=== PATIENT | female | born 1945 | race Caucasian/White ===

== ENCOUNTER → 2017-02-22 | Outpatient (CLI) | payer OTHER ==
[~2017-02-22] MED LIST: ATV5 PO; DULO60CA44 PO; LISI-725 PO; SYN50 PO; TRAM-10 PO; WARF5TAB90 PO
[2017-02-22 12:18] LABS: BASO % 0.4 %; BASO ABS # 0.03 K/uL (0-0.2); COMPLETE YES; EOS % 2.6 %; HEMATOCRIT 40.2 % (37-47); IG% 0.3 %; LYMPH % 33.4 %; LYMPH ABS # 2.33 K/uL (1.2-3.4); MEAN CELL VOLUME 92.2 fL (80-100); MEAN CORPUSCULAR HGB CONC 32.6 g/dl (32-36); MEAN PLATELET VOLUME 10.9 fL (7.4-10.4); MONO % 7.9 %; NEUT % 55.4 %; PLATELET COUNT 259 K/uL (130-400); RED BLOOD COUNT 4.36 M/uL (4.2-5.4); WHITE BLOOD COUNT 6.97 K/uL (4.8-10.8)
[2017-02-22 12:30] LABS: BLOOD UREA NITROGEN 22 mg/dl (7-18); BUN/CREATININE RATIO 18.4 (10-20); CARBON DIOXIDE 27 mmol/L (21-32); CHLORIDE 107 mmol/L (98-107); CHOLESTEROL 184 mg/dl (0-200); GLUCOSE 90 mg/dl (70-99); POTASSIUM 4.3 mmol/L (3.5-5.1); SODIUM 141 mmol/L (136-145); TRIGLYCERIDES 103 mg/dl (0-150); VERY LOW DENSITY LIPOPROT CALC 21 mg/dl
[2017-02-22 12:39] LABS: CALCIUM 9.3 mg/dl (8.5-10.1)
[2017-02-22 12:40] LABS: CHOLESTEROL/HDL RATIO 3.2; HDL CHOLESTEROL 58 mg/dl; LDL CHOLESTEROL CALCULATED 105 mg/dl
== END | disposition home or self-care (01) ==
LOC: C.LAB 10:24
PROVIDERS: ATTEND Internal Medicine Geriatric Medicine
DX: E78.5 Hyperlipidemia, unspecified (principal); I10 Essential (primary) hypertension; E03.9 Hypothyroidism, unspecified; M48.06 Spinal stenosis, lumbar region; Z51.81 Encounter for therapeutic drug level monitoring; Z79.01 Long term (current) use of anticoagulants; Z86.711 Personal history of pulmonary embolism

== ENCOUNTER → 2017-08-01 | Outpatient (CLI) | payer OTHER ==
[~2017-08-01] MED LIST changes: -ATV5 PO
[2017-08-01 14:44] LABS: BASO % 0.2 %; BASO ABS # 0.02 K/uL (0-0.2); COMPLETE YES; EOS % 0.8 %; HEMATOCRIT 39.9 % (37-47); IG% 0.2 %; LYMPH % 40.7 %; LYMPH ABS # 3.39 K/uL (1.2-3.4); MEAN CELL VOLUME 94.3 fL (80-100); MEAN CORPUSCULAR HEMOGLOBIN 29.6 pg (25-34); MEAN CORPUSCULAR HGB CONC 31.3 g/dl (32-36); MEAN PLATELET VOLUME 10.9 fL (7.4-10.4); MONO % 6.3 %; NEUT % 51.8 %; PLATELET COUNT 276 K/uL (130-400); RED BLOOD COUNT 4.23 M/uL (4.2-5.4); WHITE BLOOD COUNT 8.32 K/uL (4.8-10.8)
[2017-08-01 15:23] LABS: ALT/SGPT 17 U/L (12-78); AST/SGOT 14 U/L (15-37); BLOOD UREA NITROGEN 27 mg/dl (7-18); BUN/CREATININE RATIO 24.3 (10-20); CALCIUM 9.6 mg/dl (8.5-10.1); CARBON DIOXIDE 27 mmol/L (21-32); CHLORIDE 109 mmol/L (98-107); CREATININE 1.11 mg/dl (0.60-1.20); GLUCOSE 88 mg/dl (70-99); POTASSIUM 4.2 mmol/L (3.5-5.1); SODIUM 141 mmol/L (136-145)
[2017-08-01 15:26] LABS: ALB/GLOB RATIO 0.7 (0.9-2); ALKALINE PHOSPHATASE 102 U/L (45-117)
== END | disposition home or self-care (01) ==
LOC: C.LAB 13:17
PROVIDERS: ATTEND Internal Medicine Hematology & Oncology
DX: C50.912 Malignant neoplasm of unspecified site of left female breast (principal)

== ENCOUNTER → 2017-08-14 | Outpatient (CLI) | payer OTHER ==
--- NOTE | 2017-08-16 08:14 | MAMMOGRAPHY REPORT ---
BILATERAL DIGITAL DIAGNOSTIC MAMMOGRAM TOMOSYNTHESIS WITH CAD: 08/14/2017 CLINICAL HISTORY: 71-year-old woman presents to reassess microcalcifications near the lumpectomy bed in the left upper outer quadrant, and also due for annual bilateral mammography. TECHNIQUE: Bilateral breast tomosynthesis in addition to standard 2D mammography was performed. 2-D right XCCL, spot magnification left CC and ML views were also obtained. Current study was also evalu ated with a Computer Aided Detection (CAD) system. COMPARISON: Comparison is made to exams dated: 08/13/2016 mammogram, 02/08/2016 mammogram, 08/10/2015 mammogram, 07/27/2015 mammogram, 07/26/2014 mammogram, and 07/24/2013 mammogram - [facility]. BREAST COMPOSITION: The tissue of both breasts is almost entirely fatty. FINDINGS: There is persistent 2 x 3 cm focal asymmetry with adjacent surgical clips and associated re ticular calcification in the upper outer middle to posterior left breast at the site of prior lumpect josephine. Based on the spot magnification views, the calcifications at the surgical site appear reticular and dystrophic, therefore considered benign as they have demonstrated no significant interval change dating back to 2014. There are mild vascular calcifications in both breasts. No new suspicious mas s, architectural distortion or cluster of microcalcifications is seen bilaterally. IMPRESSION: ACR BI-RADS CATEGORY 2: BENIGN Stable mammographic appearance of the left breast, including benign-appearing dystrophic calcificatio ns near the lumpectomy bed. Also stable mammographic appearance of the right breast. Overall, no ma mmographic evidence of malignancy bilaterally. Recommend routine screening tomosynthesis mammography in one year. These results and recommendations were discussed with the patient at the time of the exam. Approximately 10% of breast cancers are not detected with mammography. A negative mammographic report should not delay biopsy if a clinically suggestive mass is present. Zo Barbosa M.D. ay/:08/14/2017 12:03:44 Trimming Assembler: Andrea MEAD(Kayode)(M), [facility] letter sent: Normal 1/2 BI-RADS Code: ACR BI-RADS Category 2: Benign
== END | disposition home or self-care (01) ==
LOC: C.MAMM 11:18
PROVIDERS: ATTEND Internal Medicine Hematology & Oncology
DX: Z51.81 Encounter for therapeutic drug level monitoring (principal); I26.99 Other pulmonary embolism without acute cor pulmonale; Z79.01 Long term (current) use of anticoagulants; R92.1 Mammographic calcification found on diagnostic imaging of breast; Z98.890 Other specified postprocedural states

== ENCOUNTER → 2017-10-17 | Outpatient (CLI) | payer OTHER ==
[2017-10-17 14:51] LABS: MEAN CORPUSCULAR HGB CONC 31.9 g/dl (32-36); MEAN PLATELET VOLUME 11.6 fL (7.4-10.4); PLATELET COUNT 268 K/uL (130-400)
[2017-10-17 14:58] LABS: ALBUMIN 3.3 gm/dl (3.4-5.0); ALT/SGPT 17 U/L (12-78); AST/SGOT 18 U/L (15-37); BLOOD UREA NITROGEN 20 mg/dl (7-18); CALCIUM 8.9 mg/dl (8.5-10.1); CARBON DIOXIDE 26 mmol/L (21-32); CREATININE 0.98 mg/dl (0.60-1.20); GLUCOSE 86 mg/dl (70-99); POTASSIUM 3.9 mmol/L (3.5-5.1); SODIUM 139 mmol/L (136-145)
[2017-10-17 15:09] LABS: ALKALINE PHOSPHATASE 92 U/L (45-117)
[2017-10-17 15:37] LABS: HEMATOCRIT 38.2 % (37-47); HEMOGLOBIN 12.2 g/dL (12.0-16.0); MEAN CELL VOLUME 92.7 fL (80-100); MEAN CORPUSCULAR HEMOGLOBIN 29.6 pg (25-34); RED CELL DISTRIBUTION WIDTH CV 14.5 % (11.5-14.5); RED CELL DISTRIBUTION WIDTH SD 48.8 fL (36.4-46.3); WHITE BLOOD COUNT 7.16 K/uL (4.8-10.8)
== END | disposition home or self-care (01) ==
LOC: C.LAB 12:53
PROVIDERS: ATTEND Internal Medicine Geriatric Medicine
DX: I10 Essential (primary) hypertension (principal); M19.90 Unspecified osteoarthritis, unspecified site; E03.9 Hypothyroidism, unspecified; E04.1 Nontoxic single thyroid nodule; E78.5 Hyperlipidemia, unspecified; Z79.01 Long term (current) use of anticoagulants; M85.80 Other specified disorders of bone density and structure, unspecified site

== ENCOUNTER → 2017-10-24 | Outpatient (CLI) | payer OTHER ==
--- NOTE | 2017-10-24 14:43 | DIAGNOSTIC IMAGING REPORT ---
L HIP UNILATERAL 2 VIEWS CLINICAL HISTORY: Left leg pain. COMPARISON STUDY: None. FINDINGS: No fracture or dislocation within the left hip. Moderate cartilage space narrowing with subchondral sclerosis consistent with degenerative change within the left hip. The visualized pelvic bones are intact. Soft tissues are unremarkable. IMPRESSION: Moderate osteoarthritis within the left hip. No fractures. Electronically signed by: Ronald Baker M.D. 10/24/2017 2:41 PM Dictated Date/Time: 10/24/2017 2:39 PM
== END | disposition home or self-care (01) ==
LOC: C.RADBC 14:23
PROVIDERS: ATTEND Internal Medicine Geriatric Medicine
DX: M79.605 Pain in left leg (principal); M16.12 Unilateral primary osteoarthritis, left hip

== ENCOUNTER → 2017-12-24 | Day surgery (SDC) | payer OTHER ==
[2017-12-12 10:25] VITALS: Ht 154.9 cm; Wt 133.2 kg
[~2017-12-24] VITALS: Ht 154.9 cm; Wt 133.2 kg
[~2017-12-24] MED LIST changes: +ACETAMINOPHEN 325 MG TAB PO PRN; +AMVISC PLAIN 0.8ML SYRINGE INT OCU ONE; +AMVISC PLUS 0.8ML SYRINGE INT OCU ONE; +ATROPINE SULFATE 0.1 MG/ML 5ML SYR IV PRN; +BSS FLUSH ONE; +CHOL2000 PO; +CIPR0.3S4 OPL; +DICL1GEL12 TOP; +EpHEDrine SULFATE INJ 50 MG/ML AMP IV PRN; +EpINEphrine INJ 1MG/ML AMP 1 MG/ML AMP ONE; +FENTANYL CITRATE INJ 50 MCG/1 ML 2 ML VIAL IV PRN; +FLUMAZENIL 0.1 MG/1 ML 10 ML VIAL IV PRN; +HYDROmorphone INJ 2 MG/ML SYR/VIAL IV PRN; +KETOROLAC; +LABETALOL HCL IV 5 MG/ML 20ML IV PRN; +LACTATED RINGER'S 1000ML 500 ML IV SCH; +LEVO50TA6 PO; +LIDOCAINE 3.5% OPH GEL PER APPLICATION CHARGE ONE; +LIDOCAINE HCL 1% MPF 2 ML VIAL ONE; +MEPERIDINE HCL 25 MG/ML CARP IV PRN; +MIDAZOLAM HCL 1 MG/ML 2ML VIAL ONE; +NALOXONE HCL 0.4 MG/1 ML VIAL/CARP IV PRN; +OCUCOAT 1 ML SOLN IO ONE; +ONDANSETRON INJ 2 MG/ML 2 ML VIAL IV PRN; +PHENYLEPHRINE 100MCG/ML 5ML SYR IV PRN; +POVIDONE-IODINE OP SOLN 30 ML BTL ONE; +PRED1SUS3 OPL; +PROPARACAINE 0.5% OP SOLN PER DROP CHARGE OPL SCH; -SYN50 PO; +TOBRAMYCIN/DEXAMETHASONE OPH OINT PER APPLN CHARGE ONE; +[UNRECOGNIZED DRUG - OTHER]
--- NOTE | 2017-12-24 10:19 | History & Physical Bridge - SC ---
H&P Re-Evaluation Bridge Note: I have examined the patient, reviewed the History & Physical and in the interval since the performance of the History & Physical I have noted the following changes of clinical significance: Diagnosis: Left Cataract Procedure: Left Cataract Removal with Lens Implant No changes noted
[2017-12-24] MEDS: PHENYLEPHRINE HCL 2.5% OP SOLN PER DROP CHARGE OPL SCH ×2 (10:31→10:36)
[2017-12-24] MEDS: TROPICAMIDE 1% OP SOLN PER DROP CHARGE OPL SCH ×2 (10:32→10:37)
[2017-12-24] MEDS: CYCLOPENTOLATE HCL 1% OP SOLN PER DROP CHARGE OPL SCH ×2 (10:33→10:38)
[2017-12-24] MEDS: KETOROLAC 0.5% OP SOLN PER DROP CHARGE OPL SCH ×2 (10:34→10:39)
[2017-12-24] MEDS: GATIFLOXACIN OP SOLN PER DROP CHARGE OPL SCH ×2 (10:35→10:51)
--- NOTE | 2017-12-24 11:37 | [facility] Operative Report ---
Operative Report Date of Service Dec 24, 2017. Operative Report 1. PREOPERATIVE DIAGNOSIS: Cataract of the left eye. 2. POSTOPERATIVE DIAGNOSIS: Same. 3. PROCEDURE: Phacoemulsification with intraocular lens implantation of the left eye. SURGEON: Dr. Tom Escalante. ANESTHESIA: Topical Lidocaine gel, 1% Non- Preserved intracameral Lidocaine, and monitored intravenous sedation. INDICATIONS FOR THE PROCEDURE: The patient is a 72 - year-old female with a history of cataract of the left eye causing significant visual impairment. The details of the proposed procedure were explained to the patient who asked appropriate questions and following discussion of all risks, benefits and alternatives agreed to have the procedure done. Patient had corneal astigmatism and therefore elected to have a toric lens placed. 4. OPERATION AND FINDINGS: DESCRIPTION OF PROCEDURE: After informed consent was obtained, the patient was placed in an upright position and the cornea was marked at 165 degrees using the Treatsie corneal marking tool. The patient was brought to the Operating Room at the [facility]. The patient was placed in a supine position and then the left eye was prepped and draped in the usual sterile fashion for intraocular surgery. A drop of topical Lidocaine gel was placed in the operative eye. A wire lid speculum was then placed in the fornices. A corneal paracentesis was then created temporally. The Non-Preserved Lidocaine was then instilled into the anterior chamber. The anterior chamber was then pressurized with viscoelastic. A 2.0 mm clear corneal incision was then created temporally. A cystotome was inserted into the anterior chamber and used to create a tear in the anterior lens capsule. This capsular tear was then used to create a small flap and the flap was dragged in a counterclockwise direction in order to create a continuous curvilinear capsulorrhexis. Hydrodissection was accomplished with balanced salt solution. Phacoemulsification of the lens nucleus was then performed in a standard divide- and-conquer technique. The phaco time was 14 seconds with an average power of 10 %. The remaining cortical material was removed using irrigation aspiration. The capsular bag was then filled with viscoelastic. A Hugo [id number] +22.5 diopters lens was then loaded into the injector and injected into the capsular bag. The remaining viscoelastic was removed with the irrigation aspiration handpiece. The lens was aligned with the previously made corneal reyna. The wound was hydrated and then checked and found to be watertight. The intraocular pressure was checked and found to be adequate. The wire lid speculum was removed and the patient's face was cleaned and dried. TobraDex ointment was placed in the inferior fornix. The patient was discharged to the Recovery Room having tolerated the procedure well. There were no complications. The patient will be seen tomorrow in the office for follow-up. I attest to the content of the Intraoperative Record and any orders documented therein. Any exceptions are noted below.
--- NOTE | 2017-12-24 11:37 | Discharge Instructions-SurgCtr ---
Discharge Instructions Date of Service Dec 24, 2017. Visit Reason for Visit: Cataract Left Eye Discharge Discharge Diagnosis / Problem: cataract Discharge Goals Goal(s): Improve function Activity Recommendations Activity Limitations: per Instructions/Follow-up section Anesthesia . Post Anesthesia Instructions: If you have had General Anesthesia or IV Sedation: * Do not drive today. * Resume driving when surgeon permits. * Do not make important decisions or sign legal documents today. * Call surgeon for: 1. Temperature elevations greater than 101 degrees F. 2. Uncontrollable pain. 3. Excessive bleeding. 4. Persistent nausea and vomiting. 5. Medication intolerance (nausea, vomiting or rash). * For nausea and vomiting use only clear liquids such as: tea, soda, bouillon until nausea subsides, then gradually increase diet as tolerated. * If you have any concerns or questions, call your surgeon's office. If physician is unavailable and it is an emergency, call 911 or go to the nearest emergency room. . Diet Recommendations Home Diet: resume previous diet Procedures Procedures Performed: Left Cataract Phacoemulsification With Intraocular Lens Implant Pending Studies Studies pending at discharge: no Medical Emergencies . Who to Call and When: Medical Emergencies: If at any time you feel your situation is an emergency, please call 911 immediately. . Non-Emergent Contact Non-Emergency issues call your: Commodity Buyer . . "Provider Documentation" section prepared by Tom Escalante. .
[2017-12-24 11:40] VITALS: TEMP 36.8
--- NOTE | 2017-12-24 12:03 | Anesthesia Progress Nt - [facility] ---
Anesthesia Post Op Note Date & Time Dec 24, 2017 at 12:03 Vital Signs Pain Intensity: 0 Vital Signs Past 12 Hours Date Time Temp Pulse Resp B/P (MAP) Pulse Ox O2 Delivery O2 Flow Rate FiO2 12/24/17 11:40 36.8 84 16 146/78 (100) 96 Room Air 12/24/17 10:14 36.8 91 20 125/79 (94) 96 Room Air Notes Mental Status: alert / awake / arousable, participated in evaluation Pt Amnestic to Procedure: Yes Nausea / Vomiting: adequately controlled Pain: adequately controlled Airway Patency, RR, SpO2: stable & adequate BP & HR: stable & adequate Hydration State: stable & adequate Anesthetic Complications: no major complications apparent
[2017-12-24 12:09] VITALS: BP 131/76; PULSE 84; O2SAT 95
== END | disposition home or self-care (01) ==
LOC: X.SURG 09:55
PROVIDERS: ATTEND Ophthalmology
DX: H26.9 Unspecified cataract (principal); E66.9 Obesity, unspecified; I10 Essential (primary) hypertension; E03.9 Hypothyroidism, unspecified; E78.5 Hyperlipidemia, unspecified; Z85.3 Personal history of malignant neoplasm of breast; Z68.43 Body mass index [BMI] 50.0-59.9, adult; F41.8 Other specified anxiety disorders; Z98.890 Other specified postprocedural states; Z79.899 Other long term (current) drug therapy; Z79.01 Long term (current) use of anticoagulants

== ENCOUNTER → 2018-01-07 | Day surgery (SDC) | payer OTHER ==
[2018-01-02 14:30] VITALS: Ht 154.9 cm; Wt 133.2 kg
[~2018-01-07] VITALS: Ht 154.9 cm; Wt 133.2 kg
[~2018-01-07] MED LIST changes: +500ML BSS 0.3ML EPI 1:1000PF IRRIG ONE; -AMVISC PLAIN 0.8ML SYRINGE INT OCU ONE; -CIPR0.3S4 OPL; -FENTANYL CITRATE INJ 50 MCG/1 ML 2 ML VIAL IV PRN; -FLUMAZENIL 0.1 MG/1 ML 10 ML VIAL IV PRN; -HYDROmorphone INJ 2 MG/ML SYR/VIAL IV PRN; -KETOROLAC; -LABETALOL HCL IV 5 MG/ML 20ML IV PRN; -MEPERIDINE HCL 25 MG/ML CARP IV PRN; -NALOXONE HCL 0.4 MG/1 ML VIAL/CARP IV PRN; -PHENYLEPHRINE 100MCG/ML 5ML SYR IV PRN; -PRED1SUS3 OPL; -PROPARACAINE 0.5% OP SOLN PER DROP CHARGE OPL SCH; +PROPARACAINE 0.5% OP SOLN PER DROP CHARGE OPR SCH; -[UNRECOGNIZED DRUG - OTHER]
[2018-01-07] MEDS: PHENYLEPHRINE HCL 2.5% OP SOLN PER DROP CHARGE OPR SCH ×2 (08:54→08:59)
[2018-01-07] MEDS: TROPICAMIDE 1% OP SOLN PER DROP CHARGE OPR SCH ×2 (08:55→09:00)
[2018-01-07] MEDS: CYCLOPENTOLATE HCL 1% OP SOLN PER DROP CHARGE OPR SCH ×2 (08:56→09:01)
[2018-01-07] MEDS: KETOROLAC 0.5% OP SOLN PER DROP CHARGE OPR SCH ×2 (08:57→09:02)
[2018-01-07] MEDS: GATIFLOXACIN OP SOLN PER DROP CHARGE OPR SCH ×2 (08:58→09:10)
--- NOTE | 2018-01-07 09:25 | History & Physical Bridge - SC ---
H&P Re-Evaluation Bridge Note: I have examined the patient, reviewed the History & Physical and in the interval since the performance of the History & Physical I have noted the following changes of clinical significance: Diagnosis: Right Cataract Procedure: Right Cataract Removal with Lens Implant No changes noted
--- NOTE | 2018-01-07 10:01 | [facility] Operative Report ---
Operative Report Date of Service Jan 07, 2018. Operative Report 1. PREOPERATIVE DIAGNOSIS: Cataract of the right eye. 2. POSTOPERATIVE DIAGNOSIS: Same. 3. PROCEDURE: Phacoemulsification with intraocular lens implantation of the right eye. SURGEON: Dr. Tom Escalante. ANESTHESIA: Topical Lidocaine gel, 1% Non- Preserved intracameral Lidocaine, and monitored intravenous sedation. INDICATIONS FOR THE PROCEDURE: The patient is a 72 - year-old female with a history of cataract of the right eye causing significant visual impairment. The details of the proposed procedure were explained to the patient who asked appropriate questions and following discussion of all risks, benefits and alternatives agreed to have the procedure done. 4. OPERATION AND FINDINGS: DESCRIPTION OF PROCEDURE: After informed consent was obtained, the patient was brought to the Operating Room at the [facility]. The patient was placed in a supine position and then the right eye was prepped and draped in the usual sterile fashion for intraocular surgery. A drop of topical Lidocaine gel was placed in the operative eye. A wire lid speculum was then placed in the fornices. A corneal paracentesis was then created temporally. The Non-Preserved Lidocaine was then instilled into the anterior chamber. The anterior chamber was then pressurized with viscoelastic. A 2.0 mm clear corneal incision was then created temporally. A cystotome was inserted into the anterior chamber and used to create a tear in the anterior lens capsule. This capsular tear was then used to create a small flap and the flap was dragged in a counterclockwise direction in order to create a continuous curvilinear capsulorrhexis. Hydrodissection was accomplished with balanced salt solution. Phacoemulsification of the lens nucleus was then performed in a standard [id number] technique. The phaco time was 18 seconds with an average power of 11 %. The remaining cortical material was removed using irrigation aspiration. The capsular bag was then filled with viscoelastic. A Hugo [id number] +22.0 diopters lens was then loaded into the injector and injected into the capsular bag. The remaining viscoelastic was removed with the irrigation aspiration handpiece. The wound was hydrated and then checked and found to be watertight. The intraocular pressure was checked and found to be adequate. The wire lid speculum was removed and the patient's face was cleaned and dried. TobraDex ointment was placed in the inferior fornix. The patient was discharged to the Recovery Room having tolerated the procedure well. There were no complications. The patient will be seen tomorrow in the office for follow-up. I attest to the content of the Intraoperative Record and any orders documented therein. Any exceptions are noted below.
--- NOTE | 2018-01-07 10:02 | Discharge Instructions-SurgCtr ---
Discharge Instructions Date of Service Jan 07, 2018. Visit Reason for Visit: Cataract Right Eye Discharge Discharge Diagnosis / Problem: cataract Discharge Goals Goal(s): Improve function Activity Recommendations Activity Limitations: per Instructions/Follow-up section Anesthesia . Post Anesthesia Instructions: If you have had General Anesthesia or IV Sedation: * Do not drive today. * Resume driving when surgeon permits. * Do not make important decisions or sign legal documents today. * Call surgeon for: 1. Temperature elevations greater than 101 degrees F. 2. Uncontrollable pain. 3. Excessive bleeding. 4. Persistent nausea and vomiting. 5. Medication intolerance (nausea, vomiting or rash). * For nausea and vomiting use only clear liquids such as: tea, soda, bouillon until nausea subsides, then gradually increase diet as tolerated. * If you have any concerns or questions, call your surgeon's office. If physician is unavailable and it is an emergency, call 911 or go to the nearest emergency room. . Diet Recommendations Home Diet: resume previous diet Procedures Procedures Performed: Right Cataract Phacoemulsification With Intraocular Lens Implant Pending Studies Studies pending at discharge: no Medical Emergencies . Who to Call and When: Medical Emergencies: If at any time you feel your situation is an emergency, please call 911 immediately. . Non-Emergent Contact Non-Emergency issues call your: Vehicle Safety Inspector . . "Provider Documentation" section prepared by Tom Escalante. .
[2018-01-07 10:28] VITALS: BP 151/77; PULSE 77; O2SAT 96
--- NOTE | 2018-01-07 10:39 | Anesthesia Progress Nt - [facility] ---
Anesthesia Post Op Note Date & Time Jan 07, 2018 at 10:39 Vital Signs Pain Intensity: 0 Vital Signs Past 12 Hours Date Time Temp Pulse Resp B/P (MAP) Pulse Ox O2 Delivery O2 Flow Rate FiO2 01/07/18 10:28 77 16 151/77 (101) 96 Room Air 01/07/18 10:01 36.8 80 16 150/71 (97) 95 Room Air 01/07/18 08:44 37.2 82 20 147/74 (98) 96 Room Air Notes Mental Status: alert / awake / arousable, participated in evaluation Pt Amnestic to Procedure: Yes Nausea / Vomiting: adequately controlled Pain: adequately controlled Airway Patency, RR, SpO2: stable & adequate BP & HR: stable & adequate Hydration State: stable & adequate Anesthetic Complications: no major complications apparent
== END | disposition home or self-care (01) ==
LOC: X.SURG 08:18
PROVIDERS: ATTEND Ophthalmology
DX: H26.9 Unspecified cataract (principal); I10 Essential (primary) hypertension; M19.90 Unspecified osteoarthritis, unspecified site; F41.8 Other specified anxiety disorders; E03.9 Hypothyroidism, unspecified; M85.80 Other specified disorders of bone density and structure, unspecified site; E78.5 Hyperlipidemia, unspecified; Z86.711 Personal history of pulmonary embolism; Z79.01 Long term (current) use of anticoagulants; Z68.43 Body mass index [BMI] 50.0-59.9, adult; Z85.3 Personal history of malignant neoplasm of breast

== ENCOUNTER 2019-05-10 19:35 | Inpatient (IN) ==
[2019-05-10] MEDS ORDERED: ONDANSETRON INJ 2 MG/ML 2 ML VIAL IV STA (19:41)
[2019-05-10] MEDS: MoRPHine SULFATE 4 MG/ML 1 ML CARP\\VIAL IV PRN ×3 (19:55→23:21)
[2019-05-10 20:11] LABS: Basophils # (auto) 0.01 K/uL (0-0.2); Basophils % (auto) 0.1 %; Eosinophils # (auto) 0.03 K/uL (0-0.5); Eosinophils % (auto) 0.3 %; Hematocrit (blood only) 38.3 % (37-47); Hemoglobin 12.4 g/dL (12.0-16.0); Immature Granulocytes # (auto) 0.03 K/uL (0.00-0.02); Immature Granulocytes % (auto) 0.3 %; Lymphocytes # (auto) 1.55 K/uL (1.2-3.4); Lymphocytes % (auto) 13.5 %; Mean Corpuscular Hgb Conc 32.4 g/dL (32-36); Mean Corpuscular Volume 92.7 fL (80-100); Mean Platelet Volume 11.3 fL (7.4-10.4); Monocytes # (auto) 0.57 K/uL (0.11-0.59); Monocytes % (auto) 4.9 %; Neutrophils # (auto) 9.33 K/uL (1.4-6.5); Neutrophils % (auto) 80.9 %; Platelet Count 254 K/uL (130-400); RDW Coefficient of Variation 13.7 % (11.5-14.5); Red Blood Count 4.13 M/uL (4.2-5.4); White Blood Count 11.52 K/uL (4.8-10.8)
[2019-05-10 20:22] LABS: Partial Thromboplastin Ratio 1.1; Partial Thromboplastin Time 29.8 Seconds (21.0-31.0); Prothrombin Time 19.8 Seconds (9.0-12.0)
[2019-05-10 20:28] LABS: Blood Urea Nitrogen 38 mg/dl (7-18); Calcium 9.6 mg/dl (8.5-10.1); Carbon Dioxide 27 mmol/L (21-32); Chloride 108 mmol/L (98-107); Creatinine Clr Calc Pharmacy 42.6 ml/min; Est GFR (African American) 43.4; Est GFR (Non-African American) 37.4; Glucose 121 mg/dl (70-99); Potassium 4.4 mmol/L (3.5-5.1); Sodium 142 mmol/L (136-145)
[2019-05-10 20:32] LABS: Troponin I < 0.015 ng/ml (0-0.045)
--- NOTE | 2019-05-10 20:42 | XRay Report ---
XR knee LT 2V routine CLINICAL HISTORY: fall trauma. Pain. COMPARISON: 07/04/2018 DISCUSSION: Total left knee arthroplasty. Could contact between prosthetic and underlying bone. No evidence for fracture. No significant joint effusion. There is no evidence for soft tissue swellin g. IMPRESSION: Negative study post total left knee arthroplasty. The above report was generated using voice recognition software. It may contain grammatical, syntax or spelling errors. Electronically signed by: Augusto Camarillo M.D. 05/10/2019 8:40 PM
--- NOTE | 2019-05-10 20:42 | XRay Report ---
XR chest 1V portable CLINICAL HISTORY: fall trauma COMPARISON STUDY: 04/29/2006 FINDINGS: The bones soft tissues and hemidiaphragms are normal. The cardiomediastinal silhouette is n ormal. The lungs are clear. The pulmonary vasculature is normal. IMPRESSION: Negative chest. The above report was generated using voice recognition software. It may contain grammatical, syntax or spelling errors. Electronically signed by: Augusto Camarillo M.D. 05/10/2019 8:39 PM
--- NOTE | 2019-05-10 21:05 | XRay Report ---
XR femur LT 2V routine CLINICAL HISTORY: fall COMPARISON: None. DISCUSSION: Severe degenerative change left hip. Substance loss of the femoral head on a degenerative basis. No acute bony normality of the femur. Total left knee arthroplasty is present. There is no evidence f or soft tissue swelling. IMPRESSION: 1. No acute bony abnormality. 2. Severe degenerative change left hip. The above report was generated using voice recognition software. It may contain grammatical, syntax or spelling errors. Electronically signed by: Augusto Camarillo M.D. 05/10/2019 9:03 PM
[2019-05-10] MEDS ORDERED: OPTIRAY 320 125ml IV PRN (21:38)
--- NOTE | 2019-05-10 22:11 | CT Scan Report ---
Study: CT angiogram of the femur HISTORY:: Trauma. The. FINDINGS: Severe degenerative changes left hip. This has been described previously. Extensive atherosclerotic plaque formation throughout all major arterial structures of the left thigh . No evidence for high-grade stenotic process. IMPRESSION: 1. Extensive atherosclerotic plaque formation. 2. No evidence for significant stenosis. 3. Severe degenerative change left hip. Electronically signed by: Augusto Camarillo M.D. 05/10/2019 10:10 PM
[2019-05-10 22:17] LABS: Appearance Urine Clear (Clear); Bacteria Urine Automated Negative (Negative); Bilirubin Urine Negative (Negative); Blood Urine 1+ (Negative); Color Urine Yellow; Epithelial Cell Urine Auto 20-30 /lpf (0-5); Glucose Urine UA Negative (Negative); Ketones Urine Negative (Negative); Leukocyte Esterase Urine Negative (Negative); Nitrite Urine Negative (Negative); Protein Urine Negative (Negative); RBC Urine Automated 0-4 /hpf (0-4); Specific Gravity Urine 1.019 (1.000-1.030); Urobilinogen Urine Negative (Negative); WBC Urine Automated 0 /hpf (0-5)
--- NOTE | 2019-05-10 22:22 | CT Scan Report ---
Study: CT angiography of the lower leg HISTORY: Trauma. Claudication. Pain. FINDINGS: Extensive atherosclerotic plaque from aeration is noted throughout the left lower leg. Thre e-vessel runoff is present. Flow characteristics appear somewhat dampened. There is no evidence for c omplete vascular occlusion. IMPRESSION:. 1. Extensive plaque formation throughout all major vascular structures of the lower leg. 2. Dampened flow characteristics are present, presumably on an atherosclerotic basis. 3. There is no evidence for complete vascular occlusion of any primary vessel of the lower leg, altho ugh moderate to rather significant multilevel atherosclerotic narrowing is present. Electronically signed by: Augusto Camarillo M.D. 05/10/2019 10:20 PM
--- NOTE | 2019-05-10 22:46 | Emergency Department Note ---
Entered by Cammy Mcghee acting as a scribe for Santiago Maher DO History of Present Illness General Chief complaint: Knee Injury/Pain Time Seen by Provider: 05/10/19 19:37 Source: patient Mode of arrival: ambulatory Limitations: no limitations History of Present Illness Provider complaint: left knee pain Onset (ago): hour(s) 3 Location: knee and left Pain Consistency: + other (episode ) Relieved By: + movement Associated symptoms: + other (numbness in left leg and foot) Treatments prior to arrival: none The patient is a 73 year old female who presents to the ED with complaints of an episode of left knee pain that began 3 hours ago. The patient states that she feels pain in in the inside of her left knee. The patient states that her left leg and foot are starting to feel numb. The patient states that she was walking from the kitchen to her dining room when she fell on her knee around 1630 this evening. The patient states that the pain is exacerbated by movement. She states that she had a left total knee replacement [address] Osorio. The patient states that she had ice cream 2 hours ago. The patient states that she had nothing prior to arrival. Home Medications Home Medications Medication Instructions Recorded Confirmed Type diclofenac 1 % topical gel 2 gm TOP QID 06/12/18 05/10/19 History lisinopril 20 mg tablet 20 mg PO QAM tab 06/12/18 05/10/19 History fesoterodine ER 4 mg 4 mg PO DAILY #30 tab 02/24/19 05/10/19 Rx tablet,extended release 24 hr levothyroxine 50 mcg capsule 50 mcg PO DAILY #90 cap 03/04/19 05/10/19 Rx baclofen 10 mg tablet 10 mg PO BID #60 tab 03/18/19 05/10/19 History warfarin 5 mg tablet See Rx Instructions PO UD tab 03/18/19 05/10/19 History pravastatin 10 mg tablet 10 mg PO DAILY #90 tab 04/16/19 05/10/19 Rx gabapentin 300 mg capsule 300 mg PO TID #90 cap 04/22/19 05/10/19 Rx cholecalciferol (vitamin D3) 1,000 1,000 units PO DAILY cap 05/08/19 05/10/19 History unit capsule duloxetine 60 mg capsule,delayed 60 mg PO HS cap 05/08/19 05/10/19 History release solifenacin 5 mg tablet 5 mg PO DAILY 05/08/19 05/10/19 History tramadol 50 mg tablet 100 mg PO Q6H PRN tab 05/08/19 05/10/19 History Allergies Allergy/AdvReac Type Severity Reaction Status Date / Time atorvastatin Allergy Unknown Verified 05/10/19 20:15 calcium Allergy CAUSES Verified 05/10/19 20:15 KIDNEY STONES docosahexanoic acid Allergy Unknown Verified 05/10/19 20:15 [From [facility]] eicosapentaenoic acid Allergy Unknown Verified 05/10/19 20:15 [From [facility]] fish oil Allergy Unknown Verified 05/10/19 20:15 [From [facility]] lutein Allergy Unknown Verified 05/10/19 20:15 [From [facility]] omega-3 fatty acids Allergy Unknown Verified 05/10/19 20:15 [From [facility]] pravastatin Allergy Unknown Verified 05/10/19 20:15 vitamin C, E, zinc, copper Allergy Unknown Verified 05/10/19 20:15 combination no.11 [From [facility]] zeaxanthin Allergy Unknown Verified 05/10/19 20:15 [From [facility]] Past Med/Surg History Medical History BMI 50.0-59.9, adult (Acute) Cataract (Acute) Chronic anticoagulation (Acute) Depression with anxiety (Acute) Dyslipidemia (Acute) Goiter diffuse, nontoxic (Acute) History of pulmonary embolism (Resolved) History of breast cancer (Resolved) Insomnia (Acute) Joint pain, hip (Acute) Lumbar radiculopathy (Acute) Osteoarthritis (Acute) Osteopenia (Acute) Thyroid nodule (Acute) Urinary incontinence (Acute) Vitamin D deficiency (Acute) Left lumbar radiculitis (Chronic) Myofascial pain (Chronic) Lumbar spinal stenosis (Chronic) Severe multifactorial multilevel most prominent at L2-3 and L3-4 on MRI dated 03/05/2016 Left hip pain (Chronic) Arthritis (Chronic) Depression (Chronic) Hypertension (Chronic) Hypothyroidism (Chronic) Obesity (Chronic) Pulmonary embolism (Chronic) Chronic Coumadin treatment History of breast cancer (Resolved) Surgical History H/O lumbosacral spine surgery (Resolved) History of lumpectomy (Resolved) Hx of cholecystectomy (Resolved) Hx of total knee arthroplasty (Resolved) Family History Other No significant family history Social History Preferred Language: Turkish Feels Safe at Home: Yes Smoking Status: Never smoker Review of Systems See HPI for pertinent positives & negatives. and A total of 10 systems reviewed and were otherwise negative Physical Exam Vital Signs Vital Signs - 24 hr 05/10/19 19:23 05/10/19 19:37 05/10/19 20:08 Temperature 36.9 C Temperature Source Oral Sepsis Recent Fever Within 48 Hours No Sepsis Action Taken by Nursing No Action Required Pulse Rate 108 H 105 H 102 H Pulse Rate from SpO2 Sensor 104 H 102 H Respiratory Rate 22 26 H 26 H Respiratory Effort / Characteristics Normal for Patient Blood Pressure 171/66 H 171/66 H Blood Pressure Mean 101 101 Blood Pressure Position Lying Pulse Oximetry 95 97 98 Oxygen Delivery Method Room Air 05/10/19 20:30 05/10/19 20:37 05/10/19 20:38 Temperature Temperature Source Sepsis Recent Fever Within 48 Hours Sepsis Action Taken by Nursing Pulse Rate 105 H 99 H Pulse Rate from SpO2 Sensor 104 H 97 H 98 H Respiratory Rate 27 H 24 15 Respiratory Effort / Characteristics Blood Pressure 133/93 Blood Pressure Mean 106 Blood Pressure Position Pulse Oximetry 90 94 89 L Oxygen Delivery Method 05/10/19 21:00 05/10/19 21:52 05/10/19 22:00 Temperature Temperature Source Sepsis Recent Fever Within 48 Hours Sepsis Action Taken by Nursing Pulse Rate 100 H 99 H 99 H Pulse Rate from SpO2 Sensor 100 H 100 H 99 H Respiratory Rate 23 18 20 Respiratory Effort / Characteristics Blood Pressure 163/68 H Blood Pressure Mean 99 Blood Pressure Position Pulse Oximetry 93 93 92 Oxygen Delivery Method 05/10/19 22:03 Temperature Temperature Source Sepsis Recent Fever Within 48 Hours Sepsis Action Taken by Nursing Pulse Rate 99 H Pulse Rate from SpO2 Sensor 99 H Respiratory Rate 29 H Respiratory Effort / Characteristics Blood Pressure 152/75 H Blood Pressure Mean 100 Blood Pressure Position Pulse Oximetry 93 Oxygen Delivery Method GENERAL: Patient is awake, alert, and in no acute distress.Patient is anxious appearing and uncomfortable. EYES: The conjunctivae are clear. The pupils are round and reactive. EARS, NOSE, MOUTH AND THROAT: The nose is without any evidence of any deformity. Mucous membranes are moist.Tongue is midline NECK: The neck is nontender and supple. RESPIRATORY: Normal respiratory effort is noted. There is no evidence of wheezing rhonchi or rales to auscultation. CARDIOVASCULAR: Regular rate and rhythm noted. There no murmurs rubs or gallops normal S1 normal S2 GASTROINTESTINAL: The abdomen is soft. Bowel sounds are present in all quadrants. Abdomen is nontender. MUSCULOSKELETAL/EXTREMITIES: There is no evidence of gross deformity. Full range of motion is noted in the hips and shoulders. Significant deformity and shortening of the left lower extremity, significant knee swelling appreciated with ecchymosis, ROM of testing of the left knee was deferred at this time. SKIN: There is no obvious evidence of any rash. There are no petechiae, pallor or cyanosis noted. No pedal edema, pulses were palpable in the left foot, skin color was cold and capillary refill was delayed. NEUROLOGIC: Patient is awake alert and oriented x3. Course 1938: Past medical records reviewed. The patient was evaluated in room C6. A complete history and physical exam was performed. 1033: I reevaluated the patient at this time and she is unable to move her left hip. The hospice case manager are going to look into making a referral to rehab for the patient. 2317: The leather case finisher informed me that the patient asked to be admitted for pain management. 2328: I [facility] the [facility] agreed to evaluate the patient for further management. Administered Medications Ioversol (Optiray 320 125ml) 120 ml IV ONCE PRN PRN Reason: Interaction Checking Stop: 05/14/19 21:37 Last Admin: 05/10/19 21:38 Dose: 120 ml Documented by: [id number] Morphine Sulfate (Morphine Sulfate) 4 mg IV Q15M PRN PRN Reason: Pain Stop: 05/24/19 19:40 Last Admin: 05/10/19 23:21 Dose: 4 mg Documented by: [id number] Admin: 05/10/19 20:38 Dose: 4 mg Documented by: [id number] Admin: 05/10/19 19:55 Dose: 4 mg Documented by: [id number] Discontinued Medications Ondansetron HCl (Zofran) 4 mg IV NOW STA Stop: 05/10/19 19:42 Last Admin: 05/10/19 19:55 Dose: 4 mg Documented by: [id number] Medical Decision Making Differential Diagnosis Differential diagnosis: Etiologies such as fracture, cervical/vertebral injury, dislocation, intra-abdominal process, pneumothorax, intrathoracic trauma, intracranial injury, soft tissue injury, neurologic process, as well as other traumatic pathologies were entertained. Medical Records Attestation: I reviewed the patient's medical records. Home Medications Current Medication List: was personally reviewed by fl Laboratory Data Attestation: I reviewed the patient's lab results. Result diagrams: 05/10/19 19:47 05/10/19 19:47 Lab Results 05/10/19 05/10/19 05/10/19 Range/Units 19:47 19:47 19:47 WBC 11.52 H (4.8-10.8) K/uL RBC 4.13 L (4.2-5.4) M/uL Hgb 12.4 (12.0-16.0) g/dL Hct 38.3 (37-47) % MCV 92.7 (80-100) fL MCH 30.0 (25-34) pg MCHC 32.4 (32-36) g/dL RDW Std Deviation 46.0 (36.4-46.3) fL RDW Coeff of Marii 13.7 (11.5-14.5) % Plt Count 254 (130-400) K/uL MPV 11.3 H (7.4-10.4) fL Immature Gran % (Auto) 0.3 % Neut % (Auto) 80.9 % Lymph % (Auto) 13.5 % Isabella % (Auto) 4.9 % Eos % (Auto) 0.3 % Baso % (Auto) 0.1 % Immature Gran # (Auto) 0.03 H (0.00-0.02) K/uL Neut # (Auto) 9.33 H (1.4-6.5) K/uL Lymph # (Auto) 1.55 (1.2-3.4) K/uL Isabella # (Auto) 0.57 (0.11-0.59) K/uL Eos # (Auto) 0.03 (0-0.5) K/uL Baso # (Auto) 0.01 (0-0.2) K/uL PT 19.8 H (9.0-12.0) Seconds INR 2.0 H (0.9-1.1) APTT 29.8 (21.0-31.0) Seconds PTT Ratio 1.1 Sodium 142 (136-145) mmol/L Potassium 4.4 (3.5-5.1) mmol/L Chloride 108 H (98-107) mmol/L Carbon Dioxide 27 (21-32) mmol/L Anion Gap 7.0 (3-11) BUN 38 H (7-18) mg/dl Creatinine 1.40 H (0.6-1.2) mg/dl Est Cr Clr Drug Dosing 42.6 ml/min Est GFR ( Amer) 43.4 Est GFR (Non-Af Amer) 37.4 BUN/Creatinine Ratio 27.0 H (10-20) Glucose 121 H (70-99) mg/dl Calcium 9.6 (8.5-10.1) mg/dl Troponin I < 0.015 (0-0.045) ng/ml Urine Color Urine Appearance (Clear) Urine pH (4.5-7.5) Ur Specific Horseheads (1.000-1.030) Urine Protein (Negative) Urine Glucose (UA) (Negative) Urine Ketones (Negative) Urine Blood (Negative) Urine Nitrite (Negative) Urine Bilirubin (Negative) Urine Urobilinogen (Negative) Ur Leukocyte Esterase (Negative) Urine WBC (Auto) (0-5) /hpf Urine RBC (Auto) (0-4) /hpf U Hyaline Cast (Auto) (0-5) /lpf U Epithel Cells (Auto) (0-5) /lpf Urine Bacteria (Auto) (Negative) Blood Type Antibody Screen 05/10/19 05/10/19 Range/Units 19:47 22:00 WBC (4.8-10.8) K/uL RBC (4.2-5.4) M/uL Hgb (12.0-16.0) g/dL Hct (37-47) % MCV (80-100) fL MCH (25-34) pg MCHC (32-36) g/dL RDW Std Deviation (36.4-46.3) fL RDW Coeff of Marii (11.5-14.5) % Plt Count (130-400) K/uL MPV (7.4-10.4) fL Immature Gran % (Auto) % Neut % (Auto) % Lymph % (Auto) % Isabella % (Auto) % Eos % (Auto) % Baso % (Auto) % Immature Gran # (Auto) (0.00-0.02) K/uL Neut # (Auto) (1.4-6.5) K/uL Lymph # (Auto) (1.2-3.4) K/uL Isabella # (Auto) (0.11-0.59) K/uL Eos # (Auto) (0-0.5) K/uL Baso # (Auto) (0-0.2) K/uL PT (9.0-12.0) Seconds INR (0.9-1.1) APTT (21.0-31.0) Seconds PTT Ratio Sodium (136-145) mmol/L Potassium (3.5-5.1) mmol/L Chloride (98-107) mmol/L Carbon Dioxide (21-32) mmol/L Anion Gap (3-11) BUN (7-18) mg/dl Creatinine (0.6-1.2) mg/dl Est Cr Clr Drug Dosing ml/min Est GFR ( Amer) Est GFR (Non-Af Amer) BUN/Creatinine Ratio (10-20) Glucose (70-99) mg/dl Calcium (8.5-10.1) mg/dl Troponin I (0-0.045) ng/ml Urine Color Yellow Urine Appearance Clear (Clear) Urine pH 5.0 (4.5-7.5) Ur Specific [place] 1.019 (1.000-1.030) Urine Protein Negative (Negative) Urine Glucose (UA) Negative (Negative) Urine Ketones Negative (Negative) Urine Blood 1+ H (Negative) Urine Nitrite Negative (Negative) Urine Bilirubin Negative (Negative) Urine Urobilinogen Negative (Negative) Ur Leukocyte Esterase Negative (Negative) Urine WBC (Auto) 0 (0-5) /hpf Urine RBC (Auto) 0-4 (0-4) /hpf U Hyaline Cast (Auto) 1-5 (0-5) /lpf U Epithel Cells (Auto) 20-30 H (0-5) /lpf Urine Bacteria (Auto) Negative (Negative) Blood Type A Positive Antibody Screen NEGATIVE Imaging Data Radiologist's Impression: Radiology results as stated below per my review and t he radiologist's interpretation: XR chest 1V portable CLINICAL HISTORY: fall trauma COMPARISON STUDY: 04/29/2006 FINDINGS: The bones soft tissues and hemidiaphragms are normal. The cardiomediastinal silhouette is normal. The lungs are clear. The pulmonary vasculature is normal. IMPRESSION: Negative chest. The above report was generated using voice recognition software. It may contain grammatical, syntax or spelling errors. Electronically signed by: Augusto Camarillo M.D. 05/10/2019 8:39 PM XR knee LT 2V routine CLINICAL HISTORY: fall trauma. Pain. COMPARISON: 07/04/2018 DISCUSSION: Total left knee arthroplasty. Could contact between prosthetic and underlying bone. No evidence for fracture. No significant joint effusion. There is no evidence for soft tissue swelling. IMPRESSION: Negative study post total left knee arthroplasty. The above report was generated using voice recognition software. It may contain grammatical, syntax or spelling errors. Electronically signed by: Augusto Camarillo M.D. 05/10/2019 8:40 PM XR femur LT 2V routine CLINICAL HISTORY: fall COMPARISON: None. DISCUSSION: Severe degenerative change left hip. Substance loss of the femoral head on a degenerative basis. No acute bony normality of the femur. Total left knee arthroplasty is present. There is no evidence for soft tissue swelling. IMPRESSION: 1. No acute bony abnormality. 2. Severe degenerative change left hip. The above report was generated using voice recognition software. It may contain grammatical, syntax or spelling errors. Electronically signed by: Augusto Camarillo M.D. 05/10/2019 9:03 PM Study: CT angiography of the lower leg HISTORY: Trauma. Claudication. Pain. FINDINGS: Extensive atherosclerotic plaque from aeration is noted throughout the left lower leg. Three-vessel runoff is present. Flow characteristics appear somewhat dampened. There is no evidence for complete vascular occlusion. IMPRESSION:. 1. Extensive plaque formation throughout all major vascular structures of the lower leg. 2. Dampened flow characteristics are present, presumably on an atherosclerotic basis. 3. There is no evidence for complete vascular occlusion of any primary vessel of the lower leg, although moderate to rather significant multilevel atherosclerotic narrowing is present. Electronically signed by: Augusto Camarillo M.D. 05/10/2019 10:20 PM Study: CT angiogram of the femur HISTORY:: Trauma. The. FINDINGS: Severe degenerative changes left hip. This has been described previously. Extensive atherosclerotic plaque formation throughout all major arterial structures of the left thigh. No evidence for high-grade stenotic process. IMPRESSION: 1. Extensive atherosclerotic plaque formation. 2. No evidence for significant stenosis. 3. Severe degenerative change left hip. Electronically signed by: Augusto Camarillo M.D. 05/10/2019 10:10 PM ECG Data Attestation: I personally reviewed and interpreted this ECG as follows: Indication: other (left knee pain ) Rate (beats per minute): 101 Rhythm: sinus tachycardia Findings: no PAC, no PVC, no ST depression, no ST elevation, no acute ischemic change and no ectopy Comparison ECG Date: from (08/23/2009) Change: no significant change Blood Pressure Blood Pressure Findings: Elevated blood pressure Blood Pressure Disposition: Referred to patients primary care provider [facility] Narrative The patient is a 73-year-old female who presented to the emergency department after a fall. The patient fell injuring her left leg. She has significant swelling and pain as well as ecchymosis over her left knee. Range of motion testing was very limited secondary to pain and swelling. The patient has a history of knee replacement in the past. I was concerned the patient may have suffered a fracture but plain x-rays did not reveal any definite fracture. For this reason CT angiography of the lower extremity was obtained. No fracture or dislocation was noted. There also appeared to be no acute arterial occlusion. There was significant atherosclerotic changes to the lower extremity arterial vessels. The patient was treated with pain medication in the emergency department. She was also placed in a splint. She still had significant pain and difficulty ambulating. For this reason I discussed her case with the emergency department leather case finisher. Consideration was made for referral for inpatient rehab but I do feel this would be an excellent plan at this time. After the patient was evaluated by the leather case finisher she was still having very significant pain requiring more parenteral pain management. For this reason the patient was felt to be a better candidate for observation for pain management. I discussed this case with the on-call [facility] hospitalist group. Impression & Plan Fall, Contusion of knee, left, Traumatic hematoma of left knee, Peripheral arterial disease Discharge Plan Visit Data Chief Complaint: Knee Injury/Pain ED Provider: Santiago Maher Discharge Problem: Fall, Contusion of knee, left, Traumatic hematoma of left knee, Peripheral arterial disease Forms Stand Alone Forms: My [facility] Prescriptions Prescriptions: No Action diclofenac sodium [Voltaren] 1 % gel 2 gm TOP QID RF: 0 lisinopril 20 mg tablet 20 mg PO QAM RF: 0 duloxetine 60 mg capsule,delayed release(DR/EC) 60 mg PO HS RF: 0 warfarin 5 mg tablet See Patient Comments PO UD RF: 0 Toviaz 4 mg tablet extended release 24 hr 4 mg PO DAILY Qty: 30 RF: 2 levothyroxine 50 mcg capsule 50 mcg PO DAILY Qty: 90 RF: 1 pravastatin 10 mg tablet 10 mg PO DAILY Qty: 90 RF: 3 gabapentin 300 mg capsule 300 mg PO TID Qty: 90 RF: 2 baclofen 10 mg tablet 10 mg PO BID Qty: 60 RF: 0 tramadol 50 mg tablet 100 mg PO Q6H PRN (Reason: pain) RF: 0 solifenacin [Vesicare] 5 mg tablet 5 mg PO DAILY RF: 0 cholecalciferol (vitamin D3) 1,000 unit capsule 1,000 units PO DAILY RF: 0 Discharge Problem: Fall Qualifiers: Encounter type: initial encounter Qualified Code(s): W19.XXXA - Unspecified fall, initial encounter Contusion of knee, left Qualifiers: Encounter type: initial encounter Qualified Code(s): S80.02XA - Contusion of left knee, initial encounter Traumatic hematoma of left knee Qualifiers: Encounter type: initial encounter Qualified Code(s): S80.02XA - Contusion of left knee, initial encounter The scribe's documentation has been prepared under my direction and personally reviewed by me in its entirety. I confirm that the note above accurately reflects all work, treatment, procedures, and medical decision making performed by me.
--- NOTE | 2019-05-11 01:15 | History & Physical Report ---
Date of Service May 11, 2019 Assessment & Plan (1) Fall: 73-year-old female was admitted on 11 May 2019 for left knee and hip pain following a fall. Left knee pain and contusion, left hip pain: Status post mechanical fall earlier in evening. Has some developing swelling and bruising. Is on Coumadin for PEs. Followed in pain management clinic for multiple back issues. Last L3-L4 epidural steroid injection was in January 2019. - In ED, afebrile, mildly tachycardic, at times mildly tachypneic, and hypertensive. Borderline low room SpO2. WBC 11. Troponin negative. EKG is sinus tachycardia 101. Single view portable chest x-ray is clear. - CT angiogram of the left femur noted extensive atherosclerotic plaque formation, no evidence of significant stenosis, and positive severe degeneration changes of left hip. Left femur x-ray showed degenerative changes of the hip without acute bony abnormality. X-rays of the left knee note evidence of total knee arthroplasty but otherwise no acute findings. - In ED, treated with a splint. Given morphine and Zofran. - Will hold her Coumadin due to concern for developing hemarthrosis. Consult orthopedics. Ordered PT and OT evaluation. Acute on chronic kidney injury: Admit creatinine 1.4. Recent comparisons around 1.11.2. Patient says that she has only one kidney that works but details are unclear. - Provide some IVF. Monitor for now. Ongoing medical history: - Hypertension, hyperlipidemia: Continue home pravastatin. --- Hold home lisinopril for now due to mildly elevated Cr. - Hypothyroidism: Continue home levothyroxine. - Obesity: BMI 47. - Depression with anxiety: Continue home duloxetine. - History of pulmonary embolism: At home is on warfarin. Admit INR 2.0. - Osteoarthritis, osteopenia, lumbar radiculopathy, lumbar spinal stenosis, arthritis, myofascial pain: Continue home baclofen, Voltaren, gabapentin, tramadol. --- Temporarily renally adjusted her gabapentin to 200 mg TID. - Urinary incontinence: Continue home fesoterodine ER and Vesicare. --- Hogan catheter placed in ED. Code status: Full code. Diet: Heart healthy. DVT prophy: Held Coumadin due to concerns for hemarthrosis. SCDs for now. PT/OT: Ordered. Disbo: Admit to MedSurg. (2) Traumatic hematoma of left knee: (3) Joint pain, hip: (4) Peripheral arterial disease: (5) Dxtbf-qk-ldcyxbw kidney injury: (6) Hypertension: (7) Hyperlipidemia: (8) Hypothyroidism: (9) Obesity: (10) Depression with anxiety: (11) History of pulmonary embolism: (12) Osteoarthritis: (13) Osteopenia: (14) Lumbar radiculopathy: (15) Lumbar spinal stenosis: (16) Arthritis: (17) Myofascial pain: (18) Urinary incontinence: History of Present Illness Primary Care Provider: Kathi Lau PA-C 73-year-old female says that around 4:30 PM evening prior to admission she had a slip and fall that resulted in her striking her left knee. She has a history of a left total knee arthroplasty around [address] Osorio. She says since her acute fall yesterday she has had pain with range of motion of her knee. She also notes some buttock pain which she says is more chronic but otherwise denies any other concern for injury regarding her fall. Denies hitting her head or loss of consciousness as well. She notes she has a history of significant low back and hip pain for which she is treated in the pain management clinic. She also notes history of multiple pulmonary emboli for which she is on Coumadin and is managed in the Coumadin clinic. No other acute patient concerns. - Past medical history includes depression, anxiety, hyperlipidemia, hypertension, goiter, insomnia, lumbar radiculopathy, osteoarthritis, osteopenia, urinary incontinence, thyroid nodule, vitamin D deficiency, myofascial pain, lumbar spinal stenosis, hypothyroidism, breast cancer. - Past surgical history includes lumbosacral spine surgery, breast lumpectomy, cholecystectomy, left total knee arthroplasty. - Social history includes denying ever using tobacco. Rare alcohol use. Lives at home with family nearby. Allergies Allergy/AdvReac Type Severity Reaction Status Date / Time atorvastatin Allergy Unknown Verified 05/10/19 20:15 calcium Allergy CAUSES Verified 05/10/19 20:15 KIDNEY STONES docosahexanoic acid Allergy Unknown Verified 05/10/19 20:15 [From [facility]] eicosapentaenoic acid Allergy Unknown Verified 05/10/19 20:15 [From [facility]] fish oil Allergy Unknown Verified 05/10/19 20:15 [From [facility]] lutein Allergy Unknown Verified 05/10/19 20:15 [From [facility]] omega-3 fatty acids Allergy Unknown Verified 05/10/19 20:15 [From [facility]] pravastatin Allergy Unknown Verified 05/10/19 20:15 vitamin C, E, zinc, copper Allergy Unknown Verified 05/10/19 20:15 combination no.11 [From [facility]] zeaxanthin Allergy Unknown Verified 05/10/19 20:15 [From [facility]] Home Medications Home Medications Medication Instructions Recorded Confirmed Type diclofenac 1 % topical gel 2 gm TOP QID 06/12/18 05/10/19 History lisinopril 20 mg tablet 20 mg PO QAM tab 06/12/18 05/10/19 History fesoterodine ER 4 mg 4 mg PO DAILY #30 tab 02/24/19 05/10/19 Rx tablet,extended release 24 hr levothyroxine 50 mcg capsule 50 mcg PO DAILY #90 cap 03/04/19 05/10/19 Rx baclofen 10 mg tablet 10 mg PO BID #60 tab 03/18/19 05/10/19 History warfarin 5 mg tablet See Rx Instructions PO UD tab 03/18/19 05/10/19 History pravastatin 10 mg tablet 10 mg PO DAILY #90 tab 04/16/19 05/10/19 Rx gabapentin 300 mg capsule 300 mg PO TID #90 cap 04/22/19 05/10/19 Rx cholecalciferol (vitamin D3) 1,000 1,000 units PO DAILY cap 05/08/19 05/10/19 History unit capsule duloxetine 60 mg capsule,delayed 60 mg PO HS cap 05/08/19 05/10/19 History release solifenacin 5 mg tablet 5 mg PO DAILY 05/08/19 05/10/19 History tramadol 50 mg tablet 100 mg PO Q6H PRN tab 05/08/19 05/10/19 History Past Med/Surg History Medical History BMI 50.0-59.9, adult (Acute) Cataract (Acute) Chronic anticoagulation (Acute) Depression with anxiety (Acute) Dyslipidemia (Acute) Goiter diffuse, nontoxic (Acute) History of pulmonary embolism (Resolved) History of breast cancer (Resolved) Insomnia (Acute) Joint pain, hip (Acute) Lumbar radiculopathy (Acute) Osteoarthritis (Acute) Osteopenia (Acute) Thyroid nodule (Acute) Urinary incontinence (Acute) Vitamin D deficiency (Acute) Left lumbar radiculitis (Chronic) Myofascial pain (Chronic) Lumbar spinal stenosis (Chronic) Severe multifactorial multilevel most prominent at L2-3 and L3-4 on MRI dated 03/05/2016 Left hip pain (Chronic) Arthritis (Chronic) Depression (Chronic) Hypertension (Chronic) Hypothyroidism (Chronic) Obesity (Chronic) Pulmonary embolism (Chronic) Chronic Coumadin treatment History of breast cancer (Resolved) Surgical History H/O lumbosacral spine surgery (Resolved) History of lumpectomy (Resolved) Hx of cholecystectomy (Resolved) Hx of total knee arthroplasty (Resolved) Family History Other No significant family history Social History Preferred Language: Belarusian Feels Safe at Home: Yes Smoking Status: Never smoker Review of Systems Review of Systems: Constitutional: Denies fevers, chills, focal weakness Eyes: Denies any visual loss or diplopia ENT: Denies any ear/nose/throat pain or difficulty speaking or swallowing Respiratory: Denies any dyspnea, cough, hemoptysis Cardiovascular: Denies any chest pain or feeling of edema Gastrointestinal: Denies any abdominal pain, nausea/vomiting/diarrhea Musculoskeletal: Positive left hip and knee pain. Skin: Denies any known acute rashes or lesions Neuro: Denies any headache, acute focal weakness or numbness, or difficulties with speech or swallow. Hematologic: History of easy bleeding on Coumadin. Physical Exam Physical Exam: GENERAL: Awake, alert, well-appearing and rest, in no acute distress HENT: Normocephalic, atraumatic. Oropharynx unremarkable. EYES: Normal conjunctiva. Sclera non-icteric. NECK: Inspection normal. Supple and full ROM. No nuchal rigidity. CARDIAC: +S1S2 regular tachycardia, no murmurs. RESPIRATORY: Clear to auscultation. No wheezes or rales. Normal respiratory effort. Nasal cannula oxygen in place. GI: +BS, soft, non-distended. No tenderness to palpation. No rebound or guarding. BMI 47. EXTREMITIES: No pedal edema or calf tenderness. Left knee is in an immobilization splint. On removal the splint, there is some developing contusion over the superior-medial aspect as well as the lateral aspects of the knee. Tenderness on palpation of the patella. Well-healed left knee surgical scars. No difficulty with movement of the left ankle. Distal sensation and cap refill normal and intact. NEURO: No gross neuro deficits. Results & Data Vital Signs (Past 12 Hours) Vital Signs Temp Pulse Resp BP Pulse Ox 05/11/19 01:00 115 H 14 116/63 94 05/11/19 00:30 116 H 19 121/53 L 93 05/11/19 00:00 111 H 26 H 134/58 L 91 05/10/19 23:49 95 05/10/19 23:32 106 H 22 93 05/10/19 23:31 108 H 23 153/63 H 92 05/10/19 23:30 107 H 36 H 95 05/10/19 23:00 106 H 16 116/79 88 L 05/10/19 22:31 101 H 24 171/95 H 05/10/19 22:30 101 H 23 05/10/19 22:04 100 H 21 93 05/10/19 22:03 99 H 29 H 152/75 H 93 05/10/19 22:00 99 H 20 92 05/10/19 21:52 99 H 18 93 05/10/19 21:00 100 H 23 163/68 H 93 05/10/19 20:38 99 H 15 89 L 05/10/19 20:37 24 133/93 94 05/10/19 20:30 105 H 27 H 90 05/10/19 20:08 102 H 26 H 98 05/10/19 19:37 105 H 26 H 171/66 H 97 05/10/19 19:23 36.9 C 108 H 22 171/66 H 95 Laboratory Results 05/10/19 05/10/19 05/10/19 Range/Units 22:00 19:47 19:47 WBC (4.8-10.8) K/uL RBC (4.2-5.4) M/uL Hgb (12.0-16.0) g/dL Hct (37-47) % MCV (80-100) fL MCH (25-34) pg MCHC (32-36) g/dL RDW Std Deviation (36.4-46.3) fL RDW Coeff of Marii (11.5-14.5) % Plt Count (130-400) K/uL MPV (7.4-10.4) fL Immature Gran % (Auto) % Neut % (Auto) % Lymph % (Auto) % [place] % (Auto) % Eos % (Auto) % Baso % (Auto) % Immature Gran # (Auto) (0.00-0.02) K/uL Neut # (Auto) (1.4-6.5) K/uL Lymph # (Auto) (1.2-3.4) K/uL [place] # (Auto) (0.11-0.59) K/uL Eos # (Auto) (0-0.5) K/uL Baso # (Auto) (0-0.2) K/uL PT (9.0-12.0) Seconds INR (0.9-1.1) APTT (21.0-31.0) Seconds PTT Ratio Sodium 142 (136-145) mmol/L Potassium 4.4 (3.5-5.1) mmol/L Chloride 108 H (98-107) mmol/L Carbon Dioxide 27 (21-32) mmol/L Anion Gap 7.0 (3-11) BUN 38 H (7-18) mg/dl Creatinine 1.40 H (0.6-1.2) mg/dl Est Cr Clr Drug Dosing 42.6 ml/min Est GFR ( Amer) 43.4 Est GFR (Non-Af Amer) 37.4 BUN/Creatinine Ratio 27.0 H (10-20) Glucose 121 H (70-99) mg/dl Calcium 9.6 (8.5-10.1) mg/dl Troponin I < 0.015 (0-0.045) ng/ml Urine Color Yellow Urine Appearance Clear (Clear) Urine pH 5.0 (4.5-7.5) Ur Specific [place] 1.019 (1.000-1.030) Urine Protein Negative (Negative) Urine Glucose (UA) Negative (Negative) Urine Ketones Negative (Negative) Urine Blood 1+ H (Negative) Urine Nitrite Negative (Negative) Urine Bilirubin Negative (Negative) Urine Urobilinogen Negative (Negative) Ur Leukocyte Esterase Negative (Negative) Urine WBC (Auto) 0 (0-5) /hpf Urine RBC (Auto) 0-4 (0-4) /hpf U Hyaline Cast (Auto) 1-5 (0-5) /lpf U Epithel Cells (Auto) 20-30 H (0-5) /lpf Urine Bacteria (Auto) Negative (Negative) Blood Type A Positive Antibody Screen NEGATIVE 05/10/19 05/10/19 Range/Units 19:47 19:47 WBC 11.52 H (4.8-10.8) K/uL RBC 4.13 L (4.2-5.4) M/uL Hgb 12.4 (12.0-16.0) g/dL Hct 38.3 (37-47) % MCV 92.7 (80-100) fL MCH 30.0 (25-34) pg MCHC 32.4 (32-36) g/dL RDW Std Deviation 46.0 (36.4-46.3) fL RDW Coeff of Marii 13.7 (11.5-14.5) % Plt Count 254 (130-400) K/uL MPV 11.3 H (7.4-10.4) fL Immature Gran % (Auto) 0.3 % Neut % (Auto) 80.9 % Lymph % (Auto) 13.5 % [place] % (Auto) 4.9 % Eos % (Auto) 0.3 % Baso % (Auto) 0.1 % Immature Gran # (Auto) 0.03 H (0.00-0.02) K/uL Neut # (Auto) 9.33 H (1.4-6.5) K/uL Lymph # (Auto) 1.55 (1.2-3.4) K/uL [place] # (Auto) 0.57 (0.11-0.59) K/uL Eos # (Auto) 0.03 (0-0.5) K/uL Baso # (Auto) 0.01 (0-0.2) K/uL PT 19.8 H (9.0-12.0) Seconds INR 2.0 H (0.9-1.1) APTT 29.8 (21.0-31.0) Seconds PTT Ratio 1.1 Sodium (136-145) mmol/L Potassium (3.5-5.1) mmol/L Chloride (98-107) mmol/L Carbon Dioxide (21-32) mmol/L Anion Gap (3-11) BUN (7-18) mg/dl Creatinine (0.6-1.2) mg/dl Est Cr Clr Drug Dosing ml/min Est GFR ( Amer) Est GFR (Non-Af Amer) BUN/Creatinine Ratio (10-20) Glucose (70-99) mg/dl Calcium (8.5-10.1) mg/dl Troponin I (0-0.045) ng/ml Urine Color Urine Appearance (Clear) Urine pH (4.5-7.5) Ur Specific [place] (1.000-1.030) Urine Protein (Negative) Urine Glucose (UA) (Negative) Urine Ketones (Negative) Urine Blood (Negative) Urine Nitrite (Negative) Urine Bilirubin (Negative) Urine Urobilinogen (Negative) Ur Leukocyte Esterase (Negative) Urine WBC (Auto) (0-5) /hpf Urine RBC (Auto) (0-4) /hpf U Hyaline Cast (Auto) (0-5) /lpf U Epithel Cells (Auto) (0-5) /lpf Urine Bacteria (Auto) (Negative) Blood Type Antibody Screen Medications Administered Ioversol (Optiray 320 125ml) 120 ml IV ONCE PRN PRN Reason: Interaction Checking Stop: 05/14/19 21:37 Last Admin: 05/10/19 21:38 Dose: 120 ml Documented by: [id number] Morphine Sulfate (Morphine Sulfate) 4 mg IV Q15M PRN PRN Reason: Pain Stop: 05/24/19 19:40 Last Admin: 05/10/19 23:21 Dose: 4 mg Documented by: [id number] Admin: 05/10/19 20:38 Dose: 4 mg Documented by: [id number] Admin: 05/10/19 19:55 Dose: 4 mg Documented by: [id number] Discontinued Medications Ondansetron HCl (Zofran) 4 mg IV NOW STA Stop: 05/10/19 19:42 Last Admin: 05/10/19 19:55 Dose: 4 mg Documented by: [id number] Code Status & VTE Plan Code Status Full code VTE Prophylaxis Plan VTE Prophylaxis will be ordered: Yes Supervising Physician Co-Signing Physician Notes Pt seen/examined in conjunction with resident MD J Hanbury. Orders and plan of admission formulated with resident. 73 y/o F Hx HTN, HLD, depression, hypothyroid, morbidly obese, osteoarthritis - L TKR, PE - on Coumadin. Suffered a mechanical fall and landed on her L knoee, developing a large hematoma. She is unable to ambulate as a result. She otherwise c/o back pain only. OE: AAO x 3 S1,2 R CTAB NT, ND + edema There is a hematoma forming around the L knee. P: Admit to med/surg. She will need an ortho consult and placement in rehab. her Coumadin is held pending eval and reassessment of the hematoma. We have not effected additional changes to her med regimen. PG Care Time/CCT Total # of Minutes Spent Total Time Spent with Patient: Total time spent is greater than 50% in coordination of care (as documented) at patient's floor/unit and/or counseling patient: Resident Activity Tracking Resident Involvement: Resident Care Provided Care Provided: Adult Hospital Medicine (1) Traumatic hematoma of left knee Encounter type: initial encounter Qualified Code(s): S80.02XA - Contusion of left knee, initial encounter (2) Fall Encounter type: initial encounter Qualified Code(s): W19.XXXA - Unspecified fall, initial encounter
[2019-05-11] MEDS ORDERED: ONDANSETRON INJ 2 MG/ML 2 ML VIAL IV PRN (02:26)
[2019-05-11] MEDS ORDERED: ACETAMINOPHEN 325 MG TAB PO PRN (02:26)
[2019-05-11] MEDS: LACTATED RINGER'S 1,000 ML IV SCH ×2 (03:35→15:39)
[2019-05-11] MEDS: MoRPHine SULFATE 4 MG/ML 1 ML CARP\\VIAL IV PRN ×3 (03:38→15:07)
[2019-05-11] MEDS: LEVOTHYROXINE SODIUM 50 MCG TABLET PO SCH (06:32)
[2019-05-11] MEDS: BACLOFEN 10 MG TAB PO SCH ×2 (07:42→21:35)
[2019-05-11] MEDS: TRAMADOL HCL 50 MG TABLET PO PRN ×2 (07:42→12:52)
[2019-05-11] MEDS: DICLOFENAC SOD 1% GEL 100 GM TUBE EXT SCH ×4 (07:43→21:35)
[2019-05-11] MEDS: GABAPENTIN 100 MG CAP PO SCH ×4 (07:44→21:35)
[2019-05-11] MEDS ORDERED: CHOLECALCIFEROL 1,000 UNITS TAB PO SCH (09:00)
[2019-05-11] MEDS ORDERED: PRAVASTATIN SOD 10 MG TAB PO SCH (09:00)
--- NOTE | 2019-05-11 12:44 | History & Physical Bridge Note ---
Date of Service May 11, 2019 History & Physical Bridge Note I have examined the patient, reviewed the History & Physical and in the interval since the performance of the History & Physical I have noted the following changes of clinical significance: no changes noted GENERAL: Awake, alert, well-appearing and rest, in no acute distress HENT: Normocephalic, atraumatic. Oropharynx unremarkable. EYES: Normal conjunctiva. Sclera non-icteric. CARDIAC: +S1S2 regular tachycardia, no murmurs. RESPIRATORY: Clear to auscultation. No wheezes or rales. Normal respiratory effort. Nasal cannula oxygen in place. GI: +BS, soft, non-distended. No tenderness to palpation. No rebound or guarding. EXTREMITIES: No pedal edema or calf tenderness. Left knee is in an immobilization splint. On removal the splint, there is some developing contusion over the superior-medial aspect as well as the lateral aspects of the knee. Tenderness on palpation of the patella. Distal sensation and cap refill normal and intact. Pulses not palpable, feet cool to touch. NEURO: awake, moves all extremities Plan Fall: - Discussed with vascular surgery finding on CT angiogram noted extensive atherosclerotic plaque formation. Dr. Underwood recommends arterial studies, if result is >0.6 he would want to see her in close outpatient follow up. - Doppler pulses qs - Will hold her Coumadin due to concern for developing hemarthrosis. Consulted orthopedics. PT and OT evaluation. Acute on chronic kidney injury: Admit creatinine 1.4. Recent comparisons around 1.11.2. Continue IVF. PRP am Continue home meds for chronic issues as noted in H&P Supervising Physician Co-Signing Physician Notes I have seen and examined pt with ALBERTO Laird and agree with her exam, assessment and plan.
--- NOTE | 2019-05-11 15:26 | Consultation Report ---
DATE OF CONSULTATION: 05/11/2019 CHIEF COMPLAINT: Left knee pain post-fall. HISTORY OF PRESENT ILLNESS: Cristina is delightful. She is 73. We are seeing her on rounds for bed rest here today. She has left knee pain. I think it is all contusion. She had a mechanical fall about 12 hours ago, brought to the Emergency Room for evaluation and treatment. Again, we are seeing her for evaluation and treatment and recommendations in regard to her left knee pain. PAST MEDICAL HISTORY: Significant for peripheral artery disease, acute kidney disease, hypertension, obesity, depression, pulmonary emboli, osteopenia. MEDICATIONS: Listed, there are greater than 15. ALLERGIES: Also. MEDICAL HISTORY: Again is positive for obesity with a BMI over 50. OBJECTIVE: She is alert, oriented, pleasant lady. She has pain referable to the left knee. I think it is in and around more the joint surface. I palpated the quadriceps tendon and the patellar tendon. I saw and felt no discontinuity. Because of her pain, range of motion was significantly decreased and she was quite apprehension, but she had no gross instability and only a mild knee effusion. IMAGES: Reviewed in detail, plain x-rays, CT scans, the reports as well as the images. IMPRESSION AND PLAN: I think she has a contusion, strain/sprain of the left knee. I do not feel there is any loosening of implants or tendon injury and in need of any type of surgical intervention. We will ice down her knee. We will keep her in a brace. We will get her up with PT. We will resume her Coumadin, check on her again tomorrow. Surgery is not indicated at this point in time.
[2019-05-11] MEDS ORDERED: WARFARIN SOD 2.5 MG TAB PO SCH (16:00)
--- NOTE | 2019-05-11 18:53 | Ultrasound Report ---
ULTRASOUND ANKLE-BRACHIAL INDICES CLINICAL HISTORY: Atherosclerosis. Left leg pain. COMPARISON STUDY: CT angiogram of the left lower extremity dated 05/10/2019. FINDINGS: Ankle-brachial indices were assessed in ultrasound. Right brachial pressure measured 125. P ressures in the right posterior tibial artery measure 130 for an ANTONIO of 1.04, and pressures in the ri ght dorsalis pedis artery measure 110 for an ANTONIO of 0.88. The left posterior tibial artery and dorsal is pedis artery were noncompressible. Left digital pressure measured 40 for an ANTONIO of 0.32. IMPRESSION: 1. Right ankle brachial and left digital brachial pressures as above. 2. The left posterior tibial and dorsalis pedis arteries were noncompressible. Dictated: 05/11/2019 5:46 PM Transcribed: 05/11/2019 6:34 PM Kaylie [id number] [email or web address] Electronically signed by: Ken Grant M.D. 05/11/2019 6:52 PM
[2019-05-11] MEDS: CHOLECALCIFEROL 1,000 UNITS TAB PO SCH (21:35)
[2019-05-11] MEDS: DULOXETINE HCL 60 MG CAP PO SCH (21:35)
[2019-05-11] MEDS: PRAVASTATIN SOD 10 MG TAB PO SCH (21:35)
[2019-05-12] MEDS: LACTATED RINGER'S 1,000 ML IV SCH ×2 (04:06→14:15)
[2019-05-12] MEDS: LEVOTHYROXINE SODIUM 50 MCG TABLET PO SCH (06:30)
[2019-05-12 06:38] LABS: Basophils # (auto) 0.02 K/uL (0-0.2); Basophils % (auto) 0.2 %; Hematocrit (blood only) 33.8 % (37-47); Immature Granulocytes # (auto) 0.01 K/uL (0.00-0.02); Immature Granulocytes % (auto) 0.1 %; Lymphocytes # (auto) 1.94 K/uL (1.2-3.4); Lymphocytes % (auto) 23.2 %; Mean Corpuscular Hgb Conc 32.5 g/dL (32-36); Mean Corpuscular Volume 94.2 fL (80-100); Mean Platelet Volume 10.9 fL (7.4-10.4); Monocytes # (auto) 1.05 K/uL (0.11-0.59); Monocytes % (auto) 12.6 %; Neutrophils # (auto) 4.84 K/uL (1.4-6.5); Neutrophils % (auto) 57.9 %; Platelet Count 145 K/uL (130-400); RDW Standard Deviation 48.4 fL (36.4-46.3); Red Blood Count 3.59 M/uL (4.2-5.4); White Blood Count 8.36 K/uL (4.8-10.8)
[2019-05-12 07:18] LABS: BUN Creatinine Ratio 24.8 (10-20); Calcium 8.9 mg/dl (8.5-10.1); Creatinine Clr Calc Pharmacy 32.6 ml/min; Est GFR (African American) 30.6; Est GFR (Non-African American) 26.4
[2019-05-12 08:52] LABS: INR 1.9 (0.9-1.1)
[2019-05-12] MEDS: GABAPENTIN 100 MG CAP PO SCH ×3 (09:05→20:15)
[2019-05-12] MEDS: PRAVASTATIN SOD 10 MG TAB PO SCH (09:05)
[2019-05-12] MEDS: BACLOFEN 10 MG TAB PO SCH ×2 (09:05→20:15)
[2019-05-12] MEDS: DICLOFENAC SOD 1% GEL 100 GM TUBE EXT SCH ×4 (09:07→20:16)
[2019-05-12] MEDS: TRAMADOL HCL 50 MG TABLET PO PRN (09:13)
--- NOTE | 2019-05-12 11:09 | Progress Note ---
DATE: 05/12/2019 SUBJECTIVE: A 73-year-old white female with multiple comorbidities admitted status post a fall with left knee and hip pain. Dr. Solis evaluated her yesterday. She is well known to me from previous left knee replacement done about 11-12 years ago. Left knee has been doing okay. She has essentially been a walker ambulator due to her multiple medical comorbidities as well as some left leg pain. She has had increasing pain since the fall. Complains of hip, thigh, and knee pain. No other real complaints. OBJECTIVE: VITAL SIGNS: Temperature is 36.7. Vital signs stable. GENERAL: Physical examination shows a pleasant elderly female. She is lying in bed. EXTREMITIES: Examination of the left leg reveals her knee incisions healed nicely. There is a little bruising over quad area, but really no significant knee effusion and a fairly minimal swelling in this area. She is diffusely tender around her thigh to palpate. Her left leg is about a centimeter shorter than the right at least. She holds her leg and externally rotated, has marked pain with any type of attempted internal rotation of her hip. It is very stiff. She is neurologically intact. X-RAYS: I did review x-rays of her femur. X-rays revealed a total knee replacement. There are no obvious signs of problems. Implants looked well fixed. It is a fairly poor quality rotated film, but no signs of fracture. She does have a very advanced left hip arthritis. ASSESSMENT: A 73-year-old female with a history of left knee replacement in the past with multiple medical comorbidities, status post a fall with increasing left leg pain. I think most all of her pain is coming from her hip. She has a very severely arthritic hip and as well this leg is short and externally rotated, can internally rotate. She has got a little contusion to her quad, but no signs of significant bony injury or pathology around her knee. PLAN: At this point, we are going to mobilize her and let her weightbear as tolerated and see how she does. She has got multiple medical comorbidities. At some point, she might want to entertain the idea of a hip replacement surgery, but that is really up to her. She can weightbear as tolerated. Any orthopedic questions can be directed to me at [phone]. From the orthopedic standpoint, there is no need to keep her in the hospital. She may need to go for rehab stay based on her limited mobility.
--- NOTE | 2019-05-12 11:14 | Communication Note ---
Date of Service: May 12, 2019 ANTONIO's do not show the physiologic flow to the lower extremities. Will need a lower extremity arterial study which include waveforms of the flow to the lower extremity to determine if the narrowings on CTA are significant or not. Apparently this study was ordered yesterday then cancelled and ANTONIO's performed. Can you please reorder this study. Will see patient after this study is completed.
--- NOTE | 2019-05-12 13:31 | Hospitalist Progress Note ---
Date of Service May 12, 2019 Assessment & Plan (1) Fall: Left knee pain and contusion, left hip pain: Status post mechanical fall -Initially with mild tachycardia, leukocytosis now resolved - CT angiogram of the left femur noted extensive atherosclerotic plaque formation, no evidence of significant stenosis, and positive severe degeneration changes of left hip. Left femur x-ray showed degenerative changes of the hip without acute bony abnormality. X-rays of the left knee note evidence of total knee arthroplasty but otherwise no acute findings. - Ortho consulted - no indication for surgery at this time - pain not well controlled with morphine and tramadol - will dc these and start oxycodone prn and scheduled tylenol - PT/OT (2) Traumatic hematoma of left knee: (3) Joint pain, hip: (4) Peripheral arterial disease: Severe atherosclerosis in left leg - ANTONIO 0.32 Arterial doppler studies pending Consulted vascular surgery (5) [id number]-[id number] kidney injury: Creat max to 1.87 today - increased fluid to 125 ml/hr from 80 - BNP pending - Recent comparisons around 1.11.2. Patient says that she has only one kidney that works but details are unclear. (6) Hypertension: --- Hold home lisinopril for now due elevated Cr. (7) Hyperlipidemia: Continue home pravastatin. (8) Hypothyroidism: Continue home levothyroxine. (9) Obesity: (10) Depression with anxiety: continue duloxetine (11) History of pulmonary embolism: - History of unprovoked pulmonary embolism: continue warfarin - INR 1.9 today, recheck am (12) Osteoarthritis: - Continue home baclofen, Voltaren, gabapentin, changed tramadol as above . - Temporarily renally adjusted her gabapentin to 200 mg TID. (13) Osteopenia: (14) Lumbar radiculopathy: (15) Lumbar spinal stenosis: (16) Arthritis: (17) Myofascial pain: (18) Urinary incontinence: Continue home fesoterodine ER and Vesicare. (19) Nocturnal hypoxia: Overnight pulse ox Will need sleep study outpatient Patient reports this is an issue that came up the last time she was admitted as well. She also has daytime sleepiness and falls asleep during conversations with people sometimes. I did spend time discussing ramifications of untreated sleep apnea with the patient as she is hesitant about treatment due to logistics of using a CPAP should she need one. Supervising Physician Co-Signing Physician Notes I have seen and examined pt with ALBERTO Laird and agree with her exam, assessment and plan. Subjective Ms. Delaney was able to participate in therapy today. She is still having quite a bit of pain. She is also having intermittent dizziness which does not seem to be associated with any particular movement or position change and a bit of nausea. Review of Systems Review of Systems: All systems reviewed & are unremarkable except as noted in HPI & below Physical Exam Physical Exam: General: no distress Eyes: normal inspection, PERLL Respiratory: chest non tender, clear to auscultation, normal breath sounds, no respiratory distress, no accessory muscle use Cardiac: regular rate and rhythm, no rub or gallop, no murmur, no edema, no jvd GI/: active bowel sounds, no abd pain or tenderness, soft, non distended Extremities: normal range of motion, normal strength, non tender Neuro/Psych: alert and oriented x 3, normal mood and affect, CN II - XII intact Skin: normal color, dry Results & Data Vital Signs (Past 12 Hours) Vital Signs Temp Pulse Resp BP Pulse Ox 05/12/19 07:16 36.7 C 79 18 132/60 97 PG Care Time/CCT Total # of Minutes Spent Total Time Spent with Patient: Total time spent is greater than 50% in coordination of care (as documented) at patient's floor/unit and/or counseling patient: (1) Traumatic hematoma of left knee Encounter type: initial encounter Qualified Code(s): S80.02XA - Contusion of left knee, initial encounter (2) Fall Encounter type: initial encounter Qualified Code(s): W19.XXXA - Unspecified fall, initial encounter
[2019-05-12] MEDS ORDERED: ACETAMINOPHEN SOLN 500 MG/15.62 ML UDP PO SCH (14:00)
[2019-05-12] MEDS ORDERED: OXYCODONE HCL IR 5 MG TAB (IMMEDIATE RELEASE) ONE (14:13)
[2019-05-12] MEDS: OXYCODONE HCL IR 5 MG TAB (IMMEDIATE RELEASE) PO PRN ×2 (14:15→20:14)
[2019-05-12] MEDS: ACETAMINOPHEN 500 MG TAB PO SCH ×2 (14:46→21:14)
[2019-05-12] MEDS ORDERED: WARFARIN SOD 5 MG TAB PO SCH (16:00)
--- NOTE | 2019-05-12 17:35 | Ultrasound Report ---
US arterial duplex LE BI CLINICAL HISTORY: atherosclerosis lower extremities COMPARISON STUDY: No previous studies for comparison. FINDINGS: On the right, there was biphasic flow within the right common femoral, superficial femoral, popliteal , posterior tibial, anterior tibial, and peroneal arteries. No high velocity jet are visualized. On the left, there was triphasic flow within the left common femoral, superficial femoral, and poplit eal, arteries. There is biphasic flow within the posterior tibial and anterior tibial and peroneal ar teries. No high velocity jet is are visualized. IMPRESSION: 1. No evidence of lower extremity arterial stenosis. Electronically signed by: Zhang Duron M.D. 05/12/2019 5:33 PM
[2019-05-12] MEDS: CHOLECALCIFEROL 1,000 UNITS TAB PO SCH (20:15)
[2019-05-12] MEDS: DULOXETINE HCL 60 MG CAP PO SCH (20:15)
[2019-05-12] MEDS ORDERED: Nursing to Pharmacy Communication ONE (21:00)
[2019-05-13] MEDS: LEVOTHYROXINE SODIUM 50 MCG TABLET PO SCH (05:54)
[2019-05-13] MEDS: ACETAMINOPHEN 500 MG TAB PO SCH ×2 (05:54→13:57)
[2019-05-13] MEDS: GABAPENTIN 100 MG CAP PO SCH ×2 (08:43→13:57)
[2019-05-13] MEDS: BACLOFEN 10 MG TAB PO SCH (08:43)
[2019-05-13] MEDS: DICLOFENAC SOD 1% GEL 100 GM TUBE EXT SCH ×2 (08:44→13:57)
[2019-05-13] MEDS: OXYCODONE HCL IR 5 MG TAB (IMMEDIATE RELEASE) PO PRN (08:47)
[2019-05-13] MEDS ORDERED: TOVIAZ PO SCH ×2 (09:00→21:00)
--- NOTE | 2019-05-13 09:03 | Progress Note ---
DATE: 05/13/2019 SUBJECTIVE: A 73-year-old white female with a history of left knee replaced in the past, status post a fall with some left lower extremity pain. Seems to be a little bit better today. She says she does better when she uses a knee immobilizer with walking. Still having pain with weightbearing. Denies any new complaints. OBJECTIVE: VITAL SIGNS: Temperature 36.6. Vital signs stable. GENERAL: Physical examination shows an obese, middle-aged female. She is sitting in bed, eating breakfast. EXTREMITIES: Examination of the left leg reveals it to be well aligned. Her foot is externally rotated due to her chronic hip arthritis. Her knee incision is benign. She does have a little bruising on the upper area of her quad. Her quad tendon palpably is intact. There is not much swelling in her leg. She is diffusely tender, particularly in the medial side of her knee. She still cannot quite do a straight leg raise due to pain. She is neurologically intact otherwise. ASSESSMENT: A 73-year-old white female with a history of left knee replacement 11 years ago with left leg pain status post a fall. She has got severe hip arthritis. Her knee exam is pretty benign other than a little bit of bruising. There are no signs of fracture or extensor mechanism disruption. I think probably a lot of this pain is actually coming from her hip. PLAN: At this point, we will just continue therapy and mobilization. She can weightbear as tolerated. She does have a terrible hip, but she is really pretty poor and high risk surgical candidate. We will see how therapy goes. Any orthopedic questions can be directed to me at [phone]. We are going to sign off for now. If you need us to reevaluate her, please let me know.
[2019-05-13 09:12] LABS: Basophils # (auto) 0.01 K/uL (0-0.2); Basophils % (auto) 0.2 %; Eosinophils # (auto) 0.39 K/uL (0-0.5); Eosinophils % (auto) 6.6 %; Hematocrit (blood only) 34.3 % (37-47); Hemoglobin 11.2 g/dL (12.0-16.0); Immature Granulocytes # (auto) 0.01 K/uL (0.00-0.02); Immature Granulocytes % (auto) 0.2 %; Lymphocytes # (auto) 1.35 K/uL (1.2-3.4); Lymphocytes % (auto) 22.9 %; Mean Corpuscular Hgb Conc 32.7 g/dL (32-36); Mean Corpuscular Volume 93.2 fL (80-100); Mean Platelet Volume 10.8 fL (7.4-10.4); Monocytes # (auto) 0.38 K/uL (0.11-0.59); Monocytes % (auto) 6.5 %; Neutrophils # (auto) 3.75 K/uL (1.4-6.5); Neutrophils % (auto) 63.6 %; Platelet Count 157 K/uL (130-400); RDW Coefficient of Variation 13.7 % (11.5-14.5); RDW Standard Deviation 47.2 fL (36.4-46.3); Red Blood Count 3.68 M/uL (4.2-5.4); White Blood Count 5.89 K/uL (4.8-10.8)
[2019-05-13 09:51] LABS: BUN Creatinine Ratio 24.1 (10-20); Calcium 9.2 mg/dl (8.5-10.1); Creatinine Clr Calc Pharmacy 44.8 ml/min; Est GFR (African American) 44.9; Est GFR (Non-African American) 38.8; Potassium 5.2 mmol/L (3.5-5.1)
--- NOTE | 2019-05-13 13:23 | Discharge Summary ---
Date of Service May 13, 2019 Admission HPI Per Admitting Provider 73-year-old female says that around 4:30 PM evening prior to admission she had a slip and fall that resulted in her striking her left knee. She has a history of a left total knee arthroplasty around [address] Osorio. She says since her acute fall yesterday she has had pain with range of motion of her knee. She also notes some buttock pain which she says is more chronic but otherwise denies any other concern for injury regarding her fall. Denies hitting her head or loss of consciousness as well. She notes she has a history of significant low back and hip pain for which she is treated in the pain management clinic. She also notes history of multiple pulmonary emboli for which she is on Coumadin and is managed in the Coumadin clinic. No other acute patient concerns. - Past medical history includes depression, anxiety, hyperlipidemia, hypertension, goiter, insomnia, lumbar radiculopathy, osteoarthritis, osteopenia, urinary incontinence, thyroid nodule, vitamin D deficiency, myofascial pain, lumbar spinal stenosis, hypothyroidism, breast cancer. - Past surgical history includes lumbosacral spine surgery, breast lumpectomy, cholecystectomy, left total knee arthroplasty. - Social history includes denying ever using tobacco. Rare alcohol use. Lives at home with family nearby. Principal Diagnosis Knee contusion, hip pain Discharge Exam Constitutional WD/WN, vitals as above Respiratory normal respiratory effort, lungs clear to auscultation Cardiovascular RRR, no murmur, no edema Gastrointestinal (Abdomen) Inspection/Auscultation: abdomen normal to inspection and normal bowel sounds; abdomen not distended Percussion/Palpation: abdomen soft; abdomen nontender Musculoskeletal no cyanosis or clubbing, extremities motor strength 5/5 Skin no rashes, warm and dry Neurologic moves all extremities and awake Psychiatric A+Ox3, euthymic affect Discharge Data Allergies Allergy/AdvReac Type Severity Reaction Status Date / Time atorvastatin Allergy Unknown Verified 05/10/19 20:15 calcium Allergy CAUSES Verified 05/10/19 20:15 KIDNEY STONES docosahexanoic acid Allergy Unknown Verified 05/10/19 20:15 [From [facility]] eicosapentaenoic acid Allergy Unknown Verified 05/10/19 20:15 [From [facility]] fish oil Allergy Unknown Verified 05/10/19 20:15 [From [facility]] lutein Allergy Unknown Verified 05/10/19 20:15 [From [facility]] omega-3 fatty acids Allergy Unknown Verified 05/10/19 20:15 [From [facility]] pravastatin Allergy Unknown Verified 05/10/19 20:15 vitamin C, E, zinc, copper Allergy Unknown Verified 05/10/19 20:15 combination no.11 [From [facility]] zeaxanthin Allergy Unknown Verified 05/10/19 20:15 [From [facility]] Consultations 05/10/19 23:17 ED Decision to Admit Stat 05/11/19 02:26 Consult Case Management - Discharge Planning Routine 05/11/19 09:24 Consult Orthopedic Surgery Routine 05/12/19 13:27 Consult Vascular Surgery Routine Ordered Studies 05/10/19 21:00 CT angio LE LT wo/w or w/only Stat 05/10/19 21:34 CT angio femur LT wo/w con Stat 05/11/19 12:49 US ankle/brachial index comp Routine 05/12/19 13:21 US arterial duplex LE Routine Hospital Course (1) Fall: Left knee pain and contusion, left hip pain: Status post mechanical fall -Initially with mild tachycardia, leukocytosis now resolved - CT angiogram of the left femur noted extensive atherosclerotic plaque formation, no evidence of significant stenosis, and positive severe degeneration changes of left hip. Left femur x-ray showed degenerative changes of the hip without acute bony abnormality. X-rays of the left knee note evidence of total knee arthroplasty but otherwise no acute findings. - Ortho consulted - no indication for surgery at this time - pain well controlled with scheduled tylenol and prn oxycodone - PT/OT (2) Traumatic hematoma of left knee: (3) Joint pain, hip: (4) Peripheral arterial disease: Severe atherosclerosis in left leg on CT - ANTONIO 0.32 Arterial doppler studies without significant stenosis Discussed with Dr. Underwood - he will see her outpatient (5) Mwwqj-la-kkocuhb kidney injury: Creat max to 1.87 05/12 - increased fluid to 125 ml/hr x2L and kidney function now resolving at 1.3 - K is borderline at 5.2 - will have it rechecked at [facility] on Saturday - Recent comparisons around 1.11.2. Patient says that she has only one kidney that works but details are unclear. (6) Hypertension: --- Hold home lisinopril for now due potassium of 5.2 (7) Hyperlipidemia: Continue home pravastatin. (8) Hypothyroidism: Continue home levothyroxine. (9) Obesity: (10) Depression with anxiety: continue duloxetine (11) History of pulmonary embolism: - History of unprovoked pulmonary embolism: continue warfarin - INR 1.9 recheck in tomorrow or Saturday (12) Osteoarthritis: - Continue home baclofen, Voltaren, gabapentin, changed tramadol as above . - Temporarily renally adjusted her gabapentin to 200 mg TID. (13) Osteopenia: (14) Lumbar radiculopathy: (15) Lumbar spinal stenosis: (16) Arthritis: (17) Myofascial pain: (18) Urinary incontinence: Continue home fesoterodine ER and Vesicare. (19) Nocturnal hypoxia: Overnight pulse ox - performed with 2L so not accurate depiction of her normal night time saturations. She stated today that she does not want home O2 and would not be interested in further testing for oxygen. I did urge her to have a sleep study outpatient Total Time Total Time Spent Total Time Spent (In Minutes): greater than 30 minutes Discharge Plan Discharge Items Patient Disposition: Transfer Inpatient Rehab Fac Reason For Visit: LEFT KNEE PAIN AND CONTUSION, LEFT HIP PAIN Discharge Diagnosis: Left knee contusion, left hip pain Discharge Goals: Improve function Activity: Resume your previous activity Lifting: Gradually increase as tolerated Non-emergency contact: Primary Care Provider Call non-emergency contact if: you have any medication questions Follow-up/Referrals: Kathi Lau PA-C [Primary Care Provider] - Addtl Provider Instructions: You will need to have a prp drawn on Saturday to monitor your electrolytes. Please hold your lisinopril until your provider tells you its ok to restart after your blood work. Please see orthopedics in the next 1 -2 weeks Please follow up with vascular surgery outpatient Last INR check was 05/12 which was 1.9 after having Coumadin held 1 day following the fall. You will need to have your INR rechecked on Saturday Prescriptions: New oxycodone 5 mg Tablet 5 - 10 mg PO Q6H PRN (Reason: pain) Qty: 20 RF: 0 acetaminophen [Tylenol Extra Strength] 500 mg Tablet 1,000 mg PO Q8 Qty: 60 RF: 0 Continued diclofenac sodium [Voltaren] 1 % gel 2 gm TOP QID RF: 0 warfarin 5 mg tablet See Patient Comments PO UD RF: 0 Toviaz 4 mg tablet extended release 24 hr 4 mg PO DAILY Qty: 30 RF: 2 levothyroxine 50 mcg capsule 50 mcg PO DAILY Qty: 90 RF: 1 pravastatin 10 mg tablet 10 mg PO DAILY Qty: 90 RF: 3 gabapentin 300 mg capsule 300 mg PO TID Qty: 90 RF: 2 duloxetine 60 mg capsule,delayed release(DR/EC) 60 mg PO DAILY Qty: 90 RF: 0 baclofen 10 mg tablet 10 mg PO BID Qty: 60 RF: 0 solifenacin [Vesicare] 5 mg tablet 5 mg PO DAILY RF: 0 cholecalciferol (vitamin D3) 1,000 unit capsule 1,000 units PO DAILY RF: 0 Discontinued lisinopril 20 mg tablet 20 mg PO QAM RF: 0 tramadol 50 mg tablet 100 mg PO Q6H PRN (Reason: pain) RF: 0 Stand-Alone Forms: [facility] Skilled Items Patient informed of condition?: Yes DNR: No Discharge Level of Care: Acute rehab Communicable Disease: No Discharge Prognosis: Stable Admission Data Admit Date/Time: 05/12/19 10:53 Attending Provider: Kushal Vasquez Admit Provider: Robert Torres Primary Care Provider: Kathi Lau Other Providers: Kushal Vasquez Service: Surgical Services Other Interventions: Discharge Summary Assessment (RN) Last Done: 05/13/19 12:14
== END 2019-05-13 15:13 | DRG 605 ==
LOC: ED 19:35 → 3N 19:35 → SUATTDRO 05-11 01:10 → 3N 05-11 01:51 → SUATTDRO 05-12 10:53

== ENCOUNTER 2019-07-30 13:48 | Inpatient (IN) ==
--- NOTE | 2019-07-30 14:47 | XRay Report ---
XR wrist LT 2V HISTORY: 73 years-old Female L wrist pain s/p fall acute left-sided wrist pain status post fall COMPARISON: 2 views of the left wrist TECHNIQUE: None available FINDINGS: There is an acute comminuted intra-articular and displaced fracture of the distal radius demonstratin g 1.4 cm lateral and 2.0 cm volar displacement with several millimeters of impaction. Mildly deminera lized appearance of the bones. There is a least mild radiocarpal osteoarthritis with chondrocalcinosi s of the wrist. Large amount of soft tissue swelling circumferentially about the wrist. Distal ulna a ppears intact. Arterial calcifications are noted. IMPRESSION: Acute comminuted and displaced intra-articular fracture of the distal radius with mild im paction. The above report was generated using voice recognition software. It may contain grammatical, syntax o r spelling errors. Electronically signed by: Robert Montaño M.D. 07/30/2019 2:46 PM
--- NOTE | 2019-07-30 15:08 | Emergency Department Note ---
History of Present Illness General Chief complaint: Wrist Pain Stated complaint: WRIST LT PAIN S/P FALL Time Seen by Provider: 07/30/19 13:54 History of Present Illness Maximum Pain Intensity: 8 73-year-old female who presents to the emergency department for evaluation of left wrist and mild left hip pain. The patient reports that she ate lunch and was walking to her car, putting her walker into the trunk, and turning to get her cane when she lost her balance and fell backward. She attempted to catch herself with her left hand, and felt a snap in her wrist. She does report mild left lateral hip pain, but denies any significant discomfort with ambulation. The patient denies head injury, neck pain, back pain or other injuries from her fall, and rates her discomfort a 7 out of 10. Patient reports that she did take Ultram 100 mg this morning for history of left hip arthritis. She has a history of left knee replacement approximately [address] Osorio, and is currently following with Dr. Ribeiro for her left hip. Home Medications Home Medications Medication Instructions Recorded Confirmed Type baclofen 10 mg tablet 10 mg PO BID #60 tab 03/18/19 07/28/19 History warfarin 5 mg tablet See Rx Instructions PO UD tab 03/18/19 07/28/19 History pravastatin 10 mg tablet 10 mg PO DAILY #90 tab 04/16/19 07/28/19 Rx gabapentin 300 mg capsule 300 mg PO TID #90 cap 04/22/19 07/28/19 Rx cholecalciferol (vitamin D3) 1,000 1,000 units PO DAILY cap 05/08/19 07/28/19 History unit capsule acetaminophen [Tylenol Extra 1,000 mg PO Q8 #60 tab 05/13/19 07/28/19 Rx Strength] tramadol 50 mg tablet 50 - 100 mg PO Q6H PRN #240 tab 06/22/19 07/28/19 Rx duloxetine 60 mg capsule,delayed 60 mg PO DAILY #90 cap 06/23/19 07/28/19 Rx release fesoterodine ER 4 mg 4 mg PO DAILY #30 tab 06/23/19 07/28/19 Rx tablet,extended release 24 hr diclofenac 1 % topical gel 2 gm TOP QID #300 gm 07/08/19 07/28/19 Rx levothyroxine 50 mcg tablet 50 mcg PO DAILY 07/26/19 07/28/19 History Allergies Allergy/AdvReac Type Severity Reaction Status Date / Time atorvastatin Allergy Unknown Verified 05/10/19 20:15 calcium Allergy CAUSES Verified 05/10/19 20:15 KIDNEY STONES docosahexanoic acid Allergy Unknown Verified 05/10/19 20:15 [From [facility]] eicosapentaenoic acid Allergy Unknown Verified 05/10/19 20:15 [From [facility]] fish oil Allergy Unknown Verified 05/10/19 20:15 [From [facility]] lutein Allergy Unknown Verified 05/10/19 20:15 [From [facility]] omega-3 fatty acids Allergy Unknown Verified 05/10/19 20:15 [From [facility]] pravastatin Allergy Unknown Verified 05/10/19 20:15 vitamin C, E, zinc, copper Allergy Unknown Verified 05/10/19 20:15 combination no.11 [From [facility]] zeaxanthin Allergy Unknown Verified 05/10/19 20:15 [From [facility]] oxycodone AdvReac Mild "Made me Verified 07/28/19 09:50 higher than a kite" Past Med/Surg History Medical History BMI 50.0-59.9, adult (Acute) Cataract (Acute) Chronic anticoagulation (Acute) Depression with anxiety (Acute) Dyslipidemia (Acute) Goiter diffuse, nontoxic (Acute) History of pulmonary embolism (Resolved) History of breast cancer (Resolved) Insomnia (Acute) Joint pain, hip (Acute) Lumbar radiculopathy (Acute) Osteoarthritis (Acute) Osteopenia (Acute) Thyroid nodule (Acute) Urinary incontinence (Acute) Vitamin D deficiency (Acute) Left lumbar radiculitis (Chronic) Myofascial pain (Chronic) Lumbar spinal stenosis (Chronic) Severe multifactorial multilevel most prominent at L2-3 and L3-4 on MRI dated 03/05/2016 Left hip pain (Chronic) Arthritis (Chronic) Depression (Chronic) Hypertension (Chronic) Hypothyroidism (Chronic) Obesity (Chronic) Pulmonary embolism (Chronic) Chronic Coumadin treatment History of breast cancer (Resolved) Surgical History H/O lumbosacral spine surgery (Resolved) History of lumpectomy (Resolved) Hx of cholecystectomy (Resolved) Hx of total knee arthroplasty (Resolved) Family History Other No significant family history Social History Preferred Language: Kuwaiti Communication Ability: Effective 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 Beliefs That Will Affect Care: None Current Living Situation: Alone 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 status: retired Feels Safe at Home: Yes Smoking Status: Never smoker Second Hand Exposure: Yes ( smoked for 35 plus years) ; Hx Alcohol Use: Yes Hx Substance Use: No Review of Systems 10 system review was performed and was negative except for pertinent positives and negatives as indicated in history of present illness Physical Exam Vital Signs Vital Signs - 24 hr 07/30/19 13:52 07/30/19 16:59 Temperature 36.7 C Temperature Source Oral Sepsis Recent Fever Within 48 Hours No Sepsis Action Taken by Nursing No Action Required Pulse Rate 103 H Pulse Rate [Finger] 94 H Respiratory Rate 16 20 Respiratory Effort / Characteristics Non-Labored Respiratory Depth Normal Blood Pressure 153/71 H Blood Pressure [Right Arm] 131/71 Blood Pressure Mean 98 Blood Pressure Mean [Right Arm] 91 Pulse Oximetry 98 99 Oxygen Delivery Method Room Air Room Air CONSTITUTIONAL: Morbidly obese female, alert and oriented X 3. Patient appears in only mild discomfort. HEENT: Normocephalic, atraumatic. Pupils equal, round and reactive. NECK: Full active range of motion without discomfort. MUSCULOSKELETAL: Examination of the left wrist shows an obvious deformity with mild superficial abrasions to the ulnar aspect of the wrist. No other open wounds appreciated. Capillary refill of the fingers is less than 2 seconds. Patient has no other tenderness to palpation through the proximal forearm, elbow or shoulder region. No other tenderness to palpation through the back. She has minimal tenderness to palpation over the left lateral hip with no significant discomfort with logroll. INTEGUMENTARY: No rash or other significant dermatologic conditions noted. HEMATOLOGIC: No ecchymosis or petechiae. PSYCHIATRIC: Positive affect. NEUROLOGIC: Left hand and fingers are sensory intact. Course Patient history and physical exam were performed. Nurse's notes were reviewed. Vital signs were reviewed and were normal. The patient refused any analgesics on initial exam. X-rays of the left wrist confirms an intra-articular comminuted and impacted displaced fracture of the distal radius. X-ray findings were reviewed with the patient. The patient reports that this injury happened right after she ate lunch around noontime. The patient continued to refuse any analgesics. The patient was seen and examined by Dr. Alan, ED attending physician, who recommended orthopedic consultation. I then discussed the case further with [facility] (formerly [facility]). Dr. Ribeiro came to the emergency department and performed a hematoma block to further reduce the fracture. He will be taking the patient to surgery tomorrow. The patient will be admitted overnight. Please see his dictation for further treatment and final disposition. Administered Medications Discontinued Medications Bupivacaine HCl (Marcaine 0.5% Mpf) 30 ml INFIL NOW ONE Stop: 07/30/19 15:55 Last Admin: 07/30/19 16:02 Dose: 30 ml Documented by: [id number] Lidocaine HCl (Xylocaine 1% (Local)) 20 ml INFIL NOW ONE Stop: 07/30/19 15:55 Last Admin: 07/30/19 16:02 Dose: 20 ml Documented by: [id number] Medical Decision Making Medical Records Attestation: I reviewed the patient's medical records. Home Medications Current Medication List: was personally reviewed by me Imaging Data Attestation: I personally reviewed and interpreted this imaging study as follows: My Impression: My interpretation of left wrist x-rays confirms a comminuted intra-articular and displaced fracture of the distal radius with impaction. Distal ulna and navicular appear normal. Radiologist report was reviewed. Radiologist's Impression: XR wrist LT 2V HISTORY: 73 years-old Female L wrist pain s/p fall acute left-sided wrist pain status post fall COMPARISON: 2 views of the left wrist TECHNIQUE: None available FINDINGS: There is an acute comminuted intra-articular and displaced fracture of the distal radius demonstrating 1.4 cm lateral and 2.0 cm volar displacement with several millimeters of impaction. Mildly demineralized appearance of the bones. There is a least mild radiocarpal osteoarthritis with chondrocalcinosis of the wrist. Large amount of soft tissue swelling circumferentially about the wrist. Distal ulna appears intact. Arterial calcifications are noted. IMPRESSION: Acute comminuted and displaced intra-articular fracture of the distal radius with mild impaction. Blood Pressure Blood Pressure Findings: Normal blood pressure MDM Narrative The patient will be admitted for planned operative management tomorrow. Patient denies any other injuries from her fall, therefore I do not feel that further imaging is needed. Impression & Plan Closed fracture of left distal radius Discharge Plan Visit Data Chief Complaint: Wrist Pain Stated Complaint: WRIST LT PAIN S/P FALL ED Provider: Thuan Alan ED Midlevel Provider: Jared Peterson Discharge Problem: Closed fracture of left distal radius Forms Stand Alone Forms: [facility] Prescriptions Prescriptions: No Action warfarin 5 mg tablet See Patient Comments PO UD RF: 0 pravastatin 10 mg tablet 10 mg PO DAILY Qty: 90 RF: 3 gabapentin 300 mg capsule 300 mg PO TID Qty: 90 RF: 2 tramadol 50 mg tablet 50 - 100 mg PO Q6H PRN (Reason: pain) Qty: 240 RF: 1 duloxetine 60 mg capsule,delayed release(DR/EC) 60 mg PO DAILY Qty: 90 RF: 2 Toviaz 4 mg tablet extended release 24 hr 4 mg PO DAILY Qty: 30 RF: 5 diclofenac sodium [Voltaren] 1 % gel 2 gm TOP QID Qty: 300 RF: 3 baclofen 10 mg tablet 10 mg PO BID Qty: 60 RF: 0 cholecalciferol (vitamin D3) 1,000 unit capsule 1,000 units PO DAILY RF: 0 levothyroxine [Synthroid] 50 mcg tablet 50 mcg PO DAILY RF: 0 acetaminophen [Tylenol Extra Strength] 500 mg Tablet 1,000 mg PO Q8 Qty: 60 RF: 0 Discharge Problem: Closed fracture of left distal radius Qualifiers: Encounter type: initial encounter Fracture morphology: other intra-articular Qualified Code(s): S52.572A - Other intraarticular fracture of lower end of left radius, initial encounter for closed fracture
[2019-07-30] MEDS ORDERED: LIDOCAINE HCL 1% 20 ML VIAL INFIL ONE (15:54)
[2019-07-30] MEDS ORDERED: BUPIVACAINE 0.5 % 5 MG/1 ML MPF 30ML VIAL INFIL ONE (15:54)
[2019-07-30] MEDS ORDERED: TRAMADOL HCL 50 MG TABLET PO PRN (16:22)
[2019-07-30] MEDS ORDERED: ONDANSETRON INJ 2 MG/ML 2 ML VIAL IV PRN (16:22)
[2019-07-30] MEDS ORDERED: METOCLOPRAMIDE HCL INJ 5 MG/ML 2 ML VIAL IV PRN (16:22)
--- NOTE | 2019-07-30 16:37 | History & Physical Report ---
Date of Service July 30, 2019 Assessment & Plan (1) Fracture of left distal radius: We will admit her to the orthopedic service. She is on the operative schedule for tomorrow. We will plan to do an open reduction internal fixation of her left wrist. After that time she will only need to be in a short splint and we can be more aggressive with her weightbearing with a walker. I will give her some vitamin K to help reverse her INR. We will get a chest x-ray, EKG and blood work as well. Present on Admission?: Yes History of Present Illness Chief Complaint: Left distal radius fracture Primary Care Provider: Mojgan Stanford PA-C Cristina is a pleasant 73-year-old female who tripped and fell backwards onto her left outstretched hand earlier today. She had significant deformity of her left wrist. She came to the emergency room and radiographs demonstrated a displaced left distal radius fracture. She is dependent on a walker for ambulation. She has a large soft tissue envelope around her arm. She does not feel safe going home. The fracture was reduced in the emergency room and she was admitted to the hospital for operative fixation tomorrow. Allergies Allergy/AdvReac Type Severity Reaction Status Date / Time atorvastatin Allergy Unknown Verified 05/10/19 20:15 calcium Allergy CAUSES Verified 05/10/19 20:15 KIDNEY STONES docosahexanoic acid Allergy Unknown Verified 05/10/19 20:15 [From [facility]] eicosapentaenoic acid Allergy Unknown Verified 05/10/19 20:15 [From [facility]] fish oil Allergy Unknown Verified 05/10/19 20:15 [From [facility]] lutein Allergy Unknown Verified 05/10/19 20:15 [From [facility]] omega-3 fatty acids Allergy Unknown Verified 05/10/19 20:15 [From [facility]] pravastatin Allergy Unknown Verified 05/10/19 20:15 vitamin C, E, zinc, copper Allergy Unknown Verified 05/10/19 20:15 combination no.11 [From [facility]] zeaxanthin Allergy Unknown Verified 05/10/19 20:15 [From [facility]] oxycodone AdvReac Mild "Made me Verified 07/28/19 09:50 higher than a kite" Home Medications Home Medications Medication Instructions Recorded Confirmed Type baclofen 10 mg tablet 10 mg PO BID #60 tab 03/18/19 07/28/19 History warfarin 5 mg tablet See Rx Instructions PO UD tab 03/18/19 07/28/19 History pravastatin 10 mg tablet 10 mg PO DAILY #90 tab 04/16/19 07/28/19 Rx gabapentin 300 mg capsule 300 mg PO TID #90 cap 04/22/19 07/28/19 Rx cholecalciferol (vitamin D3) 1,000 1,000 units PO DAILY cap 05/08/19 07/28/19 History unit capsule acetaminophen [Tylenol Extra 1,000 mg PO Q8 #60 tab 05/13/19 07/28/19 Rx Strength] tramadol 50 mg tablet 50 - 100 mg PO Q6H PRN #240 tab 06/22/19 07/28/19 Rx duloxetine 60 mg capsule,delayed 60 mg PO DAILY #90 cap 06/23/19 07/28/19 Rx release fesoterodine ER 4 mg 4 mg PO DAILY #30 tab 06/23/19 07/28/19 Rx tablet,extended release 24 hr diclofenac 1 % topical gel 2 gm TOP QID #300 gm 07/08/19 07/28/19 Rx levothyroxine 50 mcg tablet 50 mcg PO DAILY 07/26/19 07/28/19 History Past Med/Surg History Medical History BMI 50.0-59.9, adult (Acute) Cataract (Acute) Chronic anticoagulation (Acute) Depression with anxiety (Acute) Dyslipidemia (Acute) Goiter diffuse, nontoxic (Acute) History of pulmonary embolism (Resolved) History of breast cancer (Resolved) Insomnia (Acute) Joint pain, hip (Acute) Lumbar radiculopathy (Acute) Osteoarthritis (Acute) Osteopenia (Acute) Thyroid nodule (Acute) Urinary incontinence (Acute) Vitamin D deficiency (Acute) Left lumbar radiculitis (Chronic) Myofascial pain (Chronic) Lumbar spinal stenosis (Chronic) Severe multifactorial multilevel most prominent at L2-3 and L3-4 on MRI dated 03/05/2016 Left hip pain (Chronic) Arthritis (Chronic) Depression (Chronic) Hypertension (Chronic) Hypothyroidism (Chronic) Obesity (Chronic) Pulmonary embolism (Chronic) Chronic Coumadin treatment History of breast cancer (Resolved) Surgical History H/O lumbosacral spine surgery (Resolved) History of lumpectomy (Resolved) Hx of cholecystectomy (Resolved) Hx of total knee arthroplasty (Resolved) Family History Other No significant family history Social History Preferred Language: Azerbaijani Communication Ability: Effective Corrections Nurse Required: No Beliefs That Will Affect Care: None Current Living Situation: Alone 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 status: retired Feels Safe at Home: Yes Smoking Status: Never smoker Second Hand Exposure: Yes ( smoked for 35 plus years) ; Hx Alcohol Use: Yes Hx Substance Use: No Review of Systems All systems reviewed & are unremarkable except as noted in HPI & below Physical Exam Musculoskeletal: On physical examination of the left wrist, there is a deformity. Her median nerve is intact and she has full sensation of her hand. She has good capillary refill. She is able to move all her fingers without much difficulty. She has a large soft tissue envelope. There are no open wounds. Results & Data Vital Signs (Past 12 Hours) Vital Signs Temp Pulse Resp BP Pulse Ox 07/30/19 13:52 36.7 C 103 H 16 153/71 H 98 Diagnostic Findings X-rays of the left wrist show a displaced volar fracture of the left distal radius.
[2019-07-30] MEDS ORDERED: PHYTONADIONE 10 MG in SODIUM CHLORIDE 0.9% 50 ML IV SCH (17:00)
--- NOTE | 2019-07-30 17:51 | XRay Report ---
XR chest 2V PA/lateral CLINICAL HISTORY: Preoperative chest COMPARISON STUDY: 05/10/2019 FINDINGS: The cardiac and mediastinal contours are normal. There is no evidence of focal pulmonary co nsolidation. There is no evidence of failure. No pleural effusions are visualized.[There is stable lo wer cervical tracheal deviation to the left. This could indicate a thoracic inlet mass such as a thyr oid goiter. There are postsurgical changes present within the cervical spine. The examination is some what limited due to the patient's large body habitus. IMPRESSION: No active disease in the chest. Electronically signed by: Zhang Duron M.D. 07/30/2019 5:50 PM
--- NOTE | 2019-07-30 18:00 | Emergency Department Note ---
ED Visit Note I have seen and examined this patient with Jared Peterson and generally agree with the treatment plan as discussed. . : Closed fracture of left distal radius Qualifiers: Encounter type: initial encounter Fracture morphology: other intra-articular Qualified Code(s): S52.572A - Other intraarticular fracture of lower end of left radius, initial encounter for closed fracture
[2019-07-30] MEDS: SODIUM CHLORIDE 0.9% 1000ML 1,000 ML IV SCH (18:46)
[2019-07-30] MEDS: HYDROmorphone INJ 0.5 MG/0.5 ML SYR IV PRN ×2 (18:56→21:03)
[2019-07-30 19:11] LABS: Basophils # (auto) 0.01 K/uL (0-0.2); Basophils % (auto) 0.1 %; Eosinophils # (auto) 0.04 K/uL (0-0.5); Eosinophils % (auto) 0.5 %; Hematocrit (blood only) 35.4 % (37-47); Hemoglobin 11.2 g/dL (12.0-16.0); Immature Granulocytes # (auto) 0.02 K/uL (0.00-0.02); Immature Granulocytes % (auto) 0.2 %; Lymphocytes # (auto) 1.58 K/uL (1.2-3.4); Lymphocytes % (auto) 19.2 %; Mean Corpuscular Hemoglobin 29.9 pg (25-34); Mean Corpuscular Hgb Conc 31.6 g/dL (32-36); Mean Corpuscular Volume 94.7 fL (80-100); Mean Platelet Volume 10.9 fL (7.4-10.4); Monocytes # (auto) 0.61 K/uL (0.11-0.59); Monocytes % (auto) 7.4 %; Neutrophils # (auto) 5.98 K/uL (1.4-6.5); Neutrophils % (auto) 72.6 %; Platelet Count 229 K/uL (130-400); RDW Coefficient of Variation 13.7 % (11.5-14.5); RDW Standard Deviation 47.2 fL (36.4-46.3); Red Blood Count 3.74 M/uL (4.2-5.4); White Blood Count 8.24 K/uL (4.8-10.8)
[2019-07-30 19:23] LABS: INR 2.5 (0.9-1.1); Prothrombin Time 23.6 Seconds (9.0-12.0)
[2019-07-30 19:31] LABS: Calcium 9.4 mg/dl (8.5-10.1); Creatinine Clr Calc Pharmacy 53.5 ml/min; Est GFR (African American) 58.1; Est GFR (Non-African American) 50.1; Potassium 4.2 mmol/L (3.5-5.1)
[2019-07-30] MEDS ORDERED: PHYTONADIONE 10 MG in SODIUM CHLORIDE 0.9% 50 ML IV ONE (20:00)
[2019-07-30] MEDS ORDERED: KETOROLAC TROMETHAMINE 15 MG/ML VIAL IV ONE (22:44)
[2019-07-30] MEDS ORDERED: HYDROmorphone INJ 2 MG/ML SYR/VIAL IV PRN (22:45)
[2019-07-30] MEDS ORDERED: KETOROLAC TROMETHAMINE 15 MG/ML VIAL IV PRN (22:49)
[2019-07-31] MEDS ORDERED: CEFAZOLIN 2000MG 2,000 MG/15 ML SYR IV SCH (06:00)
[2019-07-31 06:40] LABS: INR 1.5 (0.9-1.1); Prothrombin Time 15.1 Seconds (9.0-12.0)
[2019-07-31] MEDS: SODIUM CHLORIDE 0.9% 1000ML 1,000 ML IV SCH ×2 (07:28→16:11)
[2019-07-31] MEDS ORDERED: PROPOFOL IV EMULSION 10 MG/ML 20 ML VIAL IV ONE (09:13)
[2019-07-31] MEDS ORDERED: LIDOCAINE HCL 2% 2 ML VIAL/AMP(20MG/ML) INFIL ONE (09:13)
[2019-07-31] MEDS ORDERED: fentaNYL citrate 100 MCG/2 ML VIAL ONE ×2 (09:13→11:47)
[2019-07-31] MEDS ORDERED: MIDAZOLAM HCL 1 MG/ML 2ML VIAL ONE (09:13)
--- NOTE | 2019-07-31 10:11 | History & Physical Bridge Note ---
Date of Service July 31, 2019 History & Physical Bridge Note I have examined the patient, reviewed the History & Physical and in the interval since the performance of the History & Physical I have noted the following changes of clinical significance: no changes noted
[2019-07-31] MEDS ORDERED: ROPIVACAINE 0.5% 5 MG/ML 30 ML VIAL ONE (10:18)
--- NOTE | 2019-07-31 10:36 | Anesthesiology Consultation ---
Date of Service July 31, 2019 Assessment & Plan (1) Encounter for pre-operative examination: Chart Review Chart Review: Acceptable Risk for Surgery and Patient NOT seen in Pre Admission Testing Consults Requested none ASA ASA3 Proposed Anesthesia Anesthesia Type: General Risk / Benefits Reviewed With: PT / POA / Parent / Guardian, Accepts Plan and Informed Consent Obtained History Surgery Operation Date: 07/31/19 11:30 Proposed Procedures p Left Distal Radius Fracture Open Reduction Internal Fixation - Tyler Ribeiro, Height/Weight Height: 5 ft Weight: 115 kg Allergies Allergy/AdvReac Type Severity Reaction Status Date / Time docosahexanoic acid Allergy Unknown Unknown Verified 07/31/19 11:08 [From [facility]] eicosapentaenoic acid Allergy Unknown Unknown Verified 07/31/19 11:08 [From [facility]] fish oil Allergy Unknown Unknown Verified 07/31/19 11:08 [From [facility]] lutein Allergy Unknown Unknown Verified 07/31/19 11:08 [From [facility]] omega-3 fatty acids Allergy Unknown Unknown Verified 07/31/19 11:08 [From [facility]] vitamin C, E, zinc, copper Allergy Unknown Unknown Verified 07/31/19 11:08 combination no.11 [From [facility]] zeaxanthin Allergy Unknown Unknown Verified 07/31/19 11:08 [From [facility]] oxycodone AdvReac Mild "Made me Verified 07/31/19 11:08 higher than a kite" atorvastatin AdvReac Unknown Unknown Verified 07/31/19 11:08 calcium AdvReac Unknown CAUSES Verified 07/31/19 11:08 KIDNEY STONES Medications Home Medications Medication Instructions Recorded Confirmed Last Taken baclofen 10 mg tablet 10 mg PO BID #60 tab 03/18/19 07/30/19 07/30/19 AM DOSE warfarin 5 mg tablet 5 mg PO [id number] tab 03/18/19 07/30/19 07/29/19 5 MG HS gabapentin 300 mg capsule 300 mg PO TID #90 cap 04/22/19 07/30/19 07/30/19 AM DOSE cholecalciferol (vitamin D3) 1,000 1,000 units PO HS cap 05/08/19 07/30/19 07/29/19 unit capsule diclofenac sodium 2 g TOPICAL QID PRN 07/30/19 07/30/19 Unknown duloxetine 60 mg PO HS 07/30/19 07/30/19 07/29/19 fesoterodine [Toviaz] 4 mg PO HS 07/30/19 07/30/19 07/29/19 levothyroxine 25 mcg PO QAM 07/30/19 07/30/19 07/30/19 lisinopril 20 mg PO QAM 07/30/19 07/30/19 07/30/19 pravastatin 10 mg PO HS 07/30/19 07/30/19 07/29/19 tramadol 100 mg PO Q6H PRN 07/30/19 07/30/19 07/30/19 12:00 warfarin 2.5 mg PO 3XWK 07/30/19 07/30/19 07/28/19 2.5 MG HS Active Medications Generic Name Dose Route Start Last Admin Trade Name Freq PRN Reason Stop Dose Admin Sodium Chloride 1,000 mls @ 80 mls/hr 07/30/19 19:00 07/31/19 07:28 Nss 1000ml IV 08/29/19 18:59 80 mls/hr .[id number] LUIS Administration NPO Date Last Intake of Fluids: 07/30/19 Time Last Intake of Fluids: 23:50 Date Last Intake of Solids: 07/30/19 Time Last Intake of Solids: 23:50 Past Medical History Medical History Urinary incontinence Hyperlipidemia Peripheral arterial disease (Acute) BMI 50.0-59.9, adult (Acute) Cataract (Acute) Chronic anticoagulation (Acute) Depression with anxiety (Acute) Dyslipidemia (Acute) Goiter diffuse, nontoxic (Acute) History of pulmonary embolism (Resolved) History of breast cancer (Resolved) Insomnia (Acute) Joint pain, hip (Acute) Lumbar radiculopathy (Acute) Osteoarthritis (Acute) Osteopenia (Acute) Thyroid nodule (Acute) Urinary incontinence (Acute) Vitamin D deficiency (Acute) Left lumbar radiculitis (Chronic) Myofascial pain (Chronic) Lumbar spinal stenosis (Chronic) Severe multifactorial multilevel most prominent at L2-3 and L3-4 on MRI dated 03/05/2016 Left hip pain (Chronic) Arthritis (Chronic) Depression (Chronic) Hypertension (Chronic) Hypothyroidism (Chronic) Obesity (Chronic) Pulmonary embolism (Chronic) Chronic Coumadin treatment History of breast cancer (Resolved) Exercise / Class Metabolic Activity III < 4 Walking/Shop/Light housework (ambulates with walker) Negative for chest pain or shortness of breath. Past Family History Family History Other No significant family history Past Surgical History Surgical History H/O lumbosacral spine surgery (Resolved) History of lumpectomy (Resolved) Hx of cholecystectomy (Resolved) Hx of total knee arthroplasty (Resolved) Past Anesthesia History No Hx of Anesthesia Complications History of PONV No Hx of PONV Social History Smoking Status: Never smoker Hx Alcohol Use: Yes alcohol intake frequency: holidays/special occasions only Hx Substance Use: No Review of Systems Positive for nausea - denies vomiting Positive for headache Physical Exam Vital Signs Last Vital Signs Temp 37.1 C 07/31/19 11:10 Pulse 88 07/31/19 11:10 Resp 20 07/31/19 11:10 BP 148/60 H 07/31/19 11:10 Pulse Ox 98 07/31/19 11:10 Constitutional + morbidly obese ENMT Mouth: no TMJ abnormality and oral opening not small Thyromental Distance: > or= 3.5 Finger Breadths Mallampati Class: II Mouth / Teeth: 1. Loose 2. Chipped and broken Neck normal visual inspection; neck extension not limited Respiratory normal respiratory effort Auscultation: lungs clear to auscultation bilaterally Cardiovascular Rate/Rhythm: regular rate and regular rhythm Heart Sounds: no murmur Neurologic moves all extremities Psychiatric Orientation: alert and oriented x 3 Testing Laboratory Results 07/30/19 18:56 07/30/19 18:56 PT 15.1 Seconds (9.0-12.0) H 07/31/19 06:11 INR 1.5 (0.9-1.1) H 07/31/19 06:11 Electrocardiogram Date: 07/31/19 Findings: + NSR @ (87) Chest X-Ray Date: 07/30/19 Findings: + NAD
[2019-07-31] MEDS ORDERED: BUPIVACAINE 0.25% 30 ML VIAL ONE (11:13)
[2019-07-31] MEDS ORDERED: EPINEPHrine INJ 1 MG/ML AMP ONE (11:13)
[2019-07-31] MEDS ORDERED: ePHEDrine sulfate 50 MG/ML AMP IV PRN (11:31)
[2019-07-31] MEDS ORDERED: ONDANSETRON INJ 2 MG/ML 2 ML VIAL IV PRN ×2 (11:31→15:04)
[2019-07-31] MEDS ORDERED: fentaNYL citrate 100 MCG/2 ML VIAL IV PRN (11:31)
[2019-07-31] MEDS ORDERED: ATROPINE SULFATE 0.1 MG/ML 10ML SYR IV PRN (11:31)
[2019-07-31] MEDS ORDERED: ONDANSETRON INJ 2 MG/ML 2 ML VIAL ONE (11:50)
[2019-07-31] MEDS ORDERED: DEXAMETHASONE SOD INJ 4 MG/ML VIAL ONE (11:50)
--- NOTE | 2019-07-31 13:15 | Procedure Note ---
Procedure Note Date of Service July 31, 2019 Note Cristina's left wrist was reduced in the emergency room. She received a hematoma block of 20 cc of 1% lidocaine. Once proper analgesia was obtained traction was pulled on her left wrist. A closed reduction was performed. The fracture was very unstable. Once the wrist was in better alignment a coaptation splint was applied. Decision was made to take her to surgery the following day. Postreduction radiographs were not obtained. Coding
--- NOTE | 2019-07-31 13:19 | Operative Report ---
Post Operative Report Pre & Post Diagnosis Operation Date: 07/31/19 11:30 Pre-Op Diagnosis: Three-part intra-articular Left distal radius fracture Post-Op Diagnosis: Three-part intra-articular Left distal radius fracture I identified the patient and participated in the time-out.: Yes Procedure Operation Date: 07/31/19 11:30 Actual Procedures Open Reduction Internal Fixation Of a 3 part intra-articular distal radius fracture(Left) - Tyler Ribeiro DO Surgeon Tyler Ribeiro DO Agency Manager Tyler Rios PAC Estimated Blood Loss 20 Findings Consistent with Post-Op Diagnosis Specimens None Complications none Disposition Disposition: Recovery Room Indications Cristina is a pleasant 73-year-old female who fell backwards yesterday sustaining a volar displaced left distal radius fracture. An attempt was made a closed reduction in the emergency room however the fracture was very unstable. She is walker dependent. Decision was made to admit her to the hospital and to proceed with an open reduction internal fixation the following day. Description of Procedure On July 31, 2019 she was brought from the hospital room to the preoperative holding area. The operative extremity identified and signed. She was given a preoperative antibiotic. She is taken back to the operating room laid on table supine position. She was put under general anesthesia. The left wrist was prepped and draped in sterile fashion. A timeout was done The patient and the operative extremity was properly identified. A volar approach was used. Dissection was taken down over the flexor carpi radialis and the radialis was retracted radially. The median nerve was identified and retracted. The supinator was elevated off the distal radius. The fracture was exposed.There was a complex 3 part intra-articular distal radius fracture. Time was spent with a dental pick realigning all the pieces of the fracture. A Synthes variable angle stainless steel locking plate was then placed. A single compression screw was placed in the combination hole. Fluoroscopic images showed near anatomic reduction of the fracture. Locking screws were placed distally and 2 locking screws were placed proximally. The length of the screws and the overall fracture alignment was checked on orthogonal fluoroscopic images. I was happy with the overall alignment. The wound was then irrigated. Surrounding soft tissues were injected with 30 cc of Marcaine with epinephrine. The tourniquet was released and hemostasis was obtained. Skin was closed with 3-0 Vicryl and 3-0 nylon suture. She was then placed in a volar splint. She was then extubated and transferred to a [facility]. She was taken to the postanesthesia care unit in stable condition. She tolerated the procedure well. I attest to the content of the Intraoperative Record and any orders documented therein. Any exceptions are noted below.
--- NOTE | 2019-07-31 13:40 | Fluoroscopy Report ---
INTRAOPERATIVE RADIOGRAPHS CLINICAL HISTORY: Open reduction and internal fixation of the left wrist. Fluoroscopy time: 70 seconds. FINDINGS: 2 spot fluoroscopic views of the left wrist are correlated with radiographs dated 07/30/2019 . There has been buttress plate fixation of an impacted and comminuted fracture of the distal radial metaphysis with rastafari of near-anatomic alignment. Overlying soft tissue edema is noted. The ort hopedic hardware appears intact. IMPRESSION: Intraoperative images from open reduction and internal fixation of a distal radial fractu re as above. Electronically signed by: Ken Grant M.D. 07/31/2019 1:38 PM
--- NOTE | 2019-07-31 13:40 | Fluoroscopy Report ---
INTRAOPERATIVE RADIOGRAPHS CLINICAL HISTORY: Open reduction and internal fixation of the left wrist. Fluoroscopy time: 70 seconds. FINDINGS: 2 spot fluoroscopic views of the left wrist are correlated with radiographs dated 07/30/2019 . There has been buttress plate fixation of an impacted and comminuted fracture of the distal radial metaphysis with congregational of near-anatomic alignment. Overlying soft tissue edema is noted. The ort hopedic hardware appears intact. IMPRESSION: Intraoperative images from open reduction and internal fixation of a distal radial fractu re as above. Electronically signed by: Ken Grant M.D. 07/31/2019 1:38 PM
[2019-07-31] MEDS ORDERED: HYDROmorphone INJ 1 MG/ML SYRINGE ONE ×2 (13:48→13:56)
[2019-07-31] MEDS: HYDROmorphone INJ 2 MG/ML SYR/VIAL IV PRN ×4 (13:48→14:03)
[2019-07-31] MEDS ORDERED: KETOROLAC TROMETHAMINE 15 MG/ML VIAL IV ONE (14:27)
[2019-07-31] MEDS ORDERED: KETOROLAC 30 MG/ML VIAL ONE (14:31)
--- NOTE | 2019-07-31 14:31 | Anesthesiology Progress Note ---
Date of Service July 31, 2019 Anesthesia Post Procedure Vital Signs Vital Signs: Temp Pulse Pulse Resp BP BP Pulse Ox 07/31/19 14:20 99 H 20 110/69 94 07/31/19 14:10 100 H 20 120/52 L 94 07/31/19 14:00 101 H 20 102/57 L 94 07/31/19 13:50 104 H 20 90/69 L 92 07/31/19 13:40 103 H 20 92/64 L 92 07/31/19 13:30 36.2 C L 108 H 20 143/59 H 92 07/31/19 11:10 37.1 C 88 20 148/60 H 98 07/31/19 07:48 37.1 C 81 18 137/80 95 07/30/19 23:35 36.7 C 83 20 145/68 H 94 07/30/19 21:55 36.8 C 84 16 144/66 H 94 07/30/19 21:15 37.0 C 83 18 172/70 H 96 07/30/19 21:00 36.9 C 72 18 147/62 H 94 07/30/19 20:37 36.7 C 86 16 144/74 H 93 07/30/19 18:20 37.2 C 93 H 16 112/57 L 95 07/30/19 18:16 94 H 20 163/78 H 94 07/30/19 16:59 94 H 20 131/71 99 Pain Intensity Left Arm: Pain Intensity: 7 Transfer of Care Handoff Completed per policy Notes Mental Status: alert / awake / arousable and participated in evaluation Patient Amnestic to Procedure: Yes Nausea / Vomiting: adequately controlled Pain: improving with treatment Airway Patency, RR, SpO2: stable & adequate BP & HR: stable & adequate Hydration State: stable & adequate Anesthetic Complications: no major complications apparent and Pt Satisfied with anesthetic care
[2019-07-31] MEDS ORDERED: ACETAMINOPHEN 500 MG TAB PO PRN (15:04)
[2019-07-31] MEDS ORDERED: DICLOFENAC SOD 1% GEL 100 GM TUBE EXT PRN (15:04)
[2019-07-31] MEDS ORDERED: ALUMINUM/MAGNESIUM SUSP 30 ML UDC PO PRN (15:04)
[2019-07-31] MEDS ORDERED: WARFARIN SOD 5 MG TAB PO SCH (16:00)
[2019-07-31] MEDS: OXYCODONE/ACETAMINOPHEN 5mg/325mg TAB PO PRN (18:14)
[2019-07-31] MEDS: CEFAZOLIN 2000MG 2,000 MG/15 ML SYR IV SCH (18:15)
[2019-07-31] MEDS: BACLOFEN 10 MG TAB PO SCH (20:56)
[2019-07-31] MEDS: DOCUSATE SODIUM 100 MG CAP PO SCH (20:56)
[2019-07-31] MEDS: GABAPENTIN 300 MG CAP PO SCH (20:57)
[2019-07-31] MEDS ORDERED: PRAVASTATIN SOD 10 MG TAB PO SCH (21:00)
[2019-07-31] MEDS ORDERED: DULOXETINE HCL 60 MG CAP PO SCH (21:00)
[2019-08-01] MEDS: CEFAZOLIN 2000MG 2,000 MG/15 ML SYR IV SCH ×2 (02:22→10:50)
[2019-08-01] MEDS: SODIUM CHLORIDE 0.9% 1000ML 1,000 ML IV SCH (04:55)
[2019-08-01] MEDS ORDERED: LEVOTHYROXINE SODIUM 25 MCG TABLET PO SCH (06:30)
[2019-08-01] MEDS: OXYCODONE/ACETAMINOPHEN 5mg/325mg TAB PO PRN ×3 (08:15→16:14)
[2019-08-01] MEDS: BACLOFEN 10 MG TAB PO SCH (08:19)
[2019-08-01] MEDS: GABAPENTIN 300 MG CAP PO SCH ×2 (08:19→13:00)
[2019-08-01] MEDS: DOCUSATE SODIUM 100 MG CAP PO SCH (08:19)
--- NOTE | 2019-08-01 08:52 | Orthopedic Progress Note ---
Date of Service August 01, 2019 Assessment & Plan (1) Closed fracture of left distal radius: Overall she is doing much better. She denies any too much pain in the left wrist. She can be seen by physical therapy today. She may use her left fingers but I do not want any weightbearing on the left wrist. She will use a platform walker. She can be discharged to home later today with her sister if it is okay with physical therapy. I do want her seen by case management first. She is currently getting physical therapy and Occupational Therapy in her house due to her leg length discrepancy on the left. Present on Admission?: Yes Subjective Cristina was seen and examined at bedside this morning. Overall she is doing very well. She is having too much pain in the left wrist. She was able to get some sleep last night. She has no complaints. Physical Exam Musculoskeletal: On physical examination of the left wrist, she has motion of all of her fingers. Sensations intact. She has no numbness in the median nerve distribution. She is good capillary refill. Her splint is well fitting. Results & Data Vital Signs (Past 12 Hours) Vital Signs Temp Pulse Resp BP Pulse Ox 08/01/19 03:51 36.7 C 78 19 155/76 H 96 07/31/19 23:10 36.9 C 91 H 19 138/68 93 PG Care Time/CCT Total # of Minutes Spent Total Time Spent with Patient: Total time spent is greater than 50% in coordination of care (as documented) at patient's floor/unit and/or counseling patient: (1) Closed fracture of left distal radius Encounter type: initial encounter Fracture morphology: other intra-articular Qualified Code(s): S52.572A - Other intraarticular fracture of lower end of left radius, initial encounter for closed fracture
[2019-08-01] MEDS ORDERED: LISINOPRIL 20 MG TAB PO SCH (09:00)
[2019-08-01 09:20] VITALS: BP 133/61; PULSE 92; TEMP 98.4; O2SAT 97
--- NOTE | 2019-08-01 13:06 | Anesthesiology Progress Note ---
Date of Service August 01, 2019 Anesthesia Post Procedure Vital Signs Vital Signs: Temp Pulse Resp BP Pulse Ox 08/01/19 09:19 36.9 C 92 H 18 133/61 97 08/01/19 03:51 36.7 C 78 19 155/76 H 96 07/31/19 23:10 36.9 C 91 H 19 138/68 93 07/31/19 20:24 37.0 C 88 20 135/73 93 07/31/19 17:54 36.9 C 102 H 20 149/72 H 92 07/31/19 16:44 37.1 C 104 H 20 169/73 H 95 07/31/19 15:53 36.8 C 103 H 18 168/82 H 96 07/31/19 15:20 36.8 C 99 H 18 156/70 H 98 07/31/19 14:45 36.9 C 104 H 16 167/76 H 94 07/31/19 14:20 99 H 20 110/69 94 07/31/19 14:10 100 H 20 120/52 L 94 07/31/19 14:00 101 H 20 102/57 L 94 07/31/19 13:50 104 H 20 90/69 L 92 07/31/19 13:40 103 H 20 92/64 L 92 07/31/19 13:30 36.2 C L 108 H 20 143/59 H 92 Pain Intensity Left Arm: Pain Intensity: 8 Notes Mental Status: alert / awake / arousable and participated in evaluation Patient Amnestic to Procedure: Yes Nausea / Vomiting: adequately controlled Pain: adequately controlled Airway Patency, RR, SpO2: stable & adequate BP & HR: stable & adequate Hydration State: stable & adequate Anesthetic Complications: no major complications apparent and Pt Satisfied with anesthetic care
[2019-08-01] MEDS ORDERED: WARFARIN SOD 2.5 MG TAB PO SCH (16:00)
--- NOTE | 2019-08-04 16:23 | Discharge Summary ---
Date of Service August 04, 2019 Admission HPI Per Admitting Provider Cristina is a pleasant 73-year-old female who tripped and fell backwards onto her left outstretched hand earlier today. She had significant deformity of her left wrist. She came to the emergency room and radiographs demonstrated a displaced left distal radius fracture. She is dependent on a walker for ambulation. She has a large soft tissue envelope around her arm. She does not feel safe going home. The fracture was reduced in the emergency room and she was admitted to the hospital for operative fixation tomorrow. Principal Diagnosis Operative fixation of the left wrist Discharge Data Allergies Allergy/AdvReac Type Severity Reaction Status Date / Time docosahexanoic acid Allergy Unknown Unknown Verified 07/31/19 11:08 [From [facility]] eicosapentaenoic acid Allergy Unknown Unknown Verified 07/31/19 11:08 [From [facility]] fish oil Allergy Unknown Unknown Verified 07/31/19 11:08 [[facility]] lutein Allergy Unknown Unknown Verified 07/31/19 11:08 [From [facility]] omega-3 fatty acids Allergy Unknown Unknown Verified 07/31/19 11:08 [From [facility]] vitamin C, E, zinc, copper Allergy Unknown Unknown Verified 07/31/19 11:08 combination no.11 [From [facility]] zeaxanthin Allergy Unknown Unknown Verified 07/31/19 11:08 [From [facility]] oxycodone AdvReac Mild "Made me Verified 07/31/19 11:08 higher than a kite" atorvastatin AdvReac Unknown Unknown Verified 07/31/19 11:08 calcium AdvReac Unknown CAUSES Verified 07/31/19 11:08 KIDNEY STONES Consultations 07/30/19 16:22 Consult Case Management - Discharge Planning Routine 07/31/19 15:04 Consult Case Management - Discharge Planning Routine Procedures Performed Operation Date: 07/31/19 11:30 Actual Procedures p Left Distal Radius Fracture Open Reduction Internal Fixation(Left) - Tyler Ribeiro DO Ordered Studies 07/31/19 11:30 FL fluoroscopy <1hr Routine FL wrist LT 2V Routine Hospital Course (1) Fracture of left distal radius: On August 01, 2019 Cristina was brought down from her hospital room and underwent a open reduction and internal fixation of her left wrist without complication. She was placed in a volar splint and a left arm sling. She was then discharged back to the general orthopedic floors. Her hospital course was uneventful. On postop day #1 she was not having much pain in the left hand. She can move all her fingers. She was then discharged to home with her family. She will follow-up with orthopedics in 2 weeks. Total Time Total Time Spent Total Time Spent (In Minutes): 20 Discharge Plan Discharge Items Patient Disposition: Transfer Inpatient Rehab Fac Reason For Visit: DISTAL RADIUS FRACTURE Discharge Diagnosis: Fixation of left distal radius fracture Activity: As commented below Non-emergency contact: Surgeon Call non-emergency contact if: your wound has increased redness and your wound has increased drainage Follow-up/Referrals: Mojgan Stanford PA-C [Primary Care Provider] - Diet: Heart Healthy Addtl Attending Provider Instructions: Leave the left wrist splint intact until follow-up in the office. May use left fingers. No gripping or lifting with the left hand. May use a platform walker. Pending Studies at Discharge: No Stand-Alone Forms: [facility] Skilled Items Lines: None Urinary Catheter: No Medications and DC Order Prescriptions: Continued warfarin 5 mg tablet 5 mg PO [id number] RF: 0 gabapentin 300 mg capsule 300 mg PO TID Qty: 90 RF: 2 baclofen 10 mg tablet 10 mg PO BID Qty: 60 RF: 0 cholecalciferol (vitamin D3) 1,000 unit capsule 1,000 units PO HS RF: 0 tramadol 50 mg tablet 100 mg PO Q6H PRN (Reason: Pain) RF: 0 diclofenac sodium 1 % gel 2 g topical QID PRN (Reason: Leg/Hip Pain) RF: 0 lisinopril 20 mg tablet 20 mg PO QAM RF: 0 levothyroxine 25 mcg tablet 25 mcg PO QAM RF: 0 pravastatin 10 mg tablet 10 mg PO HS RF: 0 duloxetine 60 mg capsule,delayed release(DR/EC) 60 mg PO HS RF: 0 Toviaz 4 mg tablet extended release 24 hr 4 mg PO HS RF: 0 warfarin 5 mg tablet 2.5 mg PO 3XWK RF: 0 Discharge Orders: Discharge Order (Routine); Ordered 08/01/19 Ordered By: Tyler Velez/Other Patient Handouts: Coumadin Admission Data Admit Date/Time: 07/30/19 16:23 Attending Provider: Tyler Ribeiro Admit Provider: Tyler Ribeiro Primary Care Provider: Mojgan Stanford Other Providers: [facility] Other Interventions: Discharge Summary Assessment (RN) Last Done: 08/01/19 14:27 DC Date/Time DO NOT enter until pt leaves facility: 08/01/19 16:45
== END 2019-08-01 16:45 | DRG 511 ==
LOC: ED 13:48 → 3W 16:23

== ENCOUNTER 2019-10-16 08:32 | Inpatient (IN) ==
--- NOTE | 2019-09-08 16:08 | PAT Medication Instructions ---
Medication Instructions Date of Service September 08, 2019 Home Medications Medication Instructions Recorded gabapentin 300 mg capsule 300 mg PO TID #90 cap 04/22/19 warfarin 5 mg tablet See Rx Instructions PO UD 90 Days 09/03/19 #90 tab levothyroxine 25 mcg tablet 25 mcg PO QAM #90 tab 09/08/19 baclofen 10 mg tablet 10 mg PO BID gabapentin 300 mg capsule 300 mg PO TID cholecalciferol (vitamin D3) 25 mcg (1,000 unit) capsule 1,000 units PO HS Toviaz 4 mg PO HS diclofenac sodium 2 g TOPICAL QID PRN duloxetine 60 mg PO HS lisinopril 20 mg PO QAM pravastatin 10 mg PO HS tramadol 100 mg PO Q6H PRN warfarin 5 mg tablet See Rx Instructions PO UD levothyroxine 25 mcg tablet 25 mcg PO QAM ASK your surgeon for instructions diclofenac sodium 2 g TOPICAL QID PRN ASK your prescriber and surgeon warfarin 5 mg tablet See Rx Instructions PO UD DO NOT take the morning of surgery baclofen 10 mg tablet 10 mg PO BID lisinopril 20 mg PO QAM Take morning of surgery With a small sip of water, OTHERWISE NOTHING TO EAT OR DRINK AFTER MIDNIGHT: gabapentin 300 mg capsule 300 mg PO TID tramadol 100 mg PO Q6H PRN levothyroxine 25 mcg tablet 25 mcg PO QAM Take evening before surgery baclofen 10 mg tablet 10 mg PO BID gabapentin 300 mg capsule 300 mg PO TID cholecalciferol (vitamin D3) 25 mcg (1,000 unit) capsule 1,000 units PO HS Toviaz 4 mg PO HS duloxetine 60 mg PO HS pravastatin 10 mg PO HS tramadol 100 mg PO Q6H PRN Other Notes If you have any questions please call us at [phone] or [phone] or [phone] or [phone]
--- NOTE | 2019-09-09 12:46 | Anesthesiology Consultation ---
Date of Service September 09, 2019 Assessment & Plan (1) Encounter for pre-operative examination: CHECK PT/INR/PTT Note sent to PCP re: hyperkalemia, KAREN and anemia. Repeat labs show normalized K+ and normalized BUN/Cr. Hgb improved to 11.6. Chart Review Chart Review: Acceptable Risk for Surgery and Patient seen in Pre Admission Testing Teaching & Discussion Instructed NPO after midnight before surgery, except medications with 15 cc of water. Medication instructions provided according to the PAT guidelines. History Surgery Operation Date: 10/16/19 13:25 Proposed Procedures p Left Anterior Total Hip Arthroplasty - Tyler Ribeiro, Height/Weight Height: 5 ft 1 in Weight: 118.8 kg Allergies Allergy/AdvReac Type Severity Reaction Status Date / Time docosahexanoic acid Allergy Unknown Unknown Verified 09/24/19 10:43 [From [address] [place] [address] [facility]] eicosapentaenoic acid Allergy Unknown Unknown Verified 09/24/19 10:43 [From [address] [place] [address] [facility]] fish oil Allergy Unknown Unknown Verified 09/24/19 10:43 [From [address] [place] [address] [facility]] lutein Allergy Unknown Unknown Verified 09/24/19 10:43 [From [address] [place] [address] [facility]] omega-3 fatty acids Allergy Unknown Unknown Verified 09/24/19 10:43 [From [address] [place] [address] [facility]] vitamin C, E, zinc, copper Allergy Unknown Unknown Verified 09/24/19 10:43 combination no.11 [From [address] [place] [address] [facility]] zeaxanthin Allergy Unknown Unknown Verified 09/24/19 10:43 [From [address] [place] [address] [facility]] oxycodone AdvReac Mild "Made me Verified 09/24/19 10:43 higher than a kite" atorvastatin AdvReac Unknown Unknown Verified 09/24/19 10:43 calcium AdvReac Unknown CAUSES Verified 09/24/19 10:43 KIDNEY STONES Medications Home Medications Medication Instructions Recorded Confirmed Last Taken cholecalciferol (vitamin D3) 25 1,000 units PO HS cap 05/08/19 09/24/19 07/29/19 mcg (1,000 unit) capsule Toviaz 4 mg PO HS 07/30/19 09/24/19 07/29/19 duloxetine 60 mg PO HS 07/30/19 09/24/19 07/29/19 pravastatin 10 mg PO HS 07/30/19 09/24/19 07/29/19 warfarin 5 mg tablet See Rx Instructions PO UD 90 Days 09/03/19 09/24/19 Unknown #90 tab levothyroxine 25 mcg tablet 25 mcg PO QAM #90 tab 09/08/19 09/24/19 Unknown baclofen 10 mg tablet 10 mg PO BID PRN #60 tab 09/09/19 09/24/19 Unknown gabapentin 300 mg capsule 300 mg PO TID #90 cap 09/21/19 09/24/19 Unknown tramadol 50 mg tablet 100 mg PO Q6H PRN 30 Days #240 tab 09/21/19 09/24/19 Unknown Past Medical History Medical History Cataract (Acute) Chronic anticoagulation (Acute) Depression with anxiety (Acute) Goiter diffuse, nontoxic (Acute) History of breast cancer (Resolved) S/P LUMPECTOMY, CHEMO AND XRT History of pulmonary embolism (Resolved) 2008. 2/2 HORMONE THERAPY Hyperlipidemia Hypertension (Chronic) Hypothyroidism (Chronic) Insomnia (Acute) Left hip pain (Chronic) Lumbar radiculopathy (Acute) Lumbar spinal stenosis (Chronic) Severe multifactorial multilevel most prominent at L2-3 and L3-4 on MRI dated 03/05/2016 Myofascial pain (Chronic) Osteoarthritis (Acute) Osteopenia (Acute) Peripheral arterial disease Pulmonary embolism (Chronic) DX'D 2008-Chronic Coumadin treatment SOB (shortness of breath) on exertion Solitary kidney, acquired 2/2 ATROPHY OF ONE KIDNEY POSSIBLY 2/2 STONES PER PT Thyroid nodule (Acute) Urinary incontinence Vitamin D deficiency (Acute) Exercise / Class Metabolic Activity III < 4 Walking/Shop/Light housework (DENIES CP OR SOB WITH AMBULATION, USING WALKER 2/2 HIP/LEG/BACK PAIN) Past Surgical History Surgical History H/O cervical spine surgery H/O lumbosacral spine surgery (Resolved) H/O reduction of closed fracture LEFT WRIST WITH PINNING History of lumpectomy (Resolved) LEFT Hx of cholecystectomy (Resolved) Hx of total knee arthroplasty (Resolved) LEFT Past Anesthesia History No Hx of Anesthesia Complications and No Family Hx of Anesthesia Complications History of PONV No Hx of PONV and Hx of Motion Sickness Social History Smoking Status: Never smoker Do You Dip or Chew Tobacco: No Hx Alcohol Use: Yes Alcohol type: beer alcohol intake frequency: holidays/special occasions only Hx Substance Use: No Review of Systems Pt denies any recent chest pain, shortness of breath, palpitations, cough, fever or URI. Physical Exam Vital Signs BP: 99/59 (pt denies hypotensive symptoms, states BP has been running around 100/60 lately) P: 98 bpm SPO2: 97% RA T: 98.8 R: Constitutional + morbidly obese ENMT Mouth: + chipped teeth (upper incisors) and + loose teeth (slightly loose bottom L canine); no dental restorations and oral opening not small Thyromental Distance: > or= 3.5 Finger Breadths (.5) Mallampati Class: IV Neck + short neck and + thick neck; neck extension not limited Respiratory normal respiratory effort Auscultation: lungs clear to auscultation bilaterally Cardiovascular Rate/Rhythm: regular rhythm and + tachycardic Heart Sounds: no murmur Vessels: no carotid bruit Extremities: no edema Testing Laboratory Results 09/09/19 13:04 09/09/19 13:04 PT 26.7 Seconds (9.0-12.0) H 09/09/19 13:04 INR 2.8 (0.9-1.1) H 09/09/19 13:04 APTT 38.2 Seconds (21.0-31.0) H 09/09/19 13:04 Blood Type A Positive 09/09/19 13:04 Antibody Screen NEGATIVE 09/09/19 13:04 UPDATED LABS 09/24/19 WBC: 5.82 H/H: 11.6/36.4 PLATELETS: 268 SODIUM: 139 POTASSIUM: 4.0 CHLORIDE: 106 CO2: 29 BUN: 25 CREATININE: 1.17 GLUCOSE: 97 Electrocardiogram Date: 07/30/19 Findings: + NSR @ (87bpm) Chest X-Ray Date: 07/30/19 Findings: + NAD
[2019-09-09 14:29] LABS: Basophils # (auto) 0.02 K/uL (0-0.2); Basophils % (auto) 0.3 %; Eosinophils # (auto) 0.08 K/uL (0-0.5); Hematocrit (blood only) 34.1 % (37-47); Hemoglobin 10.6 g/dL (12.0-16.0); Immature Granulocytes # (auto) 0.02 K/uL (0.00-0.02); Immature Granulocytes % (auto) 0.3 %; Lymphocytes # (auto) 2.02 K/uL (1.2-3.4); Lymphocytes % (auto) 25.4 %; Mean Corpuscular Hemoglobin 30.2 pg (25-34); Mean Corpuscular Hgb Conc 31.1 g/dL (32-36); Mean Corpuscular Volume 97.2 fL (80-100); Mean Platelet Volume 11.1 fL (7.4-10.4); Monocytes # (auto) 0.49 K/uL (0.11-0.59); Monocytes % (auto) 6.2 %; Neutrophils # (auto) 5.32 K/uL (1.4-6.5); Neutrophils % (auto) 66.8 %; Platelet Count 248 K/uL (130-400); RDW Coefficient of Variation 13.6 % (11.5-14.5); RDW Standard Deviation 48.2 fL (36.4-46.3); Red Blood Count 3.51 M/uL (4.2-5.4); White Blood Count 7.95 K/uL (4.8-10.8)
[2019-09-09 14:38] LABS: BUN Creatinine Ratio 31.3 (10-20); Calcium 9.2 mg/dl (8.5-10.1); Creatinine Clr Calc Pharmacy 37.1 ml/min; Est GFR (African American) 35.6; Est GFR (Non-African American) 30.7; Potassium 5.4 mmol/L (3.5-5.1)
[2019-09-09 14:41] LABS: INR 2.8 (0.9-1.1); Partial Thromboplastin Ratio 1.4; Partial Thromboplastin Time 38.2 Seconds (21.0-31.0); Prothrombin Time 26.7 Seconds (9.0-12.0)
--- NOTE | 2019-10-15 06:58 | History & Physical Report ---
Date of Service October 15, 2019 Assessment & Plan (1) Osteoarthritis of left hip: We will proceed with a left total hip arthroplasty. Postoperatively she will be started back on her Lovenox and Coumadin for DVT prophylaxis. She will be kept overnight in the hospital for postoperative medical management. She plans to go to [facility] rehab upon discharge. Present on Admission?: Yes History of Present Illness Chief Complaint: Primary osteoarthritis of the left hip Primary Care Provider: Tyler Ramirez DO Cristina is a pleasant 73-year-old female who is been dealing with chronic increasing left hip and groin pain. Unfortunately she fell and fractured her wrist about 3 months ago. I did an ORIF in the hospital. Her wrist is better. X-rays and clinical examination of her left hip do show advanced osteoarthritis with collapse of the femoral head. It is unclear if there is an avascular necrosis component. She can only ambulate with a wheelchair and a walker because of the left hip pain. After failing conservative treatment, she has elected proceed with a left total hip arthroplasty. Allergies Allergy/AdvReac Type Severity Reaction Status Date / Time docosahexanoic acid Allergy Unknown Unknown Verified 09/24/19 10:43 [From [facility]] eicosapentaenoic acid Allergy Unknown Unknown Verified 09/24/19 10:43 [From [facility]] fish oil Allergy Unknown Unknown Verified 09/24/19 10:43 [From [address] [place] [address] [facility]] lutein Allergy Unknown Unknown Verified 09/24/19 10:43 [From [facility]] omega-3 fatty acids Allergy Unknown Unknown Verified 09/24/19 10:43 [From [facility]] vitamin C, E, zinc, copper Allergy Unknown Unknown Verified 09/24/19 10:43 combination no.11 [From [facility]] zeaxanthin Allergy Unknown Unknown Verified 09/24/19 10:43 [From [facility]] oxycodone AdvReac Mild "Made me Verified 09/24/19 10:43 higher than a kite" atorvastatin AdvReac Unknown Unknown Verified 09/24/19 10:43 calcium AdvReac Unknown CAUSES Verified 09/24/19 10:43 KIDNEY STONES Home Medications Home Medications Medication Instructions Recorded Confirmed Type cholecalciferol (vitamin D3) 25 1,000 units PO HS cap 05/08/19 10/08/19 History mcg (1,000 unit) capsule Toviaz 4 mg PO HS 07/30/19 10/08/19 History duloxetine 60 mg PO HS 07/30/19 10/08/19 History pravastatin 10 mg PO HS 07/30/19 10/08/19 History warfarin 5 mg tablet See Rx Instructions PO UD 90 Days 09/03/19 10/08/19 Rx #90 tab levothyroxine 25 mcg tablet 25 mcg PO QAM #90 tab 09/08/19 10/08/19 Rx baclofen 10 mg tablet 10 mg PO BID PRN #60 tab 09/09/19 10/08/19 Rx gabapentin 300 mg capsule 300 mg PO TID #90 cap 09/21/19 10/08/19 Rx tramadol 50 mg tablet 100 mg PO Q6H PRN 30 Days #240 tab 09/21/19 10/08/19 Rx enoxaparin 40 mg/0.4 mL See Rx Instructions SQ DAILY #5 syr 10/08/19 10/08/19 Rx subcutaneous syringe Past Med/Surg History Medical History Cataract (Acute) Chronic anticoagulation (Acute) Depression with anxiety (Acute) Goiter diffuse, nontoxic (Acute) History of breast cancer (Resolved) S/P LUMPECTOMY, CHEMO AND XRT History of pulmonary embolism (Resolved) 2008. 2/2 HORMONE THERAPY Hyperlipidemia Hypertension (Chronic) Hypothyroidism (Chronic) Insomnia (Acute) Left hip pain (Chronic) Lumbar radiculopathy (Acute) Lumbar spinal stenosis (Chronic) Severe multifactorial multilevel most prominent at L2-3 and L3-4 on MRI dated 03/05/2016 Myofascial pain (Chronic) Osteoarthritis (Acute) Osteopenia (Acute) Peripheral arterial disease Pulmonary embolism (Chronic) DX'D 2008-Chronic Coumadin treatment SOB (shortness of breath) on exertion Solitary kidney, acquired 2/2 ATROPHY OF ONE KIDNEY POSSIBLY 2/2 STONES PER PT Thyroid nodule (Acute) Urinary incontinence Vitamin D deficiency (Acute) Surgical History H/O cervical spine surgery H/O lumbosacral spine surgery (Resolved) H/O reduction of closed fracture LEFT WRIST WITH PINNING History of lumpectomy (Resolved) LEFT Hx of cholecystectomy (Resolved) Hx of total knee arthroplasty (Resolved) LEFT Family History Sister Family history of diabetes mellitus Other No significant family history Social History Preferred Language: Iraqi Communication Ability: Effective Director Of Training Required: No Beliefs That Will Affect Care: None marital status: / Current Living Situation: Family Current Living Situation Comment: Lives with sister 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 status: retired Other Information That Helps Us Care for You: No Feels Safe at Home: Yes Safety Concerns: Feels Safe At This Time Smoking Status: Never smoker Do You Dip or Chew Tobacco: No ; Second Hand Exposure: Yes ( smoked for 35 plus years) ; Hx Alcohol Use: Yes Alcohol type: beer Hx Substance Use: No Review of Systems All systems reviewed & are unremarkable except as noted in HPI & below Physical Exam Constitutional: WD/WN, vitals as above Eyes: PERRL, conjunctivae normal, anicteric sclerae ENMT: external ear and nose normal, oropharynx normal Neck: trachea midline, no thyromegaly Respiratory: normal respiratory effort Cardiovascular: RRR, no murmur, no edema Gastrointestinal (Abdomen): normal bowel sounds, soft, nontender, no hepatosplenomegaly Musculoskeletal: Physical examination of the left hip reveals decreased range of motion with flexion, internal and external rotation. There is significant groin pain with forced internal rotation of the hip his leg lengths are essentially equal. Psychiatric: A+Ox3, euthymic affect Results & Data Diagnostic Findings Radiographs of the left hip and pelvis demonstrate advanced osteoarthritis with joint space narrowing osteophyte formation and [id number] articulation.
--- NOTE | 2019-10-16 08:15 | History & Physical Bridge Note ---
Date of Service October 16, 2019 History & Physical Bridge Note I have examined the patient, reviewed the History & Physical and in the interval since the performance of the History & Physical I have noted the following changes of clinical significance: no changes noted
[~2019-10-16 08:32] MED LIST changes: -500ML BSS 0.3ML EPI 1:1000PF IRRIG ONE; -ACETAMINOPHEN 325 MG TAB PO PRN; +ACETAMINOPHEN 500 MG TAB PO SCH; -AMVISC PLUS 0.8ML SYRINGE INT OCU ONE; -ATROPINE SULFATE 0.1 MG/ML 5ML SYR IV PRN; -BSS FLUSH ONE; +BUPIVACAINE 0.5 % 5 MG/1 ML PF 10ML VIAL ONE; +CEFAZOLIN 2000MG 2,000 MG/15 ML SYR IV SCH; -CHOL2000 PO; +DEXAMETHASONE SOD INJ 4 MG/ML VIAL ONE; -DICL1GEL12 TOP; -DULO60CA44 PO; -EpHEDrine SULFATE INJ 50 MG/ML AMP IV PRN; -EpINEphrine INJ 1MG/ML AMP 1 MG/ML AMP ONE; +FAMOTIDINE 20 MG TAB PO SCH; +GABAPENTIN 300 MG CAP PO SCH; -LACTATED RINGER'S 1000ML 500 ML IV SCH; -LEVO50TA6 PO; -LIDOCAINE 3.5% OPH GEL PER APPLICATION CHARGE ONE; -LIDOCAINE HCL 1% MPF 2 ML VIAL ONE; +LIDOCAINE HCL 2% 2 ML VIAL/AMP(20MG/ML) INFIL ONE; -LISI-725 PO; +LR 500ML BOLUS, THEN 15ML/HR IV SCH; +LR 60ML/HR IV SCH; -OCUCOAT 1 ML SOLN IO ONE; -ONDANSETRON INJ 2 MG/ML 2 ML VIAL IV PRN; +ONDANSETRON INJ 2 MG/ML 2 ML VIAL ONE; -POVIDONE-IODINE OP SOLN 30 ML BTL ONE; -PROPARACAINE 0.5% OP SOLN PER DROP CHARGE OPR SCH; +PROPOFOL IV EMULSION 10 MG/ML 20 ML VIAL IV ONE; +ROPIVACAINE 0.5% HCL/PF 150 MG, BUPIVACAINE 0.5% MPF 30 ML, EPINEPHrine 30MG/30ML (OR U... INFIL SCH; -TOBRAMYCIN/DEXAMETHASONE OPH OINT PER APPLN CHARGE ONE; -TRAM-10 PO; +TRANEXAMIC ACID 1,000 MG **IV Intra-op IV SCH; +TRANEXAMIC ACID 1,000 MG **IV Pre-op IV SCH; -WARF5TAB90 PO; +dexAMETHasone 4 MG TAB PO SCH; +fentaNYL citrate 100 MCG/2 ML VIAL ONE
[2019-10-16] MEDS ORDERED: ORTHO JOINT ANESTHETIC ONE (09:07)
[2019-10-16] MEDS ORDERED: ATROPINE SULFATE 0.1 MG/ML 10ML SYR IV PRN (09:28)
[2019-10-16] MEDS ORDERED: fentaNYL citrate 100 MCG/2 ML VIAL IV PRN (09:28)
[2019-10-16] MEDS ORDERED: ePHEDrine sulfate 50 MG/ML AMP IV PRN (09:28)
[2019-10-16] MEDS ORDERED: ONDANSETRON INJ 2 MG/ML 2 ML VIAL IV PRN ×2 (09:28→14:07)
[2019-10-16 09:53] LABS: INR 1.1 (0.9-1.1); Partial Thromboplastin Time 26.9 Seconds (21.0-31.0); Prothrombin Time 11.5 Seconds (9.0-12.0)
[2019-10-16] MEDS ORDERED: MIDAZOLAM HCL 1 MG/ML 2ML VIAL ONE (10:22)
[2019-10-16] MEDS ORDERED: PROPOFOL IV EMULSION 10 MG/ML 20 ML VIAL IV ONE ×2 (11:20→11:33)
--- NOTE | 2019-10-16 11:55 | Operative Report ---
PG Post Operative Report Pre & Post Diagnosis Operation Date: 10/16/19 10:10 Pre-Op Diagnosis: LEFT HIP DEGENERATIVE JOINT DISEASE Post-Op Diagnosis: LEFT HIP DEGENERATIVE JOINT DISEASE I identified the patient and participated in the time-out.: Yes Procedure Operation Date: 10/16/19 10:10 Actual Procedures p Left Total Hip Arthroplasty, Uncemented(Left) - Tyler Ribeiro DO Surgeon Tyler Ribeiro, [employer] Account[employer] Supervisor Tyler Rios PAC Estimated Blood Loss 250 Findings Consistent with Post-Op Diagnosis Specimens Left femoral head Complications none Disposition Disposition: Recovery Room Indications Cristina is a pleasant 74-year-old female who presented my office with chronic increasing left hip and groin pain. X-rays and clinical examination were diagnostic for advanced osteoarthritis of her left hip with complete collapse of the femoral head. After failing conservative treatment, she elected proceed with a left total hip arthroplasty. Description of Procedure Implants used [employer] Taperloc total hip arthroplasty system with a size 9 high offset Taperloc stem, a 46 mm G7 cup with a 25mm screw, an E1 polyethylene liner, a 32 mm ceramic head with a -3 neck. Patient arrived at the hospital for the above procedure. They were seen in the preoperative holding area and the operative extremity was identified and signed. They were given a spinal anesthetic. They were given a preoperative antibiotic and TXA. They were taken back To the operating room and laid on the table in the supine position. She was then put in the lateral decubitus position. The hip was then prepped and draped in sterile fashion. A timeout was done and the patient and the operative extremity was properly identified. A lateral approach was used. Dissection was taken down through the fascia and the abductors were exposed. The anterior third of the abductors were then elevated off the greater trochanter. The capsule was then excised. The femoral head was then dislocated out of the joint. The femoral neck was then resected and the head was removed. The acetabulum was then exposed. Time was spent doing a complete circumferential labral release. Sequential reaming of the acetabulum up to a size 45 reamer was done. A 46 mm G7 acetabular cup was then impacted into place. A single screw was placed. A polyethylene liner was then snapped into place. The surrounding soft tissues were then injected with 100 cc of an orthopedic pain control cocktail. The proximal femur was then exposed. Sequential broaching up to a size 9 broach was done. Off that broach a high offset neck and a 32 mm -3 head was then trialed. The hip was then reduced. Hip was brought through a full range of motion and felt to be stable. The hip was then dislocated and the trials were removed. The final size 9 high offset stem was then impacted into place. A 32 mm ceramic head was then snapped on a - 3 neck. The head was then impacted onto the femoral stem. The hip was then reduced. The hip was brought through a full range of motion and felt to be stable. The wound was then irrigated. A 3-minute Betadine lavage was then used. The abductors were then tenodesed back to the greater trochanter with transosseous FiberWire sutures and side to side sutures. The fascia was then closed with #1 PDS. A deep layer was closed with #1 Vicryl. Skin was closed with 3-0 Vicryl and valentín. A Nika VAC dressing was placed. She was then transferred to a hospital bed and taken to the postanesthesia care unit in stable condition. She tolerated the procedure well. I attest to the content of the Intraoperative Record and any orders documented therein. Any exceptions are noted below.
--- NOTE | 2019-10-16 12:42 | XRay Report ---
XR hip 1V LT w pelvis CLINICAL HISTORY: 74 years-old Female presenting with IN PACU - A/P PELVIS and LATERAL HIP . TECHNIQUE: Single frontal view of the pelvis and crosstable lateral view of the left hip were obtaine d. COMPARISON: None. FINDINGS: Postsurgical changes of total left hip arthroplasty. Overlying skin valentín. No malalignment. No jean s evidence of a periprosthetic fracture. Significantly limited image quality due to body habitus. Franklyn ssly intact remainder of the pelvis. IMPRESSION: Allowing for significant limitations in image quality due to body habitus moderately degrading diagno stic sensitivity, expected postsurgical appearance status post total left hip arthroplasty. ACT 112: Negative or not required by law. Electronically signed by: Rickie Jorge M.D. 10/16/2019 12:41 PM
[2019-10-16] MEDS ORDERED: OXYCODONE HCL IR 5 MG TAB (IMMEDIATE RELEASE) PO PRN (14:07)
[2019-10-16] MEDS ORDERED: WARFARIN SOD 5 MG TAB PO SCH (14:07)
[2019-10-16] MEDS ORDERED: MAGNESIUM HYDROXIDE SUSP 30 ML UDC PO PRN (14:07)
[2019-10-16] MEDS ORDERED: HYDROmorphone INJ 0.5 MG/0.5 ML SYR IV PRN (14:07)
[2019-10-16] MEDS ORDERED: NALOXONE HCL 0.4 MG/1 ML VIAL/CARP IV PRN (14:07)
[2019-10-16] MEDS ORDERED: METOCLOPRAMIDE HCL INJ 5 MG/ML 2 ML VIAL IV PRN (14:07)
[2019-10-16] MEDS ORDERED: bisacodyL 10 MG SUPP PR PRN (14:07)
[2019-10-16] MEDS ORDERED: ORTHO WARFARIN NOMOGRAM SCH (14:07)
--- NOTE | 2019-10-16 14:53 | Anesthesiology Progress Note ---
Date of Service October 16, 2019 Anesthesia Post Procedure Vital Signs Vital Signs: Temp Pulse Pulse Resp BP Pulse Ox 10/16/19 14:47 97.5 F L 82 20 99/54 L 99 10/16/19 14:16 97.5 F L 81 16 98/58 L 100 10/16/19 13:45 97.9 F 83 18 113/63 99 10/16/19 13:40 80 13 97/53 L 96 10/16/19 13:25 97.9 F 82 17 107/49 L 95 10/16/19 13:10 80 15 109/74 96 10/16/19 13:00 82 16 101/58 L 98 10/16/19 12:50 98.2 F 84 16 118/59 L 98 10/16/19 12:40 85 16 112/54 L 96 10/16/19 12:30 84 16 116/59 L 96 10/16/19 12:20 83 16 120/68 96 10/16/19 12:10 98.6 F 85 16 119/59 L 96 10/16/19 09:05 97.9 F 102 H 18 145/77 H 95 Pain Intensity Left Hip: Pain Intensity: 0 Transfer of Care Handoff Completed per policy Notes Mental Status: alert / awake / arousable and participated in evaluation Patient Amnestic to Procedure: Yes Nausea / Vomiting: adequately controlled Pain: adequately controlled Airway Patency, RR, SpO2: stable & adequate BP & HR: stable & adequate Hydration State: stable & adequate Neuraxial Anesthesia: was administered and sensory block is resolving Anesthetic Complications: no major complications apparent and Pt Satisfied with anesthetic care
[2019-10-16] MEDS: SODIUM CHLORIDE 0.9% 1000ML 1,000 ML IV SCH (15:52)
[2019-10-16] MEDS: WARFARIN SOD 5 MG TAB PO SCH (15:55)
[2019-10-16] MEDS: ACETAMINOPHEN 500 MG TAB PO SCH ×2 (16:02→21:45)
[2019-10-16] MEDS: GABAPENTIN 300 MG CAP PO SCH ×2 (16:02→21:44)
[2019-10-16] MEDS: KETOROLAC TROMETHAMINE 15 MG/ML VIAL IV SCH (18:27)
[2019-10-16] MEDS: CEFAZOLIN 2000MG 2,000 MG/15 ML SYR IV SCH (18:27)
[2019-10-16] MEDS ORDERED: Nursing to Pharmacy Communication ONE (20:44)
[2019-10-16] MEDS: DOCUSATE SODIUM 100 MG CAP PO SCH (21:43)
[2019-10-16] MEDS: PRAVASTATIN SOD 10 MG TAB PO SCH (21:44)
[2019-10-16] MEDS: SENNA 8.6 MG TAB PO SCH (21:44)
[2019-10-16] MEDS: DULOXETINE HCL 60 MG CAP PO SCH (21:44)
[2019-10-17] MEDS: CEFAZOLIN 2000MG 2,000 MG/15 ML SYR IV SCH (00:12)
[2019-10-17] MEDS: KETOROLAC TROMETHAMINE 15 MG/ML VIAL IV SCH ×4 (00:13→18:24)
[2019-10-17] MEDS: TRAMADOL HCL 50 MG TABLET PO PRN ×2 (02:42→15:33)
[2019-10-17] MEDS: SODIUM CHLORIDE 0.9% 1000ML 1,000 ML IV SCH (02:47)
[2019-10-17] MEDS: ACETAMINOPHEN 500 MG TAB PO SCH ×3 (06:02→21:22)
[2019-10-17] MEDS: LEVOTHYROXINE SODIUM 25 MCG TABLET PO SCH (06:02)
[2019-10-17 06:26] LABS: Basophils # (auto) 0.01 K/uL (0-0.2); Basophils % (auto) 0.1 %; Hematocrit (blood only) 31.3 % (37-47); Hemoglobin 9.9 g/dL (12.0-16.0); Immature Granulocytes # (auto) 0.05 K/uL (0.00-0.02); Immature Granulocytes % (auto) 0.4 %; Lymphocytes # (auto) 1.45 K/uL (1.2-3.4); Lymphocytes % (auto) 10.7 %; Mean Corpuscular Hemoglobin 29.7 pg (25-34); Mean Corpuscular Hgb Conc 31.6 g/dL (32-36); Mean Platelet Volume 10.7 fL (7.4-10.4); Monocytes % (auto) 8.9 %; Neutrophils # (auto) 10.84 K/uL (1.4-6.5); Neutrophils % (auto) 79.9 %; Platelet Count 259 K/uL (130-400); RDW Coefficient of Variation 13.2 % (11.5-14.5); RDW Standard Deviation 45.4 fL (36.4-46.3); Red Blood Count 3.33 M/uL (4.2-5.4); White Blood Count 13.55 K/uL (4.8-10.8)
[2019-10-17 06:57] LABS: BUN Creatinine Ratio 23.1 (10-20); Calcium 9.6 mg/dl (8.5-10.1); Creatinine Clr Calc Pharmacy 44.2 ml/min; Est GFR (African American) 46.7; Est GFR (Non-African American) 40.3; Potassium 4.1 mmol/L (3.5-5.1)
[2019-10-17] MEDS ORDERED: dexAMETHasone 4 MG TAB PO SCH (08:00)
[2019-10-17] MEDS: GABAPENTIN 300 MG CAP PO SCH ×3 (08:52→21:22)
[2019-10-17] MEDS: ENOXAPARIN INJ 40 MG/0.4 ML SYR SQ SCH (08:53)
[2019-10-17] MEDS: MULTIVITAMIN TAB PO SCH (08:53)
[2019-10-17] MEDS: DOCUSATE SODIUM 100 MG CAP PO SCH ×2 (08:53→21:21)
--- NOTE | 2019-10-17 09:14 | Orthopedic Progress Note ---
Date of Service October 17, 2019 Assessment & Plan (1) History of total left hip arthroplasty: Overall she is doing very well. She is not having much pain in the left hip. She will be seen by physical therapy this morning for ambulation and range of motion exercises. She is on Lovenox and Coumadin for DVT prophylaxis. She plans to go to [facility] tomorrow if medically stable. I will see her tomorrow morning and likely discharge her then. Present on Admission?: Yes Subjective Cristina was seen and examined at bedside this morning. Overall she is doing very well. She is happy that she has no pain in her left hip. She sitting in a chair at bedside. She has no complaints. Physical Exam Musculoskeletal: On physical examination of the left hip, the Nika VAC dressing is to suction. Her left leg is a little shorter than the right but greatly improved from the surgery. She has active dorsiflexion and planta rflexion of her left ankle. Results & Data Vital Signs (Past 12 Hours) Vital Signs Temp Pulse Resp BP Pulse Ox 10/17/19 07:41 36.6 C 79 18 149/77 H 95 10/17/19 03:05 36.6 C 83 16 117/55 L 94 10/16/19 23:35 36.5 C 74 18 122/69 95 Laboratory Results H & H 09/09/19 10/17/19 Range/Units 13:04 06:07 Hgb 10.6 L 9.9 L (12.0-16.0) g/dL Hct 34.1 L 31.3 L (37-47) % Coagulation 09/09/19 10/16/19 Range/Units 13:04 09:19 INR 2.8 H 1.1 (0.9-1.1) Diagnostic Findings Postoperative x-rays of the left hip show the prosthesis to be in anatomic alignment without any evidence of fracture, dislocation, or loosening. PG Care Time/CCT Total # of Minutes Spent Total Time Spent with Patient: Total time spent is greater than 50% in coordination of care (as documented) at patient's floor/unit and/or counseling patient: Coding Level of Care Code None Diagnoses History of total left hip arthroplasty Z96.642
--- NOTE | 2019-10-17 14:28 | Anesthesiology Progress Note ---
Date of Service October 17, 2019 Anesthesia Post Procedure Vital Signs Vital Signs: Temp Pulse Resp BP Pulse Ox 10/17/19 07:41 36.6 C 79 18 149/77 H 95 10/17/19 03:05 36.6 C 83 16 117/55 L 94 10/16/19 23:35 36.5 C 74 18 122/69 95 10/16/19 19:23 36.6 C 73 17 123/70 99 10/16/19 16:51 36.6 C 73 18 105/63 97 10/16/19 15:45 36.6 C 85 14 124/68 99 10/16/19 14:47 36.4 C L 82 20 99/54 L 99 Pain Intensity Left Hip: Pain Intensity: 0 Notes Mental Status: alert / awake / arousable and participated in evaluation Patient Amnestic to Procedure: Yes Nausea / Vomiting: adequately controlled Pain: adequately controlled Airway Patency, RR, SpO2: stable & adequate BP & HR: stable & adequate Hydration State: stable & adequate Neuraxial Anesthesia: was administered and sensory block resolved Anesthetic Complications: no major complications apparent
[2019-10-17] MEDS: WARFARIN SOD 5 MG TAB PO SCH (15:29)
[2019-10-17] MEDS ORDERED: FESOTERODINE FUMARATE PO SCH (21:00)
[2019-10-17] MEDS: PRAVASTATIN SOD 10 MG TAB PO SCH (21:21)
[2019-10-17] MEDS: DULOXETINE HCL 60 MG CAP PO SCH (21:21)
[2019-10-17] MEDS: SENNA 8.6 MG TAB PO SCH (21:22)
[2019-10-18] MEDS: KETOROLAC TROMETHAMINE 15 MG/ML VIAL IV SCH ×2 (00:12→05:40)
[2019-10-18] MEDS: TRAMADOL HCL 50 MG TABLET PO PRN ×2 (04:15→10:31)
[2019-10-18] MEDS: ACETAMINOPHEN 500 MG TAB PO SCH (05:31)
[2019-10-18] MEDS: LEVOTHYROXINE SODIUM 25 MCG TABLET PO SCH (05:34)
[2019-10-18 05:35] LABS: INR 1.2 (0.9-1.1); Prothrombin Time 12.6 Seconds (9.0-12.0)
--- NOTE | 2019-10-18 07:44 | Orthopedic Progress Note ---
Date of Service October 18, 2019 Assessment & Plan (1) History of total left hip arthroplasty: Overall she is doing very well. She is on Lovenox and Coumadin for DVT prophylaxis. She will be seen by physical therapy again this morning for ambulation. She will be kept on tramadol for pain control. She is orthopedically stable for discharge. Were awaiting acceptance to [facility]. She is stable for discharge today. She can follow-up with orthopedics in 2 weeks. Present on Admission?: Yes Subjective Cristina was seen and examined at bedside this morning. Overall she is doing very well. She is having more soreness in her hip today. She was able to ambulate residential down the hallways yesterday with physical therapy. She is happy with her progress to this point. She has no complaints. Physical Exam Musculoskeletal: On physical examination of her left hip, the dressing is clean and dry. Her left leg still little bit shorter than her right. She is neurovascularly intact. Results & Data Vital Signs (Past 12 Hours) Vital Signs Temp Pulse Resp BP Pulse Ox 10/18/19 07:28 36.5 C 82 16 118/66 97 10/18/19 00:44 36.5 C 68 16 120/70 97 PG Care Time/CCT Total # of Minutes Spent Total Time Spent with Patient: Total time spent is greater than 50% in coordination of care (as documented) at patient's floor/unit and/or counseling patient: Coding Level of Care Code None Diagnoses History of total left hip arthroplasty Z96.642
--- NOTE | 2019-10-18 07:52 | Discharge Summary ---
Date of Service October 18, 2019 Admission HPI Per Admitting Provider Cristina is a pleasant 73-year-old female who is been dealing with chronic increasing left hip and groin pain. Unfortunately she fell and fractured her wrist about 3 months ago. I did an ORIF in the hospital. Her wrist is better. X-rays and clinical examination of her left hip do show advanced osteoarthritis with collapse of the femoral head. It is unclear if there is an avascular necrosis component. She can only ambulate with a wheelchair and a walker because of the left hip pain. After failing conservative treatment, she has elected proceed with a left total hip arthroplasty. Principal Diagnosis Left total hip arthroplasty Discharge Data Allergies Allergy/AdvReac Type Severity Reaction Status Date / Time docosahexanoic acid Allergy Unknown Unknown Verified 10/16/19 08:58 [From [facility]] eicosapentaenoic acid Allergy Unknown Unknown Verified 10/16/19 08:58 [From [facility]] fish oil Allergy Unknown Unknown Verified 10/16/19 08:58 [From [facility]] lutein Allergy Unknown Unknown Verified 10/16/19 08:58 [From [facility]] omega-3 fatty acids Allergy Unknown Unknown Verified 10/16/19 08:58 [From [facility]] vitamin C, E, zinc, copper Allergy Unknown Unknown Verified 10/16/19 08:58 combination no.[email or web address] [From [facility]] zeaxanthin Allergy Unknown Unknown Verified 10/16/19 08:58 [From [facility]] oxycodone AdvReac Mild "Made me Verified 10/16/19 08:58 higher than a kite" atorvastatin AdvReac Unknown Unknown Verified 10/16/19 08:58 calcium AdvReac Unknown CAUSES Verified 10/16/19 08:58 KIDNEY STONES Consultations 10/17/19 08:00 Consult Case Management - Discharge Planning Routine Procedures Performed Operation Date: 10/16/19 10:10 Actual Procedures p Left Total Hip Arthroplasty, Uncemented(Left) - Tyler Ribeiro DO Hospital Course (1) History of total left hip arthroplasty: On October 16, 2019 Dayna arrived in the hospital and underwent a left lateral total hip arthroplasty without complication. She had a spinal anesthetic. Postoperatively she was started on Coumadin and Lovenox for DVT prophylaxis and discharged to general orthopedic floors. Her hospital course was uneventful. On postop day #1 her H&H was stable and her pain was well controlled. She was able to ambulate well with physical therapy. On postop day #2 she continued to do well. She was having a little bit more pain but it was controlled with the tramadol. She was seen once again by physical therapy and then [facility]. She will follow-up with orthopedics in 2 weeks. Total Time Total Time Spent Total Time Spent (In Minutes): 20 Discharge Plan Discharge Items Patient Disposition: Transfer Inpatient Rehab Fac Reason For Visit: LEFT HIP DEGENERATIVE JOINT DISEASE Discharge Diagnosis: Left total hip arthroplasty Activity: As commented below Non-emergency contact: Surgeon Call non-emergency contact if: your wound has increased redness and your wound has increased drainage Follow-up/Referrals: Tyler Ramirez DO [Primary Care Provider] - Diet: Carb Consistent or DM2 Addtl Attending Provider Instructions: Activity and Therapy Recommendations: * If you are using [facility] then therapy will be provided at your home until they feel you have accomplished all of your goals. * If you are using [facility] then Physical Therapy will be provided until they feel you are ready to start Outpatient Physical Therapy. * If you are not using home therapy then Outpatient Physical Therapy should start about 3-5 days from your day of surgery. Therapy will last about 6-10 weeks * You were shown a series of exercises in the hospital. Do these exercises three times each day including the exercises you were shown in physical therapy. * Get up and walk several times each day.~ For the first four weeks, try not to stand or walk for more than one hour at a time. If you do stand or walk for more than one hour, you will not hurt anything, but your leg will likely swell.~~ * As you feel comfortable, you may change from the walker or crutches to a cane and~then to independent walking. Medications: * Narcotic You will likely be sent home from the hospital with a prescription for the narcotic pain medication that worked best throughout your stay. * Aspirin Most patients will be required to take Aspirin 81mg twice a day for 6 weeks after surgery. This is obtained [id number] and a prescription is not necessary. * Other medications may be prescribed for specific circumstances. If you have any questions, please call the office at . * Resume previous home medications unless otherwise instructed TEDs/Elastic Stockings: The white elastic stockings help limit swelling and prevent blood clots from forming in your legs. The more you wear them, the more they work. Wear them for six weeks. Dressing Care: You will likely have a purple VAC dressing after surgery. This dressing will keep the incision dry and promote early healing. After about 7 days the batteries will wear out and the VAC will lose suction. Simply remove the dressing at that time and throw everything away, including the small suction machine. Then, you may leave the valentín open to air or cover them with a dry dressing so they do not rub on your pants. The valentín will be removed at your 2 week follow-up appointment. Showering: You may shower immediately with the purple VAC dressing. Let the shower spray hit your opposite side and slowly pat the plastic dry. Do not soak the dressing. After the dressing is removed you may shower normally with the valentín exposed. Let soapy water run over the valentín and pat them dry. Things To Watch For: * Drainage from the incision site that occurs more than one week after your surgery. * Increased redness at the incision site. * Fever above 102 degrees Fahrenheit. * Unusual chest pain or shortness of breath. * Call [facility] at with any of the above problems Follow-Up Visit: Follow-up with Dr. Ribeiro 2-3 weeks after your day of surgery. An appointment was probably scheduled when you signed-up for surgery in the office. If you have any questions call Office Instructions: More detailed instructions as well as Frequently Asked Questions were provided in a folder by our office when you signed-up for surgery. Please review these instructions when you get home. If you have any further questions or concerns, please feel free to call the office at [phone] Pending Studies at Discharge: No Stand-Alone Forms: [facility], Smoking Cessation Skilled Items Patient informed of condition?: Yes DNR: No Discharge Level of Care: Acute rehab Communicable Disease: No Discharge Prognosis: Improving Lines: None Urinary Catheter: No Medications and DC Order Prescriptions: Continued warfarin 5 mg tablet See Rx Instructions PO UD 90 Days Qty: 90 RF: 0 levothyroxine 25 mcg tablet 25 mcg PO QAM Qty: 90 RF: 1 baclofen 10 mg tablet 10 mg PO BID PRN (Reason: muscle spasm) Qty: 60 RF: 1 tramadol 50 mg tablet 100 mg PO Q6H PRN (Reason: Pain) 30 Days Qty: 240 RF: 0 gabapentin 300 mg capsule 300 mg PO TID Qty: 90 RF: 2 enoxaparin [Lovenox] 40 mg/0.4 mL syringe See Rx Instructions SQ DAILY Qty: 5 RF: 0 cholecalciferol (vitamin D3) 1,000 unit capsule 1,000 units PO HS RF: 0 docusate sodium 100 mg Capsule 100 mg PO BID RF: 0 pravastatin 10 mg tablet 10 mg PO HS RF: 0 duloxetine 60 mg capsule,delayed release(DR/EC) 60 mg PO HS RF: 0 Toviaz 4 mg tablet extended release 24 hr 4 mg PO HS RF: 0 Discharge Orders: Discharge Order (Routine); Ordered 10/18/19 Ordered By: Tyler Ribeiro Admission Data Admit Date/Time: 10/16/19 12:14 Attending Provider: Tyler Ribeiro Admit Provider: Tyler Ribeiro Primary Care Provider: Tyler Ramirez Other Providers: [facility],Health Coding Level of Care Code D/C Day Management <30 mins Diagnoses History of total left hip arthroplasty Z96.642
[2019-10-18] MEDS: ENOXAPARIN INJ 40 MG/0.4 ML SYR SQ SCH (09:24)
[2019-10-18] MEDS: MULTIVITAMIN TAB PO SCH (09:24)
[2019-10-18] MEDS: DOCUSATE SODIUM 100 MG CAP PO SCH (09:24)
[2019-10-18] MEDS: GABAPENTIN 300 MG CAP PO SCH (09:24)
[2019-10-18] MEDS ORDERED: WARFARIN SOD 7.5 MG TAB PO SCH (16:00)
[2019-10-18] MEDS ORDERED: WARFARIN SOD 2.5 MG TAB PO SCH (16:00)
== END 2019-10-18 11:54 | DRG 470 ==
LOC: ASU 08:32 → 3E 12:14

== ENCOUNTER 2022-02-20 09:41 | Observation (INO) ==
[2022-02-20] MEDS ORDERED: MoRPHine SULFATE 4 MG/ML 1 ML CARP\\VIAL IV STA ×2 (10:54→13:11)
[2022-02-20] MEDS ORDERED: ONDANSETRON INJ 2 MG/ML 2 ML VIAL IV STA ×2 (10:54→13:11)
--- NOTE | 2022-02-20 10:55 | Emergency Department Note ---
Impression & Plan Acute pancreatitis ADMIT ED Provider Note HPI: The patient is a 76-year-old female who presents the emergency department chief complaint of right flank pain. Patient states that this pain has been ongoing since earlier this morning. Patient states she has had similar pain in the past associated with kidney stones. Patient does do nausea, states she has not had any vomiting, denies any diarrhea. Denies any chest pain or shortness of breath. On arrival here to the ED the patient is in no acute distress, she is hemodynamically stable on arrival. ROS: -: Right flank *10 point review systems was conducted and is otherwise negative unless stated above *Outpatient medications and allergy history reviewed PE: General: Alert, NAD HEENT: Normocephalic, atraumatic Eyes: Extraocular eye movement is intact, no scleral erythema Pulmonary: Clear to auscultation bilaterally, no wheezing Cardio: Regular rate and rhythm GI: Abdomen is soft, moderate tenderness over the mid abdomen to palpation without guarding or rigidity : No suprapubic tenderness, moderate tenderness to palpation in the right flank area MSK: No evidence of trauma or malformation of the extremities, no edema Skin: No evidence of rash Neuro: Alert, no focal deficits Psychiatric: Cooperative monitoring engineer: - An order was placed for continuous cardiac monitoring - Patient was noted to be in sinus rhythm with rate of 80 EKG: Rate: 83 Rhythm: Sinus rhythm with some baseline artifact Intervals: Within normal limits Time: 1254 ST changes: No ST elevation Medical Decision Making: Patient presented to the emergency department with right flank pain and back pain. She has had some nausea and vomiting today. Patient states her symptoms all began this morning. Shortly after arrival IV was established, lab work obtained, patient was given 2 L of IV fluid as well as morphine and Zofran for symptoms. Lab work shows a hypokalemia of 2.4, no evidence of arrhythmia on EKG or cardiac monitoring. Patient does have a history of atrial fibrillation and she is anticoagulated on Eliquis. EKG shows some baseline artifact but it appears regular, suspect she is in sinus rhythm although she is already anticoagulated if not. CT imaging of the abdomen pelvis shows evidence of acute pancreatitis, lipase is noted to be within normal limits, given the fact that the patient has continued nausea and vomiting with hypokalemia and a finding of possible acute pancreatitis on CT imaging I did discuss the case [facility] and the patient was admitted in stable condition for further care and electrolyte repletion. Patient is in agreement to the above plan and she was admitted in stable condition. Diagnosis: 1. Acute pancreatitis on CT imaging 2. Nausea and vomiting 3. 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, shoulder, right Depression with anxiety Goiter diffuse, nontoxic (~2009) History of breast cancer (~2008) History of pulmonary embolism Hypertension Hypothyroidism Insomnia Lumbar radiculopathy Lumbar spinal stenosis Nocturnal hypoxia Osteopenia Peripheral arterial disease Proximal humerus fracture Solitary kidney, acquired Thyroid nodule (~2009) 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 Type 2 diabetes mellitus Urinary incontinence Vitamin D deficiency Surgical History H/O breast surgery H/O cervical spine surgery H/O lumbosacral spine surgery H/O reduction of closed fracture History of lumpectomy History of total left hip arthroplasty (~09/2019) Hx of cholecystectomy Hx of total knee arthroplasty Family History Sister Diabetes Mother Cervical cancer Denies family history of Ovarian cancer Prostate cancer Breast cancer Lung cancer Colorectal cancer Social History Smoking Status: Never smoker Second Hand Exposure: No ( smoked for 35 plus years); Hx Alcohol Use: No Hx Substance Use: No Preferred Language: Micronesian Communication Ability: Effective Visual Impairment: Limited Hearing Ability: Use of Hearing Aid Custom Furrier Required: No Beliefs That Will Affect Care: None marital status: / Current Living Situation: Family Current Living Situation Comment: Lives with sister 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 Feels Safe at Home: Yes Childhood Exposure to Second-Hand Smoke: Yes Diet Comment: watching calories caffeine: Yes Dental Care, Regularly: No Physical Activity Frequency: Does not Exercise Seatbelt Use: always Sunscreen Use: Yes Do you think of yourself as: straight/heterosexual Assistive Devices: Glasses, Hearing Aid - Bilateral and Walker Allergies Allergies Allergy/AdvReac Type Severity Reaction Status Date / Time oxycodone AdvReac Mild "Made me Verified 02/20/22 11:53 higher than a kite" calcium AdvReac Unknown CAUSES Verified 02/20/22 11:53 KIDNEY STONES Home Meds Home Medications Medication Instructions Recorded Confirmed cholecalciferol (vitamin D3) 25 1,000 units PO HS cap 05/08/19 02/20/22 mcg (1,000 unit) capsule gabapentin 100 mg capsule 100 mg PO BID cap 08/16/21 02/20/22 Previous Rx's Medication Instructions Recorded baclofen 10 mg tablet 10 mg PO BID PRN #60 tab 07/15/20 duloxetine 60 mg capsule,delayed 60 mg PO HS #90 cap 05/04/21 release levothyroxine 25 mcg tablet 25 mcg PO QAM #90 tab 06/26/21 metoprolol tartrate 25 mg tablet 25 mg PO BID #180 tab 08/22/21 pravastatin 10 mg tablet 10 mg PO DAILY #90 tab 08/22/21 tramadol 50 mg tablet 50 mg PO Q8H PRN #60 tab 09/18/21 potassium chloride 20 mEq 20 meq PO DAILY #90 tab 12/08/21 tablet,extended release oxybutynin chloride 5 mg tablet 5 mg PO QPM #30 tab 01/08/22 metformin 500 mg 24 hr 500 mg PO QPM #90 tab 01/22/22 tablet,extended release apixaban 5 mg tablet (Eliquis) 5 mg PO BID #180 tab 02/08/22 Results & Data (ED) Vital Signs Vital Signs - 24 hr 02/20/22 09:52 02/20/22 12:46 Temperature 36.8 C Temperature Source Temporal Artery Scan Pulse Rate 86 83 Pulse Rate [Apical] 82 Pulse Rhythm Regular Regular Pulse Rhythm [Apical] Regular Pulse Strength Normal Pulse Strength [Apical] Normal Respiratory Rate 20 18 Respiratory Effort / Characteristics Non-Labored Spontaneous Non-Labored Spontaneous Respiratory Depth Normal Normal Respiratory Pattern Regular Regular Blood Pressure 125/76 Blood Pressure [Left Arm] 144/66 H Blood Pressure Mean 92 Blood Pressure Mean [Left Arm] 92 Blood Pressure Position Sitting Blood Pressure Position [Left Arm] Semi-fowlers Pulse Oximetry 97 95 Oxygen Delivery Method Room Air Room Air Sepsis Recent Fever Within 48 Hours No Sepsis New/Unexplained Change in Mental Status N/A Sepsis Action Taken by Nursing No Action Required Laboratory Data Result diagrams: 02/20/22 11:00 02/20/22 11:00 Lab Results 02/20/22 02/20/22 02/20/22 Range/Units 11:00 11:00 13:30 WBC 9.27 (4.8-10.8) K/uL RBC 4.20 (4.2-5.4) M/uL Hgb 12.8 (12.0-16.0) g/dL Hct 38.4 (37-47) % MCV 91.4 (80-100) fL MCH 30.5 (25-34) pg MCHC 33.3 (32-36) g/dL RDW Std Deviation 44.6 (36.4-46.3) fL RDW Coeff of Marii 13.4 (11.5-14.5) % Plt Count 296 (130-400) K/uL MPV 11.7 H (7.4-10.4) fL Immature Gran % (Auto) 0.2 % Neut % (Auto) 76.3 % Lymph % (Auto) 15.3 % [place] % (Auto) 7.7 % Eos % (Auto) 0.5 % Baso % (Auto) 0.0 % Neut # (Auto) 7.07 H (1.4-6.5) K/uL Lymph # (Auto) 1.42 (1.2-3.4) K/uL [place] # (Auto) 0.71 H (0.11-0.59) K/uL Eos # (Auto) 0.05 (0-0.5) K/uL Baso # (Auto) 0.00 (0-0.2) K/uL Immature Gran # (Auto) 0.02 (0.00-0.02) K/uL Sodium 138 (136-145) mmol/L Potassium 2.4 L* (3.5-5.1) mmol/L Chloride 95 L (98-107) mmol/L Carbon Dioxide 32 (21-32) mmol/L Anion Gap 11 (3-11) BUN 14 (6-23) mg/dl Creatinine 1.00 (0.6-1.2) mg/dl Est Cr Clr Drug Dosing Not Reportable Est GFR ( Amer) 63.8 ml/min Est GFR (Non-Af Amer) 55.1 ml/min BUN/Creatinine Ratio 14.0 (10-20) Glucose 154 H (70-99(Fasting)) mg/dl Calcium 9.8 (8.5-10.1) mg/dl Total Bilirubin 0.7 (0.2-1.0) mg/dl AST 11 L (13-39) U/L ALT 6 L (7-52) U/L Alkaline Phosphatase 76 (34-104) U/L Total Protein 7.4 (6.0-8.3) gm/dl Albumin 3.3 L (3.4-5.0) gm/dl Globulin 4.1 H (2.5-4.0) gm/dl Albumin/Globulin Ratio 0.8 L (0.9-2) Lipase 14 (11-82) U/L Urine Color Dark Yellow Urine Appearance Clear (Clear) Urine pH 5.5 (4.5-7.5) Ur Specific [place] 1.019 (1.000-1.030) Urine Protein 1+ H (Negative) Urine Glucose (UA) Negative (Negative) Urine Ketones 1+ H (Negative) Urine Blood Negative (Negative) Urine Nitrite Negative (Negative) Urine Bilirubin 2+ H (Negative) Urine Urobilinogen Positive H (Negative) Ur Leukocyte Esterase Negative (Negative) Urine WBC (Auto) 1-5 (0-5) /hpf Urine RBC (Auto) 5-10 H (0-4) /hpf U Hyaline Cast (Auto) 10-30 H (0-5) /lpf U Epithel Cells (Auto) >30 H (0-5) /lpf Urine Bacteria (Auto) Negative (Negative) SARS-CoV-2, RNA, NAAT (NEGATIVE) 02/20/22 Range/Units 13:39 WBC (4.8-10.8) K/uL RBC (4.2-5.4) M/uL Hgb (12.0-16.0) g/dL Hct (37-47) % MCV (80-100) fL MCH (25-34) pg MCHC (32-36) g/dL RDW Std Deviation (36.4-46.3) fL RDW Coeff of Marii (11.5-14.5) % Plt Count (130-400) K/uL MPV (7.4-10.4) fL Immature Gran % (Auto) % Neut % (Auto) % Lymph % (Auto) % [place] % (Auto) % Eos % (Auto) % Baso % (Auto) % Neut # (Auto) (1.4-6.5) K/uL Lymph # (Auto) (1.2-3.4) K/uL [place] # (Auto) (0.11-0.59) K/uL Eos # (Auto) (0-0.5) K/uL Baso # (Auto) (0-0.2) K/uL Immature Gran # (Auto) (0.00-0.02) K/uL Sodium (136-145) mmol/L Potassium (3.5-5.1) mmol/L Chloride (98-107) mmol/L Carbon Dioxide (21-32) mmol/L Anion Gap (3-11) BUN (6-23) mg/dl Creatinine (0.6-1.2) mg/dl Est Cr Clr Drug Dosing Est GFR ( Amer) ml/min Est GFR (Non-Af Amer) ml/min BUN/Creatinine Ratio (10-20) Glucose (70-99(Fasting)) mg/dl Calcium (8.5-10.1) mg/dl Total Bilirubin (0.2-1.0) mg/dl AST (13-39) U/L ALT (7-52) U/L Alkaline Phosphatase (34-104) U/L Total Protein (6.0-8.3) gm/dl Albumin (3.4-5.0) gm/dl Globulin (2.5-4.0) gm/dl Albumin/Globulin Ratio (0.9-2) Lipase (11-82) U/L Urine Color Urine Appearance (Clear) Urine pH (4.5-7.5) Ur Specific [place] (1.000-1.030) Urine Protein (Negative) Urine Glucose (UA) (Negative) Urine Ketones (Negative) Urine Blood (Negative) Urine Nitrite (Negative) Urine Bilirubin (Negative) Urine Urobilinogen (Negative) Ur Leukocyte Esterase (Negative) Urine WBC (Auto) (0-5) /hpf Urine RBC (Auto) (0-4) /hpf U Hyaline Cast (Auto) (0-5) /lpf U Epithel Cells (Auto) (0-5) /lpf Urine Bacteria (Auto) (Negative) SARS-CoV-2, RNA, NAAT NEGATIVE (NEGATIVE) Administered Medications Discontinued Medications Sodium Chloride (Nss 1000ml) 1,000 mls @ 999 mls/hr IV .Q1H1M ONE Stop: 02/20/22 14:11 Last Admin: 02/20/22 13:36 Dose: 999 mls/hr Documented by: [id number] Potassium Chloride (K Augie / Wtr) 10 meq in 100 mls @ 100 mls/hr IV Q1H LUIS; Protocol Stop: 02/20/22 15:14 Last Admin: 02/20/22 13:36 Dose: 100 mls/hr Documented by: [id number] Morphine Sulfate (Morphine Sulfate 4 Mg/Ml 1 Ml Carp\\Vial) 4 mg IV NOW STA Stop: 02/20/22 10:55 Last Admin: 02/20/22 12:12 Dose: 4 mg Documented by: [id number] Morphine Sulfate (Morphine Sulfate 4 Mg/Ml 1 Ml Carp\\Vial) 4 mg IV NOW STA Stop: 02/20/22 13:12 Last Admin: 02/20/22 13:36 Dose: Not Given Documented by: [id number] Ondansetron HCl (Ondansetron Inj 2 Mg/Ml 2 Ml Vial) 4 mg IV NOW STA Stop: 02/20/22 10:55 Last Admin: 02/20/22 12:10 Dose: 4 mg Documented by: [id number] Ondansetron HCl (Ondansetron Inj 2 Mg/Ml 2 Ml Vial) 4 mg IV NOW STA Stop: 02/20/22 13:12 Last Admin: 02/20/22 13:27 Dose: 4 mg Documented by: [id number] Potassium Chloride (Potassium Chloride Crtab 20 Meq Tabcr) 40 meq PO NOW STA Stop: 02/20/22 12:38 Last Admin: 02/20/22 13:26 Dose: Not Given Documented by: [id number] Imaging Data Radiologist's Impression: Abdomen/Pelvis CT 02/20/22 10:53 CT abd pelvis wo con CLINICAL HISTORY: R flank pain TECHNIQUE: Helical axial images of the abdomen and pelvis were obtained. A utomated dose lowering techniques and/or adjustment according to patient size were utilized for this exam. This exam was performed without intravenous contrast. CT DOSE: 1564.42 mGy.cm COMPARISON: Comparison is made to CT abdomen pelvis 05/01/2021 FINDINGS: Lower chest: Bibasilar atelectasis versus scarring is seen. Liver: Scarring is seen in the liver, new from prior exam. Gallbladder and biliary tree: Patient is status post cholecystectomy. No intra- or extrahepatic biliary ductal dilation. Pancreas: Peripancreatic stranding and edema is suggested. Spleen: Unremarkable. Adrenals: Unremarkable. Kidneys and ureters: Nonobstructive nephrolithiasis is seen in the right kidney. The left kidney is atrophic. Bladder: Unremarkable. Reproductive organs: Unremarkable. Bowel: Unremarkable appearance of the bowel. The appendix is normal. Lymph nodes Retroperitoneal: Unremarkable. Mesenteric: Unremarkable. Pelvic: Unremarkable. Peritoneum: Normal. Vessels: Unremarkable. Abdominal wall: Diastases of the upper midline abdominal musculature is seen. Bones: Degenerative changes in the visualized spine. IMPRESSION: Findings are compatible with acute pancreatitis. No peripancreatic fluid collection is seen. No evidence of obstructive nephrolithiasis is seen. ACT 112: Negative or not required by law. Electronically signed by: Ankit Angelo M.D. 02/20/2022 1:04 PM Discharge Plan Visit Data Chief Complaint: Back Injury/Pain Stated Complaint: LOWER BACK PAIN, POSSIBLE KIDNEY STONE ED Provider: Augusto El Discharge Problem: Acute pancreatitis Forms Stand Alone Forms: [facility] Prescriptions Prescriptions: No Action baclofen 10 mg tablet 10 mg PO BID PRN (Reason: muscle spasm) Qty: 60 RF: 2 duloxetine 60 mg capsule,delayed release(DR/EC) 60 mg PO HS Qty: 90 RF: 3 levothyroxine 25 mcg tablet 25 mcg PO QAM Qty: 90 RF: 1 potassium chloride 20 mEq tablet extended release 20 meq PO DAILY Qty: 90 RF: 0 oxybutynin chloride 5 mg tablet 5 mg PO QPM Qty: 30 RF: 1 metformin 500 mg tablet,ER chicho.retention 24 hr 500 mg PO QPM Qty: 90 RF: 1 Eliquis 5 mg tablet 5 mg PO BID Qty: 180 RF: 0 cholecalciferol (vitamin D3) 1,000 unit capsule 1,000 units PO HS RF: 0 gabapentin 100 mg capsule 100 mg PO BID RF: 0 pravastatin 10 mg tablet 10 mg PO DAILY Qty: 90 RF: 3 metoprolol tartrate 25 mg tablet 25 mg PO BID Qty: 180 RF: 3 tramadol 50 mg tablet 50 mg PO Q8H PRN (Reason: pain) Qty: 60 RF: 0 Referrals Referrals: Tyler Ramirez DO [Primary Care Provider] - Discharge Problem: Acute pancreatitis Qualifiers: Pancreatitis type: unspecified pancreatitis type Acute pancreatitis complication: unspecified Qualified Code(s): K85.90 - Acute pancreatitis without necrosis or infection, unspecified
[2022-02-20 11:15] LABS: Eosinophils # (auto) 0.05 K/uL (0-0.5); Eosinophils % (auto) 0.5 %; Hematocrit (blood only) 38.4 % (37-47); Hemoglobin 12.8 g/dL (12.0-16.0); Immature Granulocytes # (auto) 0.02 K/uL (0.00-0.02); Immature Granulocytes % (auto) 0.2 %; Lymphocytes # (auto) 1.42 K/uL (1.2-3.4); Lymphocytes % (auto) 15.3 %; Mean Corpuscular Hemoglobin 30.5 pg (25-34); Mean Corpuscular Hgb Conc 33.3 g/dL (32-36); Mean Corpuscular Volume 91.4 fL (80-100); Mean Platelet Volume 11.7 fL (7.4-10.4); Monocytes # (auto) 0.71 K/uL (0.11-0.59); Monocytes % (auto) 7.7 %; Neutrophils # (auto) 7.07 K/uL (1.4-6.5); Neutrophils % (auto) 76.3 %; Platelet Count 296 K/uL (130-400); RDW Coefficient of Variation 13.4 % (11.5-14.5); RDW Standard Deviation 44.6 fL (36.4-46.3); White Blood Count 9.27 K/uL (4.8-10.8)
[2022-02-20 12:37] LABS: Alanine Aminotransferase 6 U/L (7-52); Albumin Globulin Ratio 0.8 (0.9-2); Albumin Level 3.3 gm/dl (3.4-5.0); Alkaline Phosphatase 76 U/L (34-104); Anion Gap 11 (3-11); Aspartate Aminotransferase 11 U/L (13-39); Bilirubin,Total 0.7 mg/dl (0.2-1.0); Blood Urea Nitrogen 14 mg/dl (6-23); Calcium 9.8 mg/dl (8.5-10.1); Carbon Dioxide 32 mmol/L (21-32); Chloride 95 mmol/L (98-107); Est GFR (African American) 63.8 ml/min; Est GFR (Non-African American) 55.1 ml/min; Globulin 4.1 gm/dl (2.5-4.0); Glucose 154 mg/dl (70-99(Fasting)); Lipase 14 U/L (11-82); Potassium 2.4 mmol/L (3.5-5.1); Sodium 138 mmol/L (136-145); Total Protein 7.4 gm/dl (6.0-8.3)
[2022-02-20] MEDS ORDERED: POTASSIUM CHLORIDE CRTAB 20 MEQ TABCR PO STA (12:37)
--- NOTE | 2022-02-20 13:06 | CT Scan Report ---
CT abd pelvis wo con CLINICAL HISTORY: R flank pain TECHNIQUE: Helical axial images of the abdomen and pelvis were obtained. Automated dose lowering tech niques and/or adjustment according to patient size were utilized for this exam. This exam was perfor med without intravenous contrast. CT DOSE: 1564.42 mGy.cm COMPARISON: Comparison is made to CT abdomen pelvis 05/01/2021 FINDINGS: Lower chest: Bibasilar atelectasis versus scarring is seen. Liver: Scarring is seen in the liver, new from prior exam. Gallbladder and biliary tree: Patient is status post cholecystectomy. No intra- or extrahepatic bilia ry ductal dilation. Pancreas: Peripancreatic stranding and edema is suggested. Spleen: Unremarkable. Adrenals: Unremarkable. Kidneys and ureters: Nonobstructive nephrolithiasis is seen in the right kidney. The left kidney is a trophic. Bladder: Unremarkable. Reproductive organs: Unremarkable. Bowel: Unremarkable appearance of the bowel. The appendix is normal. Lymph nodes Retroperitoneal: Unremarkable. Mesenteric: Unremarkable. Pelvic: Unremarkable. Peritoneum: Normal. Vessels: Unremarkable. Abdominal wall: Diastases of the upper midline abdominal musculature is seen. Bones: Degenerative changes in the visualized spine. IMPRESSION: Findings are compatible with acute pancreatitis. No peripancreatic fluid collection is seen. No evide nce of obstructive nephrolithiasis is seen. ACT 112: Negative or not required by law. Electronically signed by: Ankit Angelo M.D. 02/20/2022 1:04 PM
[2022-02-20] MEDS ORDERED: SODIUM CHLORIDE 0.9% 1000ML 1,000 ML IV ONE (13:11)
[2022-02-20] MEDS: POTASSIUM CHLORIDE / WTR 10 MEQ/100 ML PLCT IV SCH ×2 (13:36→15:39)
[2022-02-20 13:48] LABS: Appearance Urine Clear (Clear); Bacteria Urine Automated Negative (Negative); Blood Urine Negative (Negative); Color Urine Dark Yellow; Epithelial Cell Urine Auto >30 /lpf (0-5); Glucose Urine UA Negative (Negative); Ketones Urine 1+ (Negative); Leukocyte Esterase Urine Negative (Negative); Nitrite Urine Negative (Negative); Protein Urine 1+ (Negative); Specific Gravity Urine 1.019 (1.000-1.030); Urobilinogen Urine Positive (Negative); pH Urine 5.5 (4.5-7.5)
[2022-02-20 13:49] LABS: Bilirubin Urine 2+ (Negative)
--- NOTE | 2022-02-20 14:47 | History & Physical Report ---
Date of Service February 20, 2022 History of Present Illness Primary Care Provider: Tyler Ramirez DO Allergies Allergy/AdvReac Type Severity Reaction Status Date / Time oxycodone AdvReac Mild "Made me Verified 02/20/22 11:53 higher than a kite" calcium AdvReac Unknown CAUSES Verified 02/20/22 11:53 KIDNEY STONES Home Medications Medication Instructions Recorded Confirmed Type cholecalciferol (vitamin D3) 25 1,000 units PO HS cap 05/08/19 02/20/22 History mcg (1,000 unit) capsule baclofen 10 mg tablet 10 mg PO BID PRN #60 tab 07/15/20 02/20/22 Rx duloxetine 60 mg capsule,delayed 60 mg PO HS #90 cap 05/04/21 02/20/22 Rx release levothyroxine 25 mcg tablet 25 mcg PO QAM #90 tab 06/26/21 02/20/22 Rx gabapentin 100 mg capsule 100 mg PO BID cap 08/16/21 02/20/22 History metoprolol tartrate 25 mg tablet 25 mg PO BID #180 tab 08/22/21 02/20/22 Rx pravastatin 10 mg tablet 10 mg PO DAILY #90 tab 08/22/21 02/20/22 Rx tramadol 50 mg tablet 50 mg PO Q8H PRN #60 tab 09/18/21 02/20/22 Rx potassium chloride 20 mEq 20 meq PO DAILY #90 tab 12/08/21 02/20/22 Rx tablet,extended release oxybutynin chloride 5 mg tablet 5 mg PO QPM #30 tab 01/08/22 02/20/22 Rx metformin 500 mg 24 hr 500 mg PO QPM #90 tab 01/22/22 02/20/22 Rx tablet,extended release apixaban 5 mg tablet (Eliquis) 5 mg PO BID #180 tab 02/08/22 02/20/22 Rx Past Med/Surg History Medical History Atrial fibrillation (~04/2021) Cataract Chronic anticoagulation Clavicle fracture 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, shoulder, right Depression with anxiety Goiter diffuse, nontoxic (~2009) History of breast cancer (~2008) History of pulmonary embolism Hypertension Hypothyroidism Insomnia Lumbar radiculopathy Lumbar spinal stenosis Nocturnal hypoxia Osteopenia Peripheral arterial disease Proximal humerus fracture Solitary kidney, acquired Thyroid nodule (~2009) 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 Type 2 diabetes mellitus Urinary incontinence Vitamin D deficiency Surgical History H/O breast surgery H/O cervical spine surgery H/O lumbosacral spine surgery H/O reduction of closed fracture History of lumpectomy History of total left hip arthroplasty (~09/2019) Hx of cholecystectomy Hx of total knee arthroplasty Family History Sister Diabetes Mother Cervical cancer Denies family history of Ovarian cancer Prostate cancer Breast cancer Lung cancer Colorectal cancer Social History Smoking Status: Never smoker Second Hand Exposure: No ( smoked for 35 plus years); Hx Alcohol Use: No Hx Substance Use: No Preferred Language: [place] Communication Ability: Effective Visual Impairment: Limited Hearing Ability: Use of Hearing Aid Asphalt Dauber Required: No Beliefs That Will Affect Care: None marital status: / Current Living Situation: Family Current Living Situation Comment: Lives with sister 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
--- NOTE | 2022-02-20 15:25 | Electrocardiogram Report ---
Test Reason : Blood Pressure : / mmHG Vent. Rate : 083 BPM Atrial Rate : 083 BPM P-R Int : 000 ms QRS Dur : 084 ms QT Int : 348 ms P-R-T Axes : 000 013 076 degrees QTc Int : 408 ms Poor data quality, interpretation may be adversely affected Probable Sinus rhythm Diffuse Minor Nonspecific T wave abnormality Abnormal ECG When compared with ECG of 01-MAY-2021 12:28, Nonspecific T wave abnormality now evident in Anterolateral leads Confirmed by Johnathan Ortiz ([id number]) on 02/20/2022 3:25:13 PM Referred By: Tyler Ramirez Confirmed By:Johnathan Ortiz
[2022-02-20] MEDS ORDERED: POLYETHYLENE (MIRALAX) 17 GM PACK PO PRN (17:08)
[2022-02-20] MEDS ORDERED: ONDANSETRON INJ 2 MG/ML 2 ML VIAL IV PRN (17:08)
[2022-02-20] MEDS ORDERED: ACETAMINOPHEN 325 MG TAB PO PRN (17:08)
[2022-02-20] MEDS ORDERED: BACLOFEN 10 MG TAB PO PRN (17:08)
[2022-02-20] MEDS ORDERED: GLUCOSE 40% GEL 15 GM TUBE PO PRN (17:58)
[2022-02-20] MEDS ORDERED: DEXTROSE 50% 50 ML SYRINGE IV PRN (17:58)
[2022-02-20] MEDS ORDERED: GLUCOSE 10 TABS/TUBE PO PRN (17:58)
[2022-02-20] MEDS ORDERED: GLUCAGON FOR INJ 1 MG VIAL SQ PRN (17:58)
[2022-02-20] MEDS ORDERED: CARBOHYDRATES FOR HYPOGLYCEMIA PO PRN (17:58)
--- NOTE | 2022-02-20 18:10 | History & Physical Report ---
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 Acute Pancreatitis -presented with nausea/vomiting and ? flank pain -CT A/P: Findings compatible w/ acute pancreatitis. No peripancreatic fluid seen. Non-obstructive nephrolithiasis in R kidney. -Lipase 14, WBC 9.27, Albumin 3.3, globulin 4.1, ALT, AST, T. Bili, Alk phos WNL -Triglycerides past 4 years WNL. -NPO, IV LR at 150ml/hr for pancreatitis -Zofran PRN for nausea. Flank pain - MSK -Past hx of severe multifactorial multilevel most prominent L2-L3, L3-L4 from 03/05/16 -Tylenol 650mg Q4h PRN, home gabapentin 100mg BID, Tramadol q8h PRN for pain -Continue home baclofen 10mg BID PRN for ?MSK contribution. Microscopic hematuria -U/A 1+ protein, 1+ Ketones, 2+ bilirubin, + urobilinogen, 5-10 RBCs, 10-30 h yaline casts. -Past history of kidney stones causing atrophic left kidney -IV hydration and pain control -consider renal ultrasound in am Hypokalemia -K+ on arrival 2.4 -Repleted 40meq oral potassium and 20 meq IV potassium in ED. -Patient w/ low potassium at baseline, home 20meq daily KCl -?etiology: GI loss vs hypomagnesemia vs malnutrition vs hypercortism -vomit x1, pt unsure about diet -Suspect malnutrition given low albumin. -Repeat BMP along with Mg at 18:00, repleat as needed. -AM BMP. T2DM -Hold metformin while in hospital. -SSI. HTN -Continue home metoprolol tartrate 25mg. Atrial fibrillation -Continue home metoprolol as above, home Eliquis 5mg PO BID. Depression/Anxiety -Continue home Duloxetine Hypothyroidism -Continue home levothyroxine. DVT Prophylaxis: Eliquis 5mg BID. F/E/N/GI: NPO for bowel rest. 1800 and AM BMP for K+ Code Status: DNR/DNI Dispo: Med/Surg Admission and Anticipated Discharge Date Admission Date: February 20, 2022 History of Present Illness Chief Complaint: Back pain. Primary Care Provider: Tylre Ramirez DO Cristina is a 76 year old female With a past medical history of with a past medical history of Type 2 diabetes, cognitive decline, hypertension, atrial fibrillation, depression and anxiety, hx breast cancer 2008, hx pulmonary embolism, hyperlipidemia who presented with a complaint of Right lower back pain. Patient states her right lower back pain started last night and is worse with movement, rated at 10 out of 10.Patient states the pain is not present when at rest and is not any better with leaning forward or laying backwards. Patient has had some nausea with the pain and vomited only once. Last bowel movement was yesterday morning without any melena. Patient is without any complaints of urinary frequency, dysuria, or hematuria. Patient states the pain is only when moving and is not colicky in nature. Patient states she had a cholecystectomy 1 or 2 years ago.Patient states the last thing she ate was yesterday morning from at breakfast. She states that she is trying to lose weight, with a diet of eating anything. Patient denies any alcohol use or smoking. Patient denies any knowledge of familial hyperlipidemias or a past history of significantly raised triglycerides. Patient denies any scorpions in the home. Denies any recent steroid use, loop or diuretic medication use, estrogen use. Denies fevers, chills, shortness of breath, chest pain, abdominal pain. Allergies Allergy/AdvReac Type Severity Reaction Status Date / Time oxycodone AdvReac Mild "Made me Verified 02/20/22 11:53 higher than a kite" calcium AdvReac Unknown CAUSES Verified 02/20/22 11:53 KIDNEY STONES Home Medications Medication Instructions Recorded Confirmed Type cholecalciferol (vitamin D3) 25 1,000 units PO HS cap 05/08/19 02/20/22 History mcg (1,000 unit) capsule baclofen 10 mg tablet 10 mg PO BID PRN #60 tab 07/15/20 02/20/22 Rx duloxetine 60 mg capsule,delayed 60 mg PO HS #90 cap 05/04/21 02/20/22 Rx release levothyroxine 25 mcg tablet 25 mcg PO QAM #90 tab 06/26/21 02/20/22 Rx gabapentin 100 mg capsule 100 mg PO BID cap 08/16/21 02/20/22 History metoprolol tartrate 25 mg tablet 25 mg PO BID #180 tab 08/22/21 02/20/22 Rx pravastatin 10 mg tablet 10 mg PO DAILY #90 tab 08/22/21 02/20/22 Rx tramadol 50 mg tablet 50 mg PO Q8H PRN #60 tab 09/18/21 02/20/22 Rx potassium chloride 20 mEq 20 meq PO DAILY #90 tab 12/08/21 02/20/22 Rx tablet,extended release oxybutynin chloride 5 mg tablet 5 mg PO QPM #30 tab 01/08/22 02/20/22 Rx metformin 500 mg 24 hr 500 mg PO QPM #90 tab 01/22/22 02/20/22 Rx tablet,extended release apixaban 5 mg tablet (Eliquis) 5 mg PO BID #180 tab 02/08/22 02/20/22 Rx Past Med/Surg History Medical History Atrial fibrillation (~04/2021) Cataract Chronic anticoagulation Clavicle fracture 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, shoulder, right Depression with anxiety Goiter diffuse, nontoxic (~2009) History of breast cancer (~2008) History of pulmonary embolism Hypertension Hypothyroidism Insomnia Lumbar radiculopathy Lumbar spinal stenosis Nocturnal hypoxia Osteopenia Peripheral arterial disease Proximal humerus fracture Solitary kidney, acquired Thyroid nodule (~2009) 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 Type 2 diabetes mellitus Urinary incontinence Vitamin D deficiency Surgical History H/O breast surgery H/O cervical spine surgery H/O lumbosacral spine surgery H/O reduction of closed fracture History of lumpectomy History of total left hip arthroplasty (~09/2019) Hx of cholecystectomy Hx of total knee arthroplasty Family History Sister Diabetes Mother Cervical cancer Denies family history of Ovarian cancer Prostate cancer Breast cancer Lung cancer Colorectal cancer Social History Smoking Status: Never smoker Second Hand Exposure: No ( smoked for 35 plus years); Hx Alcohol Use: Yes Alcohol type: beer Hx Substance Use: No Preferred Language: Maori Communication Ability: Effective Visual Impairment: Limited Hearing Ability: Use of Hearing Aid Joint Maker Machine Required: No Beliefs That Will Affect Care: None marital status: / Current Living Situation: Family Current Living Situation Comment: Lives with family 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 Feels Safe at Home: Yes Safety Concerns: Feels Safe At This Time Childhood Exposure to Second-Hand Smoke: Yes Diet Comment: watching calories caffeine: Yes Dental Care, Regularly: No Physical Activity Frequency: Does not Exercise Seatbelt Use: always Sunscreen Use: Yes Do you think of yourself as: straight/heterosexual Assistive Devices: Glasses, Hearing Aid - Bilateral and Walker Review of Systems Constitutional: as per Subjective / HPI Physical Exam Constitutional: WD/WN, vitals as above Eyes: PERRL, conjunctivae normal, anicteric sclerae Neck: trachea midline, no thyromegaly Respiratory: normal respiratory effort, lungs clear to auscultation Cardiovascular: RRR, no murmur, no edema Gastrointestinal (Abdomen): normal bowel sounds, soft, nontender, no hepatosplenomegaly Musculoskeletal: Pain with any movement. Psychiatric: A+Ox3, euthymic affect Genitourinary: No CVA tenderness. Results & Data Results & Data ([facility]) Vital Signs (Past 12 Hours) Vital Signs Temp Pulse Pulse Resp BP BP Pulse Ox 02/20/22 17:08 79 15 152/73 H 96 02/20/22 15:30 86 22 150/70 H 95 02/20/22 12:46 83 82 18 144/66 H 95 02/20/22 09:52 36.8 C 86 20 125/76 97 Code Status & VTE Plan VTE Prophylaxis Plan VTE Prophylaxis will be ordered: Yes Supervising Physician Co-Signing Physician Notes Resident Physician Supervision Note: I independently interviewed and examined the patient and verified the gonzales history and physical, reviewed labs and image studies and agree with resident Dr. Rodrigues findings and care plan. Resident Activity Tracking Resident Involvement: Resident Care Provided Care Provided: Adult Hospital Medicine (1) Atrial fibrillation Atrial fibrillation type: paroxysmal Qualified Code(s): I48.0 - Paroxysmal atrial fibrillation (2) Hypertension Hypertension type: primary hypertension Qualified Code(s): I10 - Essential (primary) hypertension (3) Acute pancreatitis Acute pancreatitis complication: unspecified Pancreatitis type: unspecified pancreatitis type Qualified Code(s): K85.90 - Acute pancreatitis without necrosis or infection, unspecified
[2022-02-20] MEDS: LACTATED RINGER'S 1,000 ML IV SCH (19:13)
[2022-02-20 20:21] LABS: BUN Creatinine Ratio 13.2 (10-20); Calcium 9.1 mg/dl (8.5-10.1); Creatinine Clr Calc Pharmacy 59.6 ml/min; Est GFR (African American) 71.5 ml/min; Est GFR (Non-African American) 61.7 ml/min; Magnesium 1.3 mg/dl (1.7-2.4); Potassium 2.6 mmol/L (3.5-5.1)
[2022-02-20] MEDS ORDERED: Nursing to Pharmacy Communication SCH (20:30)
[2022-02-20] MEDS: GABAPENTIN 100 MG CAP PO SCH (20:33)
[2022-02-20] MEDS: traMADol HCL 50 MG TABLET PO PRN (20:34)
[2022-02-20] MEDS: METOPROLOL TARTRATE 25 MG TAB PO SCH (20:35)
[2022-02-20] MEDS: APIXABAN 5 MG TABLET PO SCH (20:35)
[2022-02-20] MEDS: PRAVASTATIN SOD 10 MG TAB PO SCH (20:36)
[2022-02-20] MEDS ORDERED: INSULIN ASPART PER UNIT SC SCH (21:00)
[2022-02-20] MEDS ORDERED: CHOLECALCIFEROL 1,000 UNITS 25 MCG TAB PO SCH (21:00)
[2022-02-20] MEDS ORDERED: METFORMIN 500 MG PO SCH (21:00)
[2022-02-20] MEDS ORDERED: DULoxetine HCL 60 MG CAP PO SCH (21:00)
[2022-02-20] MEDS ORDERED: OXYBUTYNIN CHLORIDE 5 MG TAB PO SCH (21:00)
[2022-02-21] MEDS: LACTATED RINGER'S 1,000 ML IV SCH ×2 (01:55→08:38)
[2022-02-21] MEDS: traMADol HCL 50 MG TABLET PO PRN (03:04)
[2022-02-21] MEDS ORDERED: INSULIN ASPART PER UNIT SC SCH (06:00)
[2022-02-21] MEDS ORDERED: LEVOTHYROXINE SODIUM 25 MCG TABLET PO SCH (06:30)
[2022-02-21 08:51] LABS: Basophils # (auto) 0.01 K/uL (0-0.2); Basophils % (auto) 0.2 %; Eosinophils # (auto) 0.06 K/uL (0-0.5); Eosinophils % (auto) 1.1 %; Hematocrit (blood only) 33.1 % (37-47); Hemoglobin 10.8 g/dL (12.0-16.0); Immature Granulocytes # (auto) 0.01 K/uL (0.00-0.02); Immature Granulocytes % (auto) 0.2 %; Lymphocytes # (auto) 1.55 K/uL (1.2-3.4); Lymphocytes % (auto) 27.7 %; Mean Corpuscular Hemoglobin 29.8 pg (25-34); Mean Corpuscular Hgb Conc 32.6 g/dL (32-36); Mean Corpuscular Volume 91.4 fL (80-100); Mean Platelet Volume 11.7 fL (7.4-10.4); Monocytes # (auto) 0.39 K/uL (0.11-0.59); Neutrophils # (auto) 3.58 K/uL (1.4-6.5); Neutrophils % (auto) 63.8 %; Platelet Count 242 K/uL (130-400); RDW Coefficient of Variation 13.4 % (11.5-14.5); Red Blood Count 3.62 M/uL (4.2-5.4)
[2022-02-21] MEDS ORDERED: POTASSIUM CHLORIDE CRTAB 20 MEQ TABCR PO SCH (09:00)
[2022-02-21 09:11] LABS: BUN Creatinine Ratio 12.8 (10-20); Creatinine Clr Calc Pharmacy 69.5 ml/min; Est GFR (African American) 86.2 ml/min; Est GFR (Non-African American) 74.4 ml/min; Potassium 2.6 mmol/L (3.5-5.1)
[2022-02-21] MEDS: APIXABAN 5 MG TABLET PO SCH (09:11)
[2022-02-21] MEDS: GABAPENTIN 100 MG CAP PO SCH (09:11)
[2022-02-21] MEDS: METOPROLOL TARTRATE 25 MG TAB PO SCH (09:11)
[2022-02-21] MEDS ORDERED: Nursing to Pharmacy Communication SCH (09:30)
[2022-02-21] MEDS ORDERED: POTASSIUM CHLORIDE CRTAB 20 MEQ TABCR PO STA ×2 (09:47→10:56)
[2022-02-21] MEDS: INSULIN ASPART PER UNIT SC SCH ×2 (10:10→12:39)
[2022-02-21] MEDS: PRAVASTATIN SOD 10 MG TAB PO SCH (10:11)
[2022-02-21] MEDS: MAGNESIUM SULFATE / D5W 1 GM/100 ML BAG IV SCH ×2 (10:30→12:37)
[2022-02-21] MEDS: POTASSIUM CHLORIDE / WTR 10 MEQ/100 ML PLCT IV SCH ×2 (10:30→11:48)
[2022-02-21 17:03] LABS: Appearance Urine Clear (Clear); Bilirubin Urine Negative (Negative); Blood Urine Negative (Negative); Color Urine Dark Yellow; Glucose Urine UA Negative (Negative); Ketones Urine Trace (Negative); Leukocyte Esterase Urine Negative (Negative); Nitrite Urine Negative (Negative); Protein Urine Negative (Negative); Specific Gravity Urine 1.017 (1.000-1.030); Urobilinogen Urine Negative (Negative)
--- NOTE | 2022-02-21 19:39 | Discharge Summary ---
Date of Service February 21, 2022 Admission HPI Per Admitting Provider Cristina is a 76 year old female With a past medical history of with a past medical history of Type 2 diabetes, cognitive decline, hypertension, atrial fibrillation, depression and anxiety, hx breast cancer 2008, hx pulmonary embolism, hyperlipidemia who presented with a complaint of Right lower back pain. Patient states her right lower back pain started last night and is worse with movement, rated at 10 out of 10.Patient states the pain is not present when at rest and is not any better with leaning forward or laying backwards. Patient has had some nausea with the pain and vomited only once. Last bowel movement wa s yesterday morning without any melena. Patient is without any complaints of urinary frequency, dysuria, or hematuria. Patient states the pain is only when moving and is not colicky in nature. Patient states she had a cholecystectomy 1 or 2 years ago.Patient states the last thing she ate was yesterday morning from at breakfast. She states that she is trying to lose weight, with a diet of eating anything. Patient denies any alcohol use or smoking. Patient denies any knowledge of familial hyperlipidemias or a past history of significantly raised triglycerides. Patient denies any scorpions in the home. Denies any recent steroid use, loop or diuretic medication use, estrogen use. Denies fevers, chills, shortness of breath, chest pain, abdominal pain. Admission Exam Per Admitting Provider Constitutional: WD/WN, vitals as above Eyes: PERRL, conjunctivae normal, anicteric sclerae Neck: trachea midline, no thyromegaly Respiratory: normal respiratory effort, lungs clear to auscultation Cardiovascular: RRR, no murmur, no edema Gastrointestinal (Abdomen): normal bowel sounds, soft, nontender, no hepatosplenomegaly Musculoskeletal: Pain with any movement. Psychiatric: A+Ox3, euthymic affect Genitourinary: No CVA tenderness. Principal Diagnosis Pancreatitis, Nephrolithiasis Discharge Exam Constitutional WD/WN, vitals as above Eyes PERRL, conjunctivae normal, anicteric sclerae Neck trachea midline, no thyromegaly Respiratory normal respiratory effort, lungs clear to auscultation Cardiovascular RRR, no murmur, no edema Gastrointestinal (Abdomen) normal bowel sounds, soft, nontender, no hepatosplenomegaly Psychiatric A+Ox3, euthymic affect Discharge Data Allergies Allergy/AdvReac Type Severity Reaction Status Date / Time oxycodone AdvReac Mild "Made me Verified 02/20/22 11:53 higher than a kite" calcium AdvReac Unknown CAUSES Verified 02/20/22 11:53 KIDNEY STONES Consultations 02/20/22 14:07 ED Decision to Admit Stat Ordered Studies 02/20/22 10:53 CT abd pelvis wo con Stat IMPRESSION: Findings are compatible with acute pancreatitis. No peripancreatic fluid collection is seen. No evidence of obstructive nephrolithiasis is seen. 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 Acute Pancreatitis -presented with nausea/vomiting and ? flank pain -CT A/P: Findings compatible w/ acute pancreatitis. No peripancreatic fluid seen. Non-obstructive nephrolithiasis in R kidney. -Lipase 14, WBC 9.27, Albumin 3.3, globulin 4.1, ALT, AST, T. Bili, Alk phos WNL -Triglycerides past 4 years WNL. -Received IVF, tolerated diet progression well. -Possibly sec to ? viral illness. Flank pain - MSK -Past hx of severe multifactorial multilevel most prominent L2-L3, L3-L4 from 03/05/16 -?contribution to symptoms -pain resolved at the time of discharge. -further outpatient follow up. Microscopic hematuria -U/A 1+ protein, 1+ Ketones, 2+ bilirubin, + urobilinogen, 5-10 RBCs, 10-30 hyaline casts. -Past history of kidney stones causing atrophic left kidney -Received IV hydration and pain control -Patient with sudden relief of pain post void. Consider nephrolithiasis as potential cause. Hypokalemia -K+ on arrival 2.4 -Repleted 40meq oral potassium and 20 meq IV potassium in ED. -Patient w/ low potassium at baseline, home 20meq daily KCl -?etiology: GI loss vs hypomagnesemia vs malnutrition vs hypercortisolism -vomit x1, pt unsure about diet -Suspect malnutrition given low albumin. -K+ 2.6 AM of discharge, repleted 60meq KCl orally, 20meq KCl IV. -Continued home KCl 20meq daily. -outpatient recheck labs Clinically obese, BMI 40.9 kg/m*m - outpatient pcp follow up. lifestyle modifications. Total Time Total Time Spent Total Time Spent (In Minutes): Please see attending attestation. Discharge Plan Discharge Items Patient Disposition: Home - Self-Care Reason For Visit: LOWER BACK PAIN, POSSIBLE KIDNEY STONE Discharge Diagnosis: ?Pancreatitis, nephrolithiasis Activity: Per Instructions section Non-emergency contact: Primary Care Provider Call non-emergency contact if: your symptoms worsen, your pain is worsening and your temperature is above 101 Follow-up/Referrals: Tyler Ramirez DO [Primary Care Provider] - 02/26/22 10:00 am Diet: Regular Addtl Attending Provider Instructions: A discharge summary will be sent to your primary care physician to ensure continuity of care. You came in to the hospital for extreme lower back pain that was worse with any movement. On imaging you were found to have some inflammation at your pancreas as well as a kidney stone in your right kidney. You were also found to have a low potassium as low as 2.4. You were given 60meq of oral and IV potassium the day you came in and given 80meq oral and IV the next day. You were given bowel rest with nothing to eat and lots of fluids. After urinating you found good relief from your pain, pointing more towards possible kidney stone expulsion as opposed to pain from the pancreas. The acute pancreas inflammation may have been more of an incidental finding or compounding with the kidney stone. Please continue to take your potassium supplement at home to ensure you keep your potassium levels up. Follow-up: * You should be seen by your primary physician within the next week for a recheck of your potassium. Medications: Your medication list has been reviewed and reconciled upon discharge to ensure accuracy and continuity of care. An updated list of all your medications is included with your hospital discharge paperwork. Please review this list closely, and make note of any changes. * Please keep taking your 20meq Potassium Chloride medication daily to ensure you keep your potassium level up. Take your medications as instructed; do not skip a dose of your medicines. Make sure all of your doctors know every medicine you are taking (including [id number] medicines, vitamins, and supplements). let your primary care provider know before taking any new medicines because some of these may interact with your current medications, or may make your symptoms worse. CONTACT YOUR PRIMARY CARE PROVIDER if you experience any of the following: * Fevers or shaking chills * Shortness of breath not relieved by inhalers, fainting * Sudden abdominal distension not relieved by catheterization. * Difficulty following your treatment plan, or difficulty taking medications CALL 911 OR GO TO THE EMERGENCY DEPARTMENT if you experience any of the following: * Sudden, severe abdominal pain or nausea/vomiting * Severe chest pain, or chest pain that radiates (moves) to your jaw or arm * Sudden, severe shortness of breath or difficulty breathing It was was our pleasure taking care of you here at [facility] . Thank you for allowing us to participate in your care. Pending Studies at Discharge: No Stand-Alone Forms: My [facility], Smoking Cessation Medications and DC Order Prescriptions: Continued baclofen 10 mg tablet 10 mg PO BID PRN (Reason: muscle spasm) Qty: 60 RF: 2 duloxetine 60 mg capsule,delayed release(DR/EC) 60 mg PO HS Qty: 90 RF: 3 levothyroxine 25 mcg tablet 25 mcg PO QAM Qty: 90 RF: 1 potassium chloride 20 mEq tablet extended release 20 meq PO DAILY Qty: 90 RF: 0 oxybutynin chloride 5 mg tablet 5 mg PO QPM Qty: 30 RF: 1 metformin 500 mg tablet,ER chicho.retention 24 hr 500 mg PO QPM Qty: 90 RF: 1 Eliquis 5 mg tablet 5 mg PO BID Qty: 180 RF: 0 cholecalciferol (vitamin D3) 1,000 unit capsule 1,000 units PO HS RF: 0 gabapentin 100 mg capsule 100 mg PO BID RF: 0 pravastatin 10 mg tablet 10 mg PO DAILY Qty: 90 RF: 3 metoprolol tartrate 25 mg tablet 25 mg PO BID Qty: 180 RF: 3 tramadol 50 mg tablet 50 mg PO Q8H PRN (Reason: pain) Qty: 60 RF: 0 Discharge Orders: Discharge Order (Routine); Ordered 02/21/22 Ordered By: Daniel Velez/Other Patient Handouts: ED Pancreatitis Admission Data Admit Date/Time: 02/20/22 15:11 Attending Provider: Basilia Millard Admit Provider: Basilia Millard Primary Care Provider: Tyler Ramirez Other Providers: Basilia Millard Other Interventions: Discharge Summary Assessment (RN) Last Done: 02/21/22 15:28 Supervising Physician Co-Signing Physician Notes Resident Physician Supervision Note: I independently interviewed and examined the patient and verified the gonzales history and physical, reviewed labs and image studies and agree with resident Dr. Rodrigues findings and care plan. Resident Activity Tracking Resident Involvement: Resident Care Provided Care Provided: Adult Hospital Medicine
== END 2022-02-21 16:33 | disposition home or self-care (01) | DRG 439 ==
LOC: ED 09:41 → EDINP 15:11 → INTOOBSV 15:11 → 3W 16:21

== ENCOUNTER 2022-02-22 08:46 | Observation (INO) ==
--- NOTE | 2022-02-22 09:07 | Emergency Department Note ---
Impression & Plan Mass of pancreas ADMIT ED Provider Note HPI: The patient is a 76-year-old female with history of atrial fibrillation, on anticoagulation, history of type 2 diabetes, cognitive decline, who presents emergency department after being found down by a neighbor in her lawn. Patient states she does not remember what happened. Patient was reportedly found facedown outside of her house by a neighbor, EMS was contacted and the patient seemed to be minimally responsive at that time, she reportedly became more alert in route to the ED. On arrival here the patient is alert and oriented x3, she has some abrasions to the right side of her face but she tells me she does not remember what happened. Patient tells me she last remembers speaking to her neighbor and getting into the ambulance. On arrival to the ED the patient does not have any focal deficits, she is hemodynamically stable on arrival, she is saturating well on room air, she is otherwise in no apparent distress. ROS: -Neuro: Altered mental status, found down *10 point review systems was conducted and is otherwise negative unless stated above *Outpatient medications and allergy history reviewed PE: General: Alert, NAD HEENT: Normocephalic, atraumatic Eyes: Extraocular eye movement is intact, no scleral erythema Pulmonary: Clear to auscultation bilaterally, no wheezing Cardio: Regular rate and rhythm GI: Abdomen is soft, nontender : No suprapubic tenderness MSK: No evidence of trauma or malformation of the extremities, no edema Skin: No evidence of rash Neuro: Alert, no focal deficits, equal bilateral passenger solicitor strength is appreciated, symmetrical facial movements are appreciated, patient ambulates all extremities spontaneously Psychiatric: Cooperative front desk monitor: - An order was placed for continuous cardiac monitoring - Patient was noted to be in sinus rhythm with rate of 62 EKG: Rate: 67 Rhythm: Normal sinus rhythm Intervals: Within normal limits ST changes: No ST elevation Time: 0857 Medical Decision Making: Patient is a 76-year-old female who presents the emergency department after being found down in the lawn by her neighbor. On arrival here to the ED she is alert and oriented, she states she does not remember what happened, denies any history of seizures. Patient does not have any focal deficits on arrival. She is saturating well on room air and otherwise does not appear to be in any acute distress. Shortly after arrival IV was established, lab work obtained, patient was placed on nurse monitoring. Lab work does not show any evidence of critical electrolyte abnormalities, there is no leukocytosis, hemoglobin is stable. HS Troponin is 18, patient denies any chest pain or shortness of breath. CT imaging of the head does not show any evidence of any acute intracranial process. On my reassessment the patient was complaining of some nausea, had an episode of vomiting, she did have a recent admission for suspected pancreatitis. Given thi s and her history of PE, I did obtain CT angiography of the chest as well as CT abdomen and pelvis with IV contrast that does show evidence of unfortunately what appears to be a pancreatic mass. Patient was given IV fluids here in the ED, on my reassessment she was informed of the above findings, is unable to contact any family although I did attempt to contact her listed contact in the chart without any answer. Patient states she lives with her sister. She does have a history of some cognitive decline which may be contributing to the limited history. Unclear whether the patient may have had a syncopal event this morning, unclear whether she may have had a seizure although she has no seizure history documented. Given the unclear source of this event this morning in addition to the finding of pancreatic mass on CT imaging of the abdomen and pelvis, I do feel that the patient would be nefit from admission for further management and likely hematology/oncology consultation for new pancreatic mass. Case was discussed with the on-call hospitalist for [facility] [address], Dr. Millard, and the patient was admitted in stable condition for further care. Diagnosis: 1. Syncopal event 2. Transient episode of altered mentation/amnesia 3. 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, shoulder, right Depression with anxiety Goiter diffuse, nontoxic (~2009) History of breast cancer (~2008) History of pulmonary embolism Hypertension Hypothyroidism Insomnia Lumbar radiculopathy Lumbar spinal stenosis Nocturnal hypoxia Osteopenia Peripheral arterial disease Proximal humerus fracture Solitary kidney, acquired Thyroid nodule (~2009) 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 Type 2 diabetes mellitus Urinary incontinence Vitamin D deficiency Surgical History H/O breast surgery H/O cervical spine surgery H/O lumbosacral spine surgery H/O reduction of closed fracture History of lumpectomy History of total left hip arthroplasty (~09/2019) Hx of cholecystectomy Hx of total knee arthroplasty Family History Sister Diabetes Mother Cervical cancer Denies family history of Ovarian cancer Prostate cancer Breast cancer Lung cancer Colorectal cancer Social History Smoking Status: Unknown if ever smoked Second Hand Exposure: No ( smoked for 35 plus years); Hx Alcohol Use: Yes Alcohol type: beer Hx Substance Use: No Preferred Language: Mozambican Communication Ability: Effective Visual Impairment: Limited Hearing Ability: Use of Hearing Aid Solution Director Required: No Beliefs That Will Affect Care: None marital status: Single Current Living Situation: Family Current Living Situation Comment: Lives with family 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 How many Children do You have: 0 Feels Safe at Home: Yes Childhood Exposure to Second-Hand Smoke: Yes Diet Comment: watching calories caffeine: Yes Dental Care, Regularly: No Physical Activity Frequency: Does not Exercise Seatbelt Use: always Sunscreen Use: Yes Do you think of yourself as: straight/heterosexual Assistive Devices: Walker Allergies Allergies Allergy/AdvReac Type Severity Reaction Status Date / Time oxycodone AdvReac Mild "Made me Verified 02/22/22 09:58 higher than a kite" calcium AdvReac Unknown CAUSES Verified 02/22/22 09:58 KIDNEY STONES Home Meds Home Medications Medication Instructions Recorded Confirmed cholecalciferol (vitamin D3) 25 1,000 units PO HS cap 05/08/19 02/22/22 mcg (1,000 unit) capsule gabapentin 100 mg capsule 100 mg PO BID cap 08/16/21 02/22/22 Previous Rx's Medication Instructions Recorded baclofen 10 mg tablet 10 mg PO BID PRN #60 tab 07/15/20 duloxetine 60 mg capsule,delayed 60 mg PO HS #90 cap 05/04/21 release levothyroxine 25 mcg tablet 25 mcg PO QAM #90 tab 06/26/21 metoprolol tartrate 25 mg tablet 25 mg PO BID #180 tab 08/22/21 pravastatin 10 mg tablet 10 mg PO DAILY #90 tab 08/22/21 tramadol 50 mg tablet 50 mg PO Q8H PRN #60 tab 09/18/21 potassium chloride 20 mEq 20 meq PO DAILY #90 tab 12/08/21 tablet,extended release oxybutynin chloride 5 mg tablet 5 mg PO QPM #30 tab 01/08/22 metformin 500 mg 24 hr 500 mg PO QPM #90 tab 01/22/22 tablet,extended release apixaban 5 mg tablet (Eliquis) 5 mg PO BID #180 tab 02/08/22 Results & Data (ED) Vital Signs Vital Signs - 24 hr 02/22/22 08:33 02/22/22 09:02 02/22/22 09:10 Temperature 36.8 C Temperature Source Oral Pulse Rate 68 81 70 Pulse Rate from SpO2 Sensor 84 Respiratory Rate 18 14 12 Respiratory Depth Normal Blood Pressure 187/85 H Blood Pressure Mean 119 Pulse Oximetry 98 98 Oxygen Delivery Method Room Air Sepsis Recent Fever Within 48 Hours No Sepsis New/Unexplained Change in Mental Status Yes Sepsis Action Taken by Nursing No Action Required 02/22/22 09:20 02/22/22 09:43 02/22/22 09:50 Temperature Temperature Source Pulse Rate 82 74 68 Pulse Rate from SpO2 Sensor 80 73 Respiratory Rate 16 13 15 Respiratory Depth Blood Pressure Blood Pressure Mean Pulse Oximetry 98 98 Oxygen Delivery Method Sepsis Recent Fever Within 48 Hours Sepsis New/Unexplained Change in Mental Status Sepsis Action Taken by Nursing 02/22/22 10:00 02/22/22 10:10 02/22/22 10:20 Temperature Temperature Source Pulse Rate 79 64 80 Pulse Rate from SpO2 Sensor 77 65 78 Respiratory Rate 13 15 16 Respiratory Depth Blood Pressure 180/65 H Blood Pressure Mean 103 Pulse Oximetry 97 98 98 Oxygen Delivery Method Sepsis Recent Fever Within 48 Hours Sepsis New/Unexplained Change in Mental Status Sepsis Action Taken by Nursing 02/22/22 10:30 02/22/22 10:40 02/22/22 10:50 Temperature Temperature Source Pulse Rate 80 67 65 Pulse Rate from SpO2 Sensor 81 66 63 Respiratory Rate 17 18 18 Respiratory Depth Blood Pressure 185/90 H Blood Pressure Mean 121 Pulse Oximetry 96 97 96 Oxygen Delivery Method Sepsis Recent Fever Within 48 Hours Sepsis New/Unexplained Change in Mental Status Sepsis Action Taken by Nursing 02/22/22 11:00 02/22/22 11:10 02/22/22 11:20 Temperature Temperature Source Pulse Rate 75 62 68 Pulse Rate from SpO2 Sensor 75 63 68 Respiratory Rate 12 17 16 Respiratory Depth Blood Pressure 164/86 H Blood Pressure Mean 112 Pulse Oximetry 97 98 97 Oxygen Delivery Method Sepsis Recent Fever Within 48 Hours Sepsis New/Unexplained Change in Mental Status Sepsis Action Taken by Nursing 02/22/22 11:30 02/22/22 11:57 02/22/22 12:00 Temperature Temperature Source Pulse Rate 70 Pulse Rate from SpO2 Sensor 69 77 80 Respiratory Rate 16 Respiratory Depth Blood Pressure 168/92 H Blood Pressure Mean 117 Pulse Oximetry 96 97 97 Oxygen Delivery Method Sepsis Recent Fever Within 48 Hours Sepsis New/Unexplained Change in Mental Status Sepsis Action Taken by Nursing 02/22/22 12:10 02/22/22 12:20 02/22/22 12:30 Temperature Temperature Source Pulse Rate Pulse Rate from SpO2 Sensor 68 65 66 Respiratory Rate Respiratory Depth Blood Pressure Blood Pressure Mean Pulse Oximetry 98 88 L 97 Oxygen Delivery Method Sepsis Recent Fever Within 48 Hours Sepsis New/Unexplained Change in Mental Status Sepsis Action Taken by Nursing 02/22/22 12:40 02/22/22 12:50 02/22/22 12:54 Temperature Temperature Source Pulse Rate 73 70 Pulse Rate from SpO2 Sensor 65 74 69 Respiratory Rate 23 13 Respiratory Depth Blood Pressure 149/59 H Blood Pressure Mean 89 Pulse Oximetry 97 98 96 Oxygen Delivery Method Sepsis Recent Fever Within 48 Hours Sepsis New/Unexplained Change in Mental Status Sepsis Action Taken by Nursing 02/22/22 13:09 02/22/22 13:10 Temperature Temperature Source Pulse Rate 89 92 H Pulse Rate from SpO2 Sensor 87 91 H Respiratory Rate 18 Respiratory Depth Blood Pressure 157/73 H Blood Pressure Mean 101 Pulse Oximetry 97 97 Oxygen Delivery Method Sepsis Recent Fever Within 48 Hours Sepsis New/Unexplained Change in Mental Status Sepsis Action Taken by Nursing Laboratory Data Result diagrams: 02/22/22 09:04 02/22/22 09:15 Lab Results 02/22/22 02/22/22 02/22/22 Range/Units 09:04 09:15 09:15 WBC 10.43 (4.8-10.8) K/uL RBC 3.95 L (4.2-5.4) M/uL Hgb 12.2 (12.0-16.0) g/dL Hct 36.5 L (37-47) % MCV 92.4 (80-100) fL MCH 30.9 (25-34) pg MCHC 33.4 (32-36) g/dL RDW Std Deviation 44.3 (36.4-46.3) fL RDW Coeff of Marii 13.1 (11.5-14.5) % Plt Count 323 (130-400) K/uL MPV 11.9 H (7.4-10.4) fL Neut % (Auto) 83.7 % Lymph % (Auto) 11.0 % [place] % (Auto) 5.1 % Eos % (Auto) 0.0 % Baso % (Auto) 0.0 % Neut # (Auto) 8.73 H (1.4-6.5) K/uL Lymph # (Auto) 1.15 L (1.2-3.4) K/uL [place] # (Auto) 0.53 (0.11-0.59) K/uL Eos # (Auto) 0.00 (0-0.5) K/uL Baso # (Auto) 0.00 (0-0.2) K/uL Sodium (136-145) mmol/L Potassium (3.5-5.1) mmol/L Chloride (98-107) mmol/L Carbon Dioxide (21-32) mmol/L Anion Gap (3-11) BUN (6-23) mg/dl Creatinine (0.6-1.2) mg/dl Est Cr Clr Drug Dosing Est GFR ( Amer) ml/min Est GFR (Non-Af Amer) ml/min BUN/Creatinine Ratio (10-20) Glucose (70-99(Fasting)) mg/dl Lactate 1.3 (0.4-2.0) mmol/L Calcium (8.5-10.1) mg/dl Total Bilirubin (0.2-1.0) mg/dl AST (13-39) U/L ALT (7-52) U/L Alkaline Phosphatase (34-104) U/L Total Creatine Kinase (26-192) U/L Troponin I High Sens (0-14) pg/ml Total Protein (6.0-8.3) gm/dl Albumin (3.4-5.0) gm/dl Globulin (2.5-4.0) gm/dl Albumin/Globulin Ratio (0.9-2) Urine Opiates Screen (Neg) Ur Methadone, Qual (Neg) Urine Barbiturates (Neg) Ur Phencyclidine (PCP) (Neg) U Amphetamin/Meth Scrn (Neg) MDMA (Ecstasy) Screen (Neg) U Benzodiazepines Scrn (Neg) Ur Cocaine Metabolite (Neg) U Marijuana (THC) Screen (Neg) Ethyl Alcohol mg/dL < 10.0 (<10.0) mg/dl SARS-CoV-2, RNA, NAAT (NEGATIVE) 02/22/22 02/22/22 02/22/22 Range/Units 09:15 09:15 09:15 WBC (4.8-10.8) K/uL RBC (4.2-5.4) M/uL Hgb (12.0-16.0) g/dL Hct (37-47) % MCV (80-100) fL MCH (25-34) pg MCHC (32-36) g/dL RDW Std Deviation (36.4-46.3) fL RDW Coeff of Marii (11.5-14.5) % Plt Count (130-400) K/uL MPV (7.4-10.4) fL Neut % (Auto) % Lymph % (Auto) % [place] % (Auto) % Eos % (Auto) % Baso % (Auto) % Neut # (Auto) (1.4-6.5) K/uL Lymph # (Auto) (1.2-3.4) K/uL [place] # (Auto) (0.11-0.59) K/uL Eos # (Auto) (0-0.5) K/uL Baso # (Auto) (0-0.2) K/uL Sodium 136 (136-145) mmol/L Potassium 3.4 L D (3.5-5.1) mmol/L Chloride 98 (98-107) mmol/L Carbon Dioxide 29 (21-32) mmol/L Anion Gap 9 (3-11) BUN 11 (6-23) mg/dl Creatinine 0.81 (0.6-1.2) mg/dl Est Cr Clr Drug Dosing Not Reportable Est GFR ( Amer) 82.3 ml/min Est GFR (Non-Af Amer) 71.0 ml/min BUN/Creatinine Ratio 13.6 (10-20) Glucose 157 H (70-99(Fasting)) mg/dl Lactate (0.4-2.0) mmol/L Calcium 9.9 (8.5-10.1) mg/dl Total Bilirubin 0.6 (0.2-1.0) mg/dl AST 15 (13-39) U/L ALT 7 (7-52) U/L Alkaline Phosphatase 79 (34-104) U/L Total Creatine Kinase 102 (26-192) U/L Troponin I High Sens 18.2 H (0-14) pg/ml Total Protein 7.2 (6.0-8.3) gm/dl Albumin 3.2 L (3.4-5.0) gm/dl Globulin 4.0 (2.5-4.0) gm/dl Albumin/Globulin Ratio 0.8 L (0.9-2) Urine Opiates Screen (Neg) Ur Methadone, Qual (Neg) Urine Barbiturates (Neg) Ur Phencyclidine (PCP) (Neg) U Amphetamin/Meth Scrn (Neg) MDMA (Ecstasy) Screen (Neg) U Benzodiazepines Scrn (Neg) Ur Cocaine Metabolite (Neg) U Marijuana (THC) Screen (Neg) Ethyl Alcohol mg/dL (<10.0) mg/dl SARS-CoV-2, RNA, NAAT (NEGATIVE) 02/22/22 02/22/22 Range/Units 12:47 13:11 WBC (4.8-10.8) K/uL RBC (4.2-5.4) M/uL Hgb (12.0-16.0) g/dL Hct (37-47) % MCV (80-100) fL MCH (25-34) pg MCHC (32-36) g/dL RDW Std Deviation (36.4-46.3) fL RDW Coeff of Marii (11.5-14.5) % Plt Count (130-400) K/uL MPV (7.4-10.4) fL Neut % (Auto) % Lymph % (Auto) % [place] % (Auto) % Eos % (Auto) % Baso % (Auto) % Neut # (Auto) (1.4-6.5) K/uL Lymph # (Auto) (1.2-3.4) K/uL [place] # (Auto) (0.11-0.59) K/uL Eos # (Auto) (0-0.5) K/uL Baso # (Auto) (0-0.2) K/uL Sodium (136-145) mmol/L Potassium (3.5-5.1) mmol/L Chloride (98-107) mmol/L Carbon Dioxide (21-32) mmol/L Anion Gap (3-11) BUN (6-23) mg/dl Creatinine (0.6-1.2) mg/dl Est Cr Clr Drug Dosing Est GFR ( Amer) ml/min Est GFR (Non-Af Amer) ml/min BUN/Creatinine Ratio (10-20) Glucose (70-99(Fasting)) mg/dl Lactate (0.4-2.0) mmol/L Calcium (8.5-10.1) mg/dl Total Bilirubin (0.2-1.0) mg/dl AST (13-39) U/L ALT (7-52) U/L Alkaline Phosphatase (34-104) U/L Total Creatine Kinase (26-192) U/L Troponin I High Sens (0-14) pg/ml Total Protein (6.0-8.3) gm/dl Albumin (3.4-5.0) gm/dl Globulin (2.5-4.0) gm/dl Albumin/Globulin Ratio (0.9-2) Urine Opiates Screen Pos H (Neg) Ur Methadone, Qual Neg (Neg) Urine Barbiturates Neg (Neg) Ur Phencyclidine (PCP) Neg (Neg) U Amphetamin/Meth Scrn Neg (Neg) MDMA (Ecstasy) Screen Neg (Neg) U Benzodiazepines Scrn Neg (Neg) Ur Cocaine Metabolite Neg (Neg) U Marijuana (THC) Screen Neg (Neg) Ethyl Alcohol mg/dL (<10.0) mg/dl SARS-CoV-2, RNA, NAAT NEGATIVE (NEGATIVE) Administered Medications Discontinued Medications Sodium Chloride (Nss) 500 mls @ 999 mls/hr IV .Q31M LUIS Stop: 02/22/22 09:45 Last Infusion: 02/22/22 13:48 Dose: 0 mls/hr Documented by: [id number] Admin: 02/22/22 09:48 Dose: 999 mls/hr Documented by: [id number] Ioversol (Optiray 320 125ml) 69 ml IV ONCE ONE Stop: 02/22/22 11:54 Last Admin: 02/22/22 11:54 Dose: 69 ml Documented by: [id number] Imaging Data Radiologist's Impression: Head CT 02/22/22 09:03 CT OF THE HEAD WITHOUT CONTRAST CLINICAL HISTORY: AMS, syncope vs seizure. COMPARISON STUDY: MRI of the brain September 09, 2018. Head CT May 01, 2021. CT DOSE: 537.48 mGy.cm TECHNIQUE: Helical axial images of the head were obtained without IV contrast. Automated exposure control was utilized for the study. A dose lowering technique was utilized adhering to the principles of ALARA. FINDINGS: No acute intracranial hemorrhage, midline shift or mass effect is present. Ventricular system is stable. Basal cisterns are patent. There are no extra axial collections. White matter hypodensity suggests small vessel disease. 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 There are no findings to suggest acute dural sinus thrombosis or acute territorial infarct. The appearance of the brain is unchanged. Small right forehead contusion is present. There is no acute calvarial fracture. Right maxillary sinus is opacified. This is chronic. IMPRESSION: 1. No acute intracranial findings. No change in appearance of the brain. 2. Small right forehead contusion. No calvarial fracture. ACT 112: Negative or not required by law. Electronically signed by: Jeremi Delgado M.D. 02/22/2022 9:52 AM Chest X-Ray 02/22/22 09:05 XR chest 1V portable CLINICAL HISTORY: AMS. Evaluate cardiopulmonary status COMPARISON STUDY: 07/30/2019 TECHNIQUE: 1 view of the chest FINDINGS: Single frontal view of the chest demonstrates the cardiomediastinal silhouette to be within normal limits. A loop recorder is in place. The lungs are clear of alveolar opacities. There is no evidence for pleural effusion. There is no evidence for vascular congestion. There is no acute osseous pathology. IMPRESSION: 1. No acute cardiopulmonary disease. ACT 112: Negative or not required by law. Electronically signed by: Fco Blankenship M.D. 02/22/2022 9:38 AM Abdomen/Pelvis CT 02/22/22 10:22 CT ANGIOGRAM OF THE CHEST; CT SCAN OF THE ABDOMEN AND PELVIS WITH IV CONTRAST CLINICAL HISTORY: Atypical chest pain. Nausea and vomiting. Syncope. Generalized abdominal pain. COMPARISON STUDY: Chest CT dated 05/01/2021. Abdominal CT dated 02/20/2022 and 05/01/2021. TECHNIQUE: Following the IV administration of 69 of Optiray 320, CT angiogram of the chest is performed from the upper abdomen to the thoracic inlet utilizing e pulmonary embolus protocol. Images are reviewed in the axial, sagittal, coronal planes. 3-D MIPS images are created and assessed. Subsequently, CT scan of the abdomen and pelvis was performed from the lung bases to the proximal femora. Images are reviewed in the axial, sagittal, and coronal planes. IV contrast was administered without complication. A dose lowering technique was utilized adhering to the principles of ALARA. CT DOSE: 2570.20 mGy.cm FINDINGS: CHEST: Thyroid: A 5.3 cm mass lesion is again seen in the right lobe. The left lobe is heterogeneous. Thoracic aorta: The thoracic aorta is normal in caliber and demonstrates standard 3-vessel arch anatomy. No dissection is seen. Pulmonary vasculature: The pulmonary trunk is normal in caliber. There are no filling defects identified in the main, lobar, or segmental pulmonary arteries to indicate pulmonary embolus. Heart: The heart is normal in size and without pericardial effusion. The coronary arteries are densely calcified. Lungs and pleural spaces: Evaluation of the lung parenchyma is degraded by motion artifact. No airspace consolidation or pleural effusion is identified. The trachea and central airways are clear. Mediastinum: There is no mediastinal lymphadenopathy. Donna: Clear. Axillae: There is no axillary lymphadenopathy. Bony thorax: The skeletal structures are osteopenic. Degenerative change is noted in the shoulders and thoracic spine. No lytic or blastic lesions are identified. There is chronic posttraumatic deformity of the right clavicle. There are healed right-sided rib fractures. Soft tissues: Postoperative change is suggested involving both breasts. ABDOMEN AND PELVIS: Liver: The contrast-enhanced liver is normal in size, contour, and attenuation. There is no intrahepatic or ductal dilatation. The hepatic veins and portal veins are patent. There is geographic low-attenuation within the anterior right lobe of the liver, which could represent geographic steatosis versus a hepatic infarct. This is new from previous. Gallbladder: Surgically absent noting clips in the gallbladder fossa. Spleen: Normal in size and attenuation. Pancreas: There is an infiltrative mass lesion identified in the pancreatic head/neck. This is best seen on axial image #107 and measures approximately 5 x 4 cm. There are scattered parenchymal calcifications. There is upstream dilatation of the pancreatic duct which measures up to 8 mm. The pancreatic body and tail are atrophic. The mass lesion appears to invade the adjacent stomach on image #100. A developing fistula is suspected with surrounding infiltration. The splenic vein is patent. The mass lesion partially encases both the splenic and hepatic arteries at the celiac bifurcation. There is no encasement of the superior mesenteric artery or vein. Adrenal glands: Unremarkable. Kidneys: There is markedly asymmetric cortical atrophy of the left kidney as compared to the right. A 1.3 cm enhancing nodule is again suggested in the interpolar left kidney. No hydronephrosis is seen. There are at least 3 punctate nonobstructing right renal calculi. The right kidney enhances homogeneously. Abdominal vasculature: The abdominal aorta is normal in course and caliber noting mild atherosclerotic calcification. Bowel: There is no bowel obstruction. The appendix is grossly unremarkable Peritoneum: There is no intraperitoneal free air or abdominal ascites. Lymphadenopathy: None. Pelvic viscera: Evaluation of the pelvis is degraded by streak artifact from a left hip arthroplasty. The bladder, uterus, and adnexa are normal as visualized. Skeletal structures: The skeletal structures are osteopenic. There is a mild chronic superior endplate compression deformity of L2. Moderate lumbosacral spondylosis is observed. No lytic or blastic lesions are seen. A left hip arthro plasty is in place. IMPRESSION: 1. There is an infiltrative mass lesion in the pancreatic head/neck as detailed above. Adenocarcinoma is the diagnosis of exclusion, and endoscopic ultrasound is recommended for further evaluation/tissue diagnosis. 2. The mass lesion appears to invade the lesser curvature of the stomach. A developing fistula is suspected with surrounding infiltration. This can also be assessed at endoscopy. 3. There is no evidence of distant metastatic disease in the chest, abdomen, or pelvis. 4. There is no evidence of pulmonary embolus in the main, lobar, or segmental pulmonary arteries. 5. There is no airspace consolidation typical for pneumonia or pleural effusion. 6. The pancreatic mass lesion at least partially encases both the hepatic and splenic arteries at the celiac bifurcation. 7. Geographic low-attenuation within the anterior right lobe of the liver is new from prior examinations. This could represent geographic steatosis or possibly a hepatic infarct. 8. Right-sided nephrolithiasis. 9. A 13 mm enhancing nodule is again suggested arising from the interpolar left kidney. A small renal neoplasm is not excluded. 10. A right lobe thyroid mass is unchanged. 11. Additional findings as above. ACT 112: Negative or not required by law. Electronically signed by: Ken Grant M.D. 02/22/2022 12:30 PM Chest CTA 02/22/22 10:22 CT ANGIOGRAM OF THE CHEST; CT SCAN OF THE ABDOMEN AND PELVIS WITH IV CONTRAST CLINICAL HISTORY: Atypical chest pain. Nausea and vomiting. Syncope. Generalized abdominal pain. COMPARISON STUDY: Chest CT dated 05/01/2021. Abdominal CT dated 02/20/2022 and 05/01/2021. TECHNIQUE: Following the IV administration of 69 of Optiray 320, CT angiogram of the chest is performed from the upper abdomen to the thoracic inlet utilizing the pulmonary embolus protocol. Images are reviewed in the axial, sagittal, coronal planes. 3-D MIPS images are created and assessed. Subsequently, CT scan of the abdomen and pelvis was performed from the lung bases to the proximal femora. Images are reviewed in the axial, sagittal, and coronal planes. IV contrast was administered without complication. A dose lowering technique was utilized adhering to the principles of ALARA. CT DOSE: 2570.20 mGy.cm FINDINGS: CHEST: Thyroid: A 5.3 cm mass lesion is again seen in the right lobe. The left lobe is heterogeneous. Thoracic aorta: The thoracic aorta is normal in caliber and demonstrates standard 3-vessel arch anatomy. No dissection is seen. Pulmonary vasculature: The pulmonary trunk is normal in caliber. There are no filling defects identified in the main, lobar, or segmental pulmonary arteries to indicate pulmonary embolus. Heart: The heart is normal in size and without pericardial effusion. The c oronary arteries are densely calcified. Lungs and pleural spaces: Evaluation of the lung parenchyma is degraded by motion artifact. No airspace consolidation or pleural effusion is identified. The trachea and central airways are clear. Mediastinum: There is no mediastinal lymphadenopathy. Donna: Clear. Axillae: There is no axillary lymphadenopathy. Bony thorax: The skeletal structures are osteopenic. Degenerative change is noted in the shoulders and thoracic spine. No lytic or blastic lesions are identified. There is chronic posttraumatic deformity of the right clavicle. There are healed right-sided rib fractures. Soft tissues: Postoperative change is suggested involving both breasts. ABDOMEN AND PELVIS: Liver: The contrast-enhanced liver is normal in size, contour, and attenuation. There is no intrahepatic or ductal dilatation. The hepatic veins and portal veins are patent. There is geographic low-attenuation within the anterior right lobe of the liver, which could represent geographic steatosis versus a hepatic infarct. This is new from previous. Gallbladder: Surgically absent noting clips in the gallbladder fossa. Spleen: Normal in size and attenuation. Pancreas: There is an infiltrative mass lesion identified in the pancreatic head/neck. This is best seen on axial image #107 and measures approximately 5 x 4 cm. There are scattered parenchymal calcifications. There is upstream dilatation of the pancreatic duct which measures up to 8 mm. The pancreatic body and tail are atrophic. The mass lesion appears to invade the adjacent stomach on image #100. A developing fistula is suspected with surrounding infiltration. The splenic vein is patent. The mass lesion partially encases both the splenic and hepatic arteries at the celiac bifurcation. There is no encasement of the flores perior mesenteric artery or vein. Adrenal glands: Unremarkable. Kidneys: There is markedly asymmetric cortical atrophy of the left kidney as compared to the right. A 1.3 cm enhancing nodule is again suggested in the interpolar left kidney. No hydronephrosis is seen. There are at least 3 punctate nonobstructing right renal calculi. The right kidney enhances homogeneously. Abdominal vasculature: The abdominal aorta is normal in course and caliber noting mild atherosclerotic calcification. Bowel: There is no bowel obstruction. The appendix is grossly unremarkable Peritoneum: There is no intraperitoneal free air or abdominal ascites. Lymphadenopathy: None. Pelvic viscera: Evaluation of the pelvis is degraded by streak artifact from a left hip arthroplasty. The bladder, uterus, and adnexa are normal as visualized. Skeletal structures: The skeletal structures are osteopenic. There is a mild chronic superior endplate compression deformity of L2. Moderate lumbosacral spondylosis is observed. No lytic or blastic lesions are seen. A left hip arthroplasty is in place. IMPRESSION: 1. There is an infiltrative mass lesion in the pancreatic head/neck as detailed above. Adenocarcinoma is the diagnosis of exclusion, and endoscopic ultrasound is recommended for further evaluation/tissue diagnosis. 2. The mass lesion appears to invade the lesser curvature of the stomach. A developing fistula is suspected with surrounding infiltration. This can also be assessed at endoscopy. 3. There is no evidence of distant metastatic disease in the chest, abdomen, or pelvis. 4. There is no evidence of pulmonary embolus in the main, lobar, or segmental p ulmonary arteries. 5. There is no airspace consolidation typical for pneumonia or pleural effusion. 6. The pancreatic mass lesion at least partially encases both the hepatic and splenic arteries at the celiac bifurcation. 7. Geographic low-attenuation within the anterior right lobe of the liver is new from prior examinations. This could represent geographic steatosis or possibly a hepatic infarct. 8. Right-sided nephrolithiasis. 9. A 13 mm enhancing nodule is again suggested arising from the interpolar left kidney. A small renal neoplasm is not excluded. 10. A right lobe thyroid mass is unchanged. 11. Additional findings as above. ACT 112: Negative or not required by law. Electronically signed by: Ken Grant M.D. 02/22/2022 12:30 PM Discharge Plan Visit Data Chief Complaint: Altered Mental Status ED Provider: Augusto El Discharge Problem: Mass of pancreas Forms Stand Alone Forms: [facility] [employer] Prescriptions Prescriptions: No Action baclofen 10 mg tablet 10 mg PO BID PRN (Reason: muscle spasm) Qty: 60 RF: 2 duloxetine 60 mg capsule,delayed release(DR/EC) 60 mg PO HS Qty: 90 RF: 3 levothyroxine 25 mcg tablet 25 mcg PO QAM Qty: 90 RF: 1 potassium chloride 20 mEq tablet extended release 20 meq PO DAILY Qty: 90 RF: 0 oxybutynin chloride 5 mg tablet 5 mg PO QPM Qty: 30 RF: 1 metformin 500 mg tablet,ER chicho.retention 24 hr 500 mg PO QPM Qty: 90 RF: 1 Eliquis 5 mg tablet 5 mg PO BID Qty: 180 RF: 0 cholecalciferol (vitamin D3) 1,000 unit capsule 1,000 units PO HS RF: 0 gabapentin 100 mg capsule 100 mg PO BID RF: 0 pravastatin 10 mg tablet 10 mg PO DAILY Qty: 90 RF: 3 metoprolol tartrate 25 mg tablet 25 mg PO BID Qty: 180 RF: 3 tramadol 50 mg tablet 50 mg PO Q8H PRN (Reason: pain) Qty: 60 RF: 0 Referrals Referrals: Tyler Ramirez DO [Primary Care Provider] -
[2022-02-22] MEDS ORDERED: SODIUM CHLORIDE 0.9% 500 ML IV SCH (09:15)
--- NOTE | 2022-02-22 09:40 | XRay Report ---
XR chest 1V portable CLINICAL HISTORY: AMS. Evaluate cardiopulmonary status COMPARISON STUDY: 07/30/2019 TECHNIQUE: 1 view of the chest FINDINGS: Single frontal view of the chest demonstrates the cardiomediastinal silhouette to be within normal li mits. A loop recorder is in place. The lungs are clear of alveolar opacities. There is no evidence fo r pleural effusion. There is no evidence for vascular congestion. There is no acute osseous pathology . IMPRESSION: 1. No acute cardiopulmonary disease. ACT 112: Negative or not required by law. Electronically signed by: Fco Blankenship M.D. 02/22/2022 9:38 AM
--- NOTE | 2022-02-22 09:54 | CT Scan Report ---
CT OF THE HEAD WITHOUT CONTRAST CLINICAL HISTORY: AMS, syncope vs seizure. COMPARISON STUDY: MRI of the brain September 09, 2018. Head CT May 01, 2021. CT DOSE: 537.48 mGy.cm TECHNIQUE: Helical axial images of the head were obtained without IV contrast. Automated exposure con trol was utilized for the study. A dose lowering technique was utilized adhering to the principles o f ALARA. FINDINGS: No acute intracranial hemorrhage, midline shift or mass effect is present. Ventricular syst em is stable. Basal cisterns are patent. There are no extra axial collections. White matter hypodensi ty suggests small vessel disease. 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 There are no f indings to suggest acute dural sinus thrombosis or acute territorial infarct. The appearance of the b rain is unchanged. Small right forehead contusion is present. There is no acute calvarial fracture. R ight maxillary sinus is opacified. This is chronic. IMPRESSION: 1. No acute intracranial findings. No change in appearance of the brain. 2. Small right forehead contusion. No calvarial fracture. ACT 112: Negative or not required by law. Electronically signed by: Jeremi Delgado M.D. 02/22/2022 9:52 AM
[2022-02-22 10:11] LABS: Alanine Aminotransferase 7 U/L (7-52); Albumin Globulin Ratio 0.8 (0.9-2); Albumin Level 3.2 gm/dl (3.4-5.0); Alkaline Phosphatase 79 U/L (34-104); Anion Gap 9 (3-11); Aspartate Aminotransferase 15 U/L (13-39); BUN Creatinine Ratio 13.6 (10-20); Bilirubin,Total 0.6 mg/dl (0.2-1.0); Blood Urea Nitrogen 11 mg/dl (6-23); Calcium 9.9 mg/dl (8.5-10.1); Carbon Dioxide 29 mmol/L (21-32); Chloride 98 mmol/L (98-107); Est GFR (African American) 82.3 ml/min; Glucose 157 mg/dl (70-99(Fasting)); Potassium 3.4 mmol/L (3.5-5.1); Sodium 136 mmol/L (136-145); Total Protein 7.2 gm/dl (6.0-8.3)
[2022-02-22 10:33] LABS: Hematocrit (blood only) 36.5 % (37-47); Hemoglobin 12.2 g/dL (12.0-16.0); Mean Corpuscular Hemoglobin 30.9 pg (25-34); Mean Corpuscular Hgb Conc 33.4 g/dL (32-36); Mean Corpuscular Volume 92.4 fL (80-100); Red Blood Count 3.95 M/uL (4.2-5.4); White Blood Count 10.43 K/uL (4.8-10.8)
[2022-02-22 10:34] LABS: Mean Platelet Volume 11.9 fL (7.4-10.4); Platelet Count 323 K/uL (130-400); RDW Coefficient of Variation 13.1 % (11.5-14.5); RDW Standard Deviation 44.3 fL (36.4-46.3)
[2022-02-22 10:35] LABS: Monocytes % (auto) 5.1 %; Neutrophils % (auto) 83.7 %
[2022-02-22 10:36] LABS: Lymphocytes # (auto) 1.15 K/uL (1.2-3.4); Monocytes # (auto) 0.53 K/uL (0.11-0.59); Neutrophils # (auto) 8.73 K/uL (1.4-6.5)
[2022-02-22] MEDS ORDERED: OPTIRAY 320 125ml IV ONE (11:53)
--- NOTE | 2022-02-22 12:31 | CT Scan Report ---
CT ANGIOGRAM OF THE CHEST; CT SCAN OF THE ABDOMEN AND PELVIS WITH IV CONTRAST CLINICAL HISTORY: Atypical chest pain. Nausea and vomiting. Syncope. Generalized abdominal pain. COMPARISON STUDY: Chest CT dated 05/01/2021. Abdominal CT dated 02/20/2022 and 05/01/2021. TECHNIQUE: Following the IV administration of 69 of Optiray 320, CT angiogram of the chest is perform ed from the upper abdomen to the thoracic inlet utilizing the pulmonary embolus protocol. Images are reviewed in the axial, sagittal, coronal planes. 3-D MIPS images are created and assessed. Subsequent ly, CT scan of the abdomen and pelvis was performed from the lung bases to the proximal femora. Image s are reviewed in the axial, sagittal, and coronal planes. IV contrast was administered without compl ication. A dose lowering technique was utilized adhering to the principles of ALARA. CT DOSE: 2570.20 mGy.cm FINDINGS: CHEST: Thyroid: A 5.3 cm mass lesion is again seen in the right lobe. The left lobe is heterogeneous. Thoracic aorta: The thoracic aorta is normal in caliber and demonstrates standard 3-vessel arch anato my. No dissection is seen. Pulmonary vasculature: The pulmonary trunk is normal in caliber. There are no filling defects identif ied in the main, lobar, or segmental pulmonary arteries to indicate pulmonary embolus. Heart: The heart is normal in size and without pericardial effusion. The coronary arteries are densel y calcified. Lungs and pleural spaces: Evaluation of the lung parenchyma is degraded by motion artifact. No airspa ce consolidation or pleural effusion is identified. The trachea and central airways are clear. Mediastinum: There is no mediastinal lymphadenopathy. Donna: Clear. Axillae: There is no axillary lymphadenopathy. Bony thorax: The skeletal structures are osteopenic. Degenerative change is noted in the shoulders an d thoracic spine. No lytic or blastic lesions are identified. There is chronic posttraumatic deformit y of the right clavicle. There are healed right-sided rib fractures. Soft tissues: Postoperative change is suggested involving both breasts. ABDOMEN AND PELVIS: Liver: The contrast-enhanced liver is normal in size, contour, and attenuation. There is no intrahepa tic or ductal dilatation. The hepatic veins and portal veins are patent. There is geographic low-atte nuation within the anterior right lobe of the liver, which could represent geographic steatosis versu s a hepatic infarct. This is new from previous. Gallbladder: Surgically absent noting clips in the gallbladder fossa. Spleen: Normal in size and attenuation. Pancreas: There is an infiltrative mass lesion identified in the pancreatic head/neck. This is best s een on axial image #107 and measures approximately 5 x 4 cm. There are scattered parenchymal calcific ations. There is upstream dilatation of the pancreatic duct which measures up to 8 mm. The pancreatic body and tail are atrophic. The mass lesion appears to invade the adjacent stomach on image #100. A developing fistula is suspected with surrounding infiltration. The splenic vein is patent. The mass l esion partially encases both the splenic and hepatic arteries at the celiac bifurcation. There is no encasement of the superior mesenteric artery or vein. Adrenal glands: Unremarkable. Kidneys: There is markedly asymmetric cortical atrophy of the left kidney as compared to the right. A 1.3 cm enhancing nodule is again suggested in the interpolar left kidney. No hydronephrosis is seen. There are at least 3 punctate nonobstructing right renal calculi. The right kidney enhances homogene ously. Abdominal vasculature: The abdominal aorta is normal in course and caliber noting mild atheroscleroti c calcification. Bowel: There is no bowel obstruction. The appendix is grossly unremarkable Peritoneum: There is no intraperitoneal free air or abdominal ascites. Lymphadenopathy: None. Pelvic viscera: Evaluation of the pelvis is degraded by streak artifact from a left hip arthroplasty. The bladder, uterus, and adnexa are normal as visualized. Skeletal structures: The skeletal structures are osteopenic. There is a mild chronic superior endplat e compression deformity of L2. Moderate lumbosacral spondylosis is observed. No lytic or blastic lesi ons are seen. A left hip arthroplasty is in place. IMPRESSION: 1. There is an infiltrative mass lesion in the pancreatic head/neck as detailed above. Adenocarcinoma is the diagnosis of exclusion, and endoscopic ultrasound is recommended for further evaluation/tissu e diagnosis. 2. The mass lesion appears to invade the lesser curvature of the stomach. A developing fistula is marshall pected with surrounding infiltration. This can also be assessed at endoscopy. 3. There is no evidence of distant metastatic disease in the chest, abdomen, or pelvis. 4. There is no evidence of pulmonary embolus in the main, lobar, or segmental pulmonary arteries. 5. There is no airspace consolidation typical for pneumonia or pleural effusion. 6. The pancreatic mass lesion at least partially encases both the hepatic and splenic arteries at the celiac bifurcation. 7. Geographic low-attenuation within the anterior right lobe of the liver is new from prior examinati ons. This could represent geographic steatosis or possibly a hepatic infarct. 8. Right-sided nephrolithiasis. 9. A 13 mm enhancing nodule is again suggested arising from the interpolar left kidney. A small renal neoplasm is not excluded. 10. A right lobe thyroid mass is unchanged. 11. Additional findings as above. ACT 112: Negative or not required by law. Electronically signed by: Ken Grant M.D. 02/22/2022 12:30 PM
[2022-02-22 13:57] LABS: Amphetamines+Metham, Urine Neg (Neg); Barbiturates, Urine Neg (Neg); Benzodiazepine, Urine Neg (Neg); Cocaine, Urine Neg (Neg); MDMA (Ecstacy), Urine Neg (Neg); Methadone, Urine Neg (Neg); Opiate, Urine Pos (Neg); Phencyclidine, Urine Neg (Neg)
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
[2022-02-22] MEDS ORDERED: POTASSIUM CHLORIDE CRTAB 20 MEQ TABCR PO STA (15:49)
--- NOTE | 2022-02-22 16:18 | Electrocardiogram Report ---
Test Reason : Blood Pressure : / mmHG Vent. Rate : 067 BPM Atrial Rate : 067 BPM P-R Int : 142 ms QRS Dur : 084 ms QT Int : 434 ms P-R-T Axes : 066 037 050 degrees QTc Int : 458 ms Normal sinus rhythm Normal ECG When compared with ECG of 20-FEB-2022 12:54, Nonspecific T wave abnormality, improved in Anterolateral leads Confirmed by Johnathan Ortiz ([id number]) on 02/22/2022 4:18:01 PM Referred By: REFERRED SELF Confirmed By:Johnathan Ortiz
[2022-02-22] MEDS ORDERED: BACLOFEN 10 MG TAB PO PRN (16:45)
[2022-02-22] MEDS ORDERED: traMADol HCL 50 MG TABLET PO PRN (16:45)
[2022-02-22] MEDS ORDERED: ACETAMINOPHEN 325 MG TAB PO PRN (16:45)
[2022-02-22] MEDS ORDERED: ONDANSETRON INJ 2 MG/ML 2 ML VIAL IV PRN (16:45)
[2022-02-22] MEDS: POTASSIUM CHLORIDE CRTAB 20 MEQ TABCR PO SCH (17:40)
[2022-02-22] MEDS: PRAVASTATIN SOD 10 MG TAB PO SCH (17:40)
[2022-02-22 19:33] LABS: Appearance Urine Clear (Clear); Bacteria Urine Automated 1+ (Negative); Bilirubin Urine Negative (Negative); Blood Urine Negative (Negative); Color Urine Yellow; Epithelial Cell Urine Auto >30 /lpf (0-5); Glucose Urine UA Negative (Negative); Ketones Urine 1+ (Negative); Leukocyte Esterase Urine Negative (Negative); Nitrite Urine Negative (Negative); Protein Urine Trace (Negative); Specific Gravity Urine > 1.045 (1.000-1.030); Urobilinogen Urine Negative (Negative)
[2022-02-22] MEDS: DULoxetine HCL 60 MG CAP PO SCH (19:53)
[2022-02-22] MEDS: CHOLECALCIFEROL 1,000 UNITS 25 MCG TAB PO SCH (19:53)
[2022-02-22] MEDS: METOPROLOL TARTRATE 25 MG TAB PO SCH (19:54)
[2022-02-22] MEDS: GABAPENTIN 100 MG CAP PO SCH (19:54)
[2022-02-22] MEDS: OXYBUTYNIN CHLORIDE 5 MG TAB PO SCH (19:54)
[2022-02-22] MEDS ORDERED: APIXABAN 5 MG TABLET PO SCH (21:00)
[2022-02-22] MEDS ORDERED: METFORMIN 500 MG PO SCH (21:00)
[2022-02-23] MEDS: LEVOTHYROXINE SODIUM 25 MCG TABLET PO SCH (05:46)
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
[2022-02-23 07:16] LABS: Basophils # (auto) 0.01 K/uL (0-0.2); Basophils % (auto) 0.2 %; Eosinophils # (auto) 0.06 K/uL (0-0.5); Hematocrit (blood only) 32.6 % (37-47); Hemoglobin 10.6 g/dL (12.0-16.0); Immature Granulocytes # (auto) 0.01 K/uL (0.00-0.02); Immature Granulocytes % (auto) 0.2 %; Lymphocytes % (auto) 30.3 %; Mean Corpuscular Hemoglobin 29.7 pg (25-34); Mean Corpuscular Hgb Conc 32.5 g/dL (32-36); Mean Corpuscular Volume 91.3 fL (80-100); Mean Platelet Volume 11.3 fL (7.4-10.4); Monocytes # (auto) 0.44 K/uL (0.11-0.59); Monocytes % (auto) 7.4 %; Neutrophils # (auto) 3.62 K/uL (1.4-6.5); Neutrophils % (auto) 60.9 %; Platelet Count 263 K/uL (130-400); RDW Coefficient of Variation 13.2 % (11.5-14.5); RDW Standard Deviation 44.2 fL (36.4-46.3); Red Blood Count 3.57 M/uL (4.2-5.4); White Blood Count 5.94 K/uL (4.8-10.8)
[2022-02-23 07:28] LABS: Anion Gap 7 (3-11); BUN Creatinine Ratio 12.2 (10-20); Blood Urea Nitrogen 9 mg/dl (6-23); Calcium 9.1 mg/dl (8.5-10.1); Carbon Dioxide 27 mmol/L (21-32); Chloride 101 mmol/L (98-107); Est GFR (African American) 91.9 ml/min; Est GFR (Non-African American) 79.3 ml/min; Glucose 129 mg/dl (70-99(Fasting)); Potassium 3.7 mmol/L (3.5-5.1); Sodium 135 mmol/L (136-145)
[2022-02-23 07:48] LABS: Estimated Average Glucose 174 mg/dl; Hemoglobin A1C 7.7 % (4.5-5.6)
[2022-02-23] MEDS: METOPROLOL TARTRATE 25 MG TAB PO SCH ×2 (08:54→20:11)
[2022-02-23] MEDS: PRAVASTATIN SOD 10 MG TAB PO SCH (08:54)
[2022-02-23] MEDS: GABAPENTIN 100 MG CAP PO SCH ×2 (08:54→20:12)
[2022-02-23] MEDS: POTASSIUM CHLORIDE CRTAB 20 MEQ TABCR PO SCH (08:54)
--- NOTE | 2022-02-23 09:50 | Gastrointestinal Consultation ---
Date of Consultation February 23, 2022 Assessment & Plan (1) Mass of pancreas: I explained to the patient, that this is most likely a pancreas cancer, and that we need to do a procedure to get a sample of the tissue. Plan for EGD/EUS by Dr. Devon Bello at [facility] next week. We will need to hold Eliquis for 3 days prior. The patient is working, calling relatives to try to secure a ride. Unfortunately, next week we do not have any availability for this testing in [place]. If she is unable to get a ride to [place], the next possibility is the or week of February here at [facility]. Supervising Physician Co-Signing Physician Notes Attending attestation I have seen, examined this patient, and agree with the findings and above by our mid-level provider ALBERTO Albright, with the following additions: patient with new pancreatic mass, planning for outpt EUS on Saturday as patient is being sent home NPO after MN on Saturday Hold eliquis until after procedure History of Present Illness Reason for Consultation: pancreatic mass - need for EUS Requesting Physician: Attending Physician: Basilia Millard MD History of Present Illness Ms. Cristina Delaney is a 76 [address] Ramirez w a hx of M2, A. fib on Eliquis, also distant history of PE, hyperlipidemia, back pain from spinal stenosis, who experienced a syncopal episode and was brought to the emergency department yesterday, 02/22/22. On arrival, imaging was consistent with a 5 cm pancreas head mass approaching the antral area of the stomach with possible fistula formation. There is no evidence of distant metastasis in the chest or abdomen. She is examined in the medical PCU where she is sitting up in a chair. She is awake alert oriented and hemodynamically stable. She tells us that she has had unexplained weight loss, unsure how much and unsure when this began. She denies any abdominal pain. She has had some nausea but no vomiting. She denies any other GI symptoms. She has chronic lower back pain which is unchanged. Allergies Allergy/AdvReac Type Severity Reaction Status Date / Time oxycodone AdvReac Mild "Made me Verified 02/22/22 09:58 higher than a kite" calcium AdvReac Unknown CAUSES Verified 02/22/22 09:58 KIDNEY STONES Home Medications Medication Instructions Recorded Confirmed Type cholecalciferol (vitamin D3) 25 1,000 units PO HS cap 05/08/19 02/22/22 History mcg (1,000 unit) capsule baclofen 10 mg tablet 10 mg PO BID PRN #60 tab 07/15/20 02/22/22 Rx duloxetine 60 mg capsule,delayed 60 mg PO HS #90 cap 05/04/21 02/22/22 Rx release levothyroxine 25 mcg tablet 25 mcg PO QAM #90 tab 06/26/21 02/22/22 Rx gabapentin 100 mg capsule 100 mg PO BID cap 08/16/21 02/22/22 History metoprolol tartrate 25 mg tablet 25 mg PO BID #180 tab 08/22/21 02/22/22 Rx pravastatin 10 mg tablet 10 mg PO DAILY #90 tab 08/22/21 02/22/22 Rx tramadol 50 mg tablet 50 mg PO Q8H PRN #60 tab 09/18/21 02/22/22 Rx potassium chloride 20 mEq 20 meq PO DAILY #90 tab 12/08/21 02/22/22 Rx tablet,extended release oxybutynin chloride 5 mg tablet 5 mg PO QPM #30 tab 01/08/22 02/22/22 Rx metformin 500 mg 24 hr 500 mg PO QPM #90 tab 01/22/22 02/22/22 Rx tablet,extended release apixaban 5 mg tablet (Eliquis) 5 mg PO BID #180 tab 02/08/22 02/22/22 Rx Patient History Medical History Atrial fibrillation (~04/2021) Cataract Chronic anticoagulation Clavicle fracture 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 2/2 HORMONE THERAPY Hypertension Hypothyroidism Insomnia Lumbar radiculopathy Lumbar spinal stenosis Severe multifactorial multilevel most prominent at L2-3 and L3-4 on MRI dated 03/05/2016 Nocturnal hypoxia Osteopenia Peripheral arterial disease Proximal humerus fracture Solitary kidney, acquired 2/2 ATROPHY OF ONE KIDNEY POSSIBLY 2/2 STONES PER PT Thyroid nodule (~2009) 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 Type 2 diabetes mellitus Urinary incontinence Vitamin D deficiency Surgical History H/O breast surgery H/O cervical spine surgery H/O lumbosacral spine surgery H/O reduction of closed fracture LEFT WRIST WITH PINNING History of lumpectomy LEFT History of total left hip arthroplasty (~09/2019) Hx of cholecystectomy Hx of total knee arthroplasty LEFT Family History Sister Diabetes Mother Cervical cancer Denies family history of Ovarian cancer Prostate cancer Breast cancer Lung cancer Colorectal cancer Social History Smoking Status: Never smoker Second Hand Exposure: No ( smoked for 35 plus years); Hx Alcohol Use: Yes Alcohol type: beer Hx Substance Use: No Preferred Language: Kyrgyz Communication Ability: Effective Visual Impairment: Limited Hearing Ability: Use of Hearing Aid Lumber Sorter Machine Required: No Beliefs That Will Affect Care: None marital status: Unknown Current Living Situation: Family Current Living Situation Comment: with sister 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 How many Children do You have: 0 Other Information That Helps Us Care for You: No Feels Safe at Home: Yes Safety Concerns: Feels Safe At This Time Childhood Exposure to Second-Hand Smoke: Yes Diet Comment: watching calories caffeine: Yes Dental Care, Regularly: No Physical Activity Frequency: Does not Exercise Seatbelt Use: always Sunscreen Use: Yes Do you think of yourself as: straight/heterosexual Assistive Devices: Walker Review of Systems Review of Systems: ROS: Gen: + , weight loss, No weakness, no fevers Eyes: No eye redness, or pain, no recent vision changes Resp: No SOB, no cough Cardio: + syncopal episode, + palpitations/irregular beats chronically w A-fib. No chest pain GI: No abdominal pain, no nausea/vomiting : Denies pain on urination Skin: No jaundice, itching or new rashes Physical Exam Constitutional: well developed and cooperative Eyes: PERRL, conjunctivae normal, anicteric sclerae ENMT: external ear and nose normal, oropharynx normal Respiratory: normal respiratory effort, lungs clear to auscultation Cardiovascular: RRR, no murmur, no edema Gastrointestinal (Abdomen): normal bowel sounds, soft, nontender, no hepatosplenomegaly Percussion/Palpation: + abdomen tender (Mild diffuse adbdominal msk tenderness. No signs of acute abdomen.) and abdomen soft; no guarding and abdomen not rigid Skin: no rashes, warm and dry normal turgor and + pallor Neurologic: PERRL, EOMI, accommodation nl, no face palsy, no dysarthria awake; not confused Psychiatric: A+Ox3, euthymic affect Orientation: alert, oriented x 3 and cooperative Results & Data ([facility]) Vital Signs (Past 12 Hours) Vital Signs Temp Pulse Pulse Resp BP Pulse Ox 02/23/22 08:00 37.2 C 66 16 124/66 97 02/23/22 04:32 37.1 C 20 93 02/23/22 00:00 65 02/22/22 23:54 37.2 C 65 16 137/76 95 Laboratory Results WBC 5.9, Hb 10.6, HCT 32.6, PLT S263, NA 135, K3.7, CL 101, CO2 21, BUN 9, CR 0.74, glucose 129. Diagnostic Findings CTAP 02/22/22: Infiltrative mass lesion identified in the pancreatic head/neck. This is best seen on axial image #107 and measures approximately 5 x 4 cm. There are scattered parenchymal calcifications. There is upstream dilatation of the pancreatic duct which measures up to 8 mm. The pancreatic body and tail are atrophic. The mass lesion appears to invade the adjacent stomach on image #100. A developing fistula is suspected with surrounding infiltration. The splenic vein is patent. The mass lesion partially encases both the splenic and hepatic arteries at the celiac bifurcation. There is no encasement of the superior mesenteric artery or vein. No distant mets.
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
[2022-02-23] MEDS: OXYBUTYNIN CHLORIDE 5 MG TAB PO SCH (20:11)
[2022-02-23] MEDS: DULoxetine HCL 60 MG CAP PO SCH (20:12)
[2022-02-23] MEDS: CHOLECALCIFEROL 1,000 UNITS 25 MCG TAB PO SCH (20:12)
[2022-02-23] MEDS ORDERED: GADOBUTROL 65ML VIAL IV ONE (21:36)
--- NOTE | 2022-02-23 22:35 | Magnetic Resonance Report ---
MRI OF THE BRAIN COMBO CLINICAL HISTORY: Syncope versus seizure. Pancreatic mass. COMPARISON STUDY: CT of the brain dated 02/22/2022 TECHNIQUE: MRI of the brain was performed utilizing various T1 and T2-weighted sequences in the axial , sagittal, and coronal planes. Contrast-enhanced sequences were acquired following the administratio n of 10 cc of Gadavist. FINDINGS: Brain parenchyma: There is age-related involutional change noting [id number] subcortical and pe riventricular microangiopathic disease. There is no hemorrhage or mass effect. There is no restricted diffusion to suggest acute ischemia. No enhancing mass lesion is identified on the postcontrast imag es. Desai-white matter differentiation is preserved. There is a small chronic lacunar infarct in the r ight basal ganglia. No extra-axial fluid collection is seen. The cerebellar tonsils are normal in con figuration. Ventricles, sulci, and cisterns: Prominent secondary to involutional change. Pituitary and sella: Unremarkable. Intracranial vasculature: Normal flow voids are maintained at the skull base. Orbits: The bony orbits are grossly intact. Orbital contents are normal in appearance noting bilatera l ocular lens implants. Sinuses and mastoids: There is complete opacification of the right maxillary antrum. Mild mucosal thi ckening is noted within the left maxillary sinus. There is trace mucosal thickening within the ethmoi d sinuses. The mastoid air cells are clear. Calvarium: Unremarkable. Cervical cord: Partially visualized cervical spinal cord is normal in morphology and signal intensity . IMPRESSION: No acute intracranial abnormality. ACT 112: Negative or not required by law. Electronically signed by: Ken Grant M.D. 02/23/2022 10:33 PM
[2022-02-24] MEDS: LEVOTHYROXINE SODIUM 25 MCG TABLET PO SCH (05:54)
[2022-02-24 07:05] LABS: INR 1.1 (0.9-1.1); Prothrombin Time 11.4 Seconds (9.0-12.0)
[2022-02-24 07:48] LABS: Anion Gap 8 (3-11); Calcium 9.7 mg/dl (8.5-10.1); Carbon Dioxide 29 mmol/L (21-32); Chloride 98 mmol/L (98-107); Potassium 3.9 mmol/L (3.5-5.1); Sodium 135 mmol/L (136-145)
[2022-02-24 07:54] LABS: Blood Urea Nitrogen 7 mg/dl (6-23); Est GFR (African American) 86.2 ml/min; Est GFR (Non-African American) 74.4 ml/min; Glucose 130 mg/dl (70-99(Fasting))
[2022-02-24] MEDS: POTASSIUM CHLORIDE CRTAB 20 MEQ TABCR PO SCH (08:30)
[2022-02-24] MEDS: METOPROLOL TARTRATE 25 MG TAB PO SCH (08:30)
[2022-02-24] MEDS: PRAVASTATIN SOD 10 MG TAB PO SCH (08:30)
[2022-02-24] MEDS: GABAPENTIN 100 MG CAP PO SCH (08:30)
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
[2022-02-25 08:42] LABS: Codeine Urine NEGATIVE ng/mL (<50); Hydrocodone Urine NEGATIVE ng/mL (<50); Hydromor Urine NEGATIVE ng/mL (<50); Morphine Urine 129 ng/mL (<50); Norhydrocodone Conf Ur NEGATIVE ng/mL (<50); Noroxycodone Urine NEGATIVE ng/mL (<50); Oxycodone Urine NEGATIVE ng/mL (<50); Oxymorph Urine NEGATIVE ng/mL (<50)
== END 2022-02-24 14:25 | disposition home or self-care (01) ==
LOC: 2E 08:46 → ED 08:46 → 2E 16:05

== ENCOUNTER 2022-02-27 10:19 | Inpatient (IN) ==
[2022-02-27] MEDS ORDERED: dilTIAZem HCl 5 MG/ML 5 ML VIAL IV STA ×2 (10:25→11:38)
[2022-02-27] MEDS ORDERED: ONDANSETRON INJ 2 MG/ML 2 ML VIAL IV STA (10:25)
[2022-02-27] MEDS ORDERED: SODIUM CHLORIDE 0.9% 500 ML IV SCH (10:30)
--- NOTE | 2022-02-27 10:39 | Emergency Department Note ---
Impression & Plan Atrial fibrillation with rapid ventricular response, Syncope, Head injury, Hypokalemia, Hypomagnesemia ED Provider Note NAME: BETTYE BRAVO AGE: 76 SEX: F : 1945 ARRIVES VIA: Ambulance INFORMANT: Patient, EMS ED PROVIDER(S): Santiago Maher DO CHIEF COMPLAINT: Syncope HPI: The patient is a 76-year-old female who presented to the emergency department by ambulance after having a syncopal episode. It sounds of the pa tient may have had multiple syncopal episodes over the course the last few weeks. She states she does not have a history of atrial fibrillation although her past medical history does states she has paroxysmal atrial fibrillation. She was scheduled for an EGD recently because of a mass on her pancreas. She was not able to make it to that appointment. She was found to have another syncopal episode today and was found to have palpitations. 911 was called and the patient arrived at the emergency department via ALS. I did receive a prehospital notification about the patient. She was given 20 mg of Cardizem and a fluid bolus prior to arrival. She was noted to have rapid atrial fibrillation around 180 bpm. This changed to rapid atrial fibrillation between 120 and 130 bpm. She denies having any chest pain. She denies having any neck pain. She denies having any difficulty breathing or lower extremity swelling. She denies having any black or bloody bowel moods. The patient states that she does have a headache she describes as a frontal headache which is mild. She did stop taking her Eliquis recently because of these frequent syncopal episodes. She did this under the direction of her primary care physician and she is not had her Eliquis since yesterday morning. ROS: See above HPI for pertinent positives & negatives. A total of 10 systems reviewed and were otherwise negative. PAST MEDICAL HISTORY: See Below PAST SURGICAL HISTORY: See Below FAMILY HISTORY: See Below SOCIAL HISTORY: See Below HOME MEDICATIONS: See Below ALLERGIES: See Below VITALS: See Below PHYSICAL EXAMINATION: GENERAL: Patient is awake alert in no acute distress patient is resting comfortably and showing no signs of anxiety EYES: The conjunctivae are clear. The pupils are round and reactive. EARS, NOSE, MOUTH AND THROAT: The nose is without any evidence of any deformity. Mucous membranes are moist. Tongue is midline. NECK: The neck is nontender and supple. RESPIRATORY: Normal respiratory effort is noted there is no evidence of wheezing rhonchi or rales CARDIOVASCULAR: Tachycardic and irregular heart sounds are noted auscultation. There is no definite murmur. GASTROINTESTINAL: The abdomen is soft. Abdomen is nontender. MUSCULOSKELETAL/EXTREMITIES: There is no evidence of gross deformity full range of motion is noted in the hips and shoulders. SKIN: There is no obvious evidence of any rash. There are no petechiae, pallor or cyanosis noted. NEUROLOGIC: Patient is awake alert and oriented x3 strength is symmetric patellar reflexes are 2+ bilaterally MEDICAL DECISION MAKING: The patient is a 76-year-old female who presented to the emergency department for an evaluation of palpitations. The patient had an episode of syncope. This is approximately the third episode of syncope that we know about. The patient's been having atrial fibrillation with rapid ventricular response. I do feel the patient's condition is likely secondary to the atrial fib with RVR. I discussed the patient's laboratory and radiographic studies with her. She was treated with IV fluids and IV Cardizem. She was also given IV magnesium as well as oral potassium. She was ultimately placed on a Cardizem drip. I discussed her condition with the on-call [facility] hospitalist group. They have agreed to evaluate the patient in the emergency department for further management and disposition. Triage Nursing notes reviewed. Prior medical records reviewed Vital Signs: reviewed and remarkable for tachycardia and high blood pressure. Differential diagnosis: Vasovagal event, dehydration, infection, hypoglycemia, electrolyte ab normalities, cardiac sources, intracerebral event, pulmonary embolism, seizure, toxicologic, neurologic, as well as other pathologies. ER treatment provided: See below Diagnostics interpreted by me: ECG: EKG was obtained in the emergency department. My interpretation is atrial fibrillation at [address] segment depressions were noted. There is no PVCs noted. This was compared to a tracing from February 20, 2022. Sinus rhythm has been replaced with rapid atrial fibrillation. Cardiac Monitoring: An order was placed for continuous cardiac monitoring. The monitor shows a rate of 135 bpm with atrial fibrillation with RVR Laboratory studies: As stated above and show below. Imaging studies: See below Consultation(s): Discussed this case with Dr. Kumari ED COURSE: Procedures: none Critical Care: I have personally spent greater than 45 minutes of critical care time in the direct management of this patient. This includes bedside care, interpretation of diagnostic studies, and testing, discussion with consultants, patient, and family members, and other required patient management activities. This 45 minutes is in excess of all separately billable procedures. 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 2/2 HORMONE THERAPY Hypertension Hypothyroidism Insomnia Lumbar radiculopathy Lumbar spinal stenosis Severe multifactorial multilevel most prominent at L2-3 and L3-4 on MRI dated 03/05/2016 Nocturnal hypoxia Osteopenia Peripheral arterial disease Proximal humerus fracture Solitary kidney, acquired 2/2 ATROPHY OF ONE KIDNEY POSSIBLY 2/2 STONES PER PT Thyroid nodule (~2009) 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 Type 2 diabetes mellitus Urinary incontinence Vitamin D deficiency Surgical History H/O breast surgery H/O cervical spine surgery H/O lumbosacral spine surgery H/O reduction of closed fracture LEFT WRIST WITH PINNING History of lumpectomy LEFT History of total left hip arthroplasty (~09/2019) Hx of cholecystectomy Hx of total knee arthroplasty LEFT Family History Sister Diabetes Mother Cervical cancer Denies family history of Ovarian cancer Prostate cancer Breast cancer Lung cancer Colorectal cancer Social History Smoking Status: Never smoker Second Hand Exposure: No ( smoked for 35 plus years); Hx Alcohol Use: Yes Alcohol type: beer Hx Substance Use: No Preferred Language: Burundian Communication Ability: Effective Visual Impairment: Limited Hearing Ability: Use of Hearing Aid Chuck Tender Required: No Beliefs That Will Affect Care: None marital status: Unknown Current Living Situation: Family Current Living Situation Comment: with sister 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 How many Children do You have: 0 Feels Safe at Home: Yes Childhood Exposure to Second-Hand Smoke: Yes Diet Comment: watching calories caffeine: Yes Dental Care, Regularly: No Physical Activity Frequency: Does not Exercise Seatbelt Use: always Sunscreen Use: Yes Do you think of yourself as: straight/heterosexual Assistive Devices: Walker Allergies Allergies Allergy/AdvReac Type Severity Reaction Status Date / Time oxycodone AdvReac Mild "Made me Verified 02/27/22 13:31 higher than a kite" calcium AdvReac Unknown CAUSES Verified 02/27/22 13:31 KIDNEY STONES Home Meds Home Medications Medication Instructions Recorded Confirmed cholecalciferol (vitamin D3) 25 1,000 units PO HS cap 05/08/19 02/27/22 mcg (1,000 unit) capsule gabapentin 100 mg capsule 100 mg PO BID cap 08/16/21 02/27/22 Previous Rx's Medication Instructions Recorded duloxetine 60 mg capsule,delayed 60 mg PO HS #90 cap 05/04/21 release levothyroxine 25 mcg tablet 25 mcg PO QAM #90 tab 06/26/21 metoprolol tartrate 25 mg tablet 25 mg PO BID #180 tab 08/22/21 pravastatin 10 mg tablet 10 mg PO DAILY #90 tab 08/22/21 potassium chloride 20 mEq 20 meq PO DAILY #90 tab 12/08/21 tablet,extended release oxybutynin chloride 5 mg tablet 5 mg PO QPM #30 tab 01/08/22 metformin 500 mg 24 hr 500 mg PO QPM #90 tab 01/22/22 tablet,extended release apixaban 5 mg tablet (Eliquis) 5 mg PO BID #180 tab 02/08/22 Results & Data (ED) Vital Signs Vital Signs - 24 hr 02/27/22 10:43 02/27/22 10:44 02/27/22 10:50 Temperature 36.7 C Temperature Source Oral Pulse Rate 153 H 96 H 145 H Pulse Rate [Apical] Pulse Rate from SpO2 Sensor 133 H 134 H Pulse Rhythm [Apical] Respiratory Rate 24 16 15 Respiratory Effort / Characteristics Non-Labored Spontaneous Respiratory Depth Normal Respiratory Pattern Regular Blood Pressure 160/101 H Blood Pressure Mean 120 Blood Pressure Position Sitting Pulse Oximetry 96 96 95 Oxygen Delivery Method Room Air Room Air Room Air Sepsis Recent Fever Within 48 Hours No Sepsis New/Unexplained Change in Mental Status No Sepsis Action Taken by Nursing No Action Required 02/27/22 11:00 02/27/22 13:25 02/27/22 13:27 Temperature Temperature Source Pulse Rate 142 H 140 H Pulse Rate [Apical] 135 H Pulse Rate from SpO2 Sensor Pulse Rhythm [Apical] Irregular Respiratory Rate 18 22 19 Respiratory Effort / Characteristics Respiratory Depth Respiratory Pattern Blood Pressure 161/110 H Blood Pressure Mean Blood Pressure Position Pulse Oximetry 97 96 Oxygen Delivery Method Room Air Room Air Room Air Sepsis Recent Fever Within 48 Hours Sepsis New/Unexplained Change in Mental Status Sepsis Action Taken by Half-Way Medications Current Medication List: was personally reviewed by me Laboratory Data Attestation: I reviewed the patient's lab results. Result diagrams: 02/27/22 10:41 02/27/22 10:41 Lab Results 02/27/22 02/27/22 02/27/22 Range/Units 10:41 10:41 10:41 WBC 7.31 (4.8-10.8) K/uL RBC 4.28 (4.2-5.4) M/uL Hgb 12.9 (12.0-16.0) g/dL Hct 39.1 (37-47) % MCV 91.4 (80-100) fL MCH 30.1 (25-34) pg MCHC 33.0 (32-36) g/dL RDW Std Deviation 43.5 (36.4-46.3) fL RDW Coeff of Marii 13.4 (11.5-14.5) % Plt Count 360 (130-400) K/uL MPV 11.4 H (7.4-10.4) fL Immature Gran % (Auto) 0.4 % Neut % (Auto) 67.8 % Lymph % (Auto) 23.5 % [place] % (Auto) 8.1 % Eos % (Auto) 0.1 % Baso % (Auto) 0.1 % Neut # (Auto) 4.95 (1.4-6.5) K/uL Lymph # (Auto) 1.72 (1.2-3.4) K/uL [place] # (Auto) 0.59 (0.11-0.59) K/uL Eos # (Auto) 0.01 (0-0.5) K/uL Baso # (Auto) 0.01 (0-0.2) K/uL Immature Gran # (Auto) 0.03 H (0.00-0.02) K/uL PT 11.6 (9.0-12.0) Seconds INR 1.1 (0.9-1.1) APTT 26.8 (21.0-31.0) Seconds PTT Ratio 1.0 Sodium 140 (136-145) mmol/L Potassium 3.1 L (3.5-5.1) mmol/L Chloride 101 (98-107) mmol/L Carbon Dioxide 28 (21-32) mmol/L Anion Gap 11 (3-11) BUN 6 (6-23) mg/dl Creatinine 0.84 (0.6-1.2) mg/dl Est Cr Clr Drug Dosing 63.9 ml/min Est GFR ( Amer) 78.8 ml/min Est GFR (Non-Af Amer) 68.0 ml/min BUN/Creatinine Ratio 7.1 L (10-20) Glucose 140 H (70-99(Fasting)) mg/dl Calcium 9.2 (8.5-10.1) mg/dl Magnesium 1.2 L (1.7-2.4) mg/dl Total Bilirubin 0.7 (0.2-1.0) mg/dl AST 17 (13-39) U/L ALT 13 (7-52) U/L Alkaline Phosphatase 76 (34-104) U/L Total Creatine Kinase (26-192) U/L Troponin I High Sens 25.5 H (0-14) pg/ml Total Protein 6.9 (6.0-8.3) gm/dl Albumin 3.2 L (3.4-5.0) gm/dl Globulin 3.7 (2.5-4.0) gm/dl Albumin/Globulin Ratio 0.9 (0.9-2) TSH (0.300-4.500) uIu/ml SARS-CoV-2, RNA, NAAT (NEGATIVE) 02/27/22 02/27/22 02/27/22 Range/Units 10:41 10:41 11:30 WBC (4.8-10.8) K/uL RBC (4.2-5.4) M/uL Hgb (12.0-16.0) g/dL Hct (37-47) % MCV (80-100) fL MCH (25-34) pg MCHC (32-36) g/dL RDW Std Deviation (36.4-46.3) fL RDW Coeff of Marii (11.5-14.5) % Plt Count (130-400) K/uL MPV (7.4-10.4) fL Immature Gran % (Auto) % Neut % (Auto) % Lymph % (Auto) % [place] % (Auto) % Eos % (Auto) % Baso % (Auto) % Neut # (Auto) (1.4-6.5) K/uL Lymph # (Auto) (1.2-3.4) K/uL [place] # (Auto) (0.11-0.59) K/uL Eos # (Auto) (0-0.5) K/uL Baso # (Auto) (0-0.2) K/uL Immature Gran # (Auto) (0.00-0.02) K/uL PT (9.0-12.0) Seconds INR (0.9-1.1) APTT (21.0-31.0) Seconds PTT Ratio Sodium (136-145) mmol/L Potassium (3.5-5.1) mmol/L Chloride (98-107) mmol/L Carbon Dioxide (21-32) mmol/L Anion Gap (3-11) BUN (6-23) mg/dl Creatinine (0.6-1.2) mg/dl Est Cr Clr Drug Dosing ml/min Est GFR ( Amer) ml/min Est GFR (Non-Af Amer) ml/min BUN/Creatinine Ratio (10-20) Glucose (70-99(Fasting)) mg/dl Calcium (8.5-10.1) mg/dl Magnesium (1.7-2.4) mg/dl Total Bilirubin (0.2-1.0) mg/dl AST (13-39) U/L ALT (7-52) U/L Alkaline Phosphatase (34-104) U/L Total Creatine Kinase 117 (26-192) U/L Troponin I High Sens (0-14) pg/ml Total Protein (6.0-8.3) gm/dl Albumin (3.4-5.0) gm/dl Globulin (2.5-4.0) gm/dl Albumin/Globulin Ratio (0.9-2) TSH 1.756 (0.300-4.500) uIu/ml SARS-CoV-2, RNA, NAAT NEGATIVE (NEGATIVE) Administered Medications Diltiazem HCl 125 mg/ Dextrose 125 mls @ 5 mls/hr IV .Q24H LUIS; Protocol Stop: 03/29/22 12:44 Last Titration: 02/27/22 14:25 Dose: 10 mg/hr, 10 mls/hr Documented by: [id number] Cosigned by: [id number] Admin: 02/27/22 13:21 Dose: 5 mg/hr, 5 mls/hr Documented by: [id number] Cosigned by: [id number] Discontinued Medications Diltiazem HCl (Diltiazem Hcl 5 Mg/Ml 5 Ml Vial) 10 mg IV NOW STA Stop: 02/27/22 10:26 Last Admin: 02/27/22 11:34 Dose: 10 mg Documented by: [id number] Cosigned by: [id number] Diltiazem HCl (Diltiazem Hcl 5 Mg/Ml 5 Ml Vial) 20 mg IV NOW STA Stop: 02/27/22 11:39 Last Admin: 02/27/22 12:02 Dose: 10 mg Documented by: [id number] Cosigned by: [id number] Sodium Chloride (Nss) 500 mls @ 999 mls/hr IV .Q31M LUIS Stop: 02/27/22 11:00 Last Infusion: 02/27/22 12:12 Dose: 0 mls/hr Documented by: [id number] Admin: 02/27/22 11:34 Dose: 999 mls/hr Documented by: [id number] Magnesium Sulfate/Dextrose (Magnesium Sulfate / D5w) 1 gm in 100 mls @ 100 mls/hr IV Q1H LUIS Stop: 02/27/22 14:07 Last Admin: 02/27/22 13:14 Dose: 100 mls/hr Documented by: [id number] Infusion: 02/27/22 13:14 Dose: 100 mls/hr Documented by: [id number] Admin: 02/27/22 12:33 Dose: 100 mls/hr Documented by: [id number] Magnesium Sulfate/Dextrose (Magnesium Sulfate / D5w) 1 gm in 100 mls @ 100 mls/hr IV NOW ONE Stop: 02/27/22 15:07 Last Infusion: 02/27/22 13:14 Dose: 100 mls/hr Documented by: [id number] Admin: 02/27/22 13:14 Dose: 100 mls/hr Documented by: [id number] Admin: 02/27/22 12:33 Dose: 100 mls/hr Documented by: [id number] Ondansetron HCl (Ondansetron Inj 2 Mg/Ml 2 Ml Vial) 4 mg IV NOW STA Stop: 02/27/22 10:26 Last Admin: 02/27/22 11:34 Dose: 4 mg Documented by: [id number] Potassium Chloride (Potassium Chloride Crtab 20 Meq Tabcr) 20 meq PO NOW STA Stop: 02/27/22 12:09 Last Admin: 02/27/22 12:33 Dose: 20 meq Documented by: [id number] Potassium Chloride (Potassium Chloride Crtab 20 Meq Tabcr) 40 meq PO NOW STA Stop: 02/27/22 12:22 Last Admin: 02/27/22 12:37 Dose: 40 meq Documented by: [id number] Imaging Data Radiologist's Impression: Cervical Spine CT 02/27/22 10:25 CT cervical spine wo con CLINICAL HISTORY: fall TECHNIQUE: Multidetector row helical CT of the cervical spine was performed without administration of intravenous contrast. Coronal and sagittal reformations were obtained. Automated dose lowering techniques and/or adjustment according to patient size were utilized for this exam. Comparison: Comparison is made to CT thorax 05/11/2021 FINDINGS: No acute fractures or subluxations are identified. Anterior cervical fixation hardware is seen spanning C5-C6. Changes are seen in the cervical spine. Soft tissues are unremarkable. IMPRESSION: Degenerative changes without evidence of acute bony injury. ACT 112: Negative or not required by law. Electronically signed by: Ankit Angelo M.D. 02/27/2022 11:29 AM Chest X-Ray 02/27/22 10:25 SINGLE VIEW CHEST CLINICAL HISTORY: Generalized weakness. FINDINGS: An AP, portable, upright chest radiograph is compared to chest x-ray and chest CT dated 02/22/2022. The heart is mildly enlarged noting atherosclerotic calcification of the thoracic aorta. The pulmonary vasculature is noncongested. Chronic interstitial thickening is similar to previous. There is mild bibasilar scarring/atelectasis. No airspace consolidation or large pleural effusion is identified. No pneumothorax is seen. The skeletal structures are osteopenic. There is chronic posttraumatic deformity of the right proximal humerus. Fusion hardware is seen in the lower cervical spine. Cholecystectomy clips are noted in the right upper quadrant. IMPRESSION: Mild cardiomegaly with no acute cardiopulmonary abnormality. ACT 112: Negative or not required by law. Electronically signed by: Ken Grant M.D. 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 Images were viewed in brain, subdural and bone windows. Automated dose lowering techniques and/or adjustment according to patient size were utilized for this exam. Comparison: Comparison is made to CT head 02/22/2022 Findings: Old lacunar infarct is seen in the right insula. No evidence of hemorrhage or ischemia. There is opacification of the right maxillary sinus, unchanged from prior exam. The orbits appear normal. There are no acute fractures of the calvaria or scalp swelling. Impression: No acute intracranial hemorrhage, no evidence of acute territorial infarction or other acute intracranial disease process. ACT 112: Negative or not required by law. Electronically signed by: Ankit Angelo M.D. 02/27/2022 11:33 AM Discharge Plan Visit Data Chief Complaint: Cardiac Assessment ED Provider: Santiago Maher Discharge Problem: Atrial fibrillation with rapid ventricular response, Syncope, Head injury, Hypokalemia, Hypomagnesemia Patient Disposition: Admitted As Inpatient Discharge Instructions Interventions: ED Discharge Assessment Last Done: 02/27/22 13:25 Forms Stand Alone Forms: [facility] Prescriptions Prescriptions: No Action duloxetine 60 mg capsule,delayed release(DR/EC) 60 mg PO HS Qty: 90 RF: 3 levothyroxine 25 mcg tablet 25 mcg PO QAM Qty: 90 RF: 1 potassium chloride 20 mEq tablet extended release 20 meq PO DAILY Qty: 90 RF: 0 oxybutynin chloride 5 mg tablet 5 mg PO QPM Qty: 30 RF: 1 metformin 500 mg tablet,ER chicho.retention 24 hr 500 mg PO QPM Qty: 90 RF: 1 Eliquis 5 mg tablet 5 mg PO BID Qty: 180 RF: 0 cholecalciferol (vitamin D3) 1,000 unit capsule 1,000 units PO HS RF: 0 gabapentin 100 mg capsule 100 mg PO BID RF: 0 pravastatin 10 mg tablet 10 mg PO DAILY Qty: 90 RF: 3 metoprolol tartrate 25 mg tablet 25 mg PO BID Qty: 180 RF: 3 Referrals Referrals: Tyler Ramirez DO [Primary Care Provider] -
--- NOTE | 2022-02-27 10:55 | XRay Report ---
SINGLE VIEW CHEST CLINICAL HISTORY: Generalized weakness. FINDINGS: An AP, portable, upright chest radiograph is compared to chest x-ray and chest CT dated 02/22. The heart is mildly enlarged noting atherosclerotic calcification of the thoracic aorta. The p ulmonary vasculature is noncongested. Chronic interstitial thickening is similar to previous. There i s mild bibasilar scarring/atelectasis. No airspace consolidation or large pleural effusion is identif ied. No pneumothorax is seen. The skeletal structures are osteopenic. There is chronic posttraumatic deformity of the right proximal humerus. Fusion hardware is seen in the lower cervical spine. Cholecy stectomy clips are noted in the right upper quadrant. IMPRESSION: Mild cardiomegaly with no acute cardiopulmonary abnormality. ACT 112: Negative or not required by law. Electronically signed by: Ken Grant M.D. 02/27/2022 10:54 AM
[2022-02-27 11:02] LABS: Basophils # (auto) 0.01 K/uL (0-0.2); Basophils % (auto) 0.1 %; Eosinophils # (auto) 0.01 K/uL (0-0.5); Eosinophils % (auto) 0.1 %; Hematocrit (blood only) 39.1 % (37-47); Hemoglobin 12.9 g/dL (12.0-16.0); Immature Granulocytes # (auto) 0.03 K/uL (0.00-0.02); Immature Granulocytes % (auto) 0.4 %; Lymphocytes # (auto) 1.72 K/uL (1.2-3.4); Lymphocytes % (auto) 23.5 %; Mean Corpuscular Hemoglobin 30.1 pg (25-34); Mean Corpuscular Volume 91.4 fL (80-100); Mean Platelet Volume 11.4 fL (7.4-10.4); Monocytes # (auto) 0.59 K/uL (0.11-0.59); Monocytes % (auto) 8.1 %; Neutrophils # (auto) 4.95 K/uL (1.4-6.5); Neutrophils % (auto) 67.8 %; Platelet Count 360 K/uL (130-400); RDW Coefficient of Variation 13.4 % (11.5-14.5); RDW Standard Deviation 43.5 fL (36.4-46.3); Red Blood Count 4.28 M/uL (4.2-5.4); White Blood Count 7.31 K/uL (4.8-10.8)
[2022-02-27 11:13] LABS: INR 1.1 (0.9-1.1); Partial Thromboplastin Time 26.8 Seconds (21.0-31.0); Prothrombin Time 11.6 Seconds (9.0-12.0)
[2022-02-27 11:26] LABS: Troponin I High Sensitivity 25.5 pg/ml (0-14)
--- NOTE | 2022-02-27 11:30 | CT Scan Report ---
CT cervical spine wo con CLINICAL HISTORY: fall TECHNIQUE: Multidetector row helical CT of the cervical spine was performed without administration of intravenous contrast. Coronal and sagittal reformations were obtained. Automated dose lowering techn iques and/or adjustment according to patient size were utilized for this exam. Comparison: Comparison is made to CT thorax 05/11/2021 FINDINGS: No acute fractures or subluxations are identified. Anterior cervical fixation hardware is seen spanni ng C5-C6. Changes are seen in the cervical spine. Soft tissues are unremarkable. IMPRESSION: Degenerative changes without evidence of acute bony injury. ACT 112: Negative or not required by law. Electronically signed by: Ankit Angelo M.D. 02/27/2022 11:29 AM
[2022-02-27 11:32] LABS: Albumin Globulin Ratio 0.9 (0.9-2); Albumin Level 3.2 gm/dl (3.4-5.0); BUN Creatinine Ratio 7.1 (10-20); Bilirubin,Total 0.7 mg/dl (0.2-1.0); Calcium 9.2 mg/dl (8.5-10.1); Creatinine Clr Calc Pharmacy 63.9 ml/min; Est GFR (African American) 78.8 ml/min; Globulin 3.7 gm/dl (2.5-4.0); Magnesium 1.2 mg/dl (1.7-2.4); Potassium 3.1 mmol/L (3.5-5.1); Total Protein 6.9 gm/dl (6.0-8.3)
--- NOTE | 2022-02-27 11:35 | CT Scan Report ---
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 Images were viewed in brain, subdural and [facility]. Automated dose lowering techniques and/or adjustment according to patient size were utilized for this exam. Comparison: Comparison is made to CT head 02/22/2022 Findings: Old lacunar infarct is seen in the right insula. No evidence of hemorrhage or ischemia. There is opacification of the right maxillary sinus, unchanged from prior exam. The orbits appear nor mal. There are no acute fractures of the calvaria or scalp swelling. Impression: No acute intracranial hemorrhage, no evidence of acute territorial infarction or other acute intracra nial disease process. ACT 112: Negative or not required by law. Electronically signed by: Ankit Angelo M.D. 02/27/2022 11:33 AM
[2022-02-27] MEDS ORDERED: POTASSIUM CHLORIDE CRTAB 20 MEQ TABCR PO STA ×2 (12:08→12:21)
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
[2022-02-27] MEDS: MAGNESIUM SULFATE / D5W 1 GM/100 ML BAG IV SCH ×2 (12:33→13:14)
[2022-02-27] MEDS: MAGNESIUM SULFATE / D5W 1 GM/100 ML BAG IV ONE ×2 (12:33→13:14)
[2022-02-27] MEDS ORDERED: STAT IV Infusion **Titration per Protocol STA (12:44)
[2022-02-27] MEDS: dilTIAZem HCL 125 MG in DEXTROSE 5% 100 ML IV SCH (13:21)
[2022-02-27] MEDS ORDERED: NSS + 20MEQ KCL 20 MEQ/1,000 ML BAG IV SCH (15:26)
[2022-02-27] MEDS ORDERED: ONDANSETRON INJ 2 MG/ML 2 ML VIAL IV PRN (15:26)
[2022-02-27] MEDS: INSULIN ASPART PER UNIT SC SCH ×2 (17:01→20:39)
[2022-02-27] MEDS: HYDROCODONE/ACETAMOPHEN 5/325MG TAB PO PRN (17:13)
--- NOTE | 2022-02-27 18:01 | XCELERA ---
[id number]
[2022-02-27] MEDS: GABAPENTIN 100 MG CAP PO SCH (20:48)
[2022-02-27] MEDS: DULoxetine HCL 60 MG CAP PO SCH (20:48)
[2022-02-27] MEDS: APIXABAN 5 MG TABLET PO SCH (20:48)
[2022-02-27] MEDS: CHOLECALCIFEROL 1,000 UNITS 25 MCG TAB PO SCH (20:48)
[2022-02-27] MEDS: OXYBUTYNIN CHLORIDE 5 MG TAB PO SCH (20:49)
[2022-02-27] MEDS: METOPROLOL TARTRATE 25 MG TAB PO SCH (20:49)
[2022-02-28] MEDS: dilTIAZem HCL 125 MG in DEXTROSE 5% 100 ML IV SCH (00:50)
[2022-02-28 01:13] LABS: Appearance Urine Clear (Clear); Bacteria Urine Automated 1+ (Negative); Bilirubin Urine Negative (Negative); Blood Urine Negative (Negative); Color Urine Yellow; Epithelial Cell Urine Auto >30 /lpf (0-5); Glucose Urine UA Negative (Negative); Ketones Urine Trace (Negative); Leukocyte Esterase Urine Negative (Negative); Nitrite Urine Negative (Negative); Protein Urine Trace (Negative); RBC Urine Automated 0-4 /hpf (0-4); Specific Gravity Urine 1.013 (1.000-1.030); Urobilinogen Urine Positive (Negative); pH Urine 6.5 (4.5-7.5)
[2022-02-28] MEDS: LEVOTHYROXINE SODIUM 25 MCG TABLET PO SCH (06:09)
[2022-02-28 07:58] LABS: BUN Creatinine Ratio 9.4 (10-20); Calcium 8.5 mg/dl (8.5-10.1); Creatinine Clr Calc Pharmacy 62.7 ml/min; Est GFR (African American) 77.7 ml/min; Magnesium 1.6 mg/dl (1.7-2.4); Potassium 3.7 mmol/L (3.5-5.1)
[2022-02-28] MEDS: INSULIN ASPART PER UNIT SC SCH ×4 (08:30→20:53)
[2022-02-28] MEDS: APIXABAN 5 MG TABLET PO SCH ×2 (09:12→20:20)
[2022-02-28] MEDS: METOPROLOL TARTRATE 25 MG TAB PO SCH ×2 (09:12→20:19)
[2022-02-28] MEDS: GABAPENTIN 100 MG CAP PO SCH ×2 (09:12→20:20)
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
--- NOTE | 2022-02-28 11:07 | CT Scan Report ---
CT thoracic spine wo con, CT lumbar spine wo con HISTORY: 76 years-old Female fall, back pain acute pain of the mid and low back status post fall COMPARISON: CT abdomen and pelvis with CTA of the chest 02/22/2022 TECHNIQUE: Multiaxial CT images of the thoracic and lumbar spine were obtained without the use of IV contrast. A dose lowering technique was used consistent with the principals of JULI. FINDINGS: CT THORACIC: Mild to moderate multilevel intervertebral disc space narrowing with moderate spondylitic spurring an d mild to moderate facet arthrosis of the thoracic spine is redemonstrated. Minimal superior endplate compression of the T11 vertebral body is unchanged. Unchanged mild T1 compression deformity. Partial ly imaged cervical spinal fusion hardware. Severe intervertebral disc space narrowing at C6-C7. No ac chipewwa fracture or subluxation identified. There is mild mid thoracic dextroscoliosis. The imaged ribs a ppear intact. Evaluation of the central canal and neuroforamina is limited by CT technique. There is suggestion of a least mild multilevel neural foraminal narrowing. No destructive bone lesions identif ied. No paravertebral edema. Trace right pleural effusion. Subsegmental mild bibasilar atelectasis. Severely atrophic left kidney. Hepatic steatosis. CT LUMBAR: The intra-abdominal findings of the infiltrative pancreatic mass with adjacent infiltration and vascu lar encasement is better characterized on the comparison CT study. Partially imaged pancreatic calcif ications. No paravertebral edema. Suboptimal evaluation of the central canal and neural foramina by C T technique. There is multilevel [id number] disc space narrowing with moderate to advanced spon dylitic spurring and severe facet arthrosis. Posterior annular disc bulging with posterior disc osteo phyte complex formations are noted. 6 lumbar type vertebral segments are present. Unchanged superior endplate compression of the L3 segment. There is partial sacralization of the L6 segment. No acute sa cral insufficiency fracture. No destructive bone lesions. L1-L2: Tiny posterior annular disc bulge. The central canal is patent. Mild to moderate bilateral heraclio ral foraminal narrowing. L2-L3: Posterior disc osteophyte complex with ligamentum flavum thickening and facet arthrosis. Mild to moderate central canal stenosis. Moderate right with mild left neural foraminal narrowing. L3-L4: Severe central canal stenosis secondary to posterior disc osteophyte complex with ligamentum f lavum thickening and severe facet arthrosis. Moderate to severe right with moderate left neural garry inal narrowing. L4-L5: Posterior disc osteophyte complex with ligamentum flavum thickening and advanced facet arthros is. There is severe central canal stenosis with moderate to severe right and severe left neuroforamin al narrowing. L5-L6: Small posterior disc osteophyte complex with ligamentum flavum thickening and severe facet art hrosis. Severe central canal narrowing with severe bilateral foraminal stenosis. L6-S1: Mild spondylitic spurring results in mild central canal stenosis. Ligament of flavum thickenin g with severe facet arthrosis is also noted. No significant neural foraminal stenosis. IMPRESSION: 1. No acute fracture or subluxation of the thoracic or lumbar spine. 2. Advanced degenerative changes of the lumbar spine results in multilevel central canal and neural f oraminal stenosis as above. 3. Please refer to the CT abdomen and pelvis study from 02/22/2022 for discussion of the pancreatic mas s. ACT 112: Negative or not required by law. The above report was generated using voice recognition software. It may contain grammatical, syntax o r spelling errors. Electronically signed by: Darian Montaño M.D. 02/28/2022 11:05 AM
[2022-02-28] MEDS ORDERED: AMIODARONE 200 MG TAB PO ONE (12:15)
[2022-02-28] MEDS: MAGNESIUM SULFATE / D5W 1 GM/100 ML BAG IV SCH ×2 (12:45→15:28)
--- NOTE | 2022-02-28 14:39 | Ultrasound Report ---
ULTRASOUND OF THE CAROTID ARTERIES CLINICAL HISTORY: Syncope. COMPARISON STUDY: Chest CT dated 02/22/2022 TECHNIQUE: Real-time, grayscale, and color Doppler sonography of the carotid arteries is performed. I mages are reviewed in the transverse and longitudinal planes. FINDINGS: The carotid arteries are patent bilaterally and demonstrate antegrade flow. There is mild to moderate atherosclerotic plaque seen in the carotid bulbs bilaterally, left greater than right. Normal dopple r arterial waveforms are seen throughout. Velocity measurements are listed below. Common carotid peak systolic velocity (cm/sec): RIGHT: 51 LEFT: 62 ICA proximal peak systolic velocity (cm/sec): RIGHT: 45 LEFT: 62 ICA mid peak systolic velocity (cm/sec): RIGHT: 76 LEFT: 42 ICA distal peak systolic velocity (cm/sec): RIGHT: 90 LEFT: 40 ICA/CC peak systolic ratio: RIGHT: 1.8 LEFT: 1.0 Antegrade flow was shown in the vertebral arteries. The external carotid arteries are patent. The right lobe thyroid mass is unchanged. IMPRESSION: 1. There is no sonographic evidence of hemodynamically significant stenosis in the right or left martini tid arterial system. 2. Antegrade flow is shown in the vertebral arteries. ACT 112: Negative or not required by law. Electronically signed by: Ken Grant M.D. 02/28/2022 2:38 PM
[2022-02-28] MEDS ORDERED: AMIODARONE 200 MG TAB PO SCH (17:00)
[2022-02-28] MEDS ORDERED: Nursing to Pharmacy Communication SCH (18:15)
[2022-02-28] MEDS: DULoxetine HCL 60 MG CAP PO SCH (20:20)
[2022-02-28] MEDS: CHOLECALCIFEROL 1,000 UNITS 25 MCG TAB PO SCH (20:20)
[2022-02-28] MEDS: OXYBUTYNIN CHLORIDE 5 MG TAB PO SCH (20:21)
--- NOTE | 2022-02-28 21:08 | Electrocardiogram Report ---
Test Reason : Blood Pressure : / mmHG Vent. Rate : 152 BPM Atrial Rate : 170 BPM P-R Int : 000 ms QRS Dur : 074 ms QT Int : 326 ms P-R-T Axes : 000 014 -43 degrees QTc Int : 518 ms Poor data quality, interpretation may be adversely affected Atrial fibrillation with rapid ventricular response Nonspecific ST and T wave abnormality Abnormal ECG When compared with ECG of 22-FEB-2022 08:57, Atrial fibrillation has replaced Sinus rhythm Vent. rate has increased BY 85 BPM Confirmed by Danny Yan ([id number]) on 02/28/2022 9:08:08 PM Referred By: REFERRED SELF Confirmed By:Danny Yan
[2022-02-28] MEDS: AMIODARONE 200 MG TAB PO SCH (21:53)
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
[2022-02-28] MEDS: INSULIN GLARGINE SOLOSTAR 100 UNITS/ML 3 ML PEN SC SCH (22:57)
[2022-03-01] MEDS: LEVOTHYROXINE SODIUM 25 MCG TABLET PO SCH (06:09)
[2022-03-01 07:29] LABS: BUN Creatinine Ratio 14.3 (10-20); Calcium 8.5 mg/dl (8.5-10.1); Creatinine Clr Calc Pharmacy 54.9 ml/min; Est GFR (African American) 65.4 ml/min; Est GFR (Non-African American) 56.4 ml/min; Magnesium 1.8 mg/dl (1.7-2.4); Potassium 3.8 mmol/L (3.5-5.1)
[2022-03-01] MEDS: INSULIN ASPART PER UNIT SC SCH ×4 (08:00→21:44)
[2022-03-01] MEDS: GABAPENTIN 100 MG CAP PO SCH ×2 (08:01→21:42)
[2022-03-01] MEDS: METOPROLOL TARTRATE 25 MG TAB PO SCH ×2 (08:02→21:43)
[2022-03-01] MEDS: APIXABAN 5 MG TABLET PO SCH ×2 (09:52→21:41)
[2022-03-01] MEDS: AMIODARONE 200 MG TAB PO SCH ×2 (09:52→21:41)
[2022-03-01] MEDS: ACETAMINOPHEN 325 MG TAB PO PRN (18:00)
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
[2022-03-01] MEDS: INSULIN GLARGINE SOLOSTAR 100 UNITS/ML 3 ML PEN SC SCH (21:42)
[2022-03-01] MEDS: CHOLECALCIFEROL 1,000 UNITS 25 MCG TAB PO SCH (21:42)
[2022-03-01] MEDS: DULoxetine HCL 60 MG CAP PO SCH (21:42)
[2022-03-01] MEDS: OXYBUTYNIN CHLORIDE 5 MG TAB PO SCH (21:43)
[2022-03-02] MEDS: LEVOTHYROXINE SODIUM 25 MCG TABLET PO SCH (05:32)
[2022-03-02 07:44] LABS: BUN Creatinine Ratio 15.4 (10-20); Calcium 8.9 mg/dl (8.5-10.1); Creatinine Clr Calc Pharmacy 58.9 ml/min; Est GFR (African American) 71.5 ml/min; Est GFR (Non-African American) 61.7 ml/min; Potassium 3.8 mmol/L (3.5-5.1)
[2022-03-02] MEDS ORDERED: Heparin IV Adult Wt-Based Standard *NO* Bolus Protocol IV SCH (08:00)
[2022-03-02] MEDS: PRAVASTATIN SOD 10 MG TAB PO SCH (08:18)
[2022-03-02] MEDS: GABAPENTIN 100 MG CAP PO SCH ×2 (08:18→20:17)
[2022-03-02] MEDS: METOPROLOL TARTRATE 25 MG TAB PO SCH ×2 (08:18→20:18)
[2022-03-02] MEDS: APIXABAN 5 MG TABLET PO SCH ×2 (08:19→20:17)
[2022-03-02] MEDS: AMIODARONE 200 MG TAB PO SCH ×2 (08:19→20:17)
[2022-03-02] MEDS: INSULIN ASPART PER UNIT SC SCH ×4 (08:22→20:19)
[2022-03-02] MEDS: ACETAMINOPHEN 325 MG TAB PO PRN ×2 (10:47→19:45)
--- NOTE | 2022-03-02 12:40 | Communication Note ---
Date of Service: March 02, 2022 GI was asked to help arrange EUS, will plan for inpatient EUS Saturday with Dr. Bello. Please hold AC in preparation for procedure and keep NPO aftermidnight.
[2022-03-02 12:51] LABS: Base Excess VBG 2.9 mEq/L; Oxygen Saturation VBG 62.7 %; pH VBG 7.4 (7.36-7.41)
[2022-03-02] MEDS: INSULIN GLARGINE SOLOSTAR 100 UNITS/ML 3 ML PEN SC SCH (20:16)
[2022-03-02] MEDS: CHOLECALCIFEROL 1,000 UNITS 25 MCG TAB PO SCH (20:17)
[2022-03-02] MEDS: DULoxetine HCL 60 MG CAP PO SCH (20:17)
[2022-03-02] MEDS: OXYBUTYNIN CHLORIDE 5 MG TAB PO SCH (20:18)
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
[2022-03-03] MEDS: ACETAMINOPHEN 325 MG TAB PO PRN ×2 (04:43→17:31)
[2022-03-03] MEDS: LEVOTHYROXINE SODIUM 25 MCG TABLET PO SCH (05:58)
[2022-03-03] MEDS: PRAVASTATIN SOD 10 MG TAB PO SCH (08:09)
[2022-03-03] MEDS: METOPROLOL TARTRATE 25 MG TAB PO SCH ×2 (08:09→20:28)
[2022-03-03] MEDS: INSULIN ASPART PER UNIT SC SCH ×4 (08:09→20:23)
[2022-03-03] MEDS: AMIODARONE 200 MG TAB PO SCH ×2 (08:10→20:27)
[2022-03-03] MEDS: GABAPENTIN 100 MG CAP PO SCH ×2 (08:10→20:27)
[2022-03-03] MEDS: HEPARIN SODIUM/DEXTROSE 25,000 UNITS/500 ML BAG IV SCH (08:10)
[2022-03-03 09:10] LABS: Partial Thromboplastin Ratio 1.1; Partial Thromboplastin Time 30.2 Seconds (21.0-31.0)
[2022-03-03 16:12] LABS: Partial Thromboplastin Ratio 2.4
[2022-03-03 16:14] LABS: Partial Thromboplastin Time 66.7 Seconds (21.0-31.0)
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
[2022-03-03] MEDS: INSULIN GLARGINE SOLOSTAR 100 UNITS/ML 3 ML PEN SC SCH (20:25)
[2022-03-03] MEDS: DULoxetine HCL 60 MG CAP PO SCH (20:27)
[2022-03-03] MEDS: CHOLECALCIFEROL 1,000 UNITS 25 MCG TAB PO SCH (20:27)
[2022-03-03] MEDS: OXYBUTYNIN CHLORIDE 5 MG TAB PO SCH (20:27)
[2022-03-03 23:06] LABS: Partial Thromboplastin Ratio 3.1
[2022-03-03 23:31] LABS: Partial Thromboplastin Time 84.4 Seconds (21.0-31.0)
[2022-03-04] MEDS: HYDROCODONE/ACETAMOPHEN 5/325MG TAB PO PRN ×2 (03:42→19:32)
[2022-03-04] MEDS: HEPARIN SODIUM/DEXTROSE 25,000 UNITS/500 ML BAG IV SCH ×2 (05:01→07:10)
[2022-03-04 06:02] LABS: Partial Thromboplastin Ratio 3.4
[2022-03-04] MEDS: LEVOTHYROXINE SODIUM 25 MCG TABLET PO SCH (06:09)
[2022-03-04 06:34] LABS: Partial Thromboplastin Time 94.7 Seconds (21.0-31.0)
[2022-03-04] MEDS: INSULIN ASPART PER UNIT SC SCH ×4 (08:04→21:09)
[2022-03-04] MEDS: AMIODARONE 200 MG TAB PO SCH ×2 (08:05→20:15)
[2022-03-04] MEDS: GABAPENTIN 100 MG CAP PO SCH ×2 (08:06→20:16)
[2022-03-04] MEDS: PRAVASTATIN SOD 10 MG TAB PO SCH (08:06)
[2022-03-04] MEDS: METOPROLOL TARTRATE 25 MG TAB PO SCH ×2 (08:06→20:16)
[2022-03-04 08:19] LABS: BUN Creatinine Ratio 17.2 (10-20); Creatinine Clr Calc Pharmacy 61.5 ml/min; Est GFR (African American) 75.5 ml/min; Est GFR (Non-African American) 65.2 ml/min; Magnesium 1.6 mg/dl (1.7-2.4); Potassium 4.1 mmol/L (3.5-5.1)
[2022-03-04] MEDS: LOSARTAN POTASSIUM 25 MG TAB PO SCH (10:21)
[2022-03-04] MEDS: MAGNESIUM SULFATE / D5W 1 GM/100 ML BAG IV SCH ×2 (10:21→12:47)
[2022-03-04 13:15] LABS: Partial Thromboplastin Time 53.9 Seconds (21.0-31.0)
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
[2022-03-04] MEDS: OXYBUTYNIN CHLORIDE 5 MG TAB PO SCH (20:16)
[2022-03-04] MEDS: CHOLECALCIFEROL 1,000 UNITS 25 MCG TAB PO SCH (20:16)
[2022-03-04] MEDS: DULoxetine HCL 60 MG CAP PO SCH (20:16)
[2022-03-04] MEDS: INSULIN GLARGINE SOLOSTAR 100 UNITS/ML 3 ML PEN SC SCH (21:09)
[2022-03-04] MEDS: ACETAMINOPHEN 325 MG TAB PO PRN (21:21)
[2022-03-05] MEDS: HEPARIN SODIUM/DEXTROSE 25,000 UNITS/500 ML BAG IV SCH ×2 (04:57→11:06)
[2022-03-05] MEDS: LEVOTHYROXINE SODIUM 25 MCG TABLET PO SCH (05:50)
[2022-03-05 07:40] LABS: Magnesium 1.9 mg/dl (1.7-2.4); Potassium 3.8 mmol/L (3.5-5.1)
[2022-03-05 07:43] LABS: Partial Thromboplastin Ratio 2.6
[2022-03-05 07:52] LABS: Partial Thromboplastin Time 71.2 Seconds (21.0-31.0)
[2022-03-05] MEDS: INSULIN ASPART PER UNIT SC SCH ×4 (08:19→21:58)
[2022-03-05] MEDS: AMIODARONE 200 MG TAB PO SCH ×2 (08:47→21:52)
[2022-03-05] MEDS: LOSARTAN POTASSIUM 25 MG TAB PO SCH (08:47)
[2022-03-05] MEDS: PRAVASTATIN SOD 10 MG TAB PO SCH (08:47)
[2022-03-05] MEDS: METOPROLOL TARTRATE 25 MG TAB PO SCH ×2 (08:47→21:58)
[2022-03-05] MEDS: GABAPENTIN 100 MG CAP PO SCH ×2 (08:47→21:57)
[2022-03-05] MEDS: HYDROCODONE/ACETAMOPHEN 5/325MG TAB PO PRN ×2 (11:59→22:07)
[2022-03-05 15:32] LABS: Partial Thromboplastin Ratio 2.2
[2022-03-05 15:37] LABS: Partial Thromboplastin Time 61.5 Seconds (21.0-31.0)
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
[2022-03-05] MEDS: OXYBUTYNIN CHLORIDE 5 MG TAB PO SCH (21:51)
[2022-03-05] MEDS: DULoxetine HCL 60 MG CAP PO SCH (21:51)
[2022-03-05] MEDS: INSULIN GLARGINE SOLOSTAR 100 UNITS/ML 3 ML PEN SC SCH (21:58)
[2022-03-05] MEDS: CHOLECALCIFEROL 1,000 UNITS 25 MCG TAB PO SCH (21:59)
[2022-03-06] MEDS: LEVOTHYROXINE SODIUM 25 MCG TABLET PO SCH (05:59)
[2022-03-06] MEDS: INSULIN ASPART PER UNIT SC SCH ×4 (07:32→20:55)
--- NOTE | 2022-03-06 09:17 | Anesthesiology Consultation ---
Date of Service March 06, 2022 Assessment & Plan (1) Encounter for pre-operative examination: Chart Review Chart Review: Acceptable Risk for Surgery and Patient NOT seen in Pre Admission Testing Consults Requested none History Surgery Operation Date: 03/06/22 07:00 Proposed Procedures p Endoscopic Ultrasonography Cesar - Danii Bello DO Height/Weight Height: 5 ft 1 in Weight: 102.8 kg Allergies Allergy/AdvReac Type Severity Reaction Status Date / Time oxycodone AdvReac Mild "Made me Verified 02/27/22 13:31 higher than a kite" calcium AdvReac Unknown CAUSES Verified 02/27/22 13:31 KIDNEY STONES Medications Home Medications Medication Instructions Recorded Confirmed Last Taken cholecalciferol (vitamin D3) 25 1,000 units PO HS cap 05/08/19 02/27/22 02/24/21 mcg (1,000 unit) capsule duloxetine 60 mg capsule,delayed 60 mg PO HS #90 cap 05/04/21 02/27/22 Unknown release levothyroxine 25 mcg tablet 25 mcg PO QAM #90 tab 06/26/21 02/27/22 Unknown gabapentin 100 mg capsule 100 mg PO BID cap 08/16/21 02/27/22 Unknown metoprolol tartrate 25 mg tablet 25 mg PO BID #180 tab 08/22/21 02/27/22 Unknown pravastatin 10 mg tablet 10 mg PO DAILY #90 tab 08/22/21 02/27/22 Unknown potassium chloride 20 mEq 20 meq PO DAILY #90 tab 12/08/21 02/27/22 02/27/22 tablet,extended release 40 meq oxybutynin chloride 5 mg tablet 5 mg PO QPM #30 tab 01/08/22 02/27/22 Unknown metformin 500 mg 24 hr 500 mg PO QPM #90 tab 01/22/22 02/27/22 Unknown tablet,extended release apixaban 5 mg tablet (Eliquis) 5 mg PO BID #180 tab 02/08/22 02/27/22 Unknown Active Medications Generic Name Dose Route Start Last Admin Trade Name Freq PRN Reason Stop Dose Admin Acetaminophen 650 mg 02/27/22 15:26 03/04/22 21:21 Acetaminophen 325 Mg Tab PO 03/29/22 15:25 650 mg Q4H PRN Administration Pain or Fever Hydrocodone Bitart/Acetaminophen 1 tab 02/27/22 15:26 03/05/22 22:07 Hydrocodone/Acetamophen 5/325mg Tab PO 03/13/22 15:25 1 tab Q6H PRN Administration Pain Amiodarone HCl 400 mg 02/28/22 21:00 03/05/22 21:52 Amiodarone 200 Mg Tab PO 03/10/22 20:59 400 mg BID LUIS Administration Duloxetine HCl 60 mg 02/27/22 21:00 03/05/22 21:51 Duloxetine Hcl 60 Mg Cap PO 03/29/22 20:59 60 mg HS LUIS Administration Gabapentin 100 mg 02/27/22 21:00 03/05/22 21:57 Gabapentin 100 Mg Cap PO 03/29/22 20:59 100 mg BID LUIS Administration Heparin Sodium/Dextrose 25,000 units in 500 mls @ 0 mls/hr 03/03/22 08:00 03/06/22 00:28 Heparin Sodium/Dextrose IV 04/02/22 07:59 0 units/hr .Q0M LUIS 0 mls/hr Titration Protocol 0 UNITS/HR Insulin Aspart 0 units 02/27/22 16:30 03/06/22 07:32 Insulin Aspart Per Unit SC 03/29/22 16:29 Not Given ACHS LUIS Insulin Glargine 10 units 02/28/22 21:00 03/05/22 21:58 Insulin Glargine Solostar 100 Units/Ml 3 Ml Pen SC 03/30/22 20:59 10 units HS LUIS Administration Levothyroxine Sodium 25 mcg 02/28/22 06:30 03/06/22 05:59 Levothyroxine Sodium 25 Mcg Tablet PO 03/30/22 06:29 25 mcg DAILYBB LUIS Administration Losartan Potassium 25 mg 03/04/22 09:00 03/05/22 08:47 Losartan Potassium 25 Mg Tab PO 04/03/22 08:59 25 mg QAM LUIS Administration Metoprolol Tartrate 25 mg 02/27/22 21:00 03/05/22 21:58 Metoprolol Tartrate 25 Mg Tab PO 03/29/22 20:59 25 mg BID LUIS Administration Oxybutynin Chloride 5 mg 02/27/22 21:00 03/05/22 21:51 Oxybutynin Chloride 5 Mg Tab PO 03/29/22 20:59 5 mg QPM ULIS Administration Pravastatin Sodium 10 mg 03/02/22 09:00 03/05/22 08:47 Pravastatin Sod 10 Mg Tab PO 04/01/22 08:59 10 mg DAILY LUIS Administration Vitamin D 1,000 units 02/27/22 21:00 03/05/22 21:59 Cholecalciferol 1,000 Units 25 Mcg Tab PO 03/29/22 20:59 1,000 units HS LUIS Administration Past Medical History Medical History Atrial fibrillation (~04/2021) Cataract Chronic anticoagulation Clavicle fracture 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 2/2 HORMONE THERAPY Hypertension Hypothyroidism Insomnia Lumbar radiculopathy Lumbar spinal stenosis Severe multifactorial multilevel most prominent at L2-3 and L3-4 on MRI dated 03/05/2016 Nocturnal hypoxia Osteopenia Peripheral arterial disease Proximal humerus fracture Solitary kidney, acquired 2/2 ATROPHY OF ONE KIDNEY POSSIBLY 2/2 STONES PER PT Thyroid nodule (~2009) 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 Type 2 diabetes mellitus Urinary incontinence Vitamin D deficiency Past Family History Family History Sister Diabetes Mother Cervical cancer Denies family history of Ovarian cancer Prostate cancer Breast cancer Lung cancer Colorectal cancer Past Surgical History Surgical History H/O breast surgery H/O cervical spine surgery H/O lumbosacral spine surgery H/O reduction of closed fracture LEFT WRIST WITH PINNING History of lumpectomy LEFT History of total left hip arthroplasty (~09/2019) Hx of cholecystectomy Hx of total knee arthroplasty LEFT Social History Smoking Status: Never smoker Do You Dip or Chew Tobacco: No Hx Alcohol Use: Yes Alcohol type: beer alcohol intake frequency: holidays/special occasions only Hx Substance Use: No substance use type: does not use Physical Exam Vital Signs Last Vital Signs Temp 98.2 F 03/06/22 07:08 Pulse 64 03/06/22 08:03 Resp 18 03/06/22 07:08 BP 130/75 03/06/22 07:08 Pulse Ox 95 03/06/22 07:08 Testing Laboratory Results 02/27/22 10:41 PT 11.6 Seconds (9.0-12.0) 02/27/22 10:41 INR 1.1 (0.9-1.1) 02/27/22 10:41 APTT 61.5 Seconds (21.0-31.0) H* 03/05/22 14:45 Urine Color Yellow 02/28/22 Unknown Urine Appearance Clear (Clear) 02/28/22 Unknown Urine pH 6.5 (4.5-7.5) 02/28/22 Unknown Ur Specific [place]ity 1.013 (1.000-1.030) 02/28/22 Unknown Urine Protein Trace (Negative) H 02/28/22 Unknown Urine Glucose (UA) Negative (Negative) 02/28/22 Unknown Urine Ketones Trace (Negative) H 02/28/22 Unknown Urine Nitrite Negative (Negative) 02/28/22 Unknown Ur Leukocyte Esterase Negative (Negative) 02/28/22 Unknown Urine WBC (Auto) 1-5 /hpf (0-5) 02/28/22 Unknown Urine RBC (Auto) 0-4 /hpf (0-4) 02/28/22 Unknown U Hyaline Cast (Auto) 5-10 /lpf (0-5) H 02/28/22 Unknown U Epithel Cells (Auto) >30 /lpf (0-5) H 02/28/22 Unknown Urine Bacteria (Auto) 1+ (Negative) H 02/28/22 Unknown 02/28/22 Unknown Urine Culture - Final Urine,Clean Catch Three types of organisms present, all high counts probable skin amos. No further identifications or sensitivities to follow. 03/06/22 07:32 POC Glucose 101 H Electrocardiogram Date: 02/27/22 Findings: + AFIB @ (with RVR) Chest X-Ray Date: 02/27/22 Findings: + cardiomegaly (mild) Echocardiogram Date: 02/27/22 EF: 65-70 LV Function: normal Valvular Disease: + no significant valvular disease
[2022-03-06 09:28] LABS: Albumin Globulin Ratio 0.9 (0.9-2); BUN Creatinine Ratio 12.6 (10-20); Bilirubin,Total 0.4 mg/dl (0.2-1.0); Creatinine Clr Calc Pharmacy 56.4 ml/min; Est GFR (African American) 67.9 ml/min; Est GFR (Non-African American) 58.6 ml/min; Globulin 3.3 gm/dl (2.5-4.0); Potassium 3.7 mmol/L (3.5-5.1); Total Protein 6.3 gm/dl (6.0-8.3)
[2022-03-06] MEDS: LOSARTAN POTASSIUM 25 MG TAB PO SCH (09:47)
[2022-03-06] MEDS: GABAPENTIN 100 MG CAP PO SCH ×2 (09:47→21:01)
[2022-03-06] MEDS: PRAVASTATIN SOD 10 MG TAB PO SCH (09:47)
[2022-03-06] MEDS: AMIODARONE 200 MG TAB PO SCH ×2 (09:49→21:01)
[2022-03-06] MEDS: METOPROLOL TARTRATE 25 MG TAB PO SCH ×2 (09:49→21:00)
[2022-03-06] MEDS ORDERED: POTASSIUM CHLORIDE CRTAB 20 MEQ TABCR PO STA (09:59)
--- NOTE | 2022-03-06 10:18 | Gastroenterology Progress Note ---
Date of Service March 06, 2022 Assessment & Plan (1) Mass of pancreas: Plan: EUS today with FNA of pancreas mass by Dr. Devon Bello. Eliquis held. Heparin stopped at midnight. Further recommendations to follow EUS based on pathology. Admission and Anticipated Discharge Date Admission Date: February 27, 2022 Supervising Physician Co-Signing Physician Notes Late entry: Patient was seen and examined on 03/06 with ALBERTO Vallecillo whose note reflects our findings and plan. Subjective 76, female, admitted for syncopal episode. Pancreatic mass noted on imaging. Plan is for EUS with FNA today. On Eliquis for A. fib. Held since arrival on 03/04. Heparin drip - being held as well. Review of Systems Review of Systems: ROS: Gen: Denies weakness, fevers; Few lbs weight loss - but was attempting to loose weight. Eyes: No eye redness, or pain, no recent vision changes Resp: No SOB, no cough Cardio:+ palpitations, syncope; no chest pain GI: No abdominal pain, no nausea/vomiting : Denies pain on urination Skin: No jaundice, itching or new rashes Physical Exam Constitutional: well developed and cooperative Eyes: PERRL, conjunctivae normal, anicteric sclerae ENMT: external ear and nose normal, oropharynx normal Neck: trachea midline, no thyromegaly Respiratory: normal respiratory effort, lungs clear to auscultation Cardiovascular: RRR, no murmur, no edema Gastrointestinal (Abdomen): normal bowel sounds, soft, nontender, no hepatosplenomegaly Skin: no rashes, warm and dry normal turgor Neurologic: PERRL, EOMI, accommodation nl, no face palsy, no dysarthria awake; not confused Psychiatric: A+Ox3, euthymic affect Lymphatic: no cervical or axillary lymphadenopathy Results & Data ([facility]) Vital Signs (Past 12 Hours) Vital Signs Temp Pulse Pulse Resp BP Pulse Ox 03/06/22 08:03 64 03/06/22 07:08 36.8 C 60 18 130/75 95 03/06/22 04:03 36.9 C 61 18 139/64 95 03/06/22 01:01 60 03/05/22 23:49 36.8 C 54 L 18 128/61 93 Laboratory Results NA 135, K3.7, CL 103, CO2 29, BUN 12, CR 0.95, glucose 103. LFTs have been normal Most recent hemoglobin February 27 12.9, hematocrit 39.[address] angiogram abdomen pelvis 02/22/2022: Pancreas: There is an infiltrative mass lesion identified in the pancreatic head/neck. This is best seen on axial image #107 and measures approximately 5 x 4 cm. There are scattered parenchymal calcifications. There is upstream dilatation of the pancreatic duct which measures up to 8 mm. The pancreatic body and tail are atrophic. The mass lesion appears to invade the adjacent stomach on image #100. A developing fistula is suspected with surrounding infiltration. The splenic vein is patent. The mass lesion partially encases both the splenic and hepatic arteries at the celiac bifurcation. There is no encasement of the superior mesenteric artery or vein.
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
[2022-03-06] MEDS: HYDROCODONE/ACETAMOPHEN 5/325MG TAB PO PRN (13:15)
[2022-03-06] MEDS ORDERED: LIDOCAINE 2% 2 ML VIAL/AMP(20MG/ML) INFIL ONE (13:59)
[2022-03-06] MEDS ORDERED: fentaNYL citrate 100 MCG/2 ML VIAL ONE (13:59)
[2022-03-06] MEDS ORDERED: PROPOFOL IV EMULSION 10 MG/ML 20 ML VIAL IV ONE ×2 (13:59→14:50)
[2022-03-06] MEDS ORDERED: PROMETHAZINE HCL 12.5 MG in SODIUM CHLORIDE 0.9% 50 ML IV PRN (14:18)
[2022-03-06] MEDS ORDERED: HYDROmorphone INJ 1 MG/ML SYRINGE IV PRN (14:18)
[2022-03-06] MEDS ORDERED: ATROPINE SULFATE 0.1 MG/ML 10ML SYR IV PRN (14:18)
[2022-03-06] MEDS ORDERED: ePHEDrine sulfate 50 MG/ML AMP IV PRN (14:18)
[2022-03-06] MEDS ORDERED: fentaNYL citrate 100 MCG/2 ML VIAL IV PRN (14:18)
[2022-03-06] MEDS ORDERED: ONDANSETRON INJ 2 MG/ML 2 ML VIAL IV PRN (14:18)
--- NOTE | 2022-03-06 14:20 | History & Physical Bridge Note ---
Date of Service March 06, 2022 History & Physical Bridge Note I have examined the patient, reviewed the History & Physical and in the interval since the performance of the History & Physical I have noted the following changes of clinical significance: no changes noted. The patient was found to have evidence of a 4x5 cm pancreatic mass on a recent imaging study. Endoscopic ultrasound and upper endoscopy have been requested for further evaluation and tissue diagnosis. As the patient is presently with normal liver enzymes and does not appear to have biliary obstruction we will plan for EUS/EGD and possible FNA. I discussed the risks and benefits of endoscopic ultrasound with the patient to include bleeding, infection, perforation, pain, insufficient cellularity and need for follow-up studies. CT Results: Pancreas: There is an infiltrative mass lesion identified in the pancreatic head/neck. This is best seen on axial image #107 and measures approximately 5 x 4 cm. There are scattered parenchymal calcifications. There is upstream dilatation of the pancreatic duct which measures up to 8 mm. The pancreatic body and tail are atrophic. The mass lesion appears to invade the adjacent stomach on image #100. A developing fistula is suspected with surrounding infiltration. The splenic vein is patent. The mass lesion partially encases both the splenic and hepatic arteries at the celiac bifurcation. There is no encasement of the superior mesenteric artery or vein.
--- NOTE | 2022-03-06 14:50 | GI REPORT ---
Patient Name: Cristina Delaney Procedure Date: 03/06/2022 2:25 PM Date of : 1945 Admit Type: Inpatient Age: 76 Gender: Female Attending MD: Danii Bello DO Procedure: Upper GI endoscopy Providers: Danii Bello DO Referring MD: Maira Gomez Md Indications: Abnormal CT of the GI tract Medicines: Monitored Anesthesia Care Complications: No immediate complications. Estimated blood loss: Minimal. Estimated Blood Loss: Estimated blood loss was minimal. Procedure: Pre-Anesthesia Assessment: - Prior to the procedure, a History and Physical was performed, and patient medications, allergies and sensitivities were reviewed. The patient's tolerance of previous anesthesia was reviewed. - The risks and benefits of the procedure and the sedation options and risks were discussed with the patient. All questions were answered and informed consent was obtained. - Patient identification and proposed procedure were verified prior to the procedure by the physician, the nurse and the head housekeeper. The procedure was verified in the procedure room. - Pre-procedure physical examination revealed no contraindications to sedation. - ASA Grade Assessment: IV - A patient with severe systemic disease that is a constant threat to life. - After reviewing the risks and benefits, the patient was deemed in satisfactory condition to undergo the procedure. - The anesthesia plan was to use monitored anesthesia care (MAC). - Immediately prior to administration of medications, the patient was re-assessed for adequacy to receive sedatives. - The heart rate, respiratory rate, oxygen saturations, blood pressure, adequacy of pulmonary ventilation, and response to care were monitored throughout the procedure. - The physical status of the patient was re-assessed after the procedure. After obtaining informed consent, the endoscope was passed under direct vision. Throughout the procedure, the patient's blood pressure, pulse, and oxygen saturations were monitored continuously.The upper GI endoscopy was accomplished without difficulty. The patient tolerated the procedure well. The Endoscope was introduced through the mouth, and advanced to the second part of duodenum. Findings: The examined esophagus was normal. The Z-line was regular and was found 35 cm from the incisors. Diffuse moderate inflammation characterized by congestion (edema), erythema and granularity was found in the entire examined stomach. Biopsies were taken with a cold forceps for histology. The pathology specimen was placed into Bottle B. Estimated blood loss was minimal. One non-obstructing non-bleeding superficial gastric ulcer with no stigmata of bleeding was found in the gastric antrum. The lesion was 8 mm in largest dimension. Biopsies were taken with a cold forceps for histology. The pathology specimen was placed into Bottle A. Estimated blood loss was minimal. The examined duodenum was normal. Impression: - Normal esophagus. - Z-line regular, 35 cm from the incisors. - Gastritis. Biopsied. - Non-obstructing non-bleeding gastric ulcer with no stigmata of bleeding. Biopsied. - Normal examined duodenum. Recommendation: - Perform an upper endoscopic ultrasound (UEUS) today. - Await pathology results. Danii Bello D.O. Danii Bello, 03/06/2022 2:50:17 PM This report has been signed electronically. Note Initiated On: 03/06/2022 2:25 PM Number of Addenda: 0 I attest to the content of the Intraoperative Record and orders documented therein, exceptions below {[id number]}
--- NOTE | 2022-03-06 15:19 | Post Operative Brief Note ---
Immediate Post Op Note v1 Date of Surgery March 06, 2022 Pre & Post Diagnosis Operation Date: 03/06/22 07:00 Pre-Op Diagnosis: Pancreatic mass Post-Op Diagnosis: Gastric ulcer; Pancreatic head mass I identified the patient and participated in the time-out.: Yes Procedure Operation Date: 03/06/22 07:00 Actual Procedures p Esophagogastroduodenoscopy - Danii Bello DO p Endoscopic Ultrasonography Upper - Danii Bello DO Surgeon Danii Bello DO System Administrator none Estimated Blood Loss 0 Findings Consistent with Post-Op Diagnosis
--- NOTE | 2022-03-06 15:20 | Communication Note ---
Date of Service: March 06, 2022 The patient underwent upper endoscopy and endoscopic ultrasound today. The patient was found to have evidence of an antral ulcer which could correlate with the mass seen on her CT scan. Biopsies were obtained from this. A biopsy was also obtained from the pancreatic head mass during endoscopic ultrasound. Recommendations Await cytology and pathology results May restart anticoagulation in 72 hours Advance diet as tolerated If patient develops biliary obstruction ERCP could be offered for biliary decompression
--- NOTE | 2022-03-06 15:25 | GI REPORT ---
Patient Name: Cristina Delaney Procedure Date: 03/06/2022 2:26 PM Date of : 1945 Admit Type: Inpatient Age: 76 Gender: Female Attending MD: Danii Bello DO Procedure: Upper EUS Providers: Danii Bello DO Referring MD: Maira Gomez Md Indications: Suspected mass in pancreas on CT scan Medicines: Monitored Anesthesia Care Complications: No immediate complications. Estimated blood loss: Minimal. Estimated Blood Loss: Estimated blood loss was minimal. Procedure: Pre-Anesthesia Assessment: - Prior to the procedure, a History and Physical was performed, and patient medications, allergies and sensitivities were reviewed. The patient's tolerance of previous anesthesia was reviewed. - The risks and benefits of the procedure and the sedation options and risks were discussed with the patient. All questions were answered and informed consent was obtained. - Patient identification and proposed procedure were verified prior to the procedure by the physician, the nurse and the manager hiv. The procedure was verified in the procedure room. - Pre-procedure physical examination revealed no contraindications to sedation. - ASA Grade Assessment: III - A patient with severe systemic disease. - After reviewing the risks and benefits, the patient was deemed in satisfactory condition to undergo the procedure. - The anesthesia plan was to use monitored anesthesia care (MAC). - Immediately prior to administration of medications, the patient was re-assessed for adequacy to receive sedatives. - The heart rate, respiratory rate, oxygen saturations, blood pressure, adequacy of pulmonary ventilation, and response to care were monitored throughout the procedure. - The physical status of the patient was re-assessed after the procedure. After obtaining informed consent, the endoscope was passed under direct vision. Throughout the procedure, the patient's blood pressure, pulse, and oxygen saturations were monitored continuously.The upper EUS was accomplished without difficulty. The patient tolerated the procedure well. The scope was introduced through the mouth, and advanced to the second part of duodenum. Findings: ENDOSONOGRAPHIC FINDING: : There was no sign of significant endosonographic abnormality in the common bile duct. The maximum diameter of the duct was 4 mm. An irregular mass was identified in the pancreatic head. The mass was hypoechoic. The mass measured 33 mm by 25 mm in maximal cross-sectional diameter. The endosonographic borders were poorly-defined. The remainder of the pancreas was examined. The endosonographic appearance of parenchyma and the upstream pancreatic duct indicated duct dilation, a maximum duct diameter of 5 mm and parenchymal atrophy. Fine needle aspiration for cytology was performed. Color Doppler imaging was utilized prior to needle puncture to confirm a lack of significant vascular structures within the needle path. Five passes were made with the 22 gauge needle using a transduodenal approach. A stylet was used. A him specialists was present to evaluate the adequacy of the specimen. Final cytology results are pending. Impression: - There was no sign of significant pathology in the common bile duct. - A mass was identified in the pancreatic head. T3 Nx Mx by endosonographic criteria. The staging applies if malignancy is confirmed. Fine needle aspiration performed. Recommendation: - [facility]. - Await cytology results. -May restart anticoagulation in 72 hours Danii Bello D.O. Danii Bello, DO 03/06/2022 3:24:50 PM This report has been signed electronically. Note Initiated On: 03/06/2022 2:26 PM Number of Addenda: 0 I attest to the content of the Intraoperative Record and orders documented therein, exceptions below {[id number]}
--- NOTE | 2022-03-06 16:01 | Anesthesiology Progress Note ---
Date of Service March 06, 2022 Anesthesia Post Procedure Vital Signs Vital Signs: Temp Pulse Pulse Pulse Resp BP Pulse Ox 03/06/22 15:55 36.4 C L 61 14 143/56 H 95 03/06/22 15:45 58 L 12 137/57 L 98 03/06/22 15:35 63 15 140/61 98 03/06/22 15:27 36.3 C L 65 16 102/80 100 03/06/22 14:15 36.8 C 70 22 166/70 H 95 03/06/22 11:30 36.7 C 76 18 120/68 97 03/06/22 08:03 64 03/06/22 07:08 36.8 C 60 18 130/75 95 03/06/22 04:03 36.9 C 61 18 139/64 95 03/06/22 01:01 60 03/05/22 23:49 36.8 C 54 L 18 128/61 93 03/05/22 21:55 64 147/72 H 03/05/22 19:43 37.0 C 62 18 154/71 H 94 Pain Intensity Right Shoulder: Pain Intensity: 0 Right Hip: Pain Intensity: 6 Lower Back: Pain Intensity: 4 Transfer of Care Handoff Completed per policy Notes Mental Status: alert / awake / arousable and participated in evaluation Patient Amnestic to Procedure: Yes Nausea / Vomiting: adequately controlled Pain: adequately controlled Airway Patency, RR, SpO2: stable & adequate BP & HR: stable & adequate Hydration State: stable & adequate Anesthetic Complications: no major complications apparent
[2022-03-06] MEDS: INSULIN GLARGINE SOLOSTAR 100 UNITS/ML 3 ML PEN SC SCH (20:59)
[2022-03-06] MEDS: DULoxetine HCL 60 MG CAP PO SCH (21:01)
[2022-03-06] MEDS: OXYBUTYNIN CHLORIDE 5 MG TAB PO SCH (21:01)
[2022-03-06] MEDS: CHOLECALCIFEROL 1,000 UNITS 25 MCG TAB PO SCH (21:01)
[2022-03-06] MEDS: ACETAMINOPHEN 325 MG TAB PO PRN (21:04)
[2022-03-07] MEDS: LEVOTHYROXINE SODIUM 25 MCG TABLET PO SCH (05:33)
[2022-03-07 07:41] LABS: Basophils # (auto) 0.01 K/uL (0-0.2); Basophils % (auto) 0.2 %; Eosinophils # (auto) 0.11 K/uL (0-0.5); Eosinophils % (auto) 2.6 %; Hematocrit (blood only) 30.6 % (37-47); Immature Granulocytes # (auto) 0.01 K/uL (0.00-0.02); Immature Granulocytes % (auto) 0.2 %; Lymphocytes # (auto) 1.41 K/uL (1.2-3.4); Lymphocytes % (auto) 33.7 %; Mean Corpuscular Hemoglobin 30.9 pg (25-34); Mean Corpuscular Hgb Conc 32.7 g/dL (32-36); Mean Corpuscular Volume 94.4 fL (80-100); Mean Platelet Volume 11.8 fL (7.4-10.4); Monocytes # (auto) 0.51 K/uL (0.11-0.59); Monocytes % (auto) 12.2 %; Neutrophils # (auto) 2.13 K/uL (1.4-6.5); Neutrophils % (auto) 51.1 %; Platelet Count 235 K/uL (130-400); RDW Coefficient of Variation 13.7 % (11.5-14.5); RDW Standard Deviation 47.3 fL (36.4-46.3); Red Blood Count 3.24 M/uL (4.2-5.4); White Blood Count 4.18 K/uL (4.8-10.8)
[2022-03-07 07:55] LABS: Albumin Globulin Ratio 0.9 (0.9-2); Albumin Level 2.8 gm/dl (3.4-5.0); BUN Creatinine Ratio 13.1 (10-20); Bilirubin,Total 0.5 mg/dl (0.2-1.0); Calcium 9.1 mg/dl (8.5-10.1); Creatinine Clr Calc Pharmacy 63.1 ml/min; Est GFR (African American) 78.8 ml/min; Globulin 3.1 gm/dl (2.5-4.0); Magnesium 1.7 mg/dl (1.7-2.4); Total Protein 5.9 gm/dl (6.0-8.3)
[2022-03-07] MEDS: INSULIN ASPART PER UNIT SC SCH ×2 (08:02→12:02)
[2022-03-07] MEDS: AMIODARONE 200 MG TAB PO SCH (08:03)
[2022-03-07] MEDS: PRAVASTATIN SOD 10 MG TAB PO SCH (08:04)
[2022-03-07] MEDS: METOPROLOL TARTRATE 25 MG TAB PO SCH (08:04)
[2022-03-07] MEDS: GABAPENTIN 100 MG CAP PO SCH (08:04)
[2022-03-07] MEDS: LOSARTAN POTASSIUM 25 MG TAB PO SCH (08:04)
[2022-03-07] MEDS: MAGNESIUM SULFATE / D5W 1 GM/100 ML BAG IV SCH ×2 (09:21→11:10)
[2022-03-07] MEDS ORDERED: PANTOprazole 40 MG TAB PO SCH (09:45)
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
[2022-03-10] MEDS ORDERED: AMIODARONE 200 MG TAB PO SCH ×2 (17:00→21:00)
== END 2022-03-07 14:31 | disposition home health service (06) | DRG 309 ==
LOC: ED 10:19 → 2S 12:44 → SUATTDRO 12:44 → 2S 13:25

== ENCOUNTER 2022-03-13 15:19 | Inpatient (IN) ==
[2022-03-13] MEDS ORDERED: SODIUM CHLORIDE 0.9% 500 ML IV SCH (16:00)
--- NOTE | 2022-03-13 16:00 | Emergency Department Note ---
Impression & Plan Altered mental status, Mass of pancreas, Elevated liver enzymes, Acute dehydration ED Provider Note NAME: BETTYE BRAVO AGE: 76 SEX: F : 1945 ARRIVES VIA: Ambulance INFORMANT: [Patient][nursing] ED PROVIDER(S): [Ken Groe MD] CHIEF COMPLAINT: Altered mental state HISTORY OF PRESENT ILLNESS: The patient is a 76-year-old female who is brought by ambulance for an altered mental status. The patient as per the family was fine yesterday. She went to her doctor's office recently and was able to give a history and have a conversation. She was in the hospital and discharged 6 days ago, she was in for rapid A. fib. The patient currently is confused. She does not know the year, president, day or month. She complains of some lower back pain but she states this is chronic. No chest pain, no headache, no shortness of breath. Given her confusion, no further history obtainable. REVIEW OF SYSTEMS: Unobtainable given her confusion. PMHx/PSHx: See Below SOCIAL HISTORY: See Below. PHYSICAL EXAM: GENERAL: Patient is in no acute distress. HEENT: No acute trauma, normocephalic atraumatic, mucous membranes dry, no nasal congestion, no scleral icterus. NECK: No stridor, no adenopathy, no meningismus, trachea is midline. LUNGS: Clear to auscultation bilaterally, no wheeze, no rhonchi, breath sounds equal. HEART: Distant heart tones, rhythm seems regular, no obvious murmur, normal rate. ABDOMEN: Soft, nontender, bowel sounds positive, no peritonitis. EXTREMITIES: No cyanosis or edema, full range of motion of all the joints withou t pain or difficulty, no signs for acute trauma. NEUROLOGIC: Awake, confused, moves all extremities on command. No focal extremity deficit found. No speech slur. SKIN: No rash, no jaundice, no diaphoresis. DIFFERENTIAL DIAGNOSIS: Infection, dehydration, UTI, renal or liver failure, metabolic abnormality, hypo/hyperglycemia, electrolyte disturbance, anemia, hypoxia, cardiac sources, intracerebral event, toxicologic issues, stroke, TIA, as well as other pathologies. EMERGENCY DEPARTMENT COURSE/PROCEDURES: ECG: Indication was weakness. The ECG shows a sinus rhythm with a rate of 61. There is significant baseline artifact. There is no ST elevation, no PVCs. The QTc is 414. Continuous Cardiac Monitoring: An order was placed for continuous cardiac monitoring. The monitor shows a rate of 60 with normal sinus rhythm. Critical Care Note: I have personally spent 36 minutes of critical care time in the direct management of this patient. This includes bedside care, interpretation of diagnostic studies, and testing, discussion with consultants, patient, and family members, and other required patient management activities. This 36 minutes is in excess of all separately billable procedures. MEDICAL DECISION MAKING: There is no leukocytosis or concerning anemia. There is a normal platelet count. No renal failure. Magnesium was somewhat low. Lactic acid level is not not elevated making severe sepsis less likely. There were some elevated liver enzymes. The values were higher than her last laboratory draw. Ammonia level was not elevated. The patient appeared to be in a euthyroid state. ECG showed a sinus rhythm, no obvious ischemia. Cardiac enzyme testing x1 was not consistent with acute cardiac injury. Urinalysis showed some contamination, no obvious infection. COVID test returned negative. Abdominal and pelvis CT showed a pancreatic mass, no bowel obstruction or acute surgical process by CT imaging. Brain CT showed no acute bleed or mass-effect. Chest x-ray did not show pneumonia, no significant CHF. On exam, the patient was disoriented. She was moving all extremities. She appeared dehydrated. The patient received IV saline, 1 L. She was given IV magnesium. The patient remains disoriented. She has been sleeping most of the time while here in the ED. I spoke with the patient's power of compliance attorney. At this point, the cause for her change in mental status is unclear but further care in the hospital is certainly warranted. I did speak with case management. The on-call hospitalist has been consulted. Of note, the power of compliance attorney believes the patient may have been started on a new medication, he wonders if this is causing her mental status change. 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 POSSIBLY 2/2 STONES PER PT Thyroid nodule (~2009) 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 Urinary incontinence Vitamin D deficiency Surgical History H/O breast surgery H/O cervical spine surgery H/O lumbosacral spine surgery H/O reduction of closed fracture LEFT WRIST WITH PINNING History of lumpectomy LEFT History of total left hip arthroplasty (~09/2019) Hx of cholecystectomy Hx of total knee arthroplasty LEFT Family History Sister Diabetes Mother Cervical cancer Denies family history of Ovarian cancer Prostate cancer Breast cancer Lung cancer Colorectal cancer Social History Smoking Status: Never smoker Second Hand Exposure: No; Hx Alcohol Use: Yes Alcohol type: beer Hx Substance Use: No Preferred Language: German Communication Ability: Effective Visual Impairment: Limited Hearing Ability: Use of Hearing Aid Supply Chain Tech Required: No Beliefs That Will Affect Care: None marital status: Unknown Current Living Situation: Family Current Living Situation Comment: with sister 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 How many Children do You have: 0 Feels Safe at Home: Yes Childhood Exposure to Second-Hand Smoke: Yes Diet Comment: watching calories caffeine: Yes Dental Care, Regularly: No Physical Activity Frequency: Does not Exercise Seatbelt Use: always Sunscreen Use: Yes Do you think of yourself as: straight/heterosexual Assistive Devices: Walker Allergies Allergies Allergy/AdvReac Type Severity Reaction Status Date / Time calcium AdvReac Severe CAUSES Verified 03/13/22 17:53 KIDNEY STONES oxycodone AdvReac Mild "Made me Verified 03/13/22 17:53 higher than a kite" Home Meds Home Medications Medication Instructions Recorded Confirmed cholecalciferol (vitamin D3) 25 1,000 units PO HS cap 05/08/19 03/13/22 mcg (1,000 unit) capsule gabapentin 100 mg capsule 100 mg PO BID cap 08/16/21 03/13/22 baclofen 10 mg tablet 10 mg PO BID 03/12/22 03/13/22 potassium chloride 10 mEq 10 meq PO DAILY 03/12/22 03/13/22 tablet,extended release tramadol 50 mg tablet 50 mg PO Q8H PRN 03/12/22 03/13/22 Previous Rx's Medication Instructions Recorded duloxetine 60 mg capsule,delayed 60 mg PO HS #90 cap 05/04/21 release levothyroxine 25 mcg tablet 25 mcg PO QAM #90 tab 06/26/21 metoprolol tartrate 25 mg tablet 25 mg PO BID #180 tab 08/22/21 pravastatin 10 mg tablet 10 mg PO DAILY #90 tab 08/22/21 oxybutynin chloride 5 mg tablet 5 mg PO QPM #30 tab 01/08/22 metformin 500 mg 24 hr 500 mg PO QPM #90 tab 01/22/22 tablet,extended release amiodarone 200 mg tablet 400 mg PO BID #66 tab 03/07/22 apixaban 5 mg tablet (Eliquis) 5 mg PO BID #180 tab 03/07/22 losartan 25 mg tablet 25 mg PO QAM #30 tab 03/07/22 pantoprazole 40 mg tablet,delayed 40 mg PO BID #60 tab 03/07/22 release Wheeled Walker #1 ea 03/12/22 Results & Data (ED) Vital Signs Vital Signs - 24 hr 03/13/22 15:27 03/13/22 15:34 03/13/22 15:51 Temperature 36.9 C 36.9 C Temperature Source Oral Oral Pulse Rate 59 L Pulse Rate [Finger] 60 Pulse Rhythm Regular Pulse Rhythm [Finger] Regular Pulse Strength Normal Pulse Strength [Finger] Normal Respiratory Rate 24 20 Respiratory Effort / Characteristics Non-Labored Spontaneous Non-Labored Spontaneous Respiratory Depth Normal Normal Respiratory Pattern Regular Regular Blood Pressure 217/82 H Blood Pressure [Right Arm] 217/82 H Blood Pressure Mean 127 Blood Pressure Mean [Right Arm] 127 Blood Pressure Position Lying Blood Pressure Position [Right Arm] Lying Pulse Oximetry 94 97 95 Oxygen Delivery Method Room Air Room Air Room Air Sepsis Recent Fever Within 48 Hours No Sepsis New/Unexplained Change in Mental Status No Sepsis Action Taken by Nursing No Action Required Home Medications Current Medication List: was personally reviewed by me Laboratory Data Attestation: I reviewed the patient's lab results. Result diagrams: 03/13/22 15:42 03/13/22 15:42 Lab Results 03/13/22 03/13/22 03/13/22 Range/Units 15:26 15:42 15:42 WBC 4.55 L (4.8-10.8) K/uL RBC 3.85 L (4.2-5.4) M/uL Hgb 12.1 (12.0-16.0) g/dL Hct 36.4 L (37-47) % MCV 94.5 (80-100) fL MCH 31.4 (25-34) pg MCHC 33.2 (32-36) g/dL RDW Std Deviation 47.6 H (36.4-46.3) fL RDW Coeff of Marii 13.8 (11.5-14.5) % Plt Count 268 (130-400) K/uL MPV 11.7 H (7.4-10.4) fL Immature Gran % (Auto) 0.2 % Neut % (Auto) 41.7 % Lymph % (Auto) 47.3 % [place] % (Auto) 8.8 % Eos % (Auto) 1.8 % Baso % (Auto) 0.2 % Neut # (Auto) 1.90 (1.4-6.5) K/uL Lymph # (Auto) 2.15 (1.2-3.4) K/uL [place] # (Auto) 0.40 (0.11-0.59) K/uL Eos # (Auto) 0.08 (0-0.5) K/uL Baso # (Auto) 0.01 (0-0.2) K/uL Immature Gran # (Auto) 0.01 (0.00-0.02) K/uL Sodium 140 (136-145) mmol/L Potassium 4.0 (3.5-5.1) mmol/L Chloride 104 (98-107) mmol/L Carbon Dioxide 29 (21-32) mmol/L Anion Gap 7 (3-11) BUN 13 (6-23) mg/dl Creatinine 0.84 (0.6-1.2) mg/dl Est Cr Clr Drug Dosing 66.0 ml/min Est GFR ( Amer) 78.8 ml/min Est GFR (Non-Af Amer) 68.0 ml/min BUN/Creatinine Ratio 15.5 (10-20) Glucose 135 H (70-99(Fasting)) mg/dl POC Glucose 133 H (70-99) mg/dl Lactate (0.4-2.0) mmol/L Calcium 10.1 (8.5-10.1) mg/dl Magnesium 1.6 L (1.7-2.4) mg/dl Total Bilirubin 2.0 H D (0.2-1.0) mg/dl AST 843 H (13-39) U/L ALT 408 H (7-52) U/L Alkaline Phosphatase 468 H (34-104) U/L Ammonia (18-72) umol/L Total Creatine Kinase 40 (26-192) U/L Troponin I High Sens 11.1 D (0-14) pg/ml Total Protein 7.1 (6.0-8.3) gm/dl Albumin 3.3 L (3.4-5.0) gm/dl Globulin 3.8 (2.5-4.0) gm/dl Albumin/Globulin Ratio 0.9 (0.9-2) TSH (0.300-4.500) uIu/ml Urine Color Urine Appearance (Clear) Urine pH (4.5-7.5) Ur Specific Lyons (1.000-1.030) Urine Protein (Negative) Urine Glucose (UA) (Negative) Urine Ketones (Negative) Urine Blood (Negative) Urine Nitrite (Negative) Urine Bilirubin (Negative) Urine Urobilinogen (Negative) Ur Leukocyte Esterase (Negative) Urine WBC (Auto) (0-5) /hpf Urine RBC (Auto) (0-4) /hpf U Hyaline Cast (Auto) (0-5) /lpf U Epithel Cells (Auto) (0-5) /lpf Urine Bacteria (Auto) (Negative) SARS-CoV-2, RNA, NAAT (NEGATIVE) 03/13/22 03/13/22 03/13/22 Range/Units 15:42 17:09 18:03 WBC (4.8-10.8) K/uL RBC (4.2-5.4) M/uL Hgb (12.0-16.0) g/dL Hct (37-47) % MCV (80-100) fL MCH (25-34) pg MCHC (32-36) g/dL RDW Std Deviation (36.4-46.3) fL RDW Coeff of Marii (11.5-14.5) % Plt Count (130-400) K/uL MPV (7.4-10.4) fL Immature Gran % (Auto) % Neut % (Auto) % Lymph % (Auto) % [place] % (Auto) % Eos % (Auto) % Baso % (Auto) % Neut # (Auto) (1.4-6.5) K/uL Lymph # (Auto) (1.2-3.4) K/uL [place] # (Auto) (0.11-0.59) K/uL Eos # (Auto) (0-0.5) K/uL Baso # (Auto) (0-0.2) K/uL Immature Gran # (Auto) (0.00-0.02) K/uL Sodium (136-145) mmol/L Potassium (3.5-5.1) mmol/L Chloride (98-107) mmol/L Carbon Dioxide (21-32) mmol/L Anion Gap (3-11) BUN (6-23) mg/dl Creatinine (0.6-1.2) mg/dl Est Cr Clr Drug Dosing ml/min Est GFR ( Amer) ml/min Est GFR (Non-Af Amer) ml/min BUN/Creatinine Ratio (10-20) Glucose (70-99(Fasting)) mg/dl POC Glucose (70-99) mg/dl Lactate (0.4-2.0) mmol/L Calcium (8.5-10.1) mg/dl Magnesium (1.7-2.4) mg/dl Total Bilirubin (0.2-1.0) mg/dl AST (13-39) U/L ALT (7-52) U/L Alkaline Phosphatase (34-104) U/L Ammonia 34.0 (18-72) umol/L Total Creatine Kinase (26-192) U/L Troponin I High Sens (0-14) pg/ml Total Protein (6.0-8.3) gm/dl Albumin (3.4-5.0) gm/dl Globulin (2.5-4.0) gm/dl Albumin/Globulin Ratio (0.9-2) TSH 1.359 (0.300-4.500) uIu/ml Urine Color Urine Appearance (Clear) Urine pH (4.5-7.5) Ur Specific Lyons (1.000-1.030) Urine Protein (Negative) Urine Glucose (UA) (Negative) Urine Ketones (Negative) Urine Blood (Negative) Urine Nitrite (Negative) Urine Bilirubin (Negative) Urine Urobilinogen (Negative) Ur Leukocyte Esterase (Negative) Urine WBC (Auto) (0-5) /hpf Urine RBC (Auto) (0-4) /hpf U Hyaline Cast (Auto) (0-5) /lpf U Epithel Cells (Auto) (0-5) /lpf Urine Bacteria (Auto) (Negative) SARS-CoV-2, RNA, NAAT NEGATIVE (NEGATIVE) 03/13/22 03/13/22 Range/Units 18:42 20:27 WBC (4.8-10.8) K/uL RBC (4.2-5.4) M/uL Hgb (12.0-16.0) g/dL Hct (37-47) % MCV (80-100) fL MCH (25-34) pg MCHC (32-36) g/dL RDW Std Deviation (36.4-46.3) fL RDW Coeff of Marii (11.5-14.5) % Plt Count (130-400) K/uL MPV (7.4-10.4) fL Immature Gran % (Auto) % Neut % (Auto) % Lymph % (Auto) % [place] % (Auto) % Eos % (Auto) % Baso % (Auto) % Neut # (Auto) (1.4-6.5) K/uL Lymph # (Auto) (1.2-3.4) K/uL [place] # (Auto) (0.11-0.59) K/uL Eos # (Auto) (0-0.5) K/uL Baso # (Auto) (0-0.2) K/uL Immature Gran # (Auto) (0.00-0.02) K/uL Sodium (136-145) mmol/L Potassium (3.5-5.1) mmol/L Chloride (98-107) mmol/L Carbon Dioxide (21-32) mmol/L Anion Gap (3-11) BUN (6-23) mg/dl Creatinine (0.6-1.2) mg/dl Est Cr Clr Drug Dosing ml/min Est GFR ( Amer) ml/min Est GFR (Non-Af Amer) ml/min BUN/Creatinine Ratio (10-20) Glucose (70-99(Fasting)) mg/dl POC Glucose (70-99) mg/dl Lactate 0.8 (0.4-2.0) mmol/L Calcium (8.5-10.1) mg/dl Magnesium (1.7-2.4) mg/dl Total Bilirubin (0.2-1.0) mg/dl AST (13-39) U/L ALT (7-52) U/L Alkaline Phosphatase (34-104) U/L Ammonia (18-72) umol/L Total Creatine Kinase (26-192) U/L Troponin I High Sens (0-14) pg/ml Total Protein (6.0-8.3) gm/dl Albumin (3.4-5.0) gm/dl Globulin (2.5-4.0) gm/dl Albumin/Globulin Ratio (0.9-2) TSH (0.300-4.500) uIu/ml Urine Color Dark Yellow Urine Appearance Clear (Clear) Urine pH 5.5 (4.5-7.5) Ur Specific Lyons 1.015 (1.000-1.030) Urine Protein Negative (Negative) Urine Glucose (UA) Negative (Negative) Urine Ketones Negative (Negative) Urine Blood Negative (Negative) Urine Nitrite Negative (Negative) Urine Bilirubin 1+ H (Negative) Urine Urobilinogen Positive H (Negative) Ur Leukocyte Esterase Trace H (Negative) Urine WBC (Auto) 10-30 H (0-5) /hpf Urine RBC (Auto) 0-4 (0-4) /hpf U Hyaline Cast (Auto) 1-5 (0-5) /lpf U Epithel Cells (Auto) >30 H (0-5) /lpf Urine Bacteria (Auto) Negative (Negative) SARS-CoV-2, RNA, NAAT (NEGATIVE) Administered Medications Discontinued Medications Sodium Chloride (Nss) 500 mls @ 999 mls/hr IV .Q31M LUIS Stop: 06/21/22 16:30 Last Infusion: 03/13/22 17:43 Dose: 0 mls/hr Documented by: [id number] Admin: 03/13/22 16:09 Dose: 999 mls/hr Documented by: [id number] Sodium Chloride (Nss 1000ml) 500 mls @ 999 mls/hr IV .Q31M ONE Stop: 03/13/22 20:11 Last Admin: 03/13/22 20:17 Dose: 999 mls/hr Documented by: [id number] Magnesium Sulfate/Dextrose (Magnesium Sulfate / D5w) 1 gm in 100 mls @ 100 mls/hr IV NOW STA Stop: 03/13/22 21:17 Last Admin: 03/13/22 21:30 Dose: 100 mls/hr Documented by: [id number] Ioversol (Optiray 320 100ml) 94 ml IV ONCE ONE Stop: 03/13/22 19:32 Last Admin: 03/13/22 19:31 Dose: 94 ml Documented by: [id number] Imaging Data Radiologist's Impression: Head CT 03/13/22 15:50 CT head/brain wo con CLINICAL HISTORY: confusion Technique: Contiguous axial CT images of the head were acquired from the base of the skull to the vertex without intravenous contrast administration. Images were viewed in brain, subdural and bone windows. Automated dose lowering techniques and/or adjustment according to patient size were utilized for this exam. Comparison: Comparison is made to CT head 03/03/2022 Findings: Areas of decreased attenuation are present in the periventricular and subcortical white matter bilaterally consistent with small vessel ischemic disease. Generalized cerebral atrophy with commensurate enlargement of the ventricles, sulci, and cisterns is also present. There is no acute intracranial hemorrhage or evidence of acute territorial infarction. No shift of the midline structures, mass effect, or extra-axial abnormalities are shown. Atherosclerotic calcifications are present in the intracranial segments of the internal carotid arteries. 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 Right maxillary sinus opacification is seen. The orbits appear normal. There are no acute fractures of the calvaria or scalp swelling. Impression: No acute intracranial hemorrhage, no evidence of acute territorial infarction or other acute intracranial disease process. ACT 112: Negative or not required by law. Electronically signed by: Ankit Angelo M.D. 03/13/2022 4:28 PM Chest X-Ray 03/13/22 15:51 XR chest 1V portable CLINICAL HISTORY: weakness TECHNIQUE: Single frontal radiograph of the chest was obtained. Comparison: Comparison is made to chest radiograph 02/27/2022 FINDINGS: No lines and tubes are seen. Cardiomegaly is noted. Prominence and cephalization of the vasculature is seen. No evidence of pleural effusion or pneumothorax. Redemonstration of cervical fixation hardware. IMPRESSION: Clinical megaly with mild pulmonary edema. ACT 112: Negative or not required by law. Electronically signed by: Ankit Angelo M.D. 03/13/2022 4:22 PM Abdomen/Pelvis CT 03/13/22 19:10 CT OF THE ABDOMEN AND PELVIS WITH CONTRAST CLINICAL HISTORY: Elevated liver enzymes. COMPARISON STUDY: CT of the abdomen and pelvis February 22, 2022. TECHNIQUE: Following IV administration of 94 mL of Optiray, axial images of the abdomen and pelvis were obtained from the lung bases to the proximal femurs. Images were reviewed in the axial, sagittal, and coronal planes. IV contrast was administered without complication. Automated exposure control was utilized for the study. A dose lowering technique was utilized adhering to the principles of ALARA. CT DOSE: 1558.92 mGy.cm FINDINGS: No pneumatosis, free air or portal venous gas is present. There is mild intrahepatic biliary ductal dilatation. Although the caliber of the common bile duct is normal, there is abrupt caliber change of the distal common bile duct shown on axial image 157 of 501. Note is again made of a pancreatic head and neck mass that measures 5 x 4.1 cm. This is similar to CT of February 22, 2022. Adjacent infiltrative soft tissue is noted. This extends along the celiac axis and superior mesenteric artery. This also extends toward the lesser curvature of the stomach with suspected underlying fistula. Pancreatic ductal dilatation is unchanged. The appearance of the abdomen is similar to CT of February 22, 2022. No hepatic lesions are identified. A bandlike hypodensity within the medial segment of the liver is slightly less conspicuous than on prior exam. Spleen, adrenal glands and right kidney are unremarkable. Marked left renal atrophy is again noted. Is no hydronephrosis. There is no evidence for a bowel obstruction. Moder ate amount stool within the rectum is noted. Left hip arthroplasty is noted. There are no suspicious lesions within the visualized skeletal structures. IMPRESSION: 1. No significant change in the infiltrative hypodense mass within the pancreatic head and neck since CT of February 22, 2022. Associated pancreatic ductal dilatation. Mild intrahepatic biliary ductal dilatation. This is suggestive of pancreatic adenocarcinoma. Associated infiltrative soft tissue consistent with tumor along the celiac axis and superior mesenteric artery and extending toward the lesser curvature of the stomach with suspected underlying fistula. 2. No bowel obstruction. 3. No significant change since prior CT. ACT 112: Negative or not required by law. Electronically signed by: Jeremi Delgado M.D. 03/13/2022 8:11 PM Discharge Plan Visit Data Chief Complaint: Altered Mental Status ED Provider: Ken Gore Discharge Problem: Altered mental status, Mass of pancreas, Elevated liver enzymes, Acute dehydration Patient Disposition: Admitted As Inpatient Condition: Fair Forms Stand Alone Forms: [facility] [place] Prescriptions Prescriptions: No Action duloxetine 60 mg capsule,delayed release(DR/EC) 60 mg PO HS Qty: 90 RF: 3 levothyroxine 25 mcg tablet 25 mcg PO QAM Qty: 90 RF: 1 oxybutynin chloride 5 mg tablet 5 mg PO QPM Qty: 30 RF: 1 metformin 500 mg tablet,ER chicho.retention 24 hr 500 mg PO QPM Qty: 90 RF: 1 cholecalciferol (vitamin D3) 1,000 unit capsule 1,000 units PO HS RF: 0 gabapentin 100 mg capsule 100 mg PO BID RF: 0 pravastatin 10 mg tablet 10 mg PO DAILY Qty: 90 RF: 3 metoprolol tartrate 25 mg tablet 25 mg PO BID Qty: 180 RF: 3 potassium chloride 10 mEq tablet extended release 10 meq PO DAILY RF: 0 baclofen 10 mg tablet 10 mg PO BID RF: 0 tramadol 50 mg tablet 50 mg PO Q8H PRN (Reason: Pain) RF: 0 (DME) Wheeled Walker Misc See Rx Instructions .Route Qty: 1 RF: 0 amiodarone 200 mg Tablet 400 mg PO BID Qty: 66 RF: 0 pantoprazole 40 mg Tablet,Delayed Release (Dr/Ec) 40 mg PO BID Qty: 60 RF: 0 losartan 25 mg Tablet 25 mg PO QAM Qty: 30 RF: 0 Eliquis 5 mg tablet 5 mg PO BID Qty: 180 RF: 0 Referrals Referrals: Tyler Ramirez DO [Primary Care Provider] -
[2022-03-13 16:12] LABS: Basophils # (auto) 0.01 K/uL (0-0.2); Basophils % (auto) 0.2 %; Eosinophils # (auto) 0.08 K/uL (0-0.5); Eosinophils % (auto) 1.8 %; Hematocrit (blood only) 36.4 % (37-47); Hemoglobin 12.1 g/dL (12.0-16.0); Immature Granulocytes # (auto) 0.01 K/uL (0.00-0.02); Immature Granulocytes % (auto) 0.2 %; Lymphocytes # (auto) 2.15 K/uL (1.2-3.4); Lymphocytes % (auto) 47.3 %; Mean Corpuscular Hemoglobin 31.4 pg (25-34); Mean Corpuscular Hgb Conc 33.2 g/dL (32-36); Mean Corpuscular Volume 94.5 fL (80-100); Mean Platelet Volume 11.7 fL (7.4-10.4); Monocytes % (auto) 8.8 %; Neutrophils % (auto) 41.7 %; Platelet Count 268 K/uL (130-400); RDW Coefficient of Variation 13.8 % (11.5-14.5); RDW Standard Deviation 47.6 fL (36.4-46.3); Red Blood Count 3.85 M/uL (4.2-5.4); White Blood Count 4.55 K/uL (4.8-10.8)
--- NOTE | 2022-03-13 16:25 | XRay Report ---
XR chest 1V portable CLINICAL HISTORY: weakness TECHNIQUE: Single frontal radiograph of the chest was obtained. Comparison: Comparison is made to chest radiograph 02/27/2022 FINDINGS: No lines and tubes are seen. Cardiomegaly is noted. Prominence and cephalization of the vasculature i s seen. No evidence of pleural effusion or pneumothorax. Redemonstration of cervical fixation laila means IMPRESSION: Clinical megaly with mild pulmonary edema. ACT 112: Negative or not required by law. Electronically signed by: Ankit Angelo M.D. 03/13/2022 4:22 PM
--- NOTE | 2022-03-13 16:29 | CT Scan Report ---
CT head/brain wo con CLINICAL HISTORY: confusion Technique: Contiguous axial CT images of the head were acquired from the base of the skull to the milagros perri without intravenous contrast administration. Images were viewed in brain, subdural and [facility]. Automated dose lowering techniques and/or adjustment according to patient size were utilized for this exam. Comparison: Comparison is made to CT head 03/03/2022 Findings: Areas of decreased attenuation are present in the periventricular and subcortical white matter bilate rally consistent with small vessel ischemic disease. Generalized cerebral atrophy with commensurate e nlargement of the ventricles, sulci, and cisterns is also present. There is no acute intracranial hem orrhage or evidence of acute territorial infarction. No shift of the midline structures, mass effect, or extra-axial abnormalities are shown. Atherosclerotic calcifications are present in the intracran ial segments of the internal carotid arteries. 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 Right maxillary sinus opacification is seen. The orbits appear normal. There are no acute fractures of the calvaria or scalp swelling. Impression: No acute intracranial hemorrhage, no evidence of acute territorial infarction or other acute intracra nial disease process. ACT 112: Negative or not required by law. Electronically signed by: Ankit Angelo M.D. 03/13/2022 4:28 PM
--- NOTE | 2022-03-13 16:30 | Electrocardiogram Report ---
Test Reason : Blood Pressure : / mmHG Vent. Rate : 061 BPM Atrial Rate : 051 BPM P-R Int : 000 ms QRS Dur : 066 ms QT Int : 412 ms P-R-T Axes : 000 019 035 degrees QTc Int : 414 ms Poor data quality, interpretation may be adversely affected Sinus rhythm Nonspecific ST abnormality Abnormal ECG When compared with ECG of 27-FEB-2022 10:31, Significant changes have occurred Confirmed by Santiago Shirley ([id number]) on 03/13/2022 4:30:00 PM Referred By: REFERRED SELF Confirmed By:Santiago Shirley
[2022-03-13 16:36] LABS: Troponin I High Sensitivity 11.1 pg/ml (0-14)
[2022-03-13 18:51] LABS: Albumin Globulin Ratio 0.9 (0.9-2); Albumin Level 3.3 gm/dl (3.4-5.0); BUN Creatinine Ratio 15.5 (10-20); Calcium 10.1 mg/dl (8.5-10.1); Est GFR (African American) 78.8 ml/min; Globulin 3.8 gm/dl (2.5-4.0); Magnesium 1.6 mg/dl (1.7-2.4); Total Protein 7.1 gm/dl (6.0-8.3)
[2022-03-13 19:06] LABS: Appearance Urine Clear (Clear); Bacteria Urine Automated Negative (Negative); Blood Urine Negative (Negative); Color Urine Dark Yellow; Epithelial Cell Urine Auto >30 /lpf (0-5); Glucose Urine UA Negative (Negative); Ketones Urine Negative (Negative); Leukocyte Esterase Urine Trace (Negative); Nitrite Urine Negative (Negative); Protein Urine Negative (Negative); RBC Urine Automated 0-4 /hpf (0-4); Specific Gravity Urine 1.015 (1.000-1.030); Urobilinogen Urine Positive (Negative); pH Urine 5.5 (4.5-7.5)
[2022-03-13 19:08] LABS: Bilirubin Urine 1+ (Negative)
[2022-03-13] MEDS ORDERED: OPTIRAY 320 100ml IV ONE (19:31)
[2022-03-13] MEDS ORDERED: SODIUM CHLORIDE 0.9% 1000ML 500 ML IV ONE (19:41)
--- NOTE | 2022-03-13 20:13 | CT Scan Report ---
CT OF THE ABDOMEN AND PELVIS WITH CONTRAST CLINICAL HISTORY: Elevated liver enzymes. COMPARISON STUDY: CT of the abdomen and pelvis February 22, 2022. TECHNIQUE: Following IV administration of 94 mL of Optiray, axial images of the abdomen and pelvis we re obtained from the lung bases to the proximal femurs. Images were reviewed in the axial, sagittal, and coronal planes. IV contrast was administered without complication. Automated exposure control wa s utilized for the study. A dose lowering technique was utilized adhering to the principles of ALARA . CT DOSE: 1558.92 mGy.cm FINDINGS: No pneumatosis, free air or portal venous gas is present. There is mild intrahepatic biliar y ductal dilatation. Although the caliber of the common bile duct is normal, there is abrupt caliber change of the distal common bile duct shown on axial image 157 of 501. Note is again made of a pancre atic head and neck mass that measures 5 x 4.1 cm. This is similar to CT of February 22, 2022. Adjacent inf iltrative soft tissue is noted. This extends along the celiac axis and superior mesenteric artery. Th is also extends toward the lesser curvature of the stomach with suspected underlying fistula. Pancrea tic ductal dilatation is unchanged. The appearance of the abdomen is similar to CT of February 22, 2022. N o hepatic lesions are identified. A bandlike hypodensity within the medial segment of the liver is sl ightly less conspicuous than on prior exam. Spleen, adrenal glands and right kidney are unremarkable. Marked left renal atrophy is again noted. Is no hydronephrosis. There is no evidence for a bowel obs truction. Moderate amount stool within the rectum is noted. Left hip arthroplasty is noted. There are no suspicious lesions within the visualized skeletal structures. IMPRESSION: 1. No significant change in the infiltrative hypodense mass within the pancreatic head and neck since CT of February 22, 2022. Associated pancreatic ductal dilatation. Mild intrahepatic biliary ductal dilata tion. This is suggestive of pancreatic adenocarcinoma. Associated infiltrative soft tissue consistent with tumor along the celiac axis and superior mesenteric artery and extending toward the lesser curv ature of the stomach with suspected underlying fistula. 2. No bowel obstruction. 3. No significant change since prior CT. ACT 112: Negative or not required by law. Electronically signed by: Jeremi Delgado M.D. 03/13/2022 8:11 PM
[2022-03-13] MEDS ORDERED: MAGNESIUM SULFATE / D5W 1 GM/100 ML BAG IV STA (20:18)
--- NOTE | 2022-03-13 21:37 | History & Physical Report ---
Date of Service March 13, 2022 Assessment & Plan (1) Encephalopathy acute: (2) Transaminitis: (3) Mass of pancreas: (4) Type 2 diabetes mellitus: (5) Hypertension: (6) Hypothyroidism: (7) Hyperlipidemia: (8) Paroxysmal atrial fibrillation: Plan: 76-year-old female past medical history significant for paroxysmal AFib, DM2, HTN, HFpEF, HLD, hypothyroidism, newly diagnosed pancreatic mass with suspicion for pancreatic cancer admitted for altered mental status and acute transaminitis with concern for biliary stricture. Encephalopathy: Presents with worsening of mental status from home. Differentials include infectious, hypertensive, medication induced, brain metastases. Ammonia level normal. CT head without acute intracranial pathology; will order MRI brain to rule out brain metastasis. Possible that patient has GI infection secondary to biliary stasis, will start Zosyn empirically at this time. Blood cultures pending. BP 217/82 in ER, continue losartan daily with Lopressor 5 mg IV as needed for BP higher than 180/100. Baclofen and Tramadol held; possible that these medications are worsening her mental status. Will also hold gabapentin and Cymbalta for now. Pancreatic mass, transaminitis: Patient with recently diagnosed history of pancreatic head/tail mass with mildly elevated LFTs at last admit 1 week ago. Patient is status post EUS and pancreatic biopsy, unfortunately however biopsy was inconclusive. Today with acute significant worsening of LFTs and alk phos concerning for biliary stricture. Consult placed to gastroenterology for consideration of ERCP with biliary stenting. NPO at midnight for possible procedure. AFib: Recently started on amiodarone and Eliquis for AFib with RVR last admission. Will hold Eliquis in favor of heparin gtt in the event of procedure tomorrow. Will continue amiodarone for AFib given recent RVR, as do not suspect this is causing transaminitis given very recent initiation of medication. DM2: SSI while NPO. GERD: Continue pantoprazole. Hypothyroidism: Continue home levothyroxine. Hypomagnesemia: Mg 1.6 on admission, will give Mg Sulfate 4g IV. Code Status: CONDITIONAL CODE; no chest compressions, no intubation/artificial ventilation; defibrillation and medications okay FEN: NPO with NSS at 125cc/hr DVT ppx: Heparin gtt Dispo: PCU for close monitoring given obtundation History of Present Illness Chief Complaint: altered mental status Primary Care Provider: Tyler Ramirez DO 76-year-old female past medical history significant for paroxysmal AFib, DM2, HTN, HFpEF, HLD, hypothyroidism, newly diagnosed pancreatic mass with suspicion for pancreatic cancer presented to the ER due to continued worsening of mental status at home. Patient was recently discharged on 03/07 for A. fib with RVR and during that admission also had EUS with biopsy of pancreatic head mass. Unfortunately, pathology on pancreatic mass was inconclusive but consideration of biliary stent was proposed if needed in the future for biliary decompression. Prior to 03/11 patient was closer to her baseline with regard to functional status, however at 03/11 visit was noted by PCP to have some increased confusion. Family member in the room today reports that this has continued to get worse and when attempt was made to get her out of bed today she had rigid posture and was not really responding well to questions. ER evaluation included lab work which showed new worsening transaminitis with T bili of 2.0, AST 843, ALT 408, alk phos 468 (significant elevation from lab work yesterday). Ammonia level normal, TSH normal, UA not suggestive of infection, COVID-negative. CTAP performed today which did not show any change in size of pancreatic head/neck mass, however did note pancreatic and intrahepatic biliary ductal dilatation, and possible underlying fistula. Chest x-ray with mild pulmonary edema, no pneumonia. Head CT without acute intracranial hemorrhage or other acute intracranial process. Due to patient's altered mental status hospitalist service was consulted for admission. Due to mental status patient was only able to answer simple questions, but denied chest pain, trouble breathing, abdominal pain, headache. She was able to tell me her name and that she was at the hospital, but she was not sure why. Family member in the room reports that decision has been made to pursue custodial care for Cristina given inability to care for her at home. On review of medication list, baclofen and tramadol are listed however unable to verify these medications, except for that they appear to have a start date of 03/12. Allergies Allergy/AdvReac Type Severity Reaction Status Date / Time calcium AdvReac Severe CAUSES Verified 03/13/22 17:53 KIDNEY STONES oxycodone AdvReac Mild "Made me Verified 03/13/22 17:53 higher than a kite" Home Medications Medication Instructions Recorded Confirmed Type cholecalciferol (vitamin D3) 25 1,000 units PO HS cap 05/08/19 03/13/22 History mcg (1,000 unit) capsule duloxetine 60 mg capsule,delayed 60 mg PO HS #90 cap 05/04/21 03/13/22 Rx release levothyroxine 25 mcg tablet 25 mcg PO QAM #90 tab 06/26/21 03/13/22 Rx gabapentin 100 mg capsule 100 mg PO BID cap 08/16/21 03/13/22 History metoprolol tartrate 25 mg tablet 25 mg PO BID #180 tab 08/22/21 03/13/22 Rx pravastatin 10 mg tablet 10 mg PO DAILY #90 tab 08/22/21 03/13/22 Rx oxybutynin chloride 5 mg tablet 5 mg PO QPM #30 tab 01/08/22 03/13/22 Rx metformin 500 mg 24 hr 500 mg PO QPM #90 tab 01/22/22 03/13/22 Rx tablet,extended release amiodarone 200 mg tablet 400 mg PO BID #66 tab 03/07/22 03/13/22 Rx apixaban 5 mg tablet (Eliquis) 5 mg PO BID #180 tab 03/07/22 03/13/22 Rx losartan 25 mg tablet 25 mg PO QAM #30 tab 03/07/22 03/13/22 Rx pantoprazole 40 mg tablet,delayed 40 mg PO BID #60 tab 03/07/22 03/13/22 Rx release Wheeled Walker #1 ea 03/12/22 03/13/22 Rx baclofen 10 mg tablet 10 mg PO BID 03/12/22 03/13/22 History potassium chloride 10 mEq 10 meq PO DAILY 03/12/22 03/13/22 History tablet,extended release tramadol 50 mg tablet 50 mg PO Q8H PRN 03/12/22 03/13/22 History Past Med/Surg History Medical History Cataract Chronic anticoagulation Clavicle fracture 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 POSSIBLY 2/2 STONES PER PT Thyroid nodule (~2009) 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 Urinary incontinence Vitamin D deficiency Surgical History H/O breast surgery H/O cervical spine surgery H/O lumbosacral spine surgery H/O reduction of closed fracture LEFT WRIST WITH PINNING History of lumpectomy LEFT History of total left hip arthroplasty (~09/2019) Hx of cholecystectomy Hx of total knee arthroplasty LEFT Family History Sister Diabetes Mother Cervical cancer Denies family history of Ovarian cancer Prostate cancer Breast cancer Lung cancer Colorectal cancer Social History Smoking Status: Never smoker Second Hand Exposure: No; Do You Dip or Chew Tobacco: No; Tobacco Cessation Education Requested by Patient: No Hx Alcohol Use: Yes Alcohol type: beer Hx Substance Use: No Preferred Language: Albanian Communication Ability: Impaired Communication Ability Comment: follows commands, oriented to person only Visual Impairment: Limited Hearing Ability: Use of Hearing Aid Portal Architect Required: No Beliefs That Will Affect Care: None marital status: Unknown Current Living Situation: Alone Current Living Situation Comment: with sister 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 How many Children do You have: 0 Feels Safe at Home: Yes Childhood Exposure to Second-Hand Smoke: Yes Diet Comment: watching calories caffeine: Yes Dental Care, Regularly: No Physical Activity Frequency: Does not Exercise Seatbelt Use: always Sunscreen Use: Yes Do you think of yourself as: straight/heterosexual Assistive Devices: Glasses and Walker Review of Systems Review of Systems: Unobtainable due to cognitive status (except as described below) Constitutional: no fever Respiratory: no dyspnea Cardiovascular: no chest pain Gastrointestinal: no abdominal pain Physical Exam Constitutional: + ill appearing and + morbidly obese Eyes: PERRL, conjunctivae normal, anicteric sclerae ENMT: external ear and nose normal, oropharynx normal Neck: normal visual inspection Respiratory: normal respiratory effort, lungs clear to auscultation Cardiovascular: RRR, no murmur, no edema Gastrointestinal (Abdomen): normal bowel sounds, soft, nontender, no hepatosplenomegaly Musculoskeletal: no cyanosis or clubbing Skin: no rashes, warm and dry Neurologic: Arousable to voice Alert and oriented to name Brannon to tell me who her family member is, but difficulty with answering more complex questions (ex: what is 2+3) Results & Data Results & Data ([place]) Vital Signs (Past 12 Hours) Vital Signs Temp Pulse Pulse Resp BP BP Pulse Ox 03/13/22 15:51 95 03/13/22 15:34 36.9 C 60 20 217/82 H 97 03/13/22 15:27 36.9 C 59 L 24 217/82 H 94 Supervising Physician Co-Signing Physician Notes Attending addendum: I have physically seen this patient, have supervised the medical residents activities, and agree with the H&P unless as otherwise noted. Assessment and Plan: Altered mentation/encephalopathy- Differentials as noted CT head negative Order MRI brain to assess for possible metastases as cause Permissive hypertension until MRI completed with Lopressor IV as noted Pancreatic mass/tic transaminitis- Transaminases significantly worse since last week Placed on antibiotics toes as possible infectious over biliary obstruction because Consult gastroenterology for possible ERCP with palliative biliary stent Atrial fibrillation- Hold Eliquis, start a heparin drip for possible procedure tomorrow Continue amiodarone remaining orders and notations as noted Remaining orders and notations as noted Resident Activity Tracking Resident Involvement: Resident Care Provided Care Provided: Adult Hospital Medicine (1) Hypertension Hypertension type: primary hypertension Qualified Code(s): I10 - Essential (primary) hypertension
[2022-03-13] MEDS ORDERED: DEXTROSE 50% 50 ML SYRINGE IV PRN (23:30)
[2022-03-13] MEDS ORDERED: POLYETHYLENE (MIRALAX) 17 GM PACK PO PRN (23:30)
[2022-03-13] MEDS ORDERED: GLUCAGON FOR INJ 1 MG VIAL SQ PRN (23:30)
[2022-03-13] MEDS ORDERED: GLUCOSE 10 TAB/TUBE PO PRN (23:30)
[2022-03-13] MEDS ORDERED: GLUCOSE 40% GEL 15 GM TUBE PO PRN (23:30)
[2022-03-13] MEDS ORDERED: METOPROLOL TARTRATE 1 MG/ML VIAL IV PRN (23:30)
[2022-03-13] MEDS ORDERED: CARBOHYDRATES FOR HYPOGLYCEMIA PO PRN (23:30)
[2022-03-14] MEDS: ACETAMINOPHEN 325 MG TAB PO PRN (01:14)
[2022-03-14 01:49] LABS: Partial Thromboplastin Ratio 0.9; Partial Thromboplastin Time 25.4 Seconds (21.0-31.0)
[2022-03-14] MEDS ORDERED: PIPERACILLIN/TAZOBACTAM 4.5 GM in DEXTROSE 5% 100 ML IV ONE (02:00)
[2022-03-14] MEDS: HEPARIN SODIUM/DEXTROSE 25,000 UNITS/500 ML BAG IV SCH (02:23)
[2022-03-14] MEDS: Heparin IV Adult Wt-Based Low-Dose *NO* Bolus Protocol IV SCH ×2 (02:24→04:03)
[2022-03-14] MEDS: SODIUM CHLORIDE 0.9% 1000ML 1,000 ML IV SCH ×2 (02:24→10:55)
[2022-03-14] MEDS: MAGNESIUM SULFATE / D5W 1 GM/100 ML BAG IV SCH ×4 (02:26→08:23)
[2022-03-14] MEDS ORDERED: PNEUMOCOCCAL Polysaccharide Vaccine 25mcg/0.5mL vial/Syr IM ONE (02:45)
[2022-03-14] MEDS ORDERED: Nursing to Pharmacy Communication SCH (04:15)
[2022-03-14] MEDS: INSULIN ASPART PER UNIT SC SCH ×3 (06:15→17:11)
[2022-03-14] MEDS: LEVOTHYROXINE SODIUM 25 MCG TABLET PO SCH (06:17)
[2022-03-14] MEDS ORDERED: INSULIN ASPART PER UNIT SC SCH (07:30)
[2022-03-14] MEDS: LOSARTAN POTASSIUM 25 MG TAB PO SCH (08:11)
[2022-03-14] MEDS: PANTOprazole 40 MG TAB PO SCH ×2 (08:11→20:51)
[2022-03-14] MEDS: POTASSIUM CHLORIDE 10 MEQ TABCR PO SCH (08:11)
[2022-03-14] MEDS: METOPROLOL TARTRATE 25 MG TAB PO SCH ×2 (08:11→20:51)
[2022-03-14] MEDS: PRAVASTATIN SOD 10 MG TAB PO SCH (08:11)
[2022-03-14] MEDS: AMIODARONE 200 MG TAB PO SCH ×2 (08:11→20:50)
[2022-03-14] MEDS ORDERED: APIXABAN 5 MG TABLET PO SCH (09:00)
--- NOTE | 2022-03-14 09:03 | Medical Student Progress Note ---
Date of Service March 14, 2022 Assessment & Plan (1) Encephalopathy acute: Plan: Cristina is a 76-year-old woman with past medical history of breast cancer s/p lumpectomy, chemo and XRT (2008) paroxysmal A-fib, T2DM, HTN, HLD, hypothyroidism and newly diagnosed pancreatic mass suspicious for pancreatic cancer admitted for altered mental status and acute transaminitis w/ concern for biliary stricture. Encephalopathy: - confused this AM - Differentials include infectious, hypertensive, medication induced, brain metastases. - most likely 2/2 GI infection secondary to biliary stasis, started Zosyn empirically 03/13 - cultures pending - Ammonia level normal. - CT head 03/13: without acute intracranial pathology - MRI brain from 02/23 did not show brain mets - CXR 03/13: cardiomegaly, mild pulmonary edema - Baclofen, Tramadol, gabapentin, Cymbalta held; possible that these medications are worsening her mental status - chest CTA 02/22: pancreatic mass lesion encases hepatic/splenic arteries @ celiac bifurcation, low attenuation w/in anterior lobe, new from prior exams (concerning for steatosis or hepatic infarct), 13 mm enhancing nodule in interpolar L kidney, small neoplasm not excluded, R lobe thyroid mass unchanged Pancreatic mass, transaminitis: - Patient with recently diagnosed history of pancreatic head/tail mass with mildly elevated LFTs at last admit 1 week ago. - Patient is status post EUS and pancreatic biopsy 03/06, pancreatic biopsy was inconclusive. - CT abd/pelvis 03/13: pancreatic ductal dilatation, mild intrahepatic biliary ductal dilation suggestive of pancreatic adenocarcinoma. 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 toward lesser curve of stomach - Chest CTA 02/22: no mets in seen, pancreatic mass lesion encases hepatic/splenic arteries @ celiac bifurcation, low attenuation w/in anterior lobe, new from prior exams (concerning for steatosis or hepatic infarct) - acute significant worsening of LFTs and alk phos concerning for biliary stricture - AST: 189 (03/12)--> 843 (03/13) - ALT: 119 (03/12)--> 408 (03/13) - Alk phos: 311 (03/12)--> 468 (03/13) - GI consult: EUS w/ repeat sampling of pancreas mass and ERCP for decompression 03/15; NPO at midnight - heparin stopped 6 hours prior to procedures AFib: - Recently started on amiodarone and Eliquis for AFib with RVR last admission. - will hold Eliquis in favor of heparin gtt in the event of procedure 03/15 - Will continue amiodarone for AFib given recent RVR, as do not suspect this is causing transaminitis given very recent initiation of medication. - continue cardiac monitoring DM2: - SSI while NPO. HTN: - continue metoprolol 25 mg - 03/14 AM, BP trending down 159/67 HLD: - continue pravastatin Hypothyroidism: - Continue home levothyroxine - thyroid not tender on exam Hypomagnesemia, resolved: Code Status: CONDITIONAL CODE; no chest compressions, no intubation/artificial ventilation; defibrillation and medications okay FEN: full liquids PO, NPO @ midnight DVT ppx: Heparin gtt Dispo: PCU for close monitoring given obtundation (2) Mass of pancreas: (3) Elevated liver enzymes: (4) Paroxysmal atrial fibrillation: (5) Diabetes mellitus type 2, uncontrolled: (6) Hypomagnesemia: (7) Hypothyroidism: (8) Hypertension: Hypertension type: primary hypertension Qualified Code(s): I10 - Essential (primary) hypertension (9) Hyperlipidemia: Admission and Anticipated Discharge Date Admission Date: March 13, 2022 Supervising Attestation I personally examined the patient and verified all gonzales points of history and exam, discussed case, and agree with decision making with Antwan Borjas MS2 Very confused. No acute complaints. Somewhat aware she is in the hospital but not really sure why. No pain. Vitals noted, in general she is awake and alert but disoriented pleasant no distress. HEENT normocephalic atraumatic mucous membranes moist. Breathing unlabored no accessory muscle use good effort. Skin shows no rashes no pallor or icterus. Neuro without focal deficits. Abdomen soft no right upper quadrant tenderness. Altered mental statusdelirium/encephalopathylikely infectious, biliary obstructionZosyn, supportive care, time. Otherwise as above. Anticipate ERCP tomorrow. Reema Evans is a 76-year-old woman with past medical history of breast cancer s/p lumpectomy, chemo and XRT (2008) paroxysmal A-fib, T2DM, HTN, HLD, hypothyroidism and newly diagnosed pancreatic mass suspicious for pancreatic cancer admitted for altered mental status and acute transaminitis w/ concern for biliary stricture. She had no acute events overnight. She is still altered this morning and is unaware of why she is here. She does not remember the findings of a pancreatic mass. She is aware that she fell a few weeks ago and she was in the hospital. She knows that she is in the hospital and her name. She stated the year as 1998 and does not know who the president is. Patient did share that her sister probably knows "what is going on". This morning she reports nausea and burning mid-line epigastric pain and felt like she had to vomit. She denies headache, fever, chills, dizziness, changes to bowel or urinary habits, numbness or tingling, vision changes and weakness. She was unsure if she has had weight loss. Review of Systems Review of Systems: All systems reviewed & are unremarkable except as noted in HPI & below Constitutional: + weight loss (unsure); no fever, no chills, no body aches and no weakness Ear, Nose, Mouth, Throat: no dizziness Respiratory: no cough and no pain on inspiration Cardiovascular: no edema and no calf pain Gastrointestinal: + abdominal pain and + nausea; no dysphagia and no change in bowel habits Neurologic: + confusion and + memory loss; no tingling and no numbness Psychiatric: + confusion Hematologic / Lymphatic: no lymphadenopathy Physical Exam Constitutional: + ill appearing, + morbidly obese and + altered mental status; no acute distress Eyes: PERRL, conjunctivae normal, anicteric sclerae L eye was squeezed shut for the majority of the exam. Patient did not notice ENMT: external ear and nose normal, oropharynx normal Neck: normal visual inspection pt asked me to feel her thyroid, no tenderness, did not appreciate nodules on exam Respiratory: normal respiratory effort; no respiratory distress and no labored breathing Auscultation: + rales (b/l lower lobes) Cardiovascular: RRR, no murmur, no edema Heart Sounds: normal S1 and normal S2 Vessels: no JVD Extremities: normal capillary refill; no calf tenderness, no pedal edema and no edema Gastrointestinal (Abdomen): Inspection/Auscultation: abdomen normal to inspection and + hypoactive bowel sounds Percussion/Palpation: + abdomen tender (midline epigastric tenderness) and abdomen soft; no hepatosplenomegaly Musculoskeletal: no cyanosis or clubbing, extremities motor strength 5/5 Results & Data ([facility]) Vital Signs (Past 12 Hours) Vital Signs Temp Pulse Pulse Resp BP BP Pulse Ox 03/14/22 07:05 37.1 C 78 16 159/67 H 95 03/14/22 04:46 36.5 C 67 14 156/72 H 94 03/14/22 00:54 77 03/13/22 23:55 36.9 C 69 14 179/69 H 95 Laboratory Results Laboratory Results WBC 4.55 K/uL (4.8-10.8) L 03/13/22 15:42 RBC 3.85 M/uL (4.2-5.4) L 03/13/22 15:42 Hgb 12.1 g/dL (12.0-16.0) 03/13/22 15:42 Hct 36.4 % (37-47) L 03/13/22 15:42 MCV 94.5 fL (80-100) 03/13/22 15:42 MCH 31.4 pg (25-34) 03/13/22 15:42 MCHC 33.2 g/dL (32-36) 03/13/22 15:42 RDW Std Deviation 47.6 fL (36.4-46.3) H 03/13/22 15:42 RDW Coeff of Marii 13.8 % (11.5-14.5) 03/13/22 15:42 Plt Count 268 K/uL (130-400) 03/13/22 15:42 MPV 11.7 fL (7.4-10.4) H 03/13/22 15:42 Immature Gran % (Auto) 0.2 % 03/13/22 15:42 Neut % (Auto) 41.7 % 03/13/22 15:42 Lymph % (Auto) 47.3 % 03/13/22 15:42 [place] % (Auto) 8.8 % 03/13/22 15:42 Eos % (Auto) 1.8 % 03/13/22 15:42 Baso % (Auto) 0.2 % 03/13/22 15:42 Neut # (Auto) 1.90 K/uL (1.4-6.5) 03/13/22 15:42 Lymph # (Auto) 2.15 K/uL (1.2-3.4) 03/13/22 15:42 [place] # (Auto) 0.40 K/uL (0.11-0.59) 03/13/22 15:42 Eos # (Auto) 0.08 K/uL (0-0.5) 03/13/22 15:42 Baso # (Auto) 0.01 K/uL (0-0.2) 03/13/22 15:42 Immature Gran # (Auto) 0.01 K/uL (0.00-0.02) 03/13/22 15:42 PT 11.0 Seconds (9.0-12.0) 03/13/22 15:42 INR 1.0 (0.9-1.1) 03/13/22 15:42 APTT 32.1 Seconds (21.0-31.0) H 03/14/22 08:44 PTT Ratio 1.2 03/14/22 08:44 Sodium 140 mmol/L (136-145) 03/13/22 15:42 Potassium 4.0 mmol/L (3.5-5.1) 03/13/22 15:42 Chloride 104 mmol/L (98-107) 03/13/22 15:42 Carbon Dioxide 29 mmol/L (21-32) 03/13/22 15:42 Anion Gap 7 (3-11) 03/13/22 15:42 BUN 13 mg/dl (6-23) 03/13/22 15:42 Creatinine 0.84 mg/dl (0.6-1.2) 03/13/22 15:42 Est Cr Clr Drug Dosing 66.0 ml/min 03/13/22 15:42 Est GFR ( Amer) 78.8 ml/min 03/13/22 15:42 Est GFR (Non-Af Amer) 68.0 ml/min 03/13/22 15:42 BUN/Creatinine Ratio 15.5 (10-20) 03/13/22 15:42 Glucose 135 mg/dl (70-99(Fasting)) H 03/13/22 15:42 POC Glucose 164 mg/dl (70-99) H 03/14/22 06:13 Lactate 0.8 mmol/L (0.4-2.0) 03/13/22 20:27 Calcium 10.1 mg/dl (8.5-10.1) 03/13/22 15:42 Magnesium 1.6 mg/dl (1.7-2.4) L 03/13/22 15:42 Total Bilirubin 2.0 mg/dl (0.2-1.0) H D 03/13/22 15:42 AST 843 U/L (13-39) H 03/13/22 15:42 ALT 408 U/L (7-52) H 03/13/22 15:42 Alkaline Phosphatase 468 U/L (34-104) H 03/13/22 15:42 Ammonia 34.0 umol/L (18-72) 03/13/22 17:09 Total Creatine Kinase 40 U/L (26-192) 03/13/22 15:42 Troponin I High Sens 11.1 pg/ml (0-14) D 03/13/22 15:42 Total Protein 7.1 gm/dl (6.0-8.3) 03/13/22 15:42 Albumin 3.3 gm/dl (3.4-5.0) L 03/13/22 15:42 Globulin 3.8 gm/dl (2.5-4.0) 03/13/22 15:42 Albumin/Globulin Ratio 0.9 (0.9-2) 03/13/22 15:42 TSH 1.359 uIu/ml (0.300-4.500) 03/13/22 15:42 Urine Color Dark Yellow 03/13/22 18:42 Urine Appearance Clear (Clear) 03/13/22 18:42 Urine pH 5.5 (4.5-7.5) 03/13/22 18:42 Ur Specific [place] 1.015 (1.000-1.030) 03/13/22 18:42 Urine Protein Negative (Negative) 03/13/22 18:42 Urine Glucose (UA) Negative (Negative) 03/13/22 18:42 Urine Ketones Negative (Negative) 03/13/22 18:42 Urine Blood Negative (Negative) 03/13/22 18:42 Urine Nitrite Negative (Negative) 03/13/22 18:42 Urine Bilirubin 1+ (Negative) H 03/13/22 18:42 Urine Urobilinogen Positive (Negative) H 03/13/22 18:42 Ur Leukocyte Esterase Trace (Negative) H 03/13/22 18:42 Urine WBC (Auto) 10-30 /hpf (0-5) H 03/13/22 18:42 Urine RBC (Auto) 0-4 /hpf (0-4) 03/13/22 18:42 U Hyaline Cast (Auto) 1-5 /lpf (0-5) 03/13/22 18:42 U Epithel Cells (Auto) >30 /lpf (0-5) H 03/13/22 18:42 Urine Bacteria (Auto) Negative (Negative) 03/13/22 18:42 SARS-CoV-2, RNA, NAAT NEGATIVE (NEGATIVE) 03/13/22 18:[address] 03/13/22 15:50 CT head/brain wo con CLINICAL HISTORY: confusion Technique: Contiguous axial CT images of the head were acquired from the base of the skull to the vertex without intravenous contrast administration. Images were viewed in brain, subdural and bone windows. Automated dose lowering techniques and/or adjustment according to patient size were utilized for this exam. Comparison: Comparison is made to CT head 03/03/2022 Findings: Areas of decreased attenuation are present in the periventricular and subcortical white matter bilaterally consistent with small vessel ischemic disease. Generalized cerebral atrophy with commensurate enlargement of the ventricles, sulci, and cisterns is also present. There is no acute intracranial hemorrhage or evidence of acute territorial infarction. No shift of the midline structures, mass effect, or extra-axial abnormalities are shown. Atherosclerotic calcifications are present in the intracranial segments of the internal carotid arteries. 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 Right maxillary sinus opacification is seen. The orbits appear normal. There a re no acute fractures of the calvaria or scalp swelling. Impression: No acute intracranial hemorrhage, no evidence of acute territorial infarction or other acute intracranial disease process. ACT 112: Negative or not required by law. Electronically signed by: Ankit Angelo M.D. 03/13/2022 4:28 PM Chest X-Ray 03/13/22 15:51 XR chest 1V portable CLINICAL HISTORY: weakness TECHNIQUE: Single frontal radiograph of the chest was obtained. Comparison: Comparison is made to chest radiograph 02/27/2022 FINDINGS: No lines and tubes are seen. Cardiomegaly is noted. Prominence and cephalization of the vasculature is seen. No evidence of pleural effusion or pneumothorax. Redemonstration of cervical fixation hardware. IMPRESSION: Clinical megaly with mild pulmonary edema. ACT 112: Negative or not required by law. Electronically signed by: Ankit Angelo M.D. 03/13/2022 4:22 PM Abdomen/Pelvis CT 03/13/22 19:10 CT OF THE ABDOMEN AND PELVIS WITH CONTRAST CLINICAL HISTORY: Elevated liver enzymes. COMPARISON STUDY: CT of the abdomen and pelvis February 22, 2022. TECHNIQUE: Following IV administration of 94 mL of Optiray, axial images of the abdomen and pelvis were obtained from the lung bases to the proximal femurs. Images were reviewed in the axial, sagittal, and coronal planes. IV contrast was administered without complication. Automated exposure control was utilized for the study. A dose lowering technique was utilized adhering to the principles of ALARA. CT DOSE: 1558.92 mGy.cm FINDINGS: No pneumatosis, free air or portal venous gas is present. There is mild intrahepatic biliary ductal dilatation. Although the caliber of the common bile duct is normal, there is abrupt caliber change of the distal common bile duct shown on axial image 157 of 501. Note is again made of a pancreatic head and neck mass that measures 5 x 4.1 cm. This is similar to CT of February 22, 2022. Adjacent infiltrative soft tissue is noted. This extends along the celiac axis and superior mesenteric artery. This also extends toward the lesser curvature of the stomach with suspected underlying fistula. Pancreatic ductal dilatation is unchanged. The appearance of the abdomen is similar to CT of February 22, 2022. No hepatic lesions are identified. A bandlike hypodensity within the medial segment of the liver is slightly less conspicuous than on prior exam. Spleen, adrenal glands and right kidney are unremarkable. Marked left renal atrophy is again noted. Is no hydronephrosis. There is no evidence for a bowel obstruction. Moderate amount stool within the rectum is noted. Left hip arthroplasty is noted. There are no suspicious lesions within the visualized skeletal structures. IMPRESSION: 1. No significant change in the infiltrative hypodense mass within the pancreatic head and neck since CT of February 22, 2022. Associated pancreatic ductal dilatation. Mild intrahepatic biliary ductal dilatation. This is suggestive of pancreatic adenocarcinoma. Associated infiltrative soft tissue consistent with tumor along the celiac axis and superior mesenteric artery and extending toward the lesser curvature of the stomach with suspected underlying fistula. 2. No bowel obstruction. 3. No significant change since prior CT. ACT 112: Negative or not required by law. Electronically signed by: Jeremi Delgado M.D. 03/13/2022 8:11 PM
[2022-03-14 09:37] LABS: Partial Thromboplastin Ratio 1.2; Partial Thromboplastin Time 32.1 Seconds (21.0-31.0)
[2022-03-14] MEDS: PIPERACILLIN/TAZOBACTAM 4.5 GM in DEXTROSE 5% 100 ML IV SCH ×2 (10:05→17:11)
[2022-03-14] MEDS ORDERED: HEPARIN SOD (PORCINE) 1000 UNIT/ML IV ONE (10:30)
[2022-03-14 10:48] LABS: Albumin Globulin Ratio 0.8 (0.9-2); Albumin Level 2.9 gm/dl (3.4-5.0); BUN Creatinine Ratio 14.5 (10-20); Bilirubin,Total 3.1 mg/dl (0.2-1.0); Calcium 9.2 mg/dl (8.5-10.1); Creatinine Clr Calc Pharmacy 71.6 ml/min; Est GFR (African American) 88.9 ml/min; Est GFR (Non-African American) 76.7 ml/min; Globulin 3.5 gm/dl (2.5-4.0); Magnesium 2.4 mg/dl (1.7-2.4); Potassium 3.5 mmol/L (3.5-5.1); Total Protein 6.4 gm/dl (6.0-8.3)
--- NOTE | 2022-03-14 11:23 | Gastrointestinal Consultation ---
Date of Consultation March 14, 2022 Assessment & Plan (1) Elevated liver enzymes: Significantly increasing transaminases and Alk Phos as well as mildly elevated T Bili likely due to compression of the CBD by the pancreatic mass. (2) Mass of pancreas: Likely panc adenocarcinoma but tissue dx not yet obtained. EUS with repeat sampling of the pancreas mass and ERCP for decompression planned for tomorrow. Please turn off the heparin 6 hrs prior - notified Dr. Pete who will arrange. May have full liquids po today. NPO after midnight. Supervising Physician Co-Signing Physician Notes Consult for elevated lft's in the setting of a pancreatic mass The patient is eating her lunch, her right eye she is closing intermittent, o riented to person but not place, time. Abd is benign, no visible jaundice Labs reviewed Prior eus reviewed Repeat EUS +/- ERCP tomorrow as long as heparin drip has been stopped for at least 6 hours. NPO at midnite. History of Present Illness Reason for Consultation: Concern for biliary obstruction, quadrupled LFTs Requesting Physician: Dr. Flor Henderson Attending Physician: Usman Pete, History of Present Illness Ms. Cristina Delaney is a 76 yr old female pt of Dr. Ramirez w a hx of Parx A-fib, HTN, HFpEF, HLD, hypothyroid, who is known to our group as we provided EUS for PNA of panc head mass on 03/06/22, though cytology was non diagnostic. She was brought back to the ED for confusion on 03/13. . On arrival, LFTs were increased compared to prior: T Bili 2.0, AST 842, ALT 408, Alk Phos 311. GI is asked to eval for elevated LFTs. The pt is awake and alert this morning and able to tell me that she is at [facility], but is unable to tell me the date/month/year and recall any details about why she is at the hospital. She denies any abd pain and does not appear jaundiced. CT of the head is normal. She is hemodynamically stable. She is currently in NSR and is on a heparin drip for A-fib that was initially dx'ed during her prior admission this month. CT on arrival w a 5 cm pancreatic head mass which appears to abut but not invade the SMA. There is also some suggestion of a gastric/pancreatic fistula near the lesser curvature of the stomach. On EGD on there was an 8mm superficial gastric antrum ulcer and on EUS there was a 33mm pancreatic head mass endoscopically staged at T3 Nx Mx. Allergies Allergy/AdvReac Type Severity Reaction Status Date / Time calcium AdvReac Severe CAUSES Verified 03/13/22 17:53 KIDNEY STONES oxycodone AdvReac Mild "Made me Verified 03/13/22 17:53 higher than a kite" Home Medications Medication Instructions Recorded Confirmed Type cholecalciferol (vitamin D3) 25 1,000 units PO HS cap 05/08/19 03/13/22 History mcg (1,000 unit) capsule duloxetine 60 mg capsule,delayed 60 mg PO HS #90 cap 05/04/21 03/13/22 Rx release levothyroxine 25 mcg tablet 25 mcg PO QAM #90 tab 06/26/21 03/13/22 Rx gabapentin 100 mg capsule 100 mg PO BID cap 08/16/21 03/13/22 History metoprolol tartrate 25 mg tablet 25 mg PO BID #180 tab 08/22/21 03/13/22 Rx pravastatin 10 mg tablet 10 mg PO DAILY #90 tab 08/22/21 03/13/22 Rx oxybutynin chloride 5 mg tablet 5 mg PO QPM #30 tab 01/08/22 03/13/22 Rx metformin 500 mg 24 hr 500 mg PO QPM #90 tab 01/22/22 03/13/22 Rx tablet,extended release amiodarone 200 mg tablet 400 mg PO BID #66 tab 03/07/22 03/13/22 Rx apixaban 5 mg tablet (Eliquis) 5 mg PO BID #180 tab 03/07/22 03/13/22 Rx losartan 25 mg tablet 25 mg PO QAM #30 tab 03/07/22 03/13/22 Rx pantoprazole 40 mg tablet,delayed 40 mg PO BID #60 tab 03/07/22 03/13/22 Rx release Wheeled Walker #1 ea 03/12/22 03/13/22 Rx baclofen 10 mg tablet 10 mg PO BID 03/12/22 03/13/22 History potassium chloride 10 mEq 10 meq PO DAILY 03/12/22 03/13/22 History tablet,extended release tramadol 50 mg tablet 50 mg PO Q8H PRN 03/12/22 03/13/22 History Patient History Medical History Cataract Chronic anticoagulation Clavicle fracture 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 POSSIBLY 2/2 STONES PER PT Thyroid nodule (~2009) 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 Urinary incontinence Vitamin D deficiency Surgical History H/O breast surgery H/O cervical spine surgery H/O lumbosacral spine surgery H/O reduction of closed fracture LEFT WRIST WITH PINNING History of lumpectomy LEFT History of total left hip arthroplasty (~09/2019) Hx of cholecystectomy Hx of total knee arthroplasty LEFT Family History Sister Diabetes Mother Cervical cancer Denies family history of Ovarian cancer Prostate cancer Breast cancer Lung cancer Colorectal cancer Social History Smoking Status: Never smoker Second Hand Exposure: No; Do You Dip or Chew Tobacco: No; Tobacco Cessation Education Requested by Patient: No Hx Alcohol Use: Yes Alcohol type: beer Hx Substance Use: No Preferred Language: Luxembour[place] Communication Ability: Impaired Communication Ability Comment: follows commands, oriented to person only Visual Impairment: Limited Hearing Ability: Use of Hearing Aid Roper Operator Required: No Beliefs That Will Affect Care: None marital status: Unknown Current Living Situation: Alone Current Living Situation Comment: with sister 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 How many Children do You have: 0 Feels Safe at Home: Yes Childhood Exposure to Second-Hand Smoke: Yes Diet Comment: watching calories caffeine: Yes Dental Care, Regularly: No Physical Activity Frequency: Does not Exercise Seatbelt Use: always Sunscreen Use: Yes Do you think of yourself as: straight/heterosexual Assistive Devices: Glasses and Walker Review of Systems Review of Systems: ROS: (though pt not currently a reliable historian) Gen: Denies weakness, fevers, weight loss Eyes: No eye redness, or pain, no recent vision changes Resp: No SOB, no cough Cardio: Denies palpitations/irregular beats, no chest pain GI: No abdominal pain, no nausea/vomiting : Denies pain on urination Skin: No jaundice, itching or new rashes Physical Exam Constitutional: well developed and cooperative obese Eyes: PERRL, conjunctivae normal, anicteric sclerae ENMT: external ear and nose normal, oropharynx normal Neck: trachea midline, no thyromegaly Respiratory: normal respiratory effort, lungs clear to auscultation normal respiratory effort and able to speak in complete sentences; no respiratory distress, no labored breathing, does not use accessory muscles and no cough Cardiovascular: RRR, no murmur, no edema Gastrointestinal (Abdomen): normal bowel sounds, soft, nontender, no hepatosplenomegaly Skin: no rashes, warm and dry normal turgor Neurologic: PERRL, EOMI, accommodation nl, no face palsy, no dysarthria awake Psychiatric: Orientation: alert and cooperative Lymphatic: no cervical or axillary lymphadenopathy Results & Data ([facility]) Vital Signs (Past 12 Hours) Vital Signs Temp Pulse Pulse Resp BP BP Pulse Ox 03/14/22 11:16 36.7 C 63 20 160/64 H 94 03/14/22 07:05 37.1 C 78 16 159/67 H 95 03/14/22 04:46 36.5 C 67 14 156/72 H 94 03/14/22 00:54 77 03/13/22 23:55 36.9 C 69 14 179/69 H 95 Laboratory Results WBC 4.5, Hb 12, Hct 36, Plts 268, PT 11, INR 1, Na 140, K 4.0, Cl 104, CO2 29, BUN 13, Cr 0.8, glucose 135. Diagnostic Findings CTAP w IV 03/13/22: 1. No significant change in the infiltrative hypodense mass within the pancreatic head and neck since CT of February 22, 2022. Associated pancreatic ductal dilatation. Mild intrahepatic biliary ductal dilatation. This is suggestive of pancreatic adenocarcinoma. Associated infiltrative soft tissue consistent with tumor along the celiac axis and superior mesenteric artery and extending toward the lesser curvature of the stomach with suspected underlying fistula. 2. No bowel obstruction. 3. No significant change since prior CT.
[2022-03-14 19:13] LABS: Partial Thromboplastin Ratio 2.1
[2022-03-14 19:15] LABS: Partial Thromboplastin Time 57.5 Seconds (21.0-31.0)
[2022-03-14] MEDS: ONDANSETRON INJ 2 MG/ML 2 ML VIAL IV PRN (19:35)
[2022-03-14] MEDS: OXYBUTYNIN CHLORIDE 5 MG TAB PO SCH (20:51)
[2022-03-14] MEDS ORDERED: INSULIN ASPART PER UNIT SC ONE (21:45)
[2022-03-15] MEDS: PIPERACILLIN/TAZOBACTAM 4.5 GM in DEXTROSE 5% 100 ML IV SCH ×3 (00:09→18:28)
[2022-03-15] MEDS: ACETAMINOPHEN 325 MG TAB PO PRN ×2 (00:15→12:32)
--- NOTE | 2022-03-15 04:18 | Billing Data ---
Date of Service March 15, 2022 Coding Level of Care Code 26750 Initial Inpt Care Lvl 3
[2022-03-15] MEDS: INSULIN ASPART PER UNIT SC SCH ×6 (06:11→20:39)
[2022-03-15] MEDS: LEVOTHYROXINE SODIUM 25 MCG TABLET PO SCH (06:15)
[2022-03-15 07:39] LABS: Hematocrit (blood only) 31.2 % (37-47); Hemoglobin 10.1 g/dL (12.0-16.0); Mean Corpuscular Hemoglobin 30.1 pg (25-34); Mean Corpuscular Hgb Conc 32.4 g/dL (32-36); Mean Corpuscular Volume 93.1 fL (80-100); Mean Platelet Volume 11.7 fL (7.4-10.4); Platelet Count 225 K/uL (130-400); Red Blood Count 3.35 M/uL (4.2-5.4); White Blood Count 3.35 K/uL (4.8-10.8)
[2022-03-15 07:51] LABS: Partial Thromboplastin Ratio 0.8; Partial Thromboplastin Time 22.6 Seconds (21.0-31.0)
[2022-03-15 07:59] LABS: Albumin Globulin Ratio 0.8 (0.9-2); Albumin Level 2.8 gm/dl (3.4-5.0); BUN Creatinine Ratio 9.1 (10-20); Bilirubin,Total 3.6 mg/dl (0.2-1.0); Creatinine Clr Calc Pharmacy 70.7 ml/min; Est GFR (African American) 87.5 ml/min; Est GFR (Non-African American) 75.5 ml/min; Globulin 3.3 gm/dl (2.5-4.0); Magnesium 1.8 mg/dl (1.7-2.4); Potassium 3.4 mmol/L (3.5-5.1); Total Protein 6.1 gm/dl (6.0-8.3)
[2022-03-15] MEDS: POTASSIUM CHLORIDE 10 MEQ TABCR PO SCH (08:11)
[2022-03-15] MEDS: PANTOprazole 40 MG TAB PO SCH ×2 (08:11→20:25)
[2022-03-15] MEDS: AMIODARONE 200 MG TAB PO SCH ×2 (08:11→20:21)
[2022-03-15] MEDS: LOSARTAN POTASSIUM 25 MG TAB PO SCH (08:11)
[2022-03-15] MEDS: METOPROLOL TARTRATE 25 MG TAB PO SCH ×2 (08:11→20:25)
[2022-03-15] MEDS: PRAVASTATIN SOD 10 MG TAB PO SCH (08:11)
--- NOTE | 2022-03-15 11:02 | Anesthesiology Consultation ---
Date of Service March 15, 2022 Assessment & Plan Chart Review Chart Review: Acceptable Risk for Surgery and Patient NOT seen in Pre Admission Testing Consults Requested none ASA ASA4 Proposed Anesthesia Anesthesia Type: General History Surgery Operation Date: 03/15/22 08:20 Proposed Procedures p Endoscopic Ultrasonography Upper - Meghan Kohler MD s Endoscopic Retrograde Cholangiopancreato - Meghan Kohler MD Height/Weight Height: 5 ft 3 in Weight: 98.8 kg Allergies Allergy/AdvReac Type Severity Reaction Status Date / Time calcium AdvReac Severe CAUSES Verified 03/13/22 17:53 KIDNEY STONES oxycodone AdvReac Mild "Made me Verified 03/13/22 17:53 higher than a kite" Medications Home Medications Medication Instructions Recorded Confirmed Last Taken cholecalciferol (vitamin D3) 25 1,000 units PO HS cap 05/08/19 03/13/22 02/24/21 mcg (1,000 unit) capsule duloxetine 60 mg capsule,delayed 60 mg PO HS #90 cap 05/04/21 03/13/22 Unknown release levothyroxine 25 mcg tablet 25 mcg PO QAM #90 tab 06/26/21 03/13/22 Unknown gabapentin 100 mg capsule 100 mg PO BID cap 08/16/21 03/13/22 Unknown metoprolol tartrate 25 mg tablet 25 mg PO BID #180 tab 08/22/21 03/13/22 Unknown pravastatin 10 mg tablet 10 mg PO DAILY #90 tab 08/22/21 03/13/22 Unknown oxybutynin chloride 5 mg tablet 5 mg PO QPM #30 tab 01/08/22 03/13/22 Unknown metformin 500 mg 24 hr 500 mg PO QPM #90 tab 01/22/22 03/13/22 Unknown tablet,extended release amiodarone 200 mg tablet 400 mg PO BID #66 tab 03/07/22 03/13/22 Unknown apixaban 5 mg tablet (Eliquis) 5 mg PO BID #180 tab 03/07/22 03/13/22 Unknown losartan 25 mg tablet 25 mg PO QAM #30 tab 03/07/22 03/13/22 Unknown pantoprazole 40 mg tablet,delayed 40 mg PO BID #60 tab 03/07/22 03/13/22 Unknown release Wheeled Walker #1 ea 03/12/22 03/13/22 Unknown baclofen 10 mg tablet 10 mg PO BID 03/12/22 03/13/22 Unknown potassium chloride 10 mEq 10 meq PO DAILY 03/12/22 03/13/22 Unknown tablet,extended release tramadol 50 mg tablet 50 mg PO Q8H PRN 03/12/22 03/13/22 Unknown Active Medications Generic Name Dose Route Start Last Admin Trade Name Freq PRN Reason Stop Dose Admin Acetaminophen 650 mg 03/13/22 23:30 03/15/22 00:15 Acetaminophen 325 Mg Tab PO 04/12/22 23:29 650 mg Q4H PRN Administration Pain or Fever Amiodarone HCl 200 mg 03/14/22 09:00 03/15/22 08:11 Amiodarone 200 Mg Tab PO 04/13/22 08:59 200 mg BID LUIS Administration Piperacillin Sod/Tazobactam 120 mls @ 30 mls/hr 03/14/22 08:00 03/15/22 07:50 Sod 4.5 gm/ Dextrose IV 03/16/22 07:59 30 mls/hr Q8H LUIS Administration Protocol Insulin Aspart 0 units 03/14/22 06:00 03/15/22 06:11 Insulin Aspart Per Unit SC 04/13/22 05:59 Not Given Q6 LUIS Levothyroxine Sodium 25 mcg 03/14/22 06:30 03/15/22 06:15 Levothyroxine Sodium 25 Mcg Tablet PO 04/13/22 06:29 25 mcg DAILYBB LUIS Administration Losartan Potassium 25 mg 03/14/22 09:00 03/15/22 08:11 Losartan Potassium 25 Mg Tab PO 04/13/22 08:59 25 mg QAM LUIS Administration Metoprolol Tartrate 25 mg 03/14/22 09:00 03/15/22 08:11 Metoprolol Tartrate 25 Mg Tab PO 04/13/22 08:59 25 mg BID LUIS Administration Ondansetron HCl 4 mg 03/13/22 23:30 03/14/22 19:35 Ondansetron Inj 2 Mg/Ml 2 Ml Vial IV 04/12/22 23:29 4 mg Q6H PRN Administration Nausea Oxybutynin Chloride 5 mg 03/14/22 21:00 03/14/22 20:51 Oxybutynin Chloride 5 Mg Tab PO 04/13/22 20:59 5 mg QPM LUIS Administration Pantoprazole Sodium 40 mg 03/14/22 09:00 03/15/22 08:11 Pantoprazole 40 Mg Tab PO 04/13/22 08:59 40 mg BID LUIS Administration Potassium Chloride 10 meq 03/14/22 09:00 03/15/22 08:11 Potassium Chloride 10 Meq Tabcr PO 04/13/22 08:59 10 meq DAILY LUIS Administration Pravastatin Sodium 10 mg 03/14/22 09:00 03/15/22 08:11 Pravastatin Sod 10 Mg Tab PO 04/13/22 08:59 10 mg DAILY LUIS Administration Past Medical History Medical History Cataract Chronic anticoagulation Clavicle fracture 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 POSSIBLY 2/2 STONES PER PT Thyroid nodule (~2009) 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 Urinary incontinence Vitamin D deficiency Exercise / Class Metabolic Activity III < 4 Walking/Shop/Light housework Past Family History Family History Sister Diabetes Mother Cervical cancer Denies family history of Ovarian cancer Prostate cancer Breast cancer Lung cancer Colorectal cancer Past Surgical History Surgical History H/O breast surgery H/O cervical spine surgery H/O lumbosacral spine surgery H/O reduction of closed fracture LEFT WRIST WITH PINNING History of lumpectomy LEFT History of total left hip arthroplasty (~09/2019) Hx of cholecystectomy Hx of total knee arthroplasty LEFT Past Anesthesia History No Hx of Anesthesia Complications and No Family Hx of Anesthesia Complications History of PONV No Hx of PONV and No Hx of Motion Sickness Social History Smoking Status: Never smoker Do You Dip or Chew Tobacco: No Hx Alcohol Use: Yes Alcohol type: beer alcohol intake frequency: holidays/special occasions only Hx Substance Use: No substance use type: does not use Physical Exam Vital Signs Last Vital Signs Temp 36.6 C 03/15/22 07:05 Pulse 64 03/15/22 07:05 Resp 18 03/15/22 07:05 BP 188/70 H 03/15/22 07:05 Pulse Ox 96 03/15/22 07:05 Testing Laboratory Results 03/15/22 06:54 03/15/22 06:54 PT 11.0 Seconds (9.0-12.0) 03/13/22 15:42 INR 1.0 (0.9-1.1) 03/13/22 15:42 APTT 22.6 Seconds (21.0-31.0) 03/15/22 06:54 Urine Color Dark Yellow 03/13/22 18:42 Urine Appearance Clear (Clear) 03/13/22 18:42 Urine pH 5.5 (4.5-7.5) 03/13/22 18:42 Ur Specific [place] 1.015 (1.000-1.030) 03/13/22 18:42 Urine Protein Negative (Negative) 03/13/22 18:42 Urine Glucose (UA) Negative (Negative) 03/13/22 18:42 Urine Ketones Negative (Negative) 03/13/22 18:42 Urine Nitrite Negative (Negative) 03/13/22 18:42 Ur Leukocyte Esterase Trace (Negative) H 03/13/22 18:42 Urine WBC (Auto) 10-30 /hpf (0-5) H 03/13/22 18:42 Urine RBC (Auto) 0-4 /hpf (0-4) 03/13/22 18:42 U Hyaline Cast (Auto) 1-5 /lpf (0-5) 03/13/22 18:42 U Epithel Cells (Auto) >30 /lpf (0-5) H 03/13/22 18:42 Urine Bacteria (Auto) Negative (Negative) 03/13/22 18:42 03/13/22 15:50 Aerobic Blood Culture - Preliminary Blood No growth in Aerobic bottle after 24 hours. Anaerobic Blood Culture - Preliminary No growth in Anaerobic bottle after 24 hours. 03/13/22 16:05 Aerobic Blood Culture - Preliminary Blood No growth in Aerobic bottle after 24 hours. Anaerobic Blood Culture - Preliminary No growth in Anaerobic bottle after 24 hours. 03/13/22 18:42 Urine Culture - Preliminary Urine,Indwelling Cath No growth - Less than 1,000 colonies/mL, Final report to follow. 03/15/22 03/14/22 06:02 23:56 POC Glucose 130 H 165 H Electrocardiogram Date: 03/13/22 Findings: + NSR @ (at 61) and + NSST changes Chest X-Ray Date: 03/13/22 Findings: + cardiomegaly and + pulmonary vascular congestion (mild pulm. edema) Echocardiogram Date: 02/27/22 EF: 65% LV Function: normal RWMA: + none Valvular Disease: + no significant valvular disease Other Testing 02/28/2022-carotid U/S-no H/D sig. stenoses
--- NOTE | 2022-03-15 11:14 | Gastroenterology Progress Note ---
Date of Service March 15, 2022 Assessment & Plan (1) Elevated liver enzymes: Plan: Significantly increasing transaminases and Alk Phos as well as mildly elevated T Bili likely due to compression of the CBD by the pancreatic mass. (2) Mass of pancreas: Plan: Likely panc adenocarcinoma but tissue dx not yet obtained. Plan: EUS with repeat sampling of the pancreas mass and ERCP for decompression planned for this afternoon by Dr. Kohler. [facility] [place]. Most recent Eliquis prior to admission so likely 03/13/22 in the morning - so approx 48 hrs. Keep NPO. Admission and Anticipated Discharge Date Admission Date: March 13, 2022 Supervising Physician Co-Signing Physician Notes I performed a history and physical examination of the patient today, including specifically on physical exam - soft abdomen. I have discussed the patient's management with the advanced practitioner. Please refer to the nurse practitioner's note for the documented findings and plan of care. Spoke to her brother Oracio and consented for EUS/ERCP Subjective 76, female admitted 03/13 confusion; recent prior admit for syncope w imaging sug gestive of panc mass. EUS FNA of mass non dx. LFTs increased compared to prior admission and again slight increase today: T Bili 3.6, , AST 541, ALT 447, Alk Phos 457. Today, when wakened, is alert, oriented able to tell me she is at [facility], but answered Preemption to town and yesterday's date but otherwise all orientation questions were answered appropriately though mentating somewhat slowly. Physical Exam Constitutional: well developed, + obese and cooperative Eyes: PEARLA, mild icterus ENMT: external ear and nose normal, oropharynx normal Neck: trachea midline, no thyromegaly Respiratory: normal respiratory effort, lungs clear to auscultation normal respiratory effort and able to speak in complete sentences; no respiratory distress, no labored breathing, does not use accessory muscles and no cough Cardiovascular: RRR, no murmur, no edema Gastrointestinal (Abdomen): normal bowel sounds, soft, nontender, no hepatosplenomegaly Skin: no rashes, warm and dry normal turgor Neurologic: PERRL, EOMI, accommodation nl, no face palsy, no dysarthria awake Psychiatric: Orientation: alert and cooperative Lymphatic: no cervical or axillary lymphadenopathy Results & Data ([facility]) Vital Signs (Past 12 Hours) Vital Signs Temp Pulse Pulse Resp BP Pulse Ox Pulse Ox 03/15/22 07:05 36.6 C 64 18 188/70 H 96 03/15/22 07:00 62 03/15/22 03:53 36.9 C 62 18 161/71 H 93 03/14/22 23:30 95 03/14/22 23:15 36.4 C L 67 18 170/75 H 95 Laboratory Results WBC 3.3, Hb 10, Hct 31, Plts 225, PT 26, INR 0.8, Na 136, K 3.4, Cl 103, CO2 27, BUN 7, Cr 0.7, glucose 130. Diagnostic Findings CTAP 03/13/22: 1. No significant change in the infiltrative hypodense mass within the pancreatic head and neck since CT of February 22, 2022. Associated pancreatic ductal dilatation. Mild intrahepatic biliary ductal dilatation. This is suggestive of pancreatic adenocarcinoma. Associated infiltrative soft tissue consistent with tumor along the celiac axis and superior mesenteric artery and extending toward the lesser curvature of the stomach with suspected underlying fistula. 2. No bowel obstruction. 3. No significant change since prior CT.
--- NOTE | 2022-03-15 12:38 | Medical Student Progress Note ---
Date of Service March 15, 2022 Assessment & Plan (1) Encephalopathy acute: Plan: Cristina is a 76-year-old woman with past medical history of breast cancer s/p lumpectomy, chemo and XRT (2008) paroxysmal A-fib, T2DM, HTN, HLD, hypothyroidism and newly diagnosed pancreatic mass suspicious for pancreatic cancer admitted for altered mental status and acute transaminitis w/ concern for biliary stricture. Encephalopathy: - Differentials include infectious, hypertensive, medication induced, brain metastases. - most likely 2/2 GI infection secondary to biliary stasis, continue Zosyn (day 3) - blood cultures did not grow bacteria - urine culture showed typical vaginal amos - Ammonia level normal. - CT head 03/13: without acute intracranial pathology - MRI brain from 02/23 did not show brain mets - CXR 03/13: cardiomegaly, mild pulmonary edema - Baclofen, Tramadol, gabapentin, Cymbalta held; possible that these medications are worsening her mental status - chest CTA 02/22: pancreatic mass lesion encases hepatic/splenic arteries @ celiac bifurcation, low attenuation w/in anterior lobe, new from prior exams (concerning for steatosis or hepatic infarct), 13 mm enhancing nodule in interpolar L kidney, small neoplasm not excluded, R lobe thyroid mass unchanged - confusion seems to be lessened this morning (03/15) as patient is remembering more details about her condition Pancreatic mass, transaminitis: - Patient with recently diagnosed history of pancreatic head/tail mass with mildly elevated LFTs at last admit 1 week ago. - Patient is status post EUS and pancreatic biopsy 03/06, pancreatic biopsy was inconclusive. - CT abd/pelvis 03/13: pancreatic ductal dilatation, mild intrahepatic biliary ductal dilation suggestive of pancreatic adenocarcinoma. 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 toward lesser curve of stomach - Chest CTA 02/22: no mets in seen, pancreatic mass lesion encases hepatic/splenic arteries @ celiac bifurcation, low attenuation w/in anterior lobe, new from prior exams (concerning for steatosis or hepatic infarct) - acute significant worsening of LFTs and alk phos concerning for biliary stricture; now downtrending - AST: 816 (03/14)--> 541 (03/15) - ALT: 485 (03/14)--> 447 (03/15) - Alk phos: 465 (03/14)--> 457 (03/15) - Total Bilirubin: 3.1 (03/14)--> 3.6 (03/15) - albumin: 2.9 (03/14)--> 2.8 (03/15) - GI consult: EUS w/ repeat sampling of pancreas mass and ERCP for decompression 03/15; NPO at midnight - heparin stopped 6 hours prior to procedures AFib: - Recently started on amiodarone and Eliquis for AFib with RVR last admission. - Eliquis held - Heparin drip held from midnight 03/14 - Will continue amiodarone for AFib given recent RVR, as do not suspect this is causing transaminitis given very recent initiation of medication. - continue cardiac monitoring DM2: - SSI while NPO. HTN: - continue metoprolol 25 mg - continue Losartan 25 mg - 03/15 AM, BP @ 184/76 HLD: - continue pravastatin Hypothyroidism: - Continue home levothyroxine - thyroid not tender on exam Hypomagnesemia, resolved: Code Status: CONDITIONAL CODE; no chest compressions, no intubation/artificial ventilation; defibrillation and medications okay FEN: currently NPO for procedure DVT ppx: Heparin gtt (2) Mass of pancreas: (3) Transaminitis: (4) Paroxysmal atrial fibrillation: (5) Hypomagnesemia: (6) Type 2 diabetes mellitus: (7) Hypertension: Hypertension type: primary hypertension Qualified Code(s): I10 - Essential (primary) hypertension (8) Anemia: Admission and Anticipated Discharge Date Admission Date: March 13, 2022 Supervising Attestation Case discussed, chart reviewed, agree with above. Unfortunately due to patient being down and procedure, I was unable to see her today. Agree with all of above. Reema Evans is a 76-year-old woman with past medical history of breast cancer s/p lumpectomy, chemo and XRT (2008) paroxysmal A-fib, T2DM, HTN, HLD, hypothyroidism and newly diagnosed pancreatic mass suspicious for pancreatic cancer admitted for altered mental status and acute transaminitis w/ concern for biliary stricture. Overnight, she slept well and had no acute events. This morning, she is resting comfortably in bed, with some central epigastric tenderness. She is mildly jaundiced. She cannot remember when her last bowel movement was. She has no issues with urination and is catheterized. She is mildly nauseous this morning. She denies dizziness, headache, vision changes, vomiting, or other pain than mentioned. She is able to pass gas. She is awake and alert this morning, and is again aware of her current location and her name. She was off on the date by only 1 day (March 14), said we are in [place], and thought it was 2019. Her short term memory seems mildly improved as she remembered that she has a pancreatic mass, she will be having a scope done and she will be asleep for it. She was answering questions in full sentences, whereas yesterday she was only answering in single words. Review of Systems Review of Systems: All systems reviewed & are unremarkable except as noted in HPI & below Physical Exam Constitutional: well developed and well nourished mildly jaundiced Eyes: PERRL, conjunctivae normal, anicteric sclerae ENMT: external ear and nose normal, oropharynx normal Neck: trachea midline, no thyromegaly Respiratory: normal respiratory effort; no respiratory distress and no labored breathing Auscultation: + rales (b/l lower lobes) Cardiovascular: RRR, no murmur, no edema Vessels: no JVD and no carotid bruit Gastrointestinal (Abdomen): Inspection/Auscultation: abdomen normal to inspection Percussion/Palpation: + abdomen tender and abdomen soft Musculoskeletal: no cyanosis or clubbing, extremities motor strength 5/5 Skin: no rashes, warm and dry Neurologic: PERRL, EOMI, accommodation nl, no face palsy, no dysarthria Psychiatric: Orientation: alert, oriented to person, oriented to place and cooperative; + not oriented to time Eye Contact: good eye contact Lymphatic: no cervical or axillary lymphadenopathy Results & Data ([facility]) Vital Signs (Past 12 Hours) Vital Signs Temp Pulse Pulse Resp BP Pulse Ox 03/15/22 10:51 36.8 C 60 16 184/76 H 93 03/15/22 07:05 36.6 C 64 18 188/70 H 96 03/15/22 07:00 62 03/15/22 03:53 36.9 C 62 18 161/71 H 93
[2022-03-15] MEDS ORDERED: ONDANSETRON INJ 2 MG/ML 2 ML VIAL IV PRN (15:34)
[2022-03-15] MEDS ORDERED: ATROPINE SULFATE 0.1 MG/ML 10ML SYR IV PRN (15:34)
[2022-03-15] MEDS ORDERED: ePHEDrine sulfate 50 MG/ML AMP IV PRN (15:34)
[2022-03-15] MEDS ORDERED: fentaNYL citrate 100 MCG/2 ML VIAL IV PRN (15:34)
[2022-03-15] MEDS ORDERED: SUCCINYLCHOLINE CHLORIDE 20 MG/ML 10 ML VIAL IV ONE (15:40)
[2022-03-15] MEDS ORDERED: LIDOCAINE 2% 2 ML VIAL/AMP(20MG/ML) INFIL ONE (15:40)
[2022-03-15] MEDS ORDERED: PROPOFOL IV EMULSION 10 MG/ML 20 ML VIAL IV ONE (15:40)
[2022-03-15] MEDS ORDERED: ROCURONIUM BROMIDE 10 MG/ML 5 ML VIAL IV ONE (15:40)
[2022-03-15] MEDS ORDERED: fentaNYL citrate 100 MCG/2 ML VIAL ONE (15:41)
[2022-03-15] MEDS ORDERED: GLYCOPYRROLATE 0.2 MG/ML VIAL ONE (16:56)
[2022-03-15] MEDS ORDERED: NEOSTIGMINE METHYLSULFATE 1 MG/ML 10ML VIAL ONE (16:56)
--- NOTE | 2022-03-15 16:57 | Operative Report ---
Post Operative Report Pre & Post Diagnosis Operation Date: 03/15/22 08:20 Pre-Op Diagnosis: pancreatic mass Post-Op Diagnosis: pancreatic mass I identified the patient and participated in the time-out.: Yes Procedure Operation Date: 03/15/22 08:20 Actual Procedures p Endoscopic Ultrasonography Upper with biopsies of pancreatic mass, endoscopic esophagogastroduodenography, endoscopic retrograde cholangiopancreatography, sphincterotomy - Meghan Kohler MD p Endoscopic Retrograde Cholangiopancreato - Meghan Kohler MD Surgeon Meghan Kohler MD Fish Bin Tender None Estimated Blood Loss 0 Findings See Below (CBD obstruction due to pancreas mass, FNA perfromed and CBD stent placed.) Specimens CBD brushing Cytology and FNA of the mass Description of Procedure EUS/ERCP I attest to the content of the Intraoperative Record and any orders documented therein. Any exceptions are noted below.
--- NOTE | 2022-03-15 17:44 | Fluoroscopy Report ---
FL ERCP biliary ductal HISTORY: 76 years-old Female W/EUS elevated LFTs. Acute right upper quadrant abdominal pain COMPARISON: CT abdomen and pelvis 03/13/2022 TECHNIQUE: 10 spot fluoroscopic images of the right upper quadrant abdomen were obtained utilizing 51 .5 seconds of fluoroscopy time. FINDINGS: Endoscope is noted within the duodenum. There is cannulation of the common bile duct with retrograde injection of contrast. Cholecystectomy. There is high-grade focal narrowing noted involving the mid c ommon bile duct with irregular margins. There is at least mild upstream biliary ductal dilation. Subs equent images demonstrate placement of a common bile duct stent which appears to be in satisfactory p ositioning. IMPRESSION: Fluoroscopic assistance as above. ACT 112: Negative or not required by law. The above report was generated using voice recognition software. It may contain grammatical, syntax o r spelling errors. Electronically signed by: Darian Montaño M.D. 03/15/2022 5:43 PM
--- NOTE | 2022-03-15 17:54 | GI REPORT ---
Patient Name: Cristina Delaney Procedure Date: 03/15/2022 3:39 PM Date of : 1945 Admit Type: Inpatient Age: 76 Gender: Female Attending MD: Meghan Kohler MD Procedure: Upper EUS Providers: Meghan Kohler MD Referring MD: Usman Pete Indications: Suspected pancreatic neoplasm Medicines: General Anesthesia Complications: No immediate complications. Estimated Blood Loss: Estimated blood loss: none. Procedure: Pre-Anesthesia Assessment: - Prior to the procedure, a History and Physical was performed, and patient medications, allergies and sensitivities were reviewed. The patient's tolerance of previous anesthesia was reviewed. - The alternatives, risks and benefits of the procedure were discussed at length with the patient's brother. The patient's proxy verbalized understanding of the risks as well as the alternatives and wished to proceed with the procedure. - Patient identification and proposed procedure were verified prior to the procedure by the physician and the nurse. The procedure was verified in the procedure room. - Pre-procedure physical examination revealed no contraindications to sedation. After obtaining informed consent, the endoscope was passed under direct vision. Throughout the procedure, the patient's blood pressure, pulse, and oxygen saturations were monitored continuously. The scope was introduced through the mouth, and advanced to the second part of duodenum. The upper EUS was accomplished without difficulty. The patient tolerated the procedure well. Findings: ENDOSONOGRAPHIC FINDING: : A round mass was identified in the pancreatic head. The mass was hypoechoic. The mass measured 35 mm in maximal cross-sectional diameter. The endosonographic borders were well-defined. An intact interface was seen between the mass and the adjacent structures suggesting a lack of invasion. Fine needle aspiration for cytology was performed. Color Doppler imaging was utilized prior to needle puncture to confirm a lack of significant vascular structures within the needle path. Four passes were made with the 25 gauge needle using a transduodenal approach. A stylet was used. A dairy feed mixing operator was present and performed a preliminary cytologic examination. The cellularity of the specimen was adequate. Final cytology results are pending. Verification of patient identification for the specimen was done by the physician and nurse using the patient's name and date. FNA was very difficult due significant hardness of the mass, scope looping, location of the mass and patient's body habitus. Impression: - A mass was identified in the pancreatic head. Fine needle aspiration performed. Recommendation: - Await cytology results. - Perform an ERCP today. - If FNA pathology is nonconclusive then patient should be evaluated by Surgery for Whipple's resection. Meghan Kohler MD 03/15/2022 5:54:26 PM This report has been signed electronically. Note Initiated On: 03/15/2022 3:39 PM Number of Addenda: 0 I attest to the content of the Intraoperative Record and orders documented therein, exceptions below {[id number]}
--- NOTE | 2022-03-15 17:55 | Anesthesiology Progress Note ---
Date of Service March 15, 2022 Anesthesia Post Procedure Vital Signs Vital Signs: Temp Pulse Pulse Pulse Resp BP BP 03/15/22 17:51 65 17 166/65 H 03/15/22 17:41 98.2 F 67 15 155/63 H 03/15/22 17:31 67 19 151/59 H 03/15/22 17:21 68 19 169/71 H 03/15/22 17:14 96.8 F L 75 20 165/64 H 03/15/22 15:05 99.0 F 61 18 158/61 H 03/15/22 14:58 53 L 03/15/22 10:51 98.2 F 60 16 184/76 H 03/15/22 07:05 97.9 F 64 18 188/70 H 03/15/22 07:00 62 03/15/22 03:53 98.4 F 62 18 161/71 H 03/14/22 23:30 03/14/22 23:15 97.5 F L 67 18 170/75 H 03/14/22 22:15 70 03/14/22 20:45 181/72 H 03/14/22 19:57 98.6 F 67 18 165/74 H Pulse Ox Pulse Ox 03/15/22 17:51 94 03/15/22 17:41 95 03/15/22 17:31 93 03/15/22 17:21 91 03/15/22 17:14 91 03/15/22 15:05 97 03/15/22 14:58 03/15/22 10:51 93 03/15/22 07:05 96 03/15/22 07:00 03/15/22 03:53 93 03/14/22 23:30 95 03/14/22 23:15 95 03/14/22 22:15 03/14/22 20:45 03/14/22 19:57 96 Transfer of Care Handoff Completed per policy Notes Mental Status: alert / awake / arousable and participated in evaluation Patient Amnestic to Procedure: Yes Nausea / Vomiting: adequately controlled Pain: adequately controlled Airway Patency, RR, SpO2: stable & adequate BP & HR: stable & adequate Hydration State: stable & adequate Anesthetic Complications: no major complications apparent and Pt Satisfied with anesthetic care
--- NOTE | 2022-03-15 18:01 | GI REPORT ---
Patient Name: Cristina Delaney Procedure Date: 03/15/2022 3:41 PM Date of : 1945 Admit Type: Inpatient Age: 76 Gender: Female Attending MD: Meghan Kohler MD Procedure: ERCP Providers: Meghan Kohler MD Referring MD: Usman Pete Indications: Jaundice, Elevated liver enzymes, Bile duct obstruction Medicines: General Anesthesia Complications: No immediate complications. Estimated Blood Loss: Estimated blood loss: none. Procedure: Pre-Anesthesia Assessment: - Prior to the procedure, a History and Physical was performed, and patient medications, allergies and sensitivities were reviewed. The patient's tolerance of previous anesthesia was reviewed. - The risks and benefits of the procedure and the sedation options and risks were discussed with the patient. All questions were answered and informed consent was obtained. - Patient identification and proposed procedure were verified prior to the procedure by the physician and the nurse. The procedure was verified in the procedure room. - Pre-procedure physical examination revealed no contraindications to sedation. After obtaining informed consent, the scope was passed under direct vision. Throughout the procedure, the patient's blood pressure, pulse, and oxygen saturations were monitored continuously. The Duodenoscope was introduced through the mouth, and advanced to the duodenum and used to inject contrast into the bile duct. The ERCP was accomplished without difficulty. The patient tolerated the procedure well. Findings: A soap slabber film of the abdomen was obtained. Surgical clips, consistent with a previous cholecystectomy, were seen in the area of the right upper quadrant of the abdomen. The esophagus was successfully intubated under direct vision. The scope was advanced to a normal major papilla in the descending duodenum without detailed examination of the pharynx, larynx and associated structures, and upper GI tract. The upper GI tract was grossly normal. The minor papilla was large and bulging. A 0.025 inch x 270 cm angled Visiglide wire was passed into the biliary tree. The Fusion OMNI sphincterotome was passed over the guidewire and the bile duct was then deeply cannulated. Contrast was injected. I personally interpreted the bile duct images. Ductal flow of contrast was adequate. Image quality was adequate. Contrast extended to the main bile duct. Opacification of the entire biliary tree except for the gallbladder was successful. The maximum diameter of the ducts was 12 mm. The lower third of the main bile duct contained a single severe stenosis 20 mm in length. Biliary sphincterotomy was made with a monofilament traction (standard) sphincterotome using ERBE electrocautery. There was no post-sphincterotomy bleeding. Cells for cytology were obtained by brushing in the lower third of the main bile duct. One 10 mm by 8 cm covered metal biliary stent was placed into the common bile duct. Bile flowed through the stent. The stent was in good position. The lower third of the main bile duct was successfully dilated with a 4 mm balloon dilator. Impression: - A single severe malignant appearing biliary stricture was found in the lower third of the main bile duct with upstream ductal dilation. Cells for cytology obtained. - A biliary sphincterotomy was performed. - One covered metal biliary stent was placed into the common bile duct. Recommendation: - [facility]. - Await cytology results. - Refer to surgical Oncology as OP to discuss resection. Meghan Kohler MD 03/15/2022 6:00:42 PM This report has been signed electronically. Note Initiated On: 03/15/2022 3:41 PM Number of Addenda: 0 I attest to the content of the Intraoperative Record and orders documented therein, exceptions below {[id number]}
--- NOTE | 2022-03-15 18:06 | Billing Data ---
Date of Service March 14, 2022 Coding Level of Care Code 68962 Subseq Hosp Care Lvl 3
[2022-03-15] MEDS: POLYETHYLENE (MIRALAX) 17 GM PACK PO SCH (18:27)
[2022-03-15] MEDS ORDERED: Nursing to Pharmacy Communication SCH ×2 (18:45)
[2022-03-15] MEDS: OXYBUTYNIN CHLORIDE 5 MG TAB PO SCH (20:25)
[2022-03-16] MEDS: PIPERACILLIN/TAZOBACTAM 4.5 GM in DEXTROSE 5% 100 ML IV SCH (00:03)
[2022-03-16] MEDS: ACETAMINOPHEN 325 MG TAB PO PRN ×3 (00:03→21:23)
[2022-03-16] MEDS: LEVOTHYROXINE SODIUM 25 MCG TABLET PO SCH (05:59)
[2022-03-16 07:01] LABS: Hematocrit (blood only) 34.7 % (37-47); Hemoglobin 11.2 g/dL (12.0-16.0); Mean Corpuscular Hemoglobin 30.7 pg (25-34); Mean Corpuscular Hgb Conc 32.3 g/dL (32-36); Mean Corpuscular Volume 95.1 fL (80-100); Platelet Count 230 K/uL (130-400); RDW Coefficient of Variation 13.8 % (11.5-14.5); RDW Standard Deviation 47.9 fL (36.4-46.3); Red Blood Count 3.65 M/uL (4.2-5.4); White Blood Count 4.15 K/uL (4.8-10.8)
[2022-03-16 07:30] LABS: Alanine Aminotransferase 377 U/L (7-52); Albumin Globulin Ratio 0.8 (0.9-2); Albumin Level 2.9 gm/dl (3.4-5.0); Alkaline Phosphatase 455 U/L (34-104); Anion Gap 6 (3-11); BUN Creatinine Ratio 7.2 (10-20); Bilirubin,Total 2.3 mg/dl (0.2-1.0); Blood Urea Nitrogen 6 mg/dl (6-23); Calcium 9.3 mg/dl (8.5-10.1); Carbon Dioxide 30 mmol/L (21-32); Chloride 101 mmol/L (98-107); Creatinine Clr Calc Pharmacy 64.9 ml/min; Est GFR (African American) 79.9 ml/min; Globulin 3.7 gm/dl (2.5-4.0); Glucose 138 mg/dl (70-99(Fasting)); Sodium 137 mmol/L (136-145); Total Protein 6.6 gm/dl (6.0-8.3)
[2022-03-16] MEDS: INSULIN ASPART PER UNIT SC SCH ×4 (08:36→21:23)
[2022-03-16] MEDS: AMIODARONE 200 MG TAB PO SCH ×2 (08:43→21:21)
[2022-03-16] MEDS: PANTOprazole 40 MG TAB PO SCH ×2 (08:44→21:23)
[2022-03-16] MEDS: METOPROLOL TARTRATE 25 MG TAB PO SCH ×2 (08:44→21:23)
[2022-03-16] MEDS: LOSARTAN POTASSIUM 25 MG TAB PO SCH (08:45)
[2022-03-16] MEDS: POTASSIUM CHLORIDE 10 MEQ TABCR PO SCH (08:45)
[2022-03-16] MEDS: PRAVASTATIN SOD 10 MG TAB PO SCH (08:45)
[2022-03-16] MEDS: POLYETHYLENE (MIRALAX) 17 GM PACK PO SCH ×4 (08:46→10:02)
[2022-03-16 09:42] LABS: Potassium 3.5 mmol/L (3.5-5.1)
--- NOTE | 2022-03-16 11:05 | Gastroenterology Progress Note ---
Date of Service March 16, 2022 Assessment & Plan (1) Mass of pancreas: Plan: Will address path/cytology when available.If inconclusive then recommend surgical oncology referral to consider [facility]. May restart anticoagulants in 2 more days. No clar GI indication for antibiotics. Regular consistency diet. GI will sign off. Admission and Anticipated Discharge Date Admission Date: March 13, 2022 Supervising Physician Co-Signing Physician Notes I performed a history and physical examination of the patient today, including specifically on physical exam - soft abdomen. I have discussed the patient's management with the advanced practitioner. Please refer to the nurse practitioner's note for the documented findings and plan of care. Subjective 76 yr female. EUS/ERCP yesterday w sphincterotomy finding of 35mm panc head mass - FNA/cytology pending. Pt feels well. No confusion. Asks to eat, "real food." Review of Systems Review of Systems: ROS: Gen: Denies weakness, fevers, weight loss Eyes: No eye redness, or pain, no recent vision changes Resp: No SOB, no cough Cardio: (A-fib but hasn't felt irreg beats), No palpitations/irregular beats, no chest pain GI: No abdominal pain, no nausea/vomiting : Denies pain on urination Skin: No jaundice, itching or new rashes Physical Exam Constitutional: well developed and cooperative Eyes: PERRL, conjunctivae normal, anicteric sclerae ENMT: external ear and nose normal, oropharynx normal Neck: trachea midline, no thyromegaly Respiratory: normal respiratory effort, lungs clear to auscultation Cardiovascular: RRR, no murmur, no edema Gastrointestinal (Abdomen): normal bowel sounds, soft, nontender, no hepatosplenomegaly Inspection/Auscultation: abdomen normal to inspection and normal bowel sounds; abdomen not distended and no abdominal edema Skin: no rashes, warm and dry normal turgor Neurologic: PERRL, EOMI, accommodation nl, no face palsy, no dysarthria awake; not confused Psychiatric: A+Ox3, euthymic affect Lymphatic: no cervical or axillary lymphadenopathy Results & Data ([facility]) Vital Signs (Past 12 Hours) Vital Signs Temp Pulse Pulse Resp BP Pulse Ox 03/16/22 10:53 36.6 C 61 16 160/81 H 97 03/16/22 07:32 65 03/16/22 07:06 37.2 C 64 16 155/76 H 99 03/16/22 04:07 36.6 C 60 20 171/72 H 99 03/15/22 23:37 36.5 C 64 20 151/74 H 97 03/15/22 23:32 62 Laboratory Results WBC 4, Hb 11, hct 34, Plts 230, Na 137, K 3.5, BUN 6, Cr 0.8, glucose 146. Diagnostic Findings ERCP 03/15/22: - A single severe malignant appearing biliary stricture was found in the lower third of the main bile duct with upstream ductal dilation. Cells for cytology obtained. - A biliary sphincterotomy was performed. - One covered metal biliary stent was placed into the common bile duct. EUS 03/15/22: A round mass was identified in the pancreatic head. The mass was hypoechoic. The mass measured 35 mm in maximal cross-sectional diameter. The endosonographic borders were well-defined. An intact interface was seen between the mass and the adjacent structures suggesting a lack of invasion. Fine needle aspiration for cytology was performed
--- NOTE | 2022-03-16 13:25 | Medical Student Progress Note ---
Date of Service March 16, 2022 Assessment & Plan (1) Encephalopathy acute: Plan: Cristina is a 76-year-old woman with past medical history of breast cancer s/p lumpectomy, chemo and XRT (2008) paroxysmal A-fib, T2DM, HTN, HLD, hypothyroidism and newly diagnosed pancreatic mass suspicious for pancreatic cancer admitted for altered mental status and acute transaminitis w/ concern for biliary stricture. Encephalopathy: - patient's mentation and awareness is improving; she is able to have full conversations at bedside - Differentials include infectious, hypertensive, medication induced, brain metastases. - most likely 2/2 GI infection secondary to biliary stasis, continue Zosyn (day 3) - blood cultures did not grow bacteria - urine culture showed typical vaginal amos - Ammonia level normal. - CT head 03/13: without acute intracranial pathology - MRI brain from 02/23 did not show brain mets - CXR 03/13: cardiomegaly, mild pulmonary edema - Baclofen, Tramadol, gabapentin, Cymbalta held; possible that these medications are worsening her mental status - chest CTA 02/22: pancreatic mass lesion encases hepatic/splenic arteries @ celiac bifurcation, low attenuation w/in anterior lobe, new from prior exams ( concerning for steatosis or hepatic infarct), 13 mm enhancing nodule in interpolar L kidney, small neoplasm not excluded, R lobe thyroid mass unchanged Pancreatic mass, transaminitis s/p EUS, ERCP and biliary sphincterotomy 03/15: - UES for FNA of pancreatic head mass - pathology pending - ERCP: severe, malignant appearing biliary stricture in lower third of main bile duct - cytology pending - biliary sphincterotomy and stent placed in common bile duct - GI recommended referral to surgical oncology; will refer patient in outpatient setting for evaluation of surgical resection - CT abd/pelvis 03/13: pancreatic ductal dilatation, mild intrahepatic biliary ductal dilation suggestive of pancreatic adenocarcinoma. 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 toward lesser curve of stomach - Chest CTA 02/22: no mets in seen, pancreatic mass lesion encases hepatic/splenic arteries @ celiac bifurcation, low attenuation w/in anterior lobe, new from prior exams (concerning for steatosis or hepatic infarct) - acute significant worsening of LFTs and alk phos concerning for biliary stricture; now downtrending - AST: 541 (03/15)--> 259 (03/16) - ALT: 447 (03/15)--> 377 (03/16) - Alk phos: 457 (03/15)--> 455 (03/16) - Total Bilirubin: 3.6 (03/15)--> 2.3 (03/16) - albumin:2.8 (03/15)--> 2.9 (03/16) AFib: - Recently started on amiodarone and Eliquis for AFib with RVR last admission. - Eliquis held, can be restarted in 2 days (03/18) post procedure - Will continue amiodarone for AFib given recent RVR, as do not suspect this is causing transaminitis given very recent initiation of medication. DM2: - SSI HTN: - continue metoprolol 25 mg - continue Losartan 25 mg - 03/16 PM, BP @ 143/72 HLD: - continue pravastatin Hypothyroidism: - Continue home levothyroxine - thyroid not tender on exam Hypomagnesemia, resolved: Code Status: CONDITIONAL CODE; no chest compressions, no intubation/artificial ventilation; defibrillation and medications okay FEN: full diet DVT ppx: restart Eliquis in 2 days; SCDs (2) Mass of pancreas: (3) Transaminitis: (4) Paroxysmal atrial fibrillation: (5) Hypomagnesemia: (6) Type 2 diabetes mellitus: (7) Hyperlipidemia: (8) Hypothyroidism: Admission and Anticipated Discharge Date Admission Date: March 13, 2022 Supervising Attestation I personally examined the patient and verified all gonzales points of history and exam, discussed case, and agree with decision making with Antwan Borjas MS2 Far less confused. No pain. Sister at the bedside. Updated to the best my ability and to her satisfaction. Vitals noted, in general she is awake and alert but disoriented pleasant no distress. HEENT normocephalic atraumatic mucous membranes moist. Breathing unlabored no accessory muscle use good effort. Skin shows no rashes no pallor or icterus. Neuro without focal deficits. Abdomen soft no right upper quadrant tenderness. Altered mental statusdelirium/encephalopathyimproving. Biliary obstruction with concern on infectionnow status post stentingimproving. Continue antibiotics. Pancreatic masspath pending, gave big picture overview of possible outcomes and options, for now based on GI recommendations referral for surgical oncology in the near future 2. Stable for medical, resume Eliquis for A. fib in the morning, otherwise as above. Reema Evans is a 76-year-old woman with past medical history of breast cancer s/p lumpectomy, chemo and XRT (2008) paroxysmal A-fib, T2DM, HTN, HLD, hypothyroidism and newly diagnosed pancreatic mass suspicious for pancreatic cancer admitted for altered mental status and acute transaminitis w/ concern for biliary stricture. No acute events overnight. Patient is resting comfortably in bed this morning, and her mentation appears to be improving. She has had some lower back pain that is relieved with Tylenol and repositioning. She has no nausea or pain this morning. Her abdominal tenderness is decreasing. She feels her bladder is full despite urinating regularly and having no issues with urination. Her toes are tingling but her sensation is intact. She is hungry and is hoping to be able to eat food soon rather than mostly liquids. 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 This morning she is aware of the year, month, and is close for date (). She thinks Kai is president, though she was able to figure out there are 20 nickels in a dollar, so she is processing information. We spoke a little about her support system at home, she lives alone and is . Her sister lives in [place] and was planning on returning today. Her brother in law lives near [place] and may or may not have visited her at some point, she just cannot remember. 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 She denies headache, nausea, dizziness, changes to vision, chest pain, shortness of breath, abdominal tenderness, calf pain, numbness, or new weakness. Review of Systems Review of Systems: All systems reviewed & are unremarkable except as noted in HPI & below Results & Data ([facility]) Vital Signs (Past 12 Hours) Vital Signs Temp Pulse Pulse Resp BP Pulse Ox 03/16/22 10:53 36.6 C 61 16 160/81 H 97 03/16/22 07:32 65 03/16/22 07:06 37.2 C 64 16 155/76 H 99 03/16/22 04:07 36.6 C 60 20 171/72 H 99
--- NOTE | 2022-03-16 16:53 | Billing Data ---
Date of Service March 16, 2022 Coding Level of Care Code 28672 Subseq Hosp Care Lvl 3
[2022-03-16] MEDS: GABAPENTIN 100 MG CAP PO SCH (21:22)
[2022-03-16] MEDS: DULoxetine HCL 60 MG CAP PO SCH (21:22)
[2022-03-16] MEDS: OXYBUTYNIN CHLORIDE 5 MG TAB PO SCH (21:23)
--- NOTE | 2022-03-17 00:05 | Communication Note ---
Date of Service: March 17, 2022 Day team to revisit anticoag regimen which has not yet been restarted.
[2022-03-17] MEDS: HEPARIN SODIUM/DEXTROSE 25,000 UNITS/500 ML BAG IV SCH (00:09)
[2022-03-17] MEDS: ACETAMINOPHEN 325 MG TAB PO PRN ×3 (05:37→20:18)
[2022-03-17] MEDS: LEVOTHYROXINE SODIUM 25 MCG TABLET PO SCH (05:37)
--- NOTE | 2022-03-17 06:47 | Hospitalist Progress Note ---
Date of Service March 17, 2022 Assessment & Plan (1) Encephalopathy acute: Plan: Cristina is a 76-year-old woman with past medical history of breast cancer s/p lumpectomy, chemo and XRT (2008) paroxysmal A-fib, T2DM, HTN, HLD, hypothyroidism and newly diagnosed pancreatic mass suspicious for pancreatic cancer admitted for altered mental status and acute transaminitis w/ concern for biliary stricture. Encephalopathy: - most likely 2/2 GI infection secondary to biliary stasis, started on zosyn for 3 days, switched to cefdinir 03/17 - CT head 03/13: without acute intracranial pathology - MRI brain from 02/23 did not show brain mets - CXR 03/13: cardiomegaly, mild pulmonary edema - chest CTA 02/22: pancreatic mass lesion encases hepatic/splenic arteries @ celiac bifurcation, low attenuation w/in anterior lobe, new from prior exams (concerning for steatosis or hepatic infarct), 13 mm enhancing nodule in interpolar L kidney, small neoplasm not excluded, R lobe thyroid mass unchanged - Baclofen, Tramadol, gabapentin, Cymbalta held; possible contribution to worse mental status - blood cultures neg - urine culture: typical vaginal amos - Ammonia level normal. - patient's mentation and awareness is improving after 1 day abx, progressed from 1 word answers to full sentences. Currently able to recall daily events and operate phone Pancreatic mass, transaminitis s/p EUS, ERCP and biliary sphincterotomy 03/15: - CT abd/pelvis 03/13: pancreatic ductal dilatation, mild intrahepatic biliary ductal dilation suggestive of pancreatic adenocarcinoma. 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 toward lesser curve of stomach - Chest CTA 02/22: no mets in seen, pancreatic mass lesion encases hepatic/splenic arteries @ celiac bifurcation, low attenuation w/in anterior lobe, new from prior exams (concerning for steatosis or hepatic infarct) - UES for FNA of pancreatic head mass --> pathology pending - ERCP: severe, malignant appearing biliary stricture in lower third of main bile duct -->cytology pending - biliary sphincterotomy and stent placed in common bile duct - GI recommended referral to surgical oncology; will refer patient in outpatient setting for evaluation of surgical resection Elevated LFTs - downtrending - acute significant worsening of LFTs and alk phos concerning for biliary stricture - AST: 843 --> 120 - ALT: 485 --> 244 - Alk phos: 468 --> 377 - Total Bilirubin: 3.6 --> 1.3 AFib: - Recently started on amiodarone and Eliquis for AFib with RVR last admission. - Eliquis held, can be restarted in 2 days (03/18) post procedure - Will continue amiodarone for AFib given recent RVR, as do not suspect this is causing transaminitis given very recent initiation of medication. DM2: - SSI HTN: - continue metoprolol 25 mg - continue Losartan 25 mg HLD: - continue pravastatin Hypothyroidism: - Continue home levothyroxine Hypomagnesemia, resolved: Code Status: CONDITIONAL CODE; no chest compressions, no intubation/artificial ventilation; defibrillation and medications okay FEN: full diet DVT ppx: restart Eliquis in 2 days; SCDs (2) Mass of pancreas: (3) Transaminitis: (4) Paroxysmal atrial fibrillation: (5) Hypomagnesemia: (6) Type 2 diabetes mellitus: (7) Hyperlipidemia: (8) Hypothyroidism: Admission and Anticipated Discharge Date Admission Date: March 13, 2022 Supervising Physician Co-Signing Physician Notes I personally examined the patient and verified all gonzales points of history and exam, discussed case, and agree with decision making with Dr Dubose. Notes a mild degree of right upper abdominal pain, but otherwise feels good and ate well. Vitals noted, in general she is awake and alert but disoriented pleasant no distress. HEENT normocephalic atraumatic mucous membranes moist. Breathing unlabored no accessory muscle use good effort. Skin shows no rashes no pallor or icterus. Neuro without focal deficits. Abdomen soft but she does have very mild epigastric fading towards right upper quadrant tenderness absolutely no guarding rebound rigidity etc. Altered mental statusdelirium/encephalopathyimproving. Biliary obstruction with concern on infectionnow status post stentingimproving overall, labs improved, vitals look reassuring, does have a little bit of tenderness which is nonspecific. Transitioning to p.o. antibiotics todayif pain worsens/persists or labs worsen at allwould revert to Zosyn. Pancreatic masspath pending, asked for referral to surg/onc stable on medical, follow on abx, PT/OT for ?home vs SNF. Subjective Patient seen at bedside, calm comfortable cooperative. States she slept ate well. Denies abd pain. Patient was able to contact her brother in law yesterday, is aware they have Covid exposure and are unable to visit. Patient aware we are currently awaiting rehab placement. No acute concerns. Review of Systems Review of Systems: Negative fever chills Negative headache dizziness Negative chest pain palpitations SOB Negative nausea vomitting diarrhea constipation Negative numbness tingling rash swelling Physical Exam Constitutional: WD/WN, vitals as above + morbidly obese, cooperative and comfortable Eyes: PERRL, conjunctivae normal, anicteric sclerae Lazy left eye ENMT: external ear and nose normal, oropharynx normal Neck: trachea midline, no thyromegaly Respiratory: normal respiratory effort, lungs clear to auscultation Cardiovascular: RRR, no murmur, no edema Chest (Breasts): Chest: normal inspection of chest Gastrointestinal (Abdomen): normal bowel sounds, soft, nontender, no hepatosplenomegaly Skin: no rashes, warm and dry Results & Data Results & Data ([facility]) Vital Signs (Past 12 Hours) Vital Signs Temp Pulse Pulse Resp BP Pulse Ox 03/16/22 21:55 36.8 C 53 L 16 178/72 H 95 03/16/22 20:05 36.7 C 62 16 172/72 H 95 03/16/22 19:00 36.8 C 58 L 20 165/83 H 95 Resident Activity Tracking Resident Involvement: Resident Care Provided Care Provided: Adult Hospital Medicine
[2022-03-17 07:16] LABS: Basophils # (auto) 0.01 K/uL (0-0.2); Basophils % (auto) 0.2 %; Eosinophils # (auto) 0.12 K/uL (0-0.5); Eosinophils % (auto) 2.3 %; Hematocrit (blood only) 34.8 % (37-47); Hemoglobin 11.3 g/dL (12.0-16.0); Immature Granulocytes # (auto) 0.01 K/uL (0.00-0.02); Immature Granulocytes % (auto) 0.2 %; Lymphocytes % (auto) 32.9 %; Mean Corpuscular Hemoglobin 30.7 pg (25-34); Mean Corpuscular Hgb Conc 32.5 g/dL (32-36); Mean Corpuscular Volume 94.6 fL (80-100); Mean Platelet Volume 12.1 fL (7.4-10.4); Monocytes # (auto) 0.44 K/uL (0.11-0.59); Monocytes % (auto) 8.5 %; Neutrophils # (auto) 2.88 K/uL (1.4-6.5); Neutrophils % (auto) 55.9 %; Platelet Count 216 K/uL (130-400); RDW Coefficient of Variation 13.7 % (11.5-14.5); RDW Standard Deviation 47.3 fL (36.4-46.3); Red Blood Count 3.68 M/uL (4.2-5.4); White Blood Count 5.16 K/uL (4.8-10.8)
[2022-03-17 07:46] LABS: Albumin Globulin Ratio 0.8 (0.9-2); Albumin Level 2.9 gm/dl (3.4-5.0); BUN Creatinine Ratio 12.7 (10-20); Bilirubin,Total 1.3 mg/dl (0.2-1.0); Calcium 9.3 mg/dl (8.5-10.1); Creatinine Clr Calc Pharmacy 75.9 ml/min; Est GFR (African American) 96.6 ml/min; Est GFR (Non-African American) 83.3 ml/min; Globulin 3.6 gm/dl (2.5-4.0); Total Protein 6.5 gm/dl (6.0-8.3)
[2022-03-17] MEDS ORDERED: CEFDINIR 300 MG CAP PO STA (09:01)
[2022-03-17] MEDS: GABAPENTIN 100 MG CAP PO SCH ×2 (09:06→20:18)
[2022-03-17] MEDS: AMIODARONE 200 MG TAB PO SCH ×2 (09:06→20:17)
[2022-03-17] MEDS: PANTOprazole 40 MG TAB PO SCH ×2 (09:07→20:18)
[2022-03-17] MEDS: PRAVASTATIN SOD 10 MG TAB PO SCH (09:08)
[2022-03-17] MEDS: POLYETHYLENE (MIRALAX) 17 GM PACK PO SCH (09:08)
[2022-03-17] MEDS: LOSARTAN POTASSIUM 25 MG TAB PO SCH (09:08)
[2022-03-17] MEDS: POTASSIUM CHLORIDE 10 MEQ TABCR PO SCH (09:08)
[2022-03-17] MEDS: METOPROLOL TARTRATE 25 MG TAB PO SCH ×2 (09:08→20:18)
[2022-03-17] MEDS: INSULIN ASPART PER UNIT SC SCH ×4 (09:15→20:31)
--- NOTE | 2022-03-17 13:33 | Billing Data ---
Date of Service March 17, 2022 Coding Level of Care Code 49445 Subseq Hosp Care Lvl 3
[2022-03-17] MEDS: metroNIDAZOLE 500 MG TAB PO SCH ×2 (13:45→20:18)
[2022-03-17] MEDS: CEFDINIR 300 MG CAP PO SCH (20:18)
[2022-03-17] MEDS: OXYBUTYNIN CHLORIDE 5 MG TAB PO SCH (20:18)
[2022-03-17] MEDS: DULoxetine HCL 60 MG CAP PO SCH (20:18)
[2022-03-18] MEDS: LEVOTHYROXINE SODIUM 25 MCG TABLET PO SCH (05:46)
[2022-03-18 06:32] LABS: Basophils # (auto) 0.01 K/uL (0-0.2); Basophils % (auto) 0.2 %; Eosinophils # (auto) 0.22 K/uL (0-0.5); Eosinophils % (auto) 3.7 %; Hematocrit (blood only) 35.4 % (37-47); Hemoglobin 11.2 g/dL (12.0-16.0); Immature Granulocytes # (auto) 0.01 K/uL (0.00-0.02); Immature Granulocytes % (auto) 0.2 %; Lymphocytes # (auto) 1.83 K/uL (1.2-3.4); Lymphocytes % (auto) 30.8 %; Mean Corpuscular Hemoglobin 29.6 pg (25-34); Mean Corpuscular Hgb Conc 31.6 g/dL (32-36); Mean Corpuscular Volume 93.7 fL (80-100); Mean Platelet Volume 12.2 fL (7.4-10.4); Monocytes # (auto) 0.53 K/uL (0.11-0.59); Monocytes % (auto) 8.9 %; Neutrophils # (auto) 3.35 K/uL (1.4-6.5); Neutrophils % (auto) 56.2 %; Platelet Count 212 K/uL (130-400); RDW Coefficient of Variation 13.8 % (11.5-14.5); RDW Standard Deviation 47.5 fL (36.4-46.3); Red Blood Count 3.78 M/uL (4.2-5.4); White Blood Count 5.95 K/uL (4.8-10.8)
[2022-03-18 07:01] LABS: Albumin Globulin Ratio 0.9 (0.9-2); Albumin Level 2.9 gm/dl (3.4-5.0); Creatinine Clr Calc Pharmacy 85.6 ml/min; Est GFR (African American) 101.7 ml/min; Est GFR (Non-African American) 87.7 ml/min; Globulin 3.4 gm/dl (2.5-4.0); Potassium 3.6 mmol/L (3.5-5.1); Total Protein 6.3 gm/dl (6.0-8.3)
--- NOTE | 2022-03-18 07:09 | Hospitalist Progress Note ---
Date of Service March 18, 2022 Assessment & Plan (1) Encephalopathy acute: Plan: Cristina is a 76-year-old woman with past medical history of breast cancer s/p lumpectomy, chemo and XRT (2008) paroxysmal A-fib, T2DM, HTN, HLD, hypothyroidism and newly diagnosed pancreatic mass suspicious for pancreatic cancer admitted for altered mental status and acute transaminitis w/ concern for biliary stricture. Encephalopathy: - most likely 2/2 GI infection secondary to biliary stasis, started on zosyn for 3 days, switched to cefdinir 03/17 - CT head 03/13: without acute intracranial pathology - MRI brain from 02/23 did not show brain mets - CXR 03/13: cardiomegaly, mild pulmonary edema - chest CTA 02/22: pancreatic mass lesion encases hepatic/splenic arteries @ celiac bifurcation, low attenuation w/in anterior lobe, new from prior exams (concerning for steatosis or hepatic infarct), 13 mm enhancing nodule in interpolar L kidney, small neoplasm not excluded, R lobe thyroid mass unchanged - Baclofen, Tramadol, gabapentin, Cymbalta held; possible contribution to worse mental status - blood cultures neg - urine culture: typical vaginal amos - Ammonia level normal. - patient's mentation and awareness improved after 1 day abx, progressed from 1 word answers to full sentences. Currently able to recall daily events and operate phone - WBC 5.95 Pancreatic mass, transaminitis s/p EUS, ERCP and biliary sphincterotomy 03/15: - CT abd/pelvis 03/13: pancreatic ductal dilatation, mild intrahepatic biliary ductal dilation suggestive of pancreatic adenocarcinoma. 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 toward lesser curve of stomach - Chest CTA 02/22: no mets in seen, pancreatic mass lesion encases hepatic/splenic arteries @ celiac bifurcation, low attenuation w/in anterior lobe, new from prior exams (concerning for steatosis or hepatic infarct) - UES for FNA of pancreatic head mass --> pathology pending - ERCP: severe, malignant appearing biliary stricture in lower third of main bile duct -->cytology pending - biliary sphincterotomy and stent placed in common bile duct - GI recommended referral to surgical oncology; will refer patient in outpatient setting for evaluation of surgical resection Elevated LFTs - downtrending - acute significant worsening of LFTs and alk phos concerning for biliary stricture - AST: 843 --> 52 - ALT: 485 --> 159 - Alk phos: 468 --> 312 - Total Bilirubin: 3.6 --> 1 AFib: - Recently started on amiodarone and Eliquis for AFib with RVR last admission. - Eliquis held, resumed 03/18 - Will continue amiodarone for AFib given recent RVR, as do not suspect this is causing transaminitis given very recent initiation of medication. Constipation -scheduled miralax 34mg daily DM2: - SSI HTN: - continue metoprolol 25 mg - continue Losartan 25 mg HLD: - continue pravastatin Hypothyroidism: - Continue home levothyroxine Hypomagnesemia, resolved: Code Status: CONDITIONAL CODE; no chest compressions, no intubation/artificial ventilation; defibrillation and medications okay FEN: full diet DVT ppx: restart Eliquis (2) Mass of pancreas: (3) Transaminitis: (4) Paroxysmal atrial fibrillation: (5) Hypomagnesemia: (6) Type 2 diabetes mellitus: (7) Hyperlipidemia: (8) Hypothyroidism: Admission and Anticipated Discharge Date Admission Date: March 13, 2022 Supervising Physician Co-Signing Physician Notes I personally examined the patient and verified all gonzales points of history and exam, discussed case, and agree with decision making with Dr Dubose. Had some short-lived epigastric burning, but has gone away. None since. No abdominal pain. Tolerating p.o. antibiotics well. Was very weak with therapy, but is amenable to rehab. Vitals noted, in general she is awake and alert pleasant no distress. HEENT normocephalic atraumatic mucous membranes moist. Breathing unlabored no accessory muscle use good effort. Skin shows no rashes no pallor or icterus. Abdomen is soft nondistended nontender no masses organomegaly. Altered mental statusdelirium/encephalopathyimproving. Biliary obstruction with concern on infectionnow status post stentingimproving overall, labs improved, vitals look reassuring, and exam reassuring again today. Given that she had burning, but it has resolved, and her tenderness from yesterday is goneburning this morning was almost certainly reflux. Continue cefdinir and Flagyl for presumed biliary infection in the face of obstruction and impingement from mass. Pancreatic masspath pending, asked for referral to surg/onc stable on medical, follow on abx, PT/OT for and will need rehab/SNF placement. Subjective Patient seen at bedside, calm comfortable cooperative. She states she slept well last night, ate some of her breakfast but got full too quickly, is unsure when her last bowel movement was. She denies any abd pain. No additional complaints at this time. Patient understands we are still awaiting placement for rehab, her biopsy results are still pending. Review of Systems Review of Systems: Negative fever chills Negative headache dizziness Negative chest pain palpitations SOB Negative nausea vomitting diarrhea constipation Negative numbness tingling rash swelling Physical Exam Constitutional: WD/WN, vitals as above + morbidly obese, cooperative and comfortable Eyes: PERRL, conjunctivae normal, anicteric sclerae ENMT: external ear and nose normal, oropharynx normal Neck: trachea midline, no thyromegaly Respiratory: normal respiratory effort, lungs clear to auscultation Cardiovascular: RRR, no murmur, no edema Chest (Breasts): Chest: normal inspection of chest Gastrointestinal (Abdomen): normal bowel sounds, soft, nontender, no hepatosplenomegaly Skin: no rashes, warm and dry Results & Data Results & Data ([facility]) Vital Signs (Past 12 Hours) Vital Signs Temp Pulse Pulse Resp BP Pulse Ox 03/18/22 05:14 36.6 C 62 16 178/70 H 94 03/17/22 22:42 36.5 C 62 17 152/88 H 94 03/17/22 20:16 62 173/74 H 96 Laboratory Results 03/18/22 03/18/22 03/18/22 Range/Units 08:10 05:34 05:34 WBC 5.95 (4.8-10.8) K/uL RBC 3.78 L (4.2-5.4) M/uL Hgb 11.2 L (12.0-16.0) g/dL Hct 35.4 L (37-47) % MCV 93.7 (80-100) fL MCH 29.6 (25-34) pg MCHC 31.6 L (32-36) g/dL RDW Std Deviation 47.5 H (36.4-46.3) fL RDW Coeff of Marii 13.8 (11.5-14.5) % Plt Count 212 (130-400) K/uL MPV 12.2 H (7.4-10.4) fL Immature Gran % (Auto) 0.2 % Neut % (Auto) 56.2 % Lymph % (Auto) 30.8 % [place] % (Auto) 8.9 % Eos % (Auto) 3.7 % Baso % (Auto) 0.2 % Neut # (Auto) 3.35 (1.4-6.5) K/uL Lymph # (Auto) 1.83 (1.2-3.4) K/uL [place] # (Auto) 0.53 (0.11-0.59) K/uL Eos # (Auto) 0.22 (0-0.5) K/uL Baso # (Auto) 0.01 (0-0.2) K/uL Immature Gran # (Auto) 0.01 (0.00-0.02) K/uL Sodium 133 L (136-145) mmol/L Potassium 3.6 (3.5-5.1) mmol/L Chloride 100 (98-107) mmol/L Carbon Dioxide 27 (21-32) mmol/L Anion Gap 6 (3-11) BUN 12 (6-23) mg/dl Creatinine 0.63 (0.6-1.2) mg/dl Est Cr Clr Drug Dosing 85.6 ml/min Est GFR ( Amer) 101.7 ml/min Est GFR (Non-Af Amer) 87.7 ml/min BUN/Creatinine Ratio 19.0 (10-20) Glucose 145 H (70-99(Fasting)) mg/dl POC Glucose 152 H (70-99) mg/dl Calcium 9.0 (8.5-10.1) mg/dl Total Bilirubin 1.0 (0.2-1.0) mg/dl AST 52 H (13-39) U/L ALT 159 H (7-52) U/L Alkaline Phosphatase 312 H (34-104) U/L Total Protein 6.3 (6.0-8.3) gm/dl Albumin 2.9 L (3.4-5.0) gm/dl Globulin 3.4 (2.5-4.0) gm/dl Albumin/Globulin Ratio 0.9 (0.9-2) 03/17/22 03/17/22 03/17/22 Range/Units 20:27 17:14 12:13 WBC (4.8-10.8) K/uL RBC (4.2-5.4) M/uL Hgb (12.0-16.0) g/dL Hct (37-47) % MCV (80-100) fL MCH (25-34) pg MCHC (32-36) g/dL RDW Std Deviation (36.4-46.3) fL RDW Coeff of Marii (11.5-14.5) % Plt Count (130-400) K/uL MPV (7.4-10.4) fL Immature Gran % (Auto) % Neut % (Auto) % Lymph % (Auto) % [place] % (Auto) % Eos % (Auto) % Baso % (Auto) % Neut # (Auto) (1.4-6.5) K/uL Lymph # (Auto) (1.2-3.4) K/uL [place] # (Auto) (0.11-0.59) K/uL Eos # (Auto) (0-0.5) K/uL Baso # (Auto) (0-0.2) K/uL Immature Gran # (Auto) (0.00-0.02) K/uL Sodium (136-145) mmol/L Potassium (3.5-5.1) mmol/L Chloride (98-107) mmol/L Carbon Dioxide (21-32) mmol/L Anion Gap (3-11) BUN (6-23) mg/dl Creatinine (0.6-1.2) mg/dl Est Cr Clr Drug Dosing ml/min Est GFR ( Amer) ml/min Est GFR (Non-Af Amer) ml/min BUN/Creatinine Ratio (10-20) Glucose (70-99(Fasting)) mg/dl POC Glucose 160 H 148 H 147 H (70-99) mg/dl Calcium (8.5-10.1) mg/dl Total Bilirubin (0.2-1.0) mg/dl AST (13-39) U/L ALT (7-52) U/L Alkaline Phosphatase (34-104) U/L Total Protein (6.0-8.3) gm/dl Albumin (3.4-5.0) gm/dl Globulin (2.5-4.0) gm/dl Albumin/Globulin Ratio (0.9-2) Medications Administered Current Inpatient Medications Acetaminophen (Acetaminophen 325 Mg Tab) 650 mg PO Q4H PRN PRN Reason: Pain or Fever Stop: 04/12/22 23:29 Last Admin: 03/18/22 09:39 Dose: 650 mg Documented by: Amiodarone HCl (Amiodarone 200 Mg Tab) 200 mg PO BID [facility] Stop: 04/13/22 08:59 Last Admin: 03/18/22 08:52 Dose: 200 mg Documented by: Apixaban (Apixaban 5 Mg Tablet) 5 mg PO BID [facility] Stop: 04/17/22 20:59 Cefdinir (Cefdinir 300 Mg Cap) 300 mg PO BID [facility] Stop: 03/27/22 20:59 Last Admin: 03/18/22 08:51 Dose: 300 mg Documented by: Dextrose (Dextrose 50% 50 Ml Syringe) 25 - 50 ml IV UD PRN; Protocol PRN Reason: Hypoglycemia Protocol Stop: 04/12/22 23:29 Duloxetine HCl (Duloxetine Hcl 60 Mg Cap) 60 mg PO HS [facility] Stop: 04/15/22 20:59 Last Admin: 03/17/22 20:18 Dose: 60 mg Documented by: Gabapentin (Gabapentin 100 Mg Cap) 100 mg PO BID [facility] Stop: 04/15/22 20:59 Last Admin: 03/18/22 08:52 Dose: 100 mg Documented by: Glucagon (Glucagon For Inj 1 Mg Vial) 1 mg SQ UD PRN; Protocol PRN Reason: Hypoglycemia Protocol Stop: 04/12/22 23:29 Glucose (Glucose 10 Tabs/Tube) 4 - 8 tabs PO UD PRN; Protocol PRN Reason: Hypoglycemia Protocol Stop: 04/12/22 23:29 Glucose (Glucose 40% Gel 15 Gm Tube) 15 - 30 gm PO UD PRN; Protocol PRN Reason: Hypoglycemia Protocol Stop: 04/12/22 23:29 Insulin Aspart (Insulin Aspart Per Unit) 0 units SC ACHS [facility] Stop: 04/14/22 20:59 Last Admin: 03/18/22 08:57 Dose: 1 units Documented by: Levothyroxine Sodium (Levothyroxine Sodium 25 Mcg Tablet) 25 mcg PO DAILYBB [facility] Stop: 04/13/22 06:29 Last Admin: 03/18/22 05:46 Dose: 25 mcg Documented by: Losartan Potassium (Losartan Potassium 25 Mg Tab) 25 mg PO QAM [facility] Stop: 04/13/22 08:59 Last Admin: 03/18/22 08:51 Dose: 25 mg Documented by: Metoprolol Tartrate (Metoprolol Tartrate 25 Mg Tab) 25 mg PO BID [facility] Stop: 04/13/22 08:59 Last Admin: 03/18/22 08:51 Dose: 25 mg Documented by: Metoprolol Tartrate (Metoprolol Tartrate 1 Mg/Ml Vial) 5 mg IV Q6 PRN PRN Reason: BP > 180/100 Stop: 04/12/22 23:29 Metronidazole (Metronidazole 500 Mg Tab) 500 mg PO TID [facility] Stop: 03/27/22 13:59 Last Admin: 03/18/22 08:52 Dose: 500 mg Documented by: Miscellaneous (Carbohydrates For Hypoglycemia ) 15 - 30 gm PO UD PRN PRN Reason: Hypoglycemia Protocol Stop: 04/12/22 23:29 Ondansetron HCl (Ondansetron Inj 2 Mg/Ml 2 Ml Vial) 4 mg IV Q6H PRN PRN Reason: Nausea Stop: 04/12/22 23:29 Last Admin: 03/14/22 19:35 Dose: 4 mg Documented by: Oxybutynin Chloride (Oxybutynin Chloride 5 Mg Tab) 5 mg PO QPM [facility] Stop: 04/13/22 20:59 Last Admin: 03/17/22 20:18 Dose: 5 mg Documented by: Pantoprazole Sodium (Pantoprazole 40 Mg Tab) 40 mg PO BID [facility] Stop: 04/13/22 08:59 Last Admin: 03/18/22 08:52 Dose: 40 mg Documented by: Polyethylene Glycol (Polyethylene (Miralax) 17 Gm Pack) 34 gm PO DAILY [facility] Stop: 04/18/22 08:59 Potassium Chloride (Potassium Chloride 10 Meq Tabcr) 10 meq PO DAILY [facility] Stop: 04/13/22 08:59 Last Admin: 03/18/22 08:57 Dose: 10 meq Documented by: Pravastatin Sodium (Pravastatin Sod 10 Mg Tab) 10 mg PO DAILY [facility] Stop: 04/13/22 08:59 Last Admin: 03/18/22 08:51 Dose: 10 mg Documented by: Resident Activity Tracking Resident Involvement: Resident Care Provided Care Provided: [facility]
[2022-03-18] MEDS: PRAVASTATIN SOD 10 MG TAB PO SCH (08:51)
[2022-03-18] MEDS: CEFDINIR 300 MG CAP PO SCH ×2 (08:51→19:54)
[2022-03-18] MEDS: METOPROLOL TARTRATE 25 MG TAB PO SCH ×2 (08:51→19:54)
[2022-03-18] MEDS: LOSARTAN POTASSIUM 25 MG TAB PO SCH (08:51)
[2022-03-18] MEDS: PANTOprazole 40 MG TAB PO SCH ×2 (08:52→19:55)
[2022-03-18] MEDS: metroNIDAZOLE 500 MG TAB PO SCH ×3 (08:52→19:55)
[2022-03-18] MEDS: AMIODARONE 200 MG TAB PO SCH ×2 (08:52→19:53)
[2022-03-18] MEDS: GABAPENTIN 100 MG CAP PO SCH ×2 (08:52→19:54)
[2022-03-18] MEDS: POLYETHYLENE (MIRALAX) 17 GM PACK PO SCH (08:53)
[2022-03-18] MEDS: POTASSIUM CHLORIDE 10 MEQ TABCR PO SCH (08:57)
[2022-03-18] MEDS: INSULIN ASPART PER UNIT SC SCH ×4 (08:57→21:36)
[2022-03-18] MEDS: ACETAMINOPHEN 325 MG TAB PO PRN ×2 (09:39→19:52)
--- NOTE | 2022-03-18 17:28 | Billing Data ---
Date of Service March 18, 2022 Coding Level of Care Code 31820 Subseq Hosp Care Lvl 3
[2022-03-18] MEDS: APIXABAN 5 MG TABLET PO SCH (19:54)
[2022-03-18] MEDS: DULoxetine HCL 60 MG CAP PO SCH (19:54)
[2022-03-18] MEDS: OXYBUTYNIN CHLORIDE 5 MG TAB PO SCH (19:55)
[2022-03-18] MEDS: LIDOCAINE 5% 1 PATCH TD SCH (21:41)
[2022-03-18] MEDS ORDERED: GLYCERIN ADULT 12 SUPP/BOX SUPP PR ONE (21:57)
[2022-03-18] MEDS ORDERED: traMADol HCL 50 MG TABLET PO STA (22:57)
[2022-03-19] MEDS: LEVOTHYROXINE SODIUM 25 MCG TABLET PO SCH (05:45)
[2022-03-19 07:47] LABS: Hematocrit (blood only) 34.5 % (37-47); Hemoglobin 11.5 g/dL (12.0-16.0); Mean Corpuscular Hemoglobin 30.6 pg (25-34); Mean Corpuscular Hgb Conc 33.3 g/dL (32-36); Mean Corpuscular Volume 91.8 fL (80-100); Platelet Count 207 K/uL (130-400); RDW Coefficient of Variation 13.7 % (11.5-14.5); RDW Standard Deviation 45.4 fL (36.4-46.3); Red Blood Count 3.76 M/uL (4.2-5.4); White Blood Count 5.49 K/uL (4.8-10.8)
[2022-03-19] MEDS: metroNIDAZOLE 500 MG TAB PO SCH ×3 (08:12→20:10)
[2022-03-19] MEDS: PANTOprazole 40 MG TAB PO SCH ×2 (08:12→20:10)
[2022-03-19] MEDS: GABAPENTIN 100 MG CAP PO SCH ×2 (08:12→20:10)
[2022-03-19] MEDS: METOPROLOL TARTRATE 25 MG TAB PO SCH ×2 (08:13→20:10)
[2022-03-19] MEDS: APIXABAN 5 MG TABLET PO SCH ×2 (08:13→20:10)
[2022-03-19] MEDS: AMIODARONE 200 MG TAB PO SCH ×2 (08:13→20:10)
[2022-03-19] MEDS: CEFDINIR 300 MG CAP PO SCH ×2 (08:14→20:10)
[2022-03-19] MEDS: LOSARTAN POTASSIUM 25 MG TAB PO SCH (08:14)
[2022-03-19] MEDS: PRAVASTATIN SOD 10 MG TAB PO SCH (08:14)
[2022-03-19] MEDS: POLYETHYLENE (MIRALAX) 17 GM PACK PO SCH (08:15)
[2022-03-19] MEDS: POTASSIUM CHLORIDE 10 MEQ TABCR PO SCH (08:24)
[2022-03-19] MEDS: INSULIN ASPART PER UNIT SC SCH ×4 (09:01→22:54)
--- NOTE | 2022-03-19 09:50 | Hospitalist Progress Note ---
Date of Service March 19, 2022 Assessment & Plan (1) Encephalopathy acute: Plan: Cristina is a 76-year-old woman with past medical history of breast cancer s/p lumpectomy, chemo and XRT (2008) paroxysmal A-fib, T2DM, HTN, HLD, hypothyroidism and newly diagnosed pancreatic mass suspicious for pancreatic cancer admitted for altered mental status and acute transaminitis w/ concern for biliary stricture. Encephalopathy: - most likely 2/2 GI infection secondary to biliary stasis, started on zosyn for 3 days, switched to cefdinir 03/17, continue for 7 days total (d/c after tomorrow) - CT head 03/13: without acute intracranial pathology - MRI brain from 02/23 did not show brain mets - CXR 03/13: cardiomegaly, mild pulmonary edema - chest CTA 02/22: pancreatic mass lesion encases hepatic/splenic arteries @ celiac bifurcation, low attenuation w/in anterior lobe, new from prior exams (concerning for steatosis or hepatic infarct), 13 mm enhancing nodule in interpolar L kidney, small neoplasm not excluded, R lobe thyroid mass unchanged - Baclofen, Tramadol, gabapentin, Cymbalta held; possible contribution to worse mental status - blood cultures neg - urine culture: typical vaginal amos - Ammonia level normal. - patient's mentation and awareness improved after 1 day abx, progressed from 1 word answers to full sentences. Currently able to recall daily events and operate phone - WBC 5.49 Pancreatic mass, transaminitis s/p EUS, ERCP and biliary sphincterotomy 03/15: - CT abd/pelvis 03/13: pancreatic ductal dilatation, mild intrahepatic biliary ductal dilation suggestive of pancreatic adenocarcinoma. 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 Psammoma bodies have been reported in associated with primary pancreatic adenocarcinoma, though clinical/radiographic correlation to exclude a gynecologic serous carcinoma is recommended. - GI recommended referral to surgical oncology; will refer patient in outpatient setting for evaluation of surgical resection Weakness -Patient lives alone -POA is brother in law -PT/OT ordered, recommend inpt rehab -case management looking into [facility] Elevated LFTs - downtrending - acute significant worsening of LFTs and alk phos concerning for biliary stricture - AST: 843 --> 52 - ALT: 485 --> 159 - Alk phos: 468 --> 312 - Total Bilirubin: 3.6 --> 1 AFib: - Recently started on amiodarone and Eliquis for AFib with RVR last admission. - Eliquis held, resumed 03/18 - Will continue amiodarone for AFib given recent RVR, as do not suspect this is causing transaminitis given very recent initiation of medication. Constipation -scheduled miralax 34mg daily DM2: - SSI HTN: - continue metoprolol 25 mg - continue Losartan 25 mg HLD: - continue pravastatin Hypothyroidism: - Continue home levothyroxine Hypomagnesemia, resolved: Code Status: CONDITIONAL CODE; no chest compressions, no intubation/artificial ventilation; defibrillation and medications okay FEN: carb consistent DVT ppx: Eliquis Dispo - discharge planning in progress. (2) Mass of pancreas: (3) Transaminitis: (4) Paroxysmal atrial fibrillation: (5) Hypomagnesemia: (6) Type 2 diabetes mellitus: (7) Hyperlipidemia: (8) Hypothyroidism: Admission and Anticipated Discharge Date Admission Date: March 13, 2022 Supervising Physician Co-Signing Physician Notes Resident Physician Supervision Note: I independently interviewed and examined the patient and verified the gonzales history and physical, reviewed labs and image studies and agree with resident Dr. Dubose findings and care plan. Subjective Patient seen at bedside, calm comfortable cooperative, sleepy. Arousable on exam. States she slept well, looks forward to breakfast. No acute concerns at this time. Review of Systems Review of Systems: Negative fever chills Negative headache dizziness Negative chest pain palpitations SOB Negative nausea vomitting diarrhea constipation Negative numbness tingling rash swelling Physical Exam Constitutional: WD/WN, vitals as above + morbidly obese, cooperative and comfortable Eyes: PERRL, conjunctivae normal, anicteric sclerae ENMT: external ear and nose normal, oropharynx normal Neck: trachea midline, no thyromegaly Respiratory: normal respiratory effort, lungs clear to auscultation Cardiovascular: RRR, no murmur, no edema Chest (Breasts): Chest: normal inspection of chest Gastrointestinal (Abdomen): normal bowel sounds, soft, nontender, no hepatosplenomegaly Skin: no rashes, warm and dry Results & Data Results & Data ([facility]) Vital Signs (Past 12 Hours) Vital Signs Temp Pulse Resp BP BP Pulse Ox 03/19/22 09:42 165/76 H 03/19/22 08:05 63 180/80 H 03/19/22 06:32 36.6 C 61 18 93 03/19/22 06:30 175/80 H 03/19/22 01:51 73 145/70 H 03/18/22 22:19 36.7 C 62 18 184/83 H 92 Laboratory Results 03/19/22 03/19/22 03/19/22 Range/Units 12:03 08:06 07:15 WBC 5.49 (4.8-10.8) K/uL RBC 3.76 L (4.2-5.4) M/uL Hgb 11.5 L (12.0-16.0) g/dL Hct 34.5 L (37-47) % MCV 91.8 (80-100) fL MCH 30.6 (25-34) pg MCHC 33.3 (32-36) g/dL RDW Std Deviation 45.4 (36.4-46.3) fL RDW Coeff of Marii 13.7 (11.5-14.5) % Plt Count 207 (130-400) K/uL MPV 12.0 H (7.4-10.4) fL POC Glucose 150 H 139 H (70-99) mg/dl 03/18/22 03/18/22 Range/Units 20:37 17:03 WBC (4.8-10.8) K/uL RBC (4.2-5.4) M/uL Hgb (12.0-16.0) g/dL Hct (37-47) % MCV (80-100) fL MCH (25-34) pg MCHC (32-36) g/dL RDW Std Deviation (36.4-46.3) fL RDW Coeff of Marii (11.5-14.5) % Plt Count (130-400) K/uL MPV (7.4-10.4) fL POC Glucose 140 H 153 H (70-99) mg/dl Resident Activity Tracking Resident Involvement: Resident Care Provided Care Provided: Adult Hospital Medicine
[2022-03-19] MEDS: ACETAMINOPHEN 325 MG TAB PO PRN (19:27)
[2022-03-19] MEDS: LIDOCAINE 5% 1 PATCH TD SCH (19:29)
[2022-03-19] MEDS: DULoxetine HCL 60 MG CAP PO SCH (20:10)
[2022-03-19] MEDS: OXYBUTYNIN CHLORIDE 5 MG TAB PO SCH (20:10)
[2022-03-20] MEDS ORDERED: METOPROLOL TARTRATE 25 MG TAB PO STA (00:47)
[2022-03-20] MEDS: LEVOTHYROXINE SODIUM 25 MCG TABLET PO SCH (05:54)
--- NOTE | 2022-03-20 07:07 | Hospitalist Progress Note ---
Date of Service March 20, 2022 Assessment & Plan (1) Encephalopathy acute: Plan: Cristina is a 76-year-old woman with past medical history of breast cancer s/p lumpectomy, chemo and XRT (2008) paroxysmal A-fib, T2DM, HTN, HLD, hypothyroidism and newly diagnosed pancreatic mass suspicious for pancreatic cancer admitted for altered mental status and acute transaminitis w/ concern for biliary stricture. Encephalopathy: - CXR, CT head, MRI brain - with no obvious pathology. Neg infection work up - ammonia normal - likely 2/2 to medication side effect interacting with decreased hepatic function from obstructive pathology Initially suspicion for infection. No elevated WBC noted. Bcx neg. Patient treated with zosyn, cefdinir, flagyl, currently d/c'd abx Baclofen, Tramadol, gabapentin, Cymbalta discontinued; possible contribution to worse mental status - patient's mentation and awareness improved after 1 day, progressed from 1 word answers to full sentences. Currently able to recall daily events and operate phone Biliary stricture 2/2 Pancreatic mass, s/p EUS, ERCP and biliary sphincterotomy 03/15: - CT abd/pelvis 03/13: pancreatic ductal dilatation, mild intrahepatic biliary ductal dilation suggestive of pancreatic adenocarcinoma. 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 Psammoma bodies have been reported in associated with primary pancreatic adenocarcinoma, though clinical/radiographic correlation to exclude a gynecologic serous carcinoma is recommended. - Per GI - refer to surgical oncology; to be done as outpt - ordered transvaginal pelvic US to rule out gynecologic source of pancreatic mass as per pathology recommendation - Oncology recommends repeat biopsy of mass - will discuss with GI. Weakness -Patient lives alone -POA is brother in law -PT/OT ordered, recommend inpt rehab -case management looking into [facility] Elevated LFTs - downtrending - acute significant worsening of LFTs and alk phos concerning for biliary stricture - AST: 843 --> 27 - ALT: 485 --> 91 - Alk phos: 468 --> 288 - Total Bilirubin: 3.6 --> 1 AFib: - Recently started on amiodarone and Eliquis for AFib with RVR last admission. - Eliquis held, resumed 03/18 - Will continue amiodarone for AFib given recent RVR, as do not suspect this is causing transaminitis given very recent initiation of medication. Constipation -scheduled miralax 34mg daily DM2: - SSI -may resume her metformin 500mg daily in outpatient HTN: - continue metoprolol 25 mg - continue Losartan 25 mg HLD: - continue pravastatin Hypothyroidism: - Continue home levothyroxine Hypomagnesemia, resolved: Code Status: CONDITIONAL CODE; no chest compressions, no intubation/artificial ventilation; defibrillation and medications okay FEN: carb consistent DVT ppx: Eliquis Dispo - discharge planning in progress. (2) Mass of pancreas: (3) Transaminitis: (4) Paroxysmal atrial fibrillation: (5) Hypomagnesemia: (6) Type 2 diabetes mellitus: (7) Hyperlipidemia: (8) Hypothyroidism: Admission and Anticipated Discharge Date Admission Date: March 13, 2022 Supervising Physician Co-Signing Physician Notes Resident Physician Supervision Note: I independently interviewed and examined the patient and verified the gonzales history and physical, reviewed labs and image studies and agree with resident Dr. Dubose findings and care plan. Subjective Patient seen at bedside, calm comfortable cooperative, sleepy. Per nursing she had a BM yesterday. Patient understands that we are currently awaiting placement. She understands we have the results of her biopsy, however they are not a clear cut indication of cancer, we will contact oncology for further recommendations. No acute concerns as of this time. Review of Systems Review of Systems: Negative fever chills Negative headache dizziness Negative chest pain palpitations SOB Negative nausea vomitting diarrhea constipation Negative numbness tingling rash swelling Physical Exam Constitutional: WD/WN, vitals as above + morbidly obese, cooperative and comfortable Eyes: PERRL, conjunctivae normal, anicteric sclerae ENMT: external ear and nose normal, oropharynx normal Neck: trachea midline, no thyromegaly Respiratory: normal respiratory effort, lungs clear to auscultation Cardiovascular: RRR, no murmur, no edema Chest (Breasts): Chest: normal inspection of chest Gastrointestinal (Abdomen): normal bowel sounds, soft, nontender, no hepatosplenomegaly Skin: no rashes, warm and dry Results & Data Results & Data ([facility]) Vital Signs (Past 12 Hours) Vital Signs Temp Pulse Pulse Resp BP Pulse Ox 03/20/22 03:25 71 182/73 H 94 03/20/22 01:28 72 189/76 H 03/19/22 22:07 37 C 73 16 190/75 H 94 03/19/22 20:06 71 160/70 H Laboratory Results 03/20/22 03/20/22 03/20/22 Range/Units 12:03 07:44 06:52 WBC (4.8-10.8) K/uL RBC (4.2-5.4) M/uL Hgb (12.0-16.0) g/dL Hct (37-47) % MCV (80-100) fL MCH (25-34) pg MCHC (32-36) g/dL RDW Std Deviation (36.4-46.3) fL RDW Coeff of Marii (11.5-14.5) % Plt Count (130-400) K/uL MPV (7.4-10.4) fL Sodium 130 L (136-145) mmol/L Potassium 4.0 (3.5-5.1) mmol/L Chloride 95 L (98-107) mmol/L Carbon Dioxide 28 (21-32) mmol/L Anion Gap 7 (3-11) BUN 11 (6-23) mg/dl Creatinine 0.72 (0.6-1.2) mg/dl Est Cr Clr Drug Dosing 74.9 ml/min Est GFR ( Amer) 94.9 ml/min Est GFR (Non-Af Amer) 81.9 ml/min BUN/Creatinine Ratio 15.3 (10-20) Glucose 147 H (70-99(Fasting)) mg/dl POC Glucose 163 H 123 H (70-99) mg/dl Calcium 9.7 (8.5-10.1) mg/dl Total Bilirubin 1.0 (0.2-1.0) mg/dl AST 27 (13-39) U/L ALT 91 H (7-52) U/L Alkaline Phosphatase 288 H (34-104) U/L Total Protein 7.0 (6.0-8.3) gm/dl Albumin 3.2 L (3.4-5.0) gm/dl Globulin 3.8 (2.5-4.0) gm/dl Albumin/Globulin Ratio 0.8 L (0.9-2) 03/20/22 03/19/22 03/19/22 Range/Units 06:52 20:38 17:02 WBC 5.75 (4.8-10.8) K/uL RBC 4.04 L (4.2-5.4) M/uL Hgb 12.5 (12.0-16.0) g/dL Hct 37.8 (37-47) % MCV 93.6 (80-100) fL MCH 30.9 (25-34) pg MCHC 33.1 (32-36) g/dL RDW Std Deviation 46.3 (36.4-46.3) fL RDW Coeff of Marii 13.4 (11.5-14.5) % Plt Count 225 (130-400) K/uL MPV 12.1 H (7.4-10.4) fL Sodium (136-145) mmol/L Potassium (3.5-5.1) mmol/L Chloride (98-107) mmol/L Carbon Dioxide (21-32) mmol/L Anion Gap (3-11) BUN (6-23) mg/dl Creatinine (0.6-1.2) mg/dl Est Cr Clr Drug Dosing ml/min Est GFR ( Amer) ml/min Est GFR (Non-Af Amer) ml/min BUN/Creatinine Ratio (10-20) Glucose (70-99(Fasting)) mg/dl POC Glucose 162 H 133 H (70-99) mg/dl Calcium (8.5-10.1) mg/dl Total Bilirubin (0.2-1.0) mg/dl AST (13-39) U/L ALT (7-52) U/L Alkaline Phosphatase (34-104) U/L Total Protein (6.0-8.3) gm/dl Albumin (3.4-5.0) gm/dl Globulin (2.5-4.0) gm/dl Albumin/Globulin Ratio (0.9-2) Medications Administered Current Inpatient Medications Acetaminophen (Acetaminophen 325 Mg Tab) 650 mg PO Q4H PRN PRN Reason: Pain or Fever Stop: 04/12/22 23:29 Last Admin: 03/19/22 19:27 Dose: 650 mg Documented by: Amiodarone HCl (Amiodarone 200 Mg Tab) 200 mg PO BID [facility] Stop: 04/13/22 08:59 Last Admin: 03/20/22 08:06 Dose: 200 mg Documented by: Apixaban (Apixaban 5 Mg Tablet) 5 mg PO BID [facility] Stop: 04/17/22 20:59 Last Admin: 03/20/22 08:05 Dose: 5 mg Documented by: Dextrose (Dextrose 50% 50 Ml Syringe) 25 - 50 ml IV UD PRN; Protocol PRN Reason: Hypoglycemia Protocol Stop: 04/12/22 23:29 Duloxetine HCl (Duloxetine Hcl 60 Mg Cap) 60 mg PO HS [facility] Stop: 04/15/22 20:59 Last Admin: 03/19/22 20:10 Dose: 60 mg Documented by: Gabapentin (Gabapentin 100 Mg Cap) 100 mg PO BID [facility] Stop: 04/15/22 20:59 Last Admin: 03/20/22 08:07 Dose: 100 mg Documented by: Glucagon (Glucagon For Inj 1 Mg Vial) 1 mg SQ UD PRN; Protocol PRN Reason: Hypoglycemia Protocol Stop: 04/12/22 23:29 Glucose (Glucose 10 Tabs/Tube) 4 - 8 tabs PO UD PRN; Protocol PRN Reason: Hypoglycemia Protocol Stop: 04/12/22 23:29 Glucose (Glucose 40% Gel 15 Gm Tube) 15 - 30 gm PO UD PRN; Protocol PRN Reason: Hypoglycemia Protocol Stop: 04/12/22 23:29 Insulin Aspart (Insulin Aspart Per Unit) 0 units SC ACHS [facility] Stop: 04/14/22 20:59 Last Admin: 03/20/22 13:08 Dose: Not Given Documented by: Levothyroxine Sodium (Levothyroxine Sodium 25 Mcg Tablet) 25 mcg PO DAILYBB [facility] Stop: 04/13/22 06:29 Last Admin: 03/20/22 05:54 Dose: 25 mcg Documented by: Lidocaine (Lidocaine 5% 1 Patch) 1 patch TD HS [facility] Stop: 04/17/22 20:54 Last Admin: 03/19/22 19:29 Dose: 1 patch Documented by: Losartan Potassium (Losartan Potassium 25 Mg Tab) 25 mg PO QAM [facility] Stop: 04/13/22 08:59 Last Admin: 03/20/22 08:05 Dose: 25 mg Documented by: Metoprolol Tartrate (Metoprolol Tartrate 25 Mg Tab) 25 mg PO BID [facility] Stop: 04/13/22 08:59 Last Admin: 03/20/22 08:06 Dose: 25 mg Documented by: Metoprolol Tartrate (Metoprolol Tartrate 1 Mg/Ml Vial) 5 mg IV Q6 PRN PRN Reason: BP > 180/100 Stop: 04/12/22 23:29 Miscellaneous (Carbohydrates For Hypoglycemia ) 15 - 30 gm PO UD PRN PRN Reason: Hypoglycemia Protocol Stop: 04/12/22 23:29 Miscellaneous (Remove Lidoderm Patch) 1 ea N/A DAILY@0900 [facility] Stop: 04/18/22 08:59 Last Admin: 03/20/22 08:08 Dose: 1 ea Documented by: Ondansetron HCl (Ondansetron Inj 2 Mg/Ml 2 Ml Vial) 4 mg IV Q6H PRN PRN Reason: Nausea Stop: 04/12/22 23:29 Last Admin: 03/14/22 19:35 Dose: 4 mg Documented by: Oxybutynin Chloride (Oxybutynin Chloride 5 Mg Tab) 5 mg PO QPM [facility] Stop: 04/13/22 20:59 Last Admin: 03/19/22 20:10 Dose: 5 mg Documented by: Pantoprazole Sodium (Pantoprazole 40 Mg Tab) 40 mg PO BID [facility] Stop: 04/13/22 08:59 Last Admin: 03/20/22 08:07 Dose: 40 mg Documented by: Polyethylene Glycol (Polyethylene (Miralax) 17 Gm Pack) 34 gm PO DAILY [facility] Stop: 04/18/22 08:59 Last Admin: 03/20/22 08:05 Dose: 34 gm Documented by: Potassium Chloride (Potassium Chloride 10 Meq Tabcr) 10 meq PO DAILY [facility] Stop: 04/13/22 08:59 Last Admin: 03/20/22 08:28 Dose: 10 meq Documented by: Pravastatin Sodium (Pravastatin Sod 10 Mg Tab) 10 mg PO DAILY [facility] Stop: 04/13/22 08:59 Last Admin: 03/20/22 08:04 Dose: 10 mg Documented by: Resident Activity Tracking Resident Involvement: Resident Care Provided Care Provided: Adult Hospital Medicine
[2022-03-20 07:41] LABS: Hematocrit (blood only) 37.8 % (37-47); Hemoglobin 12.5 g/dL (12.0-16.0); Mean Corpuscular Hemoglobin 30.9 pg (25-34); Mean Corpuscular Hgb Conc 33.1 g/dL (32-36); Mean Corpuscular Volume 93.6 fL (80-100); Mean Platelet Volume 12.1 fL (7.4-10.4); Platelet Count 225 K/uL (130-400); RDW Coefficient of Variation 13.4 % (11.5-14.5); RDW Standard Deviation 46.3 fL (36.4-46.3); Red Blood Count 4.04 M/uL (4.2-5.4); White Blood Count 5.75 K/uL (4.8-10.8)
[2022-03-20] MEDS: PRAVASTATIN SOD 10 MG TAB PO SCH (08:04)
[2022-03-20] MEDS: POLYETHYLENE (MIRALAX) 17 GM PACK PO SCH (08:05)
[2022-03-20] MEDS: APIXABAN 5 MG TABLET PO SCH ×2 (08:05→19:42)
[2022-03-20] MEDS: CEFDINIR 300 MG CAP PO SCH (08:05)
[2022-03-20] MEDS: LOSARTAN POTASSIUM 25 MG TAB PO SCH (08:05)
[2022-03-20] MEDS: AMIODARONE 200 MG TAB PO SCH ×2 (08:06→19:42)
[2022-03-20] MEDS: METOPROLOL TARTRATE 25 MG TAB PO SCH ×2 (08:06→19:42)
[2022-03-20] MEDS: GABAPENTIN 100 MG CAP PO SCH ×2 (08:07→19:42)
[2022-03-20] MEDS: metroNIDAZOLE 500 MG TAB PO SCH (08:07)
[2022-03-20] MEDS: PANTOprazole 40 MG TAB PO SCH ×2 (08:07→19:43)
[2022-03-20 08:12] LABS: Albumin Globulin Ratio 0.8 (0.9-2); Albumin Level 3.2 gm/dl (3.4-5.0); BUN Creatinine Ratio 15.3 (10-20); Calcium 9.7 mg/dl (8.5-10.1); Creatinine Clr Calc Pharmacy 74.9 ml/min; Est GFR (African American) 94.9 ml/min; Est GFR (Non-African American) 81.9 ml/min; Globulin 3.8 gm/dl (2.5-4.0)
[2022-03-20] MEDS: POTASSIUM CHLORIDE 10 MEQ TABCR PO SCH (08:28)
[2022-03-20] MEDS: INSULIN ASPART PER UNIT SC SCH ×4 (08:57→21:21)
--- NOTE | 2022-03-20 14:30 | Ultrasound Report ---
US pelvic complete, US transvaginal CLINICAL HISTORY: Concern gynecologic source of pacreatic mass TECHNIQUE: Real-time sonographic images of the pelvic contents were obtained with transabdominal tech nique. Transvaginal technique was attempted but unsuccessful. Comparison: None available at the time of this dictation. FINDINGS: The uterus measures 8.1 x 1.7 x 3.1 cm. The endometrial cavity echo stripe measures 0.3 cm in thickne ss. The uterus is normal in appearance. The right ovary measures 3.1 x 2.3 x 2.6 cm and is normal in appearance The left ovary was not seen. There was no fluid in the cul-de-sac. IMPRESSION: Normal transvaginal pelvic ultrasound. ACT 112: Negative or not required by law. Electronically signed by: Ankit Angelo M.D. 03/20/2022 2:29 PM
[2022-03-20] MEDS: LIDOCAINE 5% 1 PATCH TD SCH (19:41)
[2022-03-20] MEDS: DULoxetine HCL 60 MG CAP PO SCH (19:42)
[2022-03-20] MEDS: OXYBUTYNIN CHLORIDE 5 MG TAB PO SCH (19:43)
[2022-03-20] MEDS: ACETAMINOPHEN 325 MG TAB PO PRN (19:43)
[2022-03-21] MEDS: LEVOTHYROXINE SODIUM 25 MCG TABLET PO SCH (06:02)
[2022-03-21] MEDS: AMIODARONE 200 MG TAB PO SCH ×2 (08:15→21:11)
[2022-03-21] MEDS: LOSARTAN POTASSIUM 25 MG TAB PO SCH (08:15)
[2022-03-21] MEDS: GABAPENTIN 100 MG CAP PO SCH ×2 (08:15→21:10)
[2022-03-21] MEDS: APIXABAN 5 MG TABLET PO SCH ×2 (08:15→21:12)
[2022-03-21] MEDS: PANTOprazole 40 MG TAB PO SCH ×2 (08:15→21:11)
[2022-03-21] MEDS: METOPROLOL TARTRATE 25 MG TAB PO SCH ×2 (08:15→21:10)
[2022-03-21] MEDS: PRAVASTATIN SOD 10 MG TAB PO SCH (08:15)
[2022-03-21] MEDS: POLYETHYLENE (MIRALAX) 17 GM PACK PO SCH (08:16)
[2022-03-21] MEDS: INSULIN ASPART PER UNIT SC SCH ×4 (08:19→21:09)
[2022-03-21] MEDS: POTASSIUM CHLORIDE 10 MEQ TABCR PO SCH (08:23)
--- NOTE | 2022-03-21 10:10 | Hospitalist Progress Note ---
Date of Service March 21, 2022 Assessment & Plan (1) Encephalopathy acute: Plan: 76-year-old woman with past medical history of breast cancer s/p lumpectomy, chemo and XRT (2008) paroxysmal A-fib, T2DM, HTN, HLD, hypothyroidism and newly diagnosed pancreatic mass suspicious for pancreatic cancer admitted for altered mental status and acute transaminitis w/ concern for biliary stricture. Encephalopathy: - CT head 03/13: without acute intracranial pathology - MRI brain from 02/23 did not show brain mets - CXR 03/13: cardiomegaly, mild pulmonary edema - Ammonia level normal. - likely 2/2 to medication side effect interacting with decreased hepatic function. Initially suspicion for infection. No elevated WBC noted. Bl and urine cx neg. Patient treated with zosyn, cefdinir, flagyl, currently d/c'd abx Baclofen, Tramadol, gabapentin, Cymbalta discontinued; possible contribution to worse mental status - patient's mentation and awareness improved after 1 day, progressed from 1 word answers to full sentences. Currently able to recall daily events and operate phone Biliary stricture 2/2 Pancreatic mass, s/p EUS, ERCP and biliary sphincterotomy 03/15: - CT abd/pelvis 03/13: pancreatic ductal dilatation, mild intrahepatic biliary ductal dilation suggestive of pancreatic adenocarcinoma. 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 Psammoma bodies have been reported in associated with primary pancreatic adenocarcinoma, though clinical/radiographic correlation to exclude a gynecologic serous carcinoma is recommended. - GI recommended referral to surgical oncology; will refer patient in outpatient setting for evaluation of surgical resection - ordered transvaginal pelvic US to rule out gynecologic source of pancreatic mass Pancreatic mass: - chest CTA 02/22: pancreatic mass lesion encases hepatic/splenic arteries @ celiac bifurcation, low attenuation w/in anterior lobe, new from prior exams (concerning for steatosis or hepatic infarct), 13 mm enhancing nodule in interpolar L kidney, small neoplasm not excluded, R lobe thyroid mass unchanged - see above Weakness -Patient lives alone -POA is brother in law -PT/OT ordered, recommend inpt rehab -case management looking into [facility] Elevated LFTs - downtrending - acute significant worsening of LFTs and alk phos concerning for biliary stricture - AST and ALT down trending AFib: - Recently started on amiodarone and Eliquis for A. Fib with RVR last admission. - Eliquis held, resumed 03/18 - Will continue amiodarone for A. Fib given recent RVR, as do not suspect this is causing transaminitis given very recent initiation of medication. Constipation -scheduled miralax 34mg daily DM2: - SSI -may resume her metformin 500mg daily in outpatient HTN: - continue metoprolol 25 mg - continue Losartan 25 mg HLD: - continue pravastatin Hypothyroidism: - Continue home levothyroxine Hypomagnesemia, resolved: Code Status: CONDITIONAL CODE; no chest compressions, no intubation/artificial ventilation; defibrillation and medications okay FEN: carb consistent DVT ppx: Eliquis Dispo - discharge planning in progress. (2) Mass of pancreas: (3) Transaminitis: (4) Paroxysmal atrial fibrillation: (5) Hypomagnesemia: (6) Type 2 diabetes mellitus: (7) Hyperlipidemia: (8) Hypothyroidism: Admission and Anticipated Discharge Date Admission Date: March 13, 2022 Supervising Physician Co-Signing Physician Notes Resident Physician Supervision Note: I independently interviewed and examined the patient and verified the gonzales history and physical, reviewed labs and image studies and agree with resident Dr. Roberto findings and care plan. Subjective Cristina Delaney was doing well overnight. She denies nausea, vomiting, belly pain, chest pain, palpitations, shortness of breath. We discussed that she would likely need placement for strengthening prior to going home and she understood. Review of Systems Review of Systems: per. subjective Physical Exam Physical Exam: Constitutional WD/WN, vitals as above + morbidly obese, cooperative and comfortable Eyes PERRL, conjunctivae normal, anicteric sclerae ENMT external ear and nose normal, oropharynx normal Neck trachea midline, no thyromegaly Respiratory normal respiratory effort, lungs clear to auscultation Cardiovascular RRR, no murmur, no edema Chest (Breasts) Chest:normal inspection of chest Gastrointestinal (Abdomen) normal bowel sounds, soft, nontender, no hepatosplenomegaly Skin no rashes, warm and dry Results & Data Results & Data ([facility]) Vital Signs (Past 12 Hours) Vital Signs Temp Pulse Resp BP Pulse Ox 03/21/22 07:55 36.6 C 64 18 146/76 H 95 03/20/22 23:23 36.8 C 66 18 111/62 96 CBC Results Results Complete Blood Count Results: RBC 4.04 M/uL (4.2-5.4) L 03/20/22 WBC 5.75 K/uL (4.8-10.8) 03/20/22 Hgb 12.5 g/dL (12.0-16.0) 03/20/22 Hct 37.8 % (37-47) 03/20/22 Plt Count 225 K/uL (130-400) 03/20/22 Chemistry (BMP) Results BMP Results: Sodium 130 mmol/L (136-145) L 03/20/22 Potassium 4.0 mmol/L (3.5-5.1) 03/20/22 Chloride 95 mmol/L (98-107) L 03/20/22 Carbon Dioxide 28 mmol/L (21-32) 03/20/22 Anion Gap 7 (3-11) 03/20/22 BUN 11 mg/dl (6-23) 03/20/22 Creatinine 0.72 mg/dl (0.6-1.2) 03/20/22 Glucose 147 mg/dl (70-99(Fasting)) H 03/20/22 Resident Activity Tracking Resident Involvement: Resident Care Provided Care Provided: Adult [facility]
--- NOTE | 2022-03-21 14:16 | Gastroenterology Progress Note ---
Date of Service March 21, 2022 Assessment & Plan Admission and Anticipated Discharge Date Admission Date: March 13, [address]22 [address] reviewed ans is highly suspicious for pancreatic malignancy. At this point would not repeat her FNA and she should go for Whipple's resection, a referral can arranged as OP, needs to be done at a center that participates with her insurance as [facility] is not. Recall GI if needed. Results & Data ([facility]) Vital Signs (Past 12 Hours) Vital Signs Temp Pulse Resp BP Pulse Ox 03/21/22 07:55 36.6 C 64 18 146/76 H 95
[2022-03-21] MEDS: ACETAMINOPHEN 325 MG TAB PO PRN (17:06)
[2022-03-21] MEDS: OXYBUTYNIN CHLORIDE 5 MG TAB PO SCH (21:10)
[2022-03-21] MEDS: DULoxetine HCL 60 MG CAP PO SCH (21:11)
[2022-03-21] MEDS: LIDOCAINE 5% 1 PATCH TD SCH (21:12)
[2022-03-22] MEDS: LEVOTHYROXINE SODIUM 25 MCG TABLET PO SCH (05:34)
[2022-03-22 07:09] LABS: Basophils # (auto) 0.01 K/uL (0-0.2); Basophils % (auto) 0.2 %; Eosinophils # (auto) 0.31 K/uL (0-0.5); Eosinophils % (auto) 4.9 %; Hematocrit (blood only) 36.3 % (37-47); Immature Granulocytes # (auto) 0.01 K/uL (0.00-0.02); Immature Granulocytes % (auto) 0.2 %; Lymphocytes # (auto) 1.95 K/uL (1.2-3.4); Lymphocytes % (auto) 30.8 %; Mean Corpuscular Hgb Conc 33.1 g/dL (32-36); Mean Corpuscular Volume 93.8 fL (80-100); Mean Platelet Volume 12.3 fL (7.4-10.4); Monocytes # (auto) 0.67 K/uL (0.11-0.59); Monocytes % (auto) 10.6 %; Neutrophils # (auto) 3.39 K/uL (1.4-6.5); Neutrophils % (auto) 53.3 %; Platelet Count 244 K/uL (130-400); RDW Coefficient of Variation 13.7 % (11.5-14.5); RDW Standard Deviation 46.6 fL (36.4-46.3); Red Blood Count 3.87 M/uL (4.2-5.4); White Blood Count 6.34 K/uL (4.8-10.8)
[2022-03-22 07:32] LABS: Albumin Globulin Ratio 0.9 (0.9-2); Albumin Level 3.1 gm/dl (3.4-5.0); Bilirubin,Total 0.9 mg/dl (0.2-1.0); Calcium 9.5 mg/dl (8.5-10.1); Creatinine Clr Calc Pharmacy 60.6 ml/min; Est GFR (African American) 74.5 ml/min; Est GFR (Non-African American) 64.3 ml/min; Globulin 3.6 gm/dl (2.5-4.0); Total Protein 6.7 gm/dl (6.0-8.3)
[2022-03-22] MEDS: AMIODARONE 200 MG TAB PO SCH ×2 (07:51→20:44)
[2022-03-22] MEDS: METOPROLOL TARTRATE 25 MG TAB PO SCH ×2 (07:51→20:44)
[2022-03-22] MEDS: LOSARTAN POTASSIUM 25 MG TAB PO SCH (07:51)
[2022-03-22] MEDS: PANTOprazole 40 MG TAB PO SCH ×2 (07:51→20:46)
[2022-03-22] MEDS: PRAVASTATIN SOD 10 MG TAB PO SCH (07:51)
[2022-03-22] MEDS: APIXABAN 5 MG TABLET PO SCH ×2 (07:51→20:45)
[2022-03-22] MEDS: GABAPENTIN 100 MG CAP PO SCH ×2 (07:51→20:45)
[2022-03-22] MEDS: POLYETHYLENE (MIRALAX) 17 GM PACK PO SCH (07:52)
[2022-03-22] MEDS: POTASSIUM CHLORIDE 10 MEQ TABCR PO SCH (07:55)
[2022-03-22] MEDS: INSULIN ASPART PER UNIT SC SCH ×4 (09:26→20:51)
--- NOTE | 2022-03-22 10:26 | Hospitalist Progress Note ---
Date of Service March 22, 2022 Assessment & Plan (1) Encephalopathy acute: Plan: 76-year-old woman with past medical history of breast cancer s/p lumpectomy, chemo and XRT (2008) paroxysmal A-fib, T2DM, HTN, HLD, hypothyroidism and newly diagnosed pancreatic mass suspicious for pancreatic cancer admitted for altered mental status and acute transaminitis w/ concern for biliary stricture. Encephalopathy: - CT head 03/13: without acute intracranial pathology - MRI brain from 02/23 did not show brain mets - CXR 03/13: cardiomegaly, mild pulmonary edema - Ammonia level normal. - likely 2/2 to medication side effect interacting with decreased hepatic function. Initially suspicion for infection. No elevated WBC noted. Bl and urine cx neg. Patient treated with zosyn, cefdinir, flagyl, abx d/c'd Baclofen, Tramadol, gabapentin, Cymbalta discontinued; possible contribution to worse mental status - patient's mentation and awareness improved after 1 day, progressed from 1 word answers to full sentences. Currently able to recall daily events and operate phone Biliary stricture 2/2 Pancreatic mass, s/p EUS, ERCP and biliary sphincterotomy 03/15: - CT abd/pelvis 03/13: pancreatic ductal dilatation, mild intrahepatic biliary ductal dilation suggestive of pancreatic adenocarcinoma. 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 Psammoma bodies have been reported in associated with primary pancreatic adenocarcinoma, though clinical/radiographic correlation to exclude a gynecologic serous carcinoma is recommended. - GI recommended referral to surgical oncology; will refer patient in outpatient setting for evaluation of surgical resection - transvaginal pelvic US unremarkable, unlikely gynecologic source Pancreatic mass: - chest CTA 02/22: pancreatic mass lesion encases hepatic/splenic arteries @ celiac bifurcation, low attenuation w/in anterior lobe, new from prior exams (concerning for steatosis or hepatic infarct), 13 mm enhancing nodule in interpolar L kidney, small neoplasm not excluded, R lobe thyroid mass unchanged - see above Weakness -Patient lives alone -POA is brother in law -PT/OT ordered, recommend inpt rehab Elevated LFTs - downtrending - acute significant worsening of LFTs and alk phos concerning for biliary stricture - AST and ALT down trending AFib: - Recently started on amiodarone and Eliquis for A. Fib with RVR last admission. - Eliquis held, resumed 03/18 - Will continue amiodarone for A. Fib given recent RVR, as do not suspect this is causing transaminitis given very recent initiation of medication. Constipation -scheduled miralax 34mg daily DM2: - SSI -may resume her metformin 500mg daily in outpatient HTN: - continue metoprolol 25 mg - continue Losartan 25 mg HLD: - continue pravastatin Hypothyroidism: - Continue home levothyroxine Hypomagnesemia, resolved: Code Status: CONDITIONAL CODE; no chest compressions, no intubation/artificial ventilation; defibrillation and medications okay FEN: carb consistent DVT ppx: Eliquis Dispo - discharge planning in progress. (2) Mass of pancreas: (3) Transaminitis: (4) Paroxysmal atrial fibrillation: (5) Hypomagnesemia: (6) Type 2 diabetes mellitus: (7) Hyperlipidemia: (8) Hypothyroidism: Admission and Anticipated Discharge Date Admission Date: March 13, 2022 Supervising Physician Co-Signing Physician Notes Resident Physician Supervision Note: I independently interviewed and examined the patient and verified the gonzales history and physical, reviewed labs and image studies and agree with resident Dr. Dubose findings and care plan. Subjective Patient seen at bedside on bedpan,calm comfortable cooperative. She denies any pain or discomfort. Patient understands it is possible her pancreatic mass may be cancer, she requires followup with surgical oncology in outpatient to further evaluate her mass. No acute concerns at this time. Review of Systems Review of Systems: Negative fever chills Negative headache dizziness Negative chest pain palpitations SOB Negative nausea vomitting diarrhea constipation Negative numbness tingling rash swelling Physical Exam Constitutional: WD/WN, vitals as above + morbidly obese, cooperative and comfortable Eyes: PERRL, conjunctivae normal, anicteric sclerae ENMT: external ear and nose normal, oropharynx normal Neck: trachea midline, no thyromegaly Respiratory: normal respiratory effort, lungs clear to auscultation Cardiovascular: RRR, no murmur, no edema Chest (Breasts): Chest: normal inspection of chest Gastrointestinal (Abdomen): normal bowel sounds, soft, nontender, no hepatosplenomegaly Skin: no rashes, warm and dry Results & Data Results & Data ([facility]) Vital Signs (Past 12 Hours) Vital Signs Temp Pulse Resp BP Pulse Ox 03/22/22 07:16 36.8 C 69 16 170/72 H 96 Laboratory Results 03/22/22 03/22/22 03/22/22 Range/Units 12:10 08:31 06:10 WBC (4.8-10.8) K/uL RBC (4.2-5.4) M/uL Hgb (12.0-16.0) g/dL Hct (37-47) % MCV (80-100) fL MCH (25-34) pg MCHC (32-36) g/dL RDW Std Deviation (36.4-46.3) fL RDW Coeff of Marii (11.5-14.5) % Plt Count (130-400) K/uL MPV (7.4-10.4) fL Immature Gran % (Auto) % Neut % (Auto) % Lymph % (Auto) % Davis % (Auto) % Eos % (Auto) % Baso % (Auto) % Neut # (Auto) (1.4-6.5) K/uL Lymph # (Auto) (1.2-3.4) K/uL Davis # (Auto) (0.11-0.59) K/uL Eos # (Auto) (0-0.5) K/uL Baso # (Auto) (0-0.2) K/uL Immature Gran # (Auto) (0.00-0.02) K/uL Sodium 130 L (136-145) mmol/L Potassium 4.0 (3.5-5.1) mmol/L Chloride 96 L (98-107) mmol/L Carbon Dioxide 27 (21-32) mmol/L Anion Gap 7 (3-11) BUN 15 (6-23) mg/dl Creatinine 0.88 (0.6-1.2) mg/dl Est Cr Clr Drug Dosing 60.6 ml/min Est GFR ( Amer) 74.5 ml/min Est GFR (Non-Af Amer) 64.3 ml/min BUN/Creatinine Ratio 17.0 (10-20) Glucose 147 H (70-99(Fasting)) mg/dl POC Glucose 151 H 160 H (70-99) mg/dl Calcium 9.5 (8.5-10.1) mg/dl Total Bilirubin 0.9 (0.2-1.0) mg/dl AST 23 (13-39) U/L ALT 52 (7-52) U/L Alkaline Phosphatase 220 H (34-104) U/L Total Protein 6.7 (6.0-8.3) gm/dl Albumin 3.1 L (3.4-5.0) gm/dl Globulin 3.6 (2.5-4.0) gm/dl Albumin/Globulin Ratio 0.9 (0.9-2) 03/22/22 03/21/22 03/21/22 Range/Units 06:10 20:44 16:49 WBC 6.34 (4.8-10.8) K/uL RBC 3.87 L (4.2-5.4) M/uL Hgb 12.0 (12.0-16.0) g/dL Hct 36.3 L (37-47) % MCV 93.8 (80-100) fL MCH 31.0 (25-34) pg MCHC 33.1 (32-36) g/dL RDW Std Deviation 46.6 H (36.4-46.3) fL RDW Coeff of Marii 13.7 (11.5-14.5) % Plt Count 244 (130-400) K/uL MPV 12.3 H (7.4-10.4) fL Immature Gran % (Auto) 0.2 % Neut % (Auto) 53.3 % Lymph % (Auto) 30.8 % Davis % (Auto) 10.6 % Eos % (Auto) 4.9 % Baso % (Auto) 0.2 % Neut # (Auto) 3.39 (1.4-6.5) K/uL Lymph # (Auto) 1.95 (1.2-3.4) K/uL Davis # (Auto) 0.67 H (0.11-0.59) K/uL Eos # (Auto) 0.31 (0-0.5) K/uL Baso # (Auto) 0.01 (0-0.2) K/uL Immature Gran # (Auto) 0.01 (0.00-0.02) K/uL Sodium (136-145) mmol/L Potassium (3.5-5.1) mmol/L Chloride (98-107) mmol/L Carbon Dioxide (21-32) mmol/L Anion Gap (3-11) BUN (6-23) mg/dl Creatinine (0.6-1.2) mg/dl Est Cr Clr Drug Dosing ml/min Est GFR ( Amer) ml/min Est GFR (Non-Af Amer) ml/min BUN/Creatinine Ratio (10-20) Glucose (70-99(Fasting)) mg/dl POC Glucose 140 H 134 H (70-99) mg/dl Calcium (8.5-10.1) mg/dl Total Bilirubin (0.2-1.0) mg/dl AST (13-39) U/L ALT (7-52) U/L Alkaline Phosphatase (34-104) U/L Total Protein (6.0-8.3) gm/dl Albumin (3.4-5.0) gm/dl Globulin (2.5-4.0) gm/dl Albumin/Globulin Ratio (0.9-2) Medications Administered Current Inpatient Medications Acetaminophen (Acetaminophen 325 Mg Tab) 650 mg PO Q4H PRN PRN Reason: Pain or Fever Stop: 04/12/22 23:29 Last Admin: 03/21/22 17:06 Dose: 650 mg Documented by: Amiodarone HCl (Amiodarone 200 Mg Tab) 200 mg PO BID LUIS Stop: 04/13/22 08:59 Last Admin: 03/22/22 07:51 Dose: 200 mg Documented by: Apixaban (Apixaban 5 Mg Tablet) 5 mg PO BID LUIS Stop: 04/17/22 20:59 Last Admin: 03/22/22 07:51 Dose: 5 mg Documented by: Dextrose (Dextrose 50% 50 Ml Syringe) 25 - 50 ml IV UD PRN; Protocol PRN Reason: Hypoglycemia Protocol Stop: 04/12/22 23:29 Duloxetine HCl (Duloxetine Hcl 60 Mg Cap) 60 mg PO HS LUIS Stop: 04/15/22 20:59 Last Admin: 03/21/22 21:11 Dose: 60 mg Documented by: Gabapentin (Gabapentin 100 Mg Cap) 100 mg PO BID LUIS Stop: 04/15/22 20:59 Last Admin: 03/22/22 07:51 Dose: 100 mg Documented by: Glucagon (Glucagon For Inj 1 Mg Vial) 1 mg SQ UD PRN; Protocol PRN Reason: Hypoglycemia Protocol Stop: 04/12/22 23:29 Glucose (Glucose 10 Tabs/Tube) 4 - 8 tabs PO UD PRN; Protocol PRN Reason: Hypoglycemia Protocol Stop: 04/12/22 23:29 Glucose (Glucose 40% Gel 15 Gm Tube) 15 - 30 gm PO UD PRN; Protocol PRN Reason: Hypoglycemia Protocol Stop: 04/12/22 23:29 Insulin Aspart (Insulin Aspart Per Unit) 0 units SC ACHS LUIS Stop: 04/14/22 20:59 Last Admin: 03/22/22 12:34 Dose: 1 units Documented by: Levothyroxine Sodium (Levothyroxine Sodium 25 Mcg Tablet) 25 mcg PO DAILYBB LUIS Stop: 04/13/22 06:29 Last Admin: 03/22/22 05:34 Dose: 25 mcg Documented by: Lidocaine (Lidocaine 5% 1 Patch) 1 patch TD HS [facility] Stop: 04/17/22 20:54 Last Admin: 03/21/22 21:12 Dose: 1 patch Documented by: Losartan Potassium (Losartan Potassium 25 Mg Tab) 25 mg PO QAM LUIS Stop: 04/13/22 08:59 Last Admin: 03/22/22 07:51 Dose: 25 mg Documented by: Metoprolol Tartrate (Metoprolol Tartrate 25 Mg Tab) 25 mg PO BID [facility] Stop: 04/13/22 08:59 Last Admin: 03/22/22 07:51 Dose: 25 mg Documented by: Miscellaneous (Carbohydrates For Hypoglycemia ) 15 - 30 gm PO UD PRN PRN Reason: Hypoglycemia Protocol Stop: 04/12/22 23:29 Miscellaneous (Remove Lidoderm Patch) 1 ea N/A DAILY@0900 [facility] Stop: 04/18/22 08:59 Last Admin: 03/22/22 07:55 Dose: 1 ea Documented by: Ondansetron HCl (Ondansetron Inj 2 Mg/Ml 2 Ml Vial) 4 mg IV Q6H PRN PRN Reason: Nausea Stop: 04/12/22 23:29 Last Admin: 03/14/22 19:35 Dose: 4 mg Documented by: Oxybutynin Chloride (Oxybutynin Chloride 5 Mg Tab) 5 mg PO QPM LUIS Stop: 04/13/22 20:59 Last Admin: 03/21/22 21:10 Dose: 5 mg Documented by: Pantoprazole Sodium (Pantoprazole 40 Mg Tab) 40 mg PO BID LUIS Stop: 04/13/22 08:59 Last Admin: 03/22/22 07:51 Dose: 40 mg Documented by: Polyethylene Glycol (Polyethylene (Miralax) 17 Gm Pack) 17 gm PO DAILY LUIS Stop: 04/21/22 08:59 Last Admin: 03/22/22 07:52 Dose: Not Given Documented by: Potassium Chloride (Potassium Chloride 10 Meq Tabcr) 10 meq PO DAILY LUIS Stop: 04/13/22 08:59 Last Admin: 03/22/22 07:55 Dose: 10 meq Documented by: Pravastatin Sodium (Pravastatin Sod 10 Mg Tab) 10 mg PO DAILY [facility]IS Stop: 04/13/22 08:59 Last Admin: 03/22/22 07:51 Dose: 10 mg Documented by: Resident Activity Tracking Resident Involvement: Resident Care Provided Care Provided: Adult Hospital Medicine
[2022-03-22] MEDS ORDERED: METOPROLOL TARTRATE 25 MG TAB PO PRN ×2 (18:40→18:42)
[2022-03-22] MEDS: DULoxetine HCL 60 MG CAP PO SCH (20:45)
[2022-03-22] MEDS: OXYBUTYNIN CHLORIDE 5 MG TAB PO SCH (20:45)
[2022-03-22] MEDS: LIDOCAINE 5% 1 PATCH TD SCH (20:46)
[2022-03-22] MEDS: ACETAMINOPHEN 325 MG TAB PO PRN (20:48)
[2022-03-23] MEDS: LEVOTHYROXINE SODIUM 25 MCG TABLET PO SCH (06:39)
[2022-03-23] MEDS: GABAPENTIN 100 MG CAP PO SCH ×2 (08:03→22:36)
[2022-03-23] MEDS: APIXABAN 5 MG TABLET PO SCH ×2 (08:03→22:37)
[2022-03-23] MEDS: PANTOprazole 40 MG TAB PO SCH ×2 (08:03→22:36)
[2022-03-23] MEDS: LOSARTAN POTASSIUM 25 MG TAB PO SCH (08:04)
[2022-03-23] MEDS: METOPROLOL TARTRATE 25 MG TAB PO SCH ×2 (08:04→22:37)
[2022-03-23] MEDS: PRAVASTATIN SOD 10 MG TAB PO SCH (08:04)
[2022-03-23] MEDS: AMIODARONE 200 MG TAB PO SCH ×2 (08:05→22:35)
[2022-03-23] MEDS: POLYETHYLENE (MIRALAX) 17 GM PACK PO SCH (08:06)
[2022-03-23] MEDS: POTASSIUM CHLORIDE 10 MEQ TABCR PO SCH (08:10)
[2022-03-23] MEDS: INSULIN ASPART PER UNIT SC SCH ×4 (09:04→20:46)
--- NOTE | 2022-03-23 11:44 | Discharge Summary ---
Date of Service March 23, 2022 Admission HPI Per Admitting Provider 76-year-old female past medical history significant for paroxysmal AFib, DM2, HTN, HFpEF, HLD, hypothyroidism, newly diagnosed pancreatic mass with suspicion for pancreatic cancer presented to the ER due to continued worsening of mental status at home. Patient was recently discharged on 03/07 for A. fib with RVR and during that admission also had EUS with biopsy of pancreatic head mass. Unfortunately, pathology on pancreatic mass was inconclusive but consideration of biliary stent was proposed if needed in the future for biliary decompression. Prior to 03/11 patient was closer to her baseline with regard to functional status, however at 03/11 visit was noted by PCP to have some increased confusion. Family member in the room today reports that this has continued to get worse and when attempt was made to get her out of bed today she had rigid posture and was not really responding well to questions. ER evaluation included lab work which showed new worsening transaminitis with T bili of 2.0, AST 843, ALT 408, alk phos 468 (significant elevation from lab work yesterday). Ammonia level normal, TSH normal, UA not suggestive of infection, COVID-negative. CTAP performed today which did not show any change in size of pancreatic head/neck mass, however did note pancreatic and intrahepatic biliary ductal dilatation, and possible underlying fistula. Chest x-ray with mild pulmonary edema, no pneumonia. Head CT without acute intracranial hemorrhage or other acute intracranial process. Due to patient's altered mental status hospitalist service was consulted for admission. Due to mental status patient was only able to answer simple questions, but denied chest pain, trouble breathing, abdominal pain, headache. She was able to tell me her name and that she was at the hospital, but she was not sure why. Family member in the room reports that decision has been made to pursue alf care for Cristina given inability to care for her at home. On review of medication list, baclofen and tramadol are listed however unable to verify these medications, except for that they appear to have a start date of 03/12. Discharge Exam Constitutional WD/WN, vitals as above + morbidly obese, cooperative and comfortable Eyes PERRL, conjunctivae normal, anicteric sclerae ENMT external ear and nose normal, oropharynx normal Neck trachea midline, no thyromegaly Respiratory normal respiratory effort, lungs clear to auscultation Cardiovascular RRR, no murmur, no edema Chest (Breasts) Chest: normal inspection of chest Gastrointestinal (Abdomen) normal bowel sounds, soft, nontender, no hepatosplenomegaly Skin no rashes, warm and dry Discharge Data Allergies Allergy/AdvReac Type Severity Reaction Status Date / Time calcium AdvReac Severe CAUSES Verified 03/13/22 17:53 KIDNEY STONES oxycodone AdvReac Mild "Made me Verified 03/13/22 17:53 higher than a kite" Consultations 03/13/22 20:19 ED Decision to Admit Stat 03/13/22 23:30 Consult Gastroenterology Routine 03/16/22 16:51 Consult [facility] cream beater Routine Procedures Performed Operation Date: 03/15/22 08:20 Actual Procedures p Endoscopic Ultrasonography Upper with biopsies of pancreatic mass, endoscopic esophagogastroduodenography, endoscopic retrograde cholangiopancreatography, sphincterotomy - Meghan Kohler MD p Endoscopic Retrograde Cholangiopancreato - Meghan Kohler MD Ordered Studies 03/13/22 15:50 CT head/brain wo con Stat 03/13/22 19:10 CT Abd and Pelvis [CT abd pelvis IV con only] Stat 03/15/22 FL ERCP biliary ductal Routine 03/15/22 11:35 US upper EUS PACS images Routine 03/20/22 09:47 US pelvic complete Urgent US transvaginal Urgent Hospital Course (1) Encephalopathy acute: 76-year-old woman with past medical history of breast cancer s/p lumpectomy, chemo and XRT (2008) paroxysmal A-fib, T2DM, HTN, HLD, hypothyroidism and newly diagnosed pancreatic mass suspicious for pancreatic cancer admitted for altered mental status and acute transaminitis w/ concern for biliary stricture. Encephalopathy: - CT head 03/13: without acute intracranial pathology - MRI brain from 02/23 did not show brain mets - CXR 03/13: cardiomegaly, mild pulmonary edema - Ammonia level normal. - likely 2/2 to medication side effect interacting with decreased hepatic function. Initially suspicion for infection. No elevated WBC noted. Bl and urine cx neg. Patient treated with zosyn, cefdinir, flagyl, abx d/c'd Baclofen, Tramadol, gabapentin, Cymbalta discontinued; possible contribution to worse mental status - patient's mentation and awareness improved after 1 day, progressed from 1 word answers to full sentences. Currently able to recall daily events and operate phone Biliary stricture 10/25 Pancreatic mass, s/p EUS, ERCP and biliary sphincterotomy 03/15: - CT abd/pelvis 03/13: pancreatic ductal dilatation, mild intrahepatic biliary ductal dilation suggestive of pancreatic adenocarcinoma. 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 Psammoma bodies have been reported in associated with primary pancreatic adenocarcinoma, though clinical/radiographic correlation to exclude a gynecologic serous carcinoma is recommended. - GI recommended referral to surgical oncology; will refer patient in outpatient setting for evaluation of surgical resection - transvaginal pelvic US unremarkable, unlikely gynecologic source Pancreatic mass: - chest CTA 02/22: pancreatic mass lesion encases hepatic/splenic arteries @ celiac bifurcation, low attenuation w/in anterior lobe, new from prior exams (concerning for steatosis or hepatic infarct), 13 mm enhancing nodule in interpolar L kidney, small neoplasm not excluded, R lobe thyroid mass unchanged - see above Weakness -Patient lives alone -POA is brother in law -PT/OT ordered, recommend inpt rehab Elevated LFTs - downtrending - acute significant worsening of LFTs and alk phos concerning for biliary stricture - AST and ALT down trending AFib: - Recently started on amiodarone and Eliquis for A. Fib with RVR last admission. - Eliquis held, resumed 03/18 - Will continue amiodarone for A. Fib given recent RVR, as do not suspect this is causing transaminitis given very recent initiation of medication. Constipation -scheduled miralax 34mg daily DM2: - SSI -may resume her metformin 500mg daily in outpatient HTN: - continue metoprolol 25 mg - continue Losartan 25 mg HLD: - continue pravastatin Hypothyroidism: - Continue home levothyroxine Hypomagnesemia, resolved: Code Status: CONDITIONAL CODE; no chest compressions, no intubation/artificial ventilation; defibrillation and medications okay FEN: carb consistent DVT ppx: Eliquis Dispo - discharge planning in progress. (2) Mass of pancreas: (3) Transaminitis: (4) Paroxysmal atrial fibrillation: (5) Hypomagnesemia: (6) Type 2 diabetes mellitus: (7) Hyperlipidemia: (8) Hypothyroidism: Discharge Plan Discharge Items Patient Disposition: Transfer Inpatient Rehab Fac Reason For Visit: ALTERED MENTAL STATUS Discharge Diagnosis: Encephalopathy secondary to pancreatic mass Condition on Discharge: Fair Activity: Per Instructions section Non-emergency contact: Primary Care Provider Call non-emergency contact if: you have any medication questions, your symptoms worsen and you have a fever Follow-up/Referrals: Outside Location [Outside] (Patient to be connected with Surgical Oncology in 1- 2 months for evaluation pancreatic mass. Please use patient's POA as manager contact Oracio Delaney. [facility] phone number [phone], option 1. If needs faxed info fax it to [phone]) Tyler Ramirez, DO [Primary Care Provider] - (Patient requires referral to surgical oncology for evaluation of her pancreatic mass, GI suggests whipple procedure) Diet: Carb Consistent or DM2 Addtl Attending Provider Instructions: 76-year-old woman with past medical history of breast cancer s/p lumpectomy, chemo and XRT (2008) paroxysmal A-fib, T2DM, HTN, HLD, hypothyroidism and newly diagnosed pancreatic mass suspicious for pancreatic cancer admitted for altered mental status and acute transaminitis w/ concern for biliary stricture. Encephalopathy: - CT head 03/13: without acute intracranial pathology - MRI brain from 02/23 did not show brain mets - CXR 03/13: cardiomegaly, mild pulmonary edema - Ammonia level normal. - likely 2/2 to medication side effect interacting with decreased hepatic function. Initially suspicion for infection. No elevated WBC noted. Bl and urine cx neg. Patient treated with zosyn, cefdinir, flagyl, abx d/c'd Baclofen, Tramadol, gabapentin, Cymbalta discontinued; possible contribution to worse mental status - patient's mentation and awareness improved after 1 day, progressed from 1 word answers to full sentences. Currently able to recall daily events and operate phone Biliary stricture 10/25 Pancreatic mass, s/p EUS, ERCP and biliary sphincterotomy 03/15: - CT abd/pelvis 03/13: pancreatic ductal dilatation, mild intrahepatic biliary ductal dilation suggestive of pancreatic adenocarcinoma. 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 toward lesser curve of stomach - Chest CTA 02/22: no mets in seen, pancreatic mass lesion encases hepatic/splenic arteries @ celiac bifurcation, low attenuation w/in anterior lobe, new from prior exams (concerning for steatosis or hepatic infarct) - ERCP: severe, malignant appearing biliary stricture in lower third of main bile duct - biliary sphincterotomy and stent placed in common bile duct - GI recommended referral to surgical oncology; will refer patient in outpatient setting for evaluation of surgical resection Pancreatic mass: - chest CTA 02/22: pancreatic mass lesion encases hepatic/splenic arteries @ celiac bifurcation, low attenuation w/in anterior lobe, new from prior exams (concerning for steatosis or hepatic infarct), 13 mm enhancing nodule in interpolar L kidney, small neoplasm not excluded, R lobe thyroid mass unchanged - UES for FNA of pancreatic head mass: 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 Psammoma bodies have been reported in associated with primary pancreatic adenocarcinoma, though clinical/radiographic correlation to exclude a gynecologic serous carcinoma is recommended. - transvaginal pelvic US unremarkable, unlikely gynecologic source -Sent referral to [facility] Surgical Oncology, please have PCP follow up on referral for mass evalutation - see above Weakness -Patient lives alone -POA is brother in law -PT/OT ordered, recommend inpt rehab Elevated LFTs - downtrending - acute significant worsening of LFTs and alk phos concerning for biliary stricture - AST and ALT down trending AFib: - Recently started on amiodarone and Eliquis for A. Fib with RVR last admission. - Eliquis held, resumed 03/18 - Will continue amiodarone for A. Fib given recent RVR, as do not suspect this is causing transaminitis given very recent initiation of medication. Constipation -scheduled miralax 34mg daily DM2: - SSI -may resume her metformin 500mg daily in outpatient HTN: - continue metoprolol 25 mg - continue Losartan 25 mg HLD: - continue pravastatin Hypothyroidism: - Continue home levothyroxine Hypomagnesemia, resolved: Pending Studies at Discharge: Yes Studies:: Pancreatic Mass Biopsy Stand-Alone Forms: My [facility] Skilled Items Patient informed of condition?: Yes DNR: No (Conditional code, no CPR, yes medication and defibrillation) Discharge Level of Care: Acute rehab Communicable Disease: No Discharge Prognosis: Stable Lines: None Urinary Catheter: No Medications and DC Order Prescriptions: Continued levothyroxine 25 mcg tablet 25 mcg PO QAM Qty: 90 RF: 1 oxybutynin chloride 5 mg tablet 5 mg PO QPM Qty: 30 RF: 1 metformin 500 mg tablet,ER chicho.retention 24 hr 500 mg PO QPM Qty: 90 RF: 1 cholecalciferol (vitamin D3) 1,000 unit capsule 1,000 units PO HS RF: 0 pravastatin 10 mg tablet 10 mg PO DAILY Qty: 90 RF: 3 metoprolol tartrate 25 mg tablet 25 mg PO BID Qty: 180 RF: 3 potassium chloride 10 mEq tablet extended release 10 meq PO DAILY RF: 0 (DME) Wheeled Walker Misc See Rx Instructions .Route Qty: 1 RF: 0 amiodarone 200 mg Tablet 400 mg PO BID Qty: 66 RF: 0 pantoprazole 40 mg Tablet,Delayed Release (Dr/Ec) 40 mg PO BID Qty: 60 RF: 0 losartan 25 mg Tablet 25 mg PO QAM Qty: 30 RF: 0 Eliquis 5 mg tablet 5 mg PO BID Qty: 180 RF: 0 Discontinued duloxetine 60 mg capsule,delayed release(DR/EC) 60 mg PO HS Qty: 90 RF: 3 gabapentin 100 mg capsule 100 mg PO BID RF: 0 baclofen 10 mg tablet 10 mg PO BID RF: 0 tramadol 50 mg tablet 50 mg PO Q8H PRN (Reason: Pain) RF: 0 Admission Data Admit Date/Time: 03/13/22 22:04 Attending Provider: Basilia Millard Admit Provider: Flor Arreguin Primary Care Provider: Tyler Ramirez Other Providers: Rico Mehta ; Love Brown ; [place],Care ; Usman Pete
--- NOTE | 2022-03-23 15:00 | Hospitalist Progress Note ---
Date of Service March 23, 2022 Assessment & Plan (1) Encephalopathy acute: Plan: 76-year-old woman with past medical history of breast cancer s/p lumpectomy, chemo and XRT (2008) paroxysmal A-fib, T2DM, HTN, HLD, hypothyroidism and newly diagnosed pancreatic mass suspicious for pancreatic cancer admitted for altered mental status and acute transaminitis w/ concern for biliary stricture. Asymptomatic COVID Positive -delay in discharge planning, anticipate next week Encephalopathy: - CT head 03/13: without acute intracranial pathology - MRI brain from 02/23 did not show brain mets - CXR 03/13: cardiomegaly, mild pulmonary edema - Ammonia level normal. - likely 2/2 to medication side effect interacting with decreased hepatic function. Initially suspicion for infection. No elevated WBC noted. Bl and urine cx neg. Patient treated with zosyn, cefdinir, flagyl, abx d/c'd Baclofen, Tramadol, gabapentin, Cymbalta discontinued; possible contribution to worse mental status - patient's mentation and awareness improved after 1 day, progressed from 1 word answers to full sentences. Currently able to recall daily events and operate phone Biliary stricture 2/2 Pancreatic mass, s/p EUS, ERCP and biliary sphincterotomy 03/15: - CT abd/pelvis 03/13: pancreatic ductal dilatation, mild intrahepatic biliary ductal dilation suggestive of pancreatic adenocarcinoma. 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 toward lesser curve of stomach - Chest CTA 02/22: no mets in seen, pancreatic mass lesion encases hepatic/splenic arteries @ celiac bifurcation, low attenuation w/in anterior lobe, new from prior exams (concerning for steatosis or hepatic infarct) - ERCP: severe, malignant appearing biliary stricture in lower third of main bile duct - biliary sphincterotomy and stent placed in common bile duct - GI recommended referral to surgical oncology; will refer patient in outpatient setting for evaluation of surgical resection Pancreatic mass: - chest CTA 02/22: pancreatic mass lesion encases hepatic/splenic arteries @ celiac bifurcation, low attenuation w/in anterior lobe, new from prior exams (concerning for steatosis or hepatic infarct), 13 mm enhancing nodule in interpolar L kidney, small neoplasm not excluded, R lobe thyroid mass unchanged - UES for FNA of pancreatic head mass: 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 Psammoma bodies have been reported in associated with primary pancreatic adenocarcinoma, though clinical/radiographic correlation to exclude a gynecologic serous carcinoma is recommended. - transvaginal pelvic US unremarkable, unlikely gynecologic source -Sent referral to [facility] Surgical Oncology, please have PCP follow up on referral for mass evalutation - see above Weakness -Patient lives alone -POA is brother in law -PT/OT ordered, recommend inpt rehab Elevated LFTs - downtrending - acute significant worsening of LFTs and alk phos concerning for biliary stricture - AST and ALT down trending AFib: - Recently started on amiodarone and Eliquis for A. Fib with RVR last admission. - Eliquis held, resumed 03/18 - Will continue amiodarone for A. Fib given recent RVR, as do not suspect this is causing transaminitis given very recent initiation of medication. Constipation -scheduled miralax 34mg daily DM2: - SSI -may resume her metformin 500mg daily in outpatient HTN: - continue metoprolol 25 mg - continue Losartan 25 mg HLD: - continue pravastatin Hypothyroidism: - Continue home levothyroxine Hypomagnesemia, resolved: Code Status: CONDITIONAL CODE; no chest compressions, no intubation/artificial ventilation; defibrillation and medications okay FEN: carb consistent DVT ppx: Eliquis Dispo - discharge planning in progress. (2) Mass of pancreas: (3) Transaminitis: (4) Paroxysmal atrial fibrillation: (5) Hypomagnesemia: (6) Type 2 diabetes mellitus: (7) Hyperlipidemia: (8) Hypothyroidism: Admission and Anticipated Discharge Date Admission Date: March 13, 2022 Supervising Physician Co-Signing Physician Notes Resident Physician Supervision Note: I independently interviewed and examined the patient and verified the gonzales history and physical, reviewed labs and image studies and agree with resident Dr. Dubose findings and care plan. Subjective Patient seen at bedside, calm comfortable cooperative, no concerns at this time. She states she ate slept well, regular bowel movements. She would appreciate if her brother in law was updated. Review of Systems Review of Systems: Negative fever chills Negative headache dizziness Negative chest pain palpitations SOB Negative nausea vomitting diarrhea constipation Negative numbness tingling rash swelling Physical Exam Constitutional: WD/WN, vitals as above + morbidly obese, cooperative and comfortable Eyes: PERRL, conjunctivae normal, anicteric sclerae ENMT: external ear and nose normal, oropharynx normal Neck: trachea midline, no thyromegaly Respiratory: normal respiratory effort, lungs clear to auscultation Cardiovascular: RRR, no murmur, no edema Chest (Breasts): Chest: normal inspection of chest Gastrointestinal (Abdomen): normal bowel sounds, soft, nontender, no hepatosplenomegaly Skin: no rashes, warm and dry Results & Data Results & Data ([facility]) Vital Signs (Past 12 Hours) Vital Signs Temp Pulse Resp BP BP Pulse Ox 03/23/22 08:01 62 138/81 03/23/22 06:56 36.8 C 62 16 133/72 92 Medications Administered Current Inpatient Medications Acetaminophen (Acetaminophen 325 Mg Tab) 650 mg PO Q4H PRN PRN Reason: Pain or Fever Stop: 04/12/22 23:29 Last Admin: 03/22/22 20:48 Dose: 650 mg Documented by: Amiodarone HCl (Amiodarone 200 Mg Tab) 200 mg PO BID [facility] Stop: 04/13/22 08:59 Last Admin: 03/23/22 08:05 Dose: 200 mg Documented by: Apixaban (Apixaban 5 Mg Tablet) 5 mg PO BID LUIS Stop: 04/17/22 20:59 Last Admin: 03/23/22 08:03 Dose: 5 mg Documented by: Dextrose (Dextrose 50% 50 Ml Syringe) 25 - 50 ml IV UD PRN; Protocol PRN Reason: Hypoglycemia Protocol Stop: 04/12/22 23:29 Duloxetine HCl (Duloxetine Hcl 60 Mg Cap) 60 mg PO HS [facility] Stop: 04/15/22 20:59 Last Admin: 03/22/22 20:45 Dose: 60 mg Documented by: Gabapentin (Gabapentin 100 Mg Cap) 100 mg PO BID LUIS Stop: 04/15/22 20:59 Last Admin: 03/23/22 08:03 Dose: 100 mg Documented by: Glucagon (Glucagon For Inj 1 Mg Vial) 1 mg SQ UD PRN; Protocol PRN Reason: Hypoglycemia Protocol Stop: 04/12/22 23:29 Glucose (Glucose 10 Tabs/Tube) 4 - 8 tabs PO UD PRN; Protocol PRN Reason: Hypoglycemia Protocol Stop: 04/12/22 23:29 Glucose (Glucose 40% Gel 15 Gm Tube) 15 - 30 gm PO UD PRN; Protocol PRN Reason: Hypoglycemia Protocol Stop: 04/12/22 23:29 Insulin Aspart (Insulin Aspart Per Unit) 0 units SC ACHS [facility] Stop: 04/14/22 20:59 Last Admin: 03/23/22 13:43 Dose: 1 units Documented by: Levothyroxine Sodium (Levothyroxine Sodium 25 Mcg Tablet) 25 mcg PO DAILYBB [facility] Stop: 04/13/22 06:29 Last Admin: 03/23/22 06:39 Dose: 25 mcg Documented by: Lidocaine (Lidocaine 5% 1 Patch) 1 patch TD HS [facility] Stop: 04/17/22 20:54 Last Admin: 03/22/22 20:46 Dose: 1 patch Documented by: Losartan Potassium (Losartan Potassium 25 Mg Tab) 25 mg PO QAM [facility] Stop: 04/13/22 08:59 Last Admin: 03/23/22 08:04 Dose: 25 mg Documented by: Metoprolol Tartrate (Metoprolol Tartrate 25 Mg Tab) 25 mg PO BID [facility] Stop: 04/13/22 08:59 Last Admin: 03/23/22 08:04 Dose: 25 mg Documented by: Metoprolol Tartrate (Metoprolol Tartrate 25 Mg Tab) 25 mg PO Q6H PRN PRN Reason: SBP >200 and/or DBP >110 Stop: 04/21/22 18:44 Miscellaneous (Carbohydrates For Hypoglycemia ) 15 - 30 gm PO UD PRN PRN Reason: Hypoglycemia Protocol Stop: 04/12/22 23:29 Miscellaneous (Remove Lidoderm Patch) 1 ea N/A DAILY@0900 [facility] Stop: 04/18/22 08:59 Last Admin: 03/23/22 08:05 Dose: 1 ea Documented by: Ondansetron HCl (Ondansetron Inj 2 Mg/Ml 2 Ml Vial) 4 mg IV Q6H PRN PRN Reason: Nausea Stop: 04/12/22 23:29 Last Admin: 03/14/22 19:35 Dose: 4 mg Documented by: Oxybutynin Chloride (Oxybutynin Chloride 5 Mg Tab) 5 mg PO QPM [facility] Stop: 04/13/22 20:59 Last Admin: 03/22/22 20:45 Dose: 5 mg Documented by: Pantoprazole Sodium (Pantoprazole 40 Mg Tab) 40 mg PO BID [facility] Stop: 04/13/22 08:59 Last Admin: 03/23/22 08:03 Dose: 40 mg Documented by: Polyethylene Glycol (Polyethylene (Miralax) 17 Gm Pack) 17 gm PO DAILY LUIS Stop: 04/21/22 08:59 Last Admin: 03/23/22 08:06 Dose: 17 gm Documented by: Potassium Chloride (Potassium Chloride 10 Meq Tabcr) 10 meq PO DAILY [facility]IS Stop: 04/13/22 08:59 Last Admin: 03/23/22 08:10 Dose: 10 meq Documented by: Pravastatin Sodium (Pravastatin Sod 10 Mg Tab) 10 mg PO DAILY LUIS Stop: 04/13/22 08:59 Last Admin: 03/23/22 08:04 Dose: 10 mg Documented by: Resident Activity Tracking Resident Involvement: Resident Care Provided Care Provided: Adult Hospital Medicine
[2022-03-23] MEDS: ACETAMINOPHEN 325 MG TAB PO PRN (22:34)
[2022-03-23] MEDS: DULoxetine HCL 60 MG CAP PO SCH (22:36)
[2022-03-23] MEDS: OXYBUTYNIN CHLORIDE 5 MG TAB PO SCH (22:36)
[2022-03-23] MEDS: LIDOCAINE 5% 1 PATCH TD SCH (22:37)
[2022-03-24] MEDS: LEVOTHYROXINE SODIUM 25 MCG TABLET PO SCH (06:40)
[2022-03-24] MEDS: AMIODARONE 200 MG TAB PO SCH ×2 (09:02→21:05)
[2022-03-24] MEDS: APIXABAN 5 MG TABLET PO SCH ×2 (09:02→21:04)
[2022-03-24] MEDS: GABAPENTIN 100 MG CAP PO SCH ×2 (09:02→21:05)
[2022-03-24] MEDS: PANTOprazole 40 MG TAB PO SCH ×2 (09:02→21:05)
[2022-03-24] MEDS: LOSARTAN POTASSIUM 25 MG TAB PO SCH (09:02)
[2022-03-24] MEDS: METOPROLOL TARTRATE 25 MG TAB PO SCH ×2 (09:02→21:05)
[2022-03-24] MEDS: PRAVASTATIN SOD 10 MG TAB PO SCH (09:02)
[2022-03-24] MEDS: POLYETHYLENE (MIRALAX) 17 GM PACK PO SCH (09:03)
[2022-03-24] MEDS: INSULIN ASPART PER UNIT SC SCH ×4 (09:19→21:38)
[2022-03-24] MEDS: POTASSIUM CHLORIDE 10 MEQ TABCR PO SCH (09:25)
--- NOTE | 2022-03-24 11:03 | Hospitalist Progress Note ---
Date of Service March 24, 2022 Assessment & Plan (1) Encephalopathy acute: Plan: 76-year-old woman with past medical history of breast cancer s/p lumpectomy, chemo and XRT (2008) paroxysmal A-fib, T2DM, HTN, HLD, hypothyroidism and newly diagnosed pancreatic mass suspicious for pancreatic cancer admitted for altered mental status and acute transaminitis w/ concern for biliary stricture. Asymptomatic COVID Positive -delay in discharge planning, anticipate next week Encephalopathy, improved - CT head 03/13: without acute intracranial pathology - MRI brain from 02/23 did not show brain mets - CXR 03/13: cardiomegaly, mild pulmonary edema - Ammonia level normal. - likely 2/2 to medication side effect interacting with decreased hepatic function. Initially suspicious for infection. No elevated WBC noted. Bl and urine cx neg. Patient treated with zosyn (d/c 03/16) and cefdinir, flagyl (both d/c 03/20) Baclofen, Tramadol, gabapentin, Cymbalta discontinued; possible contribution to worse mental status - patient's mentation and awareness improved after 1 day, progressed from 1 word answers to full sentences. Currently able to recall daily events and operate phone Biliary stricture / Pancreatic mass, s/p EUS, ERCP and biliary sphincterotomy 03/15: - CT abd/pelvis 03/13: pancreatic ductal dilatation, mild intrahepatic biliary ductal dilation suggestive of pancreatic adenocarcinoma. 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 toward lesser curve of stomach - Chest CTA 02/22: no mets in seen, pancreatic mass lesion encases hepatic/splenic arteries @ celiac bifurcation, low attenuation w/in anterior lobe, new from prior exams (concerning for steatosis or hepatic infarct) - ERCP: severe, malignant appearing biliary stricture in lower third of main bile duct - biliary sphincterotomy and stent placed in common bile duct - GI recommended referral to surgical oncology; will refer patient in outpatient setting for evaluation of surgical resection Pancreatic mass: - chest CTA 02/22: pancreatic mass lesion encases hepatic/splenic arteries @ celiac bifurcation, low attenuation w/in anterior lobe, new from prior exams (concerning for steatosis or hepatic infarct), 13 mm enhancing nodule in interpolar L kidney, small neoplasm not excluded, R lobe thyroid mass unchanged - UES for FNA of pancreatic head mass: 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 Psammoma bodies have been reported in associated with primary pancreatic adenocarcinoma, though clinical/radiographic correlation to exclude a gynecologic serous carcinoma is recommended. - transvaginal pelvic US unremarkable, unlikely gynecologic source -[place] [facility] [place], please have PCP follow up on referral for mass evalutation - see above Weakness -Patient lives alone -POA is brother in law -PT/OT ordered, recommend inpt rehab; pending placement, however delay in discharge planning due to acute asymptomatic COVID positive status Elevated LFTs - downtrending - acute significant worsening of LFTs and alk phos concerning for biliary stricture - AST and ALT down trending AFib: - Recently started on amiodarone and Eliquis for A. Fib with RVR last admission. - Eliquis held, resumed 03/18 - Will continue amiodarone for A. Fib given recent RVR, as do not suspect this is causing transaminitis given very recent initiation of medication. Constipation -scheduled miralax 34mg daily DM2: - SSI -may resume her metformin 500mg daily on discharge HTN: - continue metoprolol 25 mg - continue Losartan 25 mg HLD: - continue pravastatin Hypothyroidism: - Continue home levothyroxine Hypomagnesemia, resolved: Code Status: CONDITIONAL CODE; no chest compressions, no intubation/artificial ventilation; defibrillation and medications okay FEN: carb consistent DVT ppx: Eliquis Dispo - discharge planning in progress. (2) Mass of pancreas: (3) Transaminitis: (4) Paroxysmal atrial fibrillation: (5) Hypomagnesemia: (6) Type 2 diabetes mellitus: (7) Hyperlipidemia: (8) Hypothyroidism: Admission and Anticipated Discharge Date Admission Date: March 13, 2022 Supervising Physician Co-Signing Physician Notes Resident Physician Supervision Note: I independently interviewed and examined the patient and verified the gonzales history and physical, reviewed labs and image studies and agree with resident Dr. Severino findings and care plan. Subjective Patient seen and evaluated at bedside this morning. No acute events overnight. No specific complaints or concerns. Is eating well and sleeping well. Denies CP, SOB, cough, abd pain, nausea, or vomiting. Last BM yesterday. Review of Systems Review of Systems: See HPI Physical Exam Physical Exam: GENERAL: No acute distress. Appears comfortable. Well developed and well nourished. Vital signs reviewed as above. EYES: Conjunctiva normal. Anicteric sclerae. HENT: Moist mucous membranes. External ear and nose normal. RESPIRATORY: Normal respiratory effort. Unlabored respirations. Clear to auscultation bilaterally. No wheezing, rales, or rhonchi. CARDIOVASCULAR: Regular rate and rhythm. No murmurs. ABDOMEN: Soft and non-tender. Normal bowel sounds. SKIN: Warm, dry. NEUROLOGIC: A/O x3. Normal speech. PSYCHIATRIC: Cooperative. Appropriate mood and affect. Results & Data Results & Data ([facility]) Vital Signs (Past 12 Hours) Vital Signs Temp Pulse Resp BP Pulse Ox 03/24/22 08:56 62 03/24/22 08:32 36.8 C 59 L 16 161/76 H 94 Laboratory Results 03/24/22 03/23/22 03/23/22 Range/Units 08:28 20:41 17:14 POC Glucose 147 H 126 H 115 H (70-99) mg/dl SARS-CoV-2, RNA, NAAT (NEGATIVE) 03/23/22 03/23/22 Range/Units 12:03 11:33 POC Glucose 178 H (70-99) mg/dl SARS-CoV-2, RNA, NAAT POSITIVE A* (NEGATIVE) Resident Activity Tracking Resident Involvement: Resident Care Provided Care Provided: Adult [facility]
[2022-03-24] MEDS: ACETAMINOPHEN 325 MG TAB PO PRN (21:03)
[2022-03-24] MEDS: LIDOCAINE 5% 1 PATCH TD SCH (21:04)
[2022-03-24] MEDS: OXYBUTYNIN CHLORIDE 5 MG TAB PO SCH (21:06)
[2022-03-24] MEDS: DULoxetine HCL 60 MG CAP PO SCH (21:06)
[2022-03-25] MEDS: LEVOTHYROXINE SODIUM 25 MCG TABLET PO SCH (06:11)
--- NOTE | 2022-03-25 09:05 | Hospitalist Progress Note ---
Date of Service March 25, 2022 Assessment & Plan (1) Encephalopathy acute: Plan: 76-year-old woman with past medical history of breast cancer s/p lumpectomy, chemo and XRT (2008) paroxysmal A-fib, T2DM, HTN, HLD, hypothyroidism and newly diagnosed pancreatic mass suspicious for pancreatic cancer admitted for altered mental status and acute transaminitis w/ concern for biliary stricture. Asymptomatic COVID Positive -delay in discharge planning, anticipate next week Right lower extremity/calf pain - Patient w/ right LE calf pain on exam today; was not present on exam yesterday - Given acute exam finding, frequent/prolonged periods of immobility due to hospitalizations, as well as COVID-19+ status, will order US to evaluate for DVT - RLE Doppler US 03/25/22: No evidence of DVT within the RLE although right calf vessels suboptimally visualized. Encephalopathy, improved - CT head 03/13: without acute intracranial pathology - MRI brain from 02/23 did not show brain mets - CXR 03/13: cardiomegaly, mild pulmonary edema - Ammonia level normal. - likely 2/2 to medication side effect interacting with decreased hepatic funct ion. Initially suspicious for infection. No elevated WBC noted. Bl and urine cx neg. Patient treated with zosyn (d/c 03/16) and cefdinir, flagyl (both d/c 03/20) Baclofen, Tramadol, gabapentin, Cymbalta discontinued; possible contribution to worse mental status - patient's mentation and awareness improved after 1 day, progressed from 1 word answers to full sentences. Currently able to recall daily events and operate phone Biliary stricture 2/2 Pancreatic mass, s/p EUS, ERCP and biliary sphincterotomy 03/15: - CT abd/pelvis 03/13: pancreatic ductal dilatation, mild intrahepatic biliary ductal dilation suggestive of pancreatic adenocarcinoma. 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 toward lesser curve of stomach - Chest CTA 02/22: no mets in seen, pancreatic mass lesion encases hepatic/splenic arteries @ celiac bifurcation, low attenuation w/in anterior lobe, new from prior exams (concerning for steatosis or hepatic infarct) - ERCP: severe, malignant appearing biliary stricture in lower third of main bile duct - biliary sphincterotomy and stent placed in common bile duct - GI recommended referral to surgical oncology; will refer patient in outpatient setting for evaluation of surgical resection Pancreatic mass: - chest CTA 02/22: pancreatic mass lesion encases hepatic/splenic arteries @ celiac bifurcation, low attenuation w/in anterior lobe, new from prior exams (concerning for steatosis or hepatic infarct), 13 mm enhancing nodule in interpolar L kidney, small neoplasm not excluded, R lobe thyroid mass unchanged - UES for FNA of pancreatic head mass: 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 Psammoma bodies have been reported in associated with primary pancreatic adenocarcinoma, though clinical/radiographic correlation to exclude a gynecologic serous carcinoma is recommended. - transvaginal pelvic US unremarkable, unlikely gynecologic source -[place] [facility] [place], please have PCP follow up on referral for mass evalutation - see above Weakness -Patient lives alone -POA is brother in law -PT/OT ordered, recommend inpt rehab; pending placement, however delay in discharge planning due to acute asymptomatic COVID positive status Elevated LFTs - downtrending - acute significant worsening of LFTs and alk phos concerning for biliary stri cture - AST and ALT down trending AFib: - Recently started on amiodarone and Eliquis for A. Fib with RVR last admission. - Eliquis held, resumed 03/18 - Will continue amiodarone for A. Fib given recent RVR, as do not suspect this is causing transaminitis given very recent initiation of medication. Constipation -scheduled miralax 34mg daily DM2: - SSI -may resume her metformin 500mg daily on discharge HTN: - continue metoprolol 25 mg - continue Losartan 25 mg HLD: - continue pravastatin Hypothyroidism: - Continue home levothyroxine Hypomagnesemia, resolved: Code Status: CONDITIONAL CODE; no chest compressions, no intubation/artificial ventilation; defibrillation and medications okay FEN: carb consistent DVT ppx: Eliquis Dispo - discharge planning in progress. (2) Mass of pancreas: (3) Transaminitis: (4) Paroxysmal atrial fibrillation: (5) Type 2 diabetes mellitus: (6) Hyperlipidemia: (7) Hypothyroidism: Admission and Anticipated Discharge Date Admission Date: March 13, 2022 Supervising Physician Co-Signing Physician Notes Resident Physician Supervision Note: I independently interviewed and examined the patient and verified the gonzales history and physical, reviewed labs and image studies and agree with resident Dr. Severino findings and care plan. Subjective Patient seen and evaluated at bedside this morning. No acute events overnight. States that she is tired but sleeping well. Eating well. Denies CP, SOB, cough, abd pain, nausea, vomiting, DUARTE, lightheadedness, dizziness, changes in vision, or pain. Review of Systems Review of Systems: See HPI Physical Exam Physical Exam: GENERAL: No acute distress. Well developed and well nourished. Vital signs reviewed as above. EYES: EOMI. Anicteric sclerae. HENT: Moist mucous membranes. RESPIRATORY: Clear to auscultation bilaterally. No wheezing, rales, or rhonchi. CARDIOVASCULAR: Regular rate and rhythm. No murmurs. ABDOMEN: Soft, non-tender and non-distended. Normal bowel sounds. EXTREMITIES: No edema. + tenderness to palpation of right calf. No significant tenderness to palpation of left calf. No skin changes or rashes appreciated. SKIN: Warm, dry. No rashes or lesions. NEUROLOGIC: Awake and alert. No focal neurological deficits. PSYCHIATRIC: Cooperative. Appropriate mood and affect. Results & Data Results & Data ([facility]) Vital Signs (Past 12 Hours) Vital Signs Temp Pulse Resp BP Pulse Ox 03/25/22 08:21 36.7 C 62 16 120/71 97 03/24/22 21:07 36.7 C 76 16 112/73 95 Laboratory Results 03/25/22 03/24/22 03/24/22 Range/Units 08:19 21:04 17:06 POC Glucose 164 H 206 H 93 (70-99) mg/dl 03/24/22 Range/Units 12:32 POC Glucose 154 H (70-99) mg/dl Resident Activity Tracking Resident Involvement: Resident Care Provided Care Provided: Adult Hospital Medicine
[2022-03-25] MEDS: APIXABAN 5 MG TABLET PO SCH ×2 (09:09→20:59)
[2022-03-25] MEDS: LOSARTAN POTASSIUM 25 MG TAB PO SCH (09:09)
[2022-03-25] MEDS: PRAVASTATIN SOD 10 MG TAB PO SCH (09:09)
[2022-03-25] MEDS: AMIODARONE 200 MG TAB PO SCH ×2 (09:09→20:57)
[2022-03-25] MEDS: GABAPENTIN 100 MG CAP PO SCH ×2 (09:09→20:58)
[2022-03-25] MEDS: PANTOprazole 40 MG TAB PO SCH ×2 (09:10→20:57)
[2022-03-25] MEDS: METOPROLOL TARTRATE 25 MG TAB PO SCH ×2 (09:12→20:58)
[2022-03-25] MEDS: INSULIN ASPART PER UNIT SC SCH ×4 (09:21→21:16)
[2022-03-25] MEDS: POTASSIUM CHLORIDE 10 MEQ TABCR PO SCH (09:29)
[2022-03-25] MEDS: POLYETHYLENE (MIRALAX) 17 GM PACK PO SCH (09:29)
--- NOTE | 2022-03-25 10:58 | Ultrasound Report ---
RIGHT LOWER EXTREMITY VENOUS DOPPLER CLINICAL HISTORY: RLE/calf tenderness to palpation, COVID+ COMPARISON STUDY: No previous studies for comparison. TECHNIQUE: Sonography of the deep venous system of the right lower extremity was performed. Compress ion and augmentation were evaluated. FINDINGS: The right common femoral, superficial femoral and popliteal veins were compressible. Augme ntation was normal. Flow was shown within the deep calf vessels although the calf vessels were subopt imally visualized in this patient. IMPRESSION: No evidence of deep venous thrombus within the right lower extremity although right calf vessels suboptimally visualized. ACT 112: Negative or not required by law. Electronically signed by: Jeremi Delgado M.D. 03/25/2022 10:57 AM
[2022-03-25] MEDS: ACETAMINOPHEN 325 MG TAB PO PRN ×2 (15:40→20:53)
[2022-03-25] MEDS: LIDOCAINE 5% 1 PATCH TD SCH (20:54)
[2022-03-25] MEDS: DULoxetine HCL 60 MG CAP PO SCH (20:57)
[2022-03-25] MEDS: OXYBUTYNIN CHLORIDE 5 MG TAB PO SCH (20:57)
[2022-03-26] MEDS: ACETAMINOPHEN 325 MG TAB PO PRN (02:28)
[2022-03-26] MEDS: LEVOTHYROXINE SODIUM 25 MCG TABLET PO SCH (05:52)
[2022-03-26] MEDS: AMIODARONE 200 MG TAB PO SCH ×2 (09:23→20:53)
[2022-03-26] MEDS: METOPROLOL TARTRATE 25 MG TAB PO SCH ×2 (09:23→20:54)
[2022-03-26] MEDS: PRAVASTATIN SOD 10 MG TAB PO SCH (09:24)
[2022-03-26] MEDS: GABAPENTIN 100 MG CAP PO SCH ×2 (09:24→20:55)
[2022-03-26] MEDS: LOSARTAN POTASSIUM 25 MG TAB PO SCH (09:24)
[2022-03-26] MEDS: APIXABAN 5 MG TABLET PO SCH ×2 (09:24→20:53)
[2022-03-26] MEDS: POLYETHYLENE (MIRALAX) 17 GM PACK PO SCH (09:24)
[2022-03-26] MEDS: PANTOprazole 40 MG TAB PO SCH ×2 (09:24→20:54)
[2022-03-26] MEDS: INSULIN ASPART PER UNIT SC SCH ×4 (09:36→21:26)
[2022-03-26] MEDS: POTASSIUM CHLORIDE 10 MEQ TABCR PO SCH (09:45)
--- NOTE | 2022-03-26 11:33 | Hospitalist Progress Note ---
Date of Service March 26, 2022 Assessment & Plan (1) Encephalopathy acute: Plan: 76yo F with PMHx of breast cancer s/p lumpectomy, chemo and XRT (2008) paroxysmal A-fib, T2DM, HTN, HLD, hypothyroidism and newly diagnosed pancreatic mass suspicious for pancreatic cancer admitted for altered mental status and acute transaminitis w/ concern for biliary stricture. Asymptomatic COVID Positive (03/23/2022) -delay in discharge planning, anticipate next week; otherwise medically stable for discharge Right lower extremity/calf pain - Patient w/ right LE calf pain on exam (03/25) - RLE Doppler US (03/25): No evidence of DVT Encephalopathy, improved - CT head 03/13: without acute intracranial pathology - MRI brain from 02/23 did not show brain mets - CXR 03/13: cardiomegaly, mild pulmonary edema - Ammonia level normal. - likely 2/2 to medication side effect interacting with decreased hepatic function. -Initially suspicious for infection. No elevated WBC noted. Bl and urine cx neg. Patient treated with zosyn (d/c 03/16) and cefdinir, flagyl (both d/c 03/20) -Baclofen, Tramadol, gabapentin, Cymbalta discontinued; possible contribution to worse mental status - patient's mentation and awareness improved after day 1, progressed from 1 word answers to full sentences. Currently able to recall daily events and operate phone. Biliary stricture 2/2 Pancreatic mass, s/p EUS, ERCP and biliary sphincterotomy (03/15) - CT abd/pelvis 03/13: pancreatic ductal dilatation, mild intrahepatic biliary ductal dilation suggestive of pancreatic adenocarcinoma. 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 toward lesser curve of stomach - Chest CTA 02/22: no mets in seen, pancreatic mass lesion encases hepatic/splenic arteries @ celiac bifurcation, low attenuation w/in anterior lobe, new from prior exams (concerning for steatosis or hepatic infarct) - ERCP: severe, malignant appearing biliary stricture in lower third of main bile duct - biliary sphincterotomy and stent placed in common bile duct - GI recommended referral to surgical oncology; will refer patient in outpatient setting for evaluation of surgical resection Pancreatic mass: - chest CTA 02/22: pancreatic mass lesion encases hepatic/splenic arteries @ celiac bifurcation, low attenuation w/in anterior lobe, new from prior exams (concerning for steatosis or hepatic infarct), 13 mm enhancing nodule in interpolar L kidney, small neoplasm not excluded, R lobe thyroid mass unchanged - UES for FNA of pancreatic head mass: 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 Psammoma bodies have been reported in associated with primary pancreatic adenocarcinoma, though clinical/radiographic correlation to exclude a gynecologic serous carcinoma is recommended. -transvaginal pelvic US unremarkable, unlikely gynecologic source -Sent referral to [facility] [place] [facility], please have PCP follow up on referral for mass evaluation Weakness -Patient lives alone; POA is brother in law -cont. PT/OT, recommend inpt rehab; pending placement, however, delay in discharge planning due to acute asymptomatic COVID positive status Elevated LFTs - likely 2/2 biliary stricture - AST, ALT now wnl - alk phos (03/22): 220 AFib - Cont. amioderone, eliquis - low suspicion of amiodarone causing initial transaminitis Constipation -cont. miralax daily DM2: -SSI -may resume her metformin 500mg daily on discharge HTN: - continue metoprolol 25 mg - continue Losartan 25 mg HLD: - continue pravastatin Hypothyroidism: - Continue home levothyroxine Hypomagnesemia, resolved Code Status: CONDITIONAL CODE; no chest compressions, no intubation/artificial ventilation; defibrillation and medications okay FEN: DM2 DVT ppx:Eliquis Dispo: med surg (2) Mass of pancreas: (3) Transaminitis: (4) Paroxysmal atrial fibrillation: (5) Type 2 diabetes mellitus: (6) Hyperlipidemia: (7) Hypothyroidism: Admission and Anticipated Discharge Date Admission Date: March 13, 2022 Supervising Physician Co-Signing Physician Notes I personally examined the patient and verified all gonzales points of history and exam, discussed case, and agree with decision making with Dr Louise. Feeling okay. Just feels like "I am in limbo" as she is waiting on disposition planning. Otherwise no acute complaints. Vitals noted, in general she is awake and alert pleasant no distress sitting up in her chair eating lunch. HEENT normocephalic atraumatic mucous membranes moist. Breathing unlabored no accessory muscle use good effort. Skin shows no rashes no pallor or icterus. Neuro without focal deficits. Encephalopathyresolved Pancreatic massfor surgical oncology evaluation as an outpatient Weakness/deconditioningfor rehab Essentially asymptomatic COVIDdelaying ability for rehab transfer Subjective Patient seen at bedside this morning. No acute events overnight. States she was a little confused waking up this morning but now back to her baseline. Denies chest pain, SOB, cough, abd pain, nausea, vomiting, DUARTE, lightheadedness, dizziness, vision changes. Review of Systems Review of Systems: All systems reviewed & are unremarkable except as noted in HPI & below Physical Exam Physical Exam: GENERAL: No acute distress. WD/WN. Vital signs reviewed as above. EYES: EOMI. Anicteric sclerae. HENT: Moist mucous membranes. RESPIRATORY: CTA bilaterally. No wheezing, rales, or rhonchi. CARDIOVASCULAR: RRR. No murmurs. ABDOMEN: Soft, nontender, and nondistended. +BS. EXTREMITIES: No LE edema. +mild tenderness to palpation of right calf. No significant tenderness to palpation of left calf. No skin changes or rashes appreciated. SKIN: Warm, dry. NEUROLOGIC: Awake. AOx3. No focal neurological deficits. PSYCHIATRIC: Cooperative. Appropriate mood and affect. Results & Data Results & Data ([facility]) Vital Signs (Past 12 Hours) Vital Signs Temp Pulse Resp BP Pulse Ox 03/26/22 07:15 36.5 C 61 18 163/80 H 96 Laboratory Results 03/26/22 03/25/22 03/25/22 Range/Units 08:13 20:53 17:01 POC Glucose 132 H 142 H 119 H (70-99) mg/dl 03/25/22 Range/Units 11:47 POC Glucose 149 H (70-99) mg/dl Resident Activity Tracking Resident Involvement: Resident Care Provided Care Provided: Adult [facility]
--- NOTE | 2022-03-26 17:38 | Billing Data ---
Date of Service March 26, 2022 Coding Level of Care Code 48619 Subseq Hosp Care Lvl 1
[2022-03-26] MEDS: DULoxetine HCL 60 MG CAP PO SCH (20:53)
[2022-03-26] MEDS: LIDOCAINE 5% 1 PATCH TD SCH (20:54)
[2022-03-26] MEDS: OXYBUTYNIN CHLORIDE 5 MG TAB PO SCH (20:55)
[2022-03-27] MEDS: ACETAMINOPHEN 325 MG TAB PO PRN ×2 (02:37→19:22)
[2022-03-27] MEDS: LEVOTHYROXINE SODIUM 25 MCG TABLET PO SCH (05:53)
[2022-03-27] MEDS: INSULIN ASPART PER UNIT SC SCH ×4 (08:31→20:37)
[2022-03-27] MEDS: METOPROLOL TARTRATE 25 MG TAB PO SCH ×2 (08:43→20:30)
[2022-03-27] MEDS: GABAPENTIN 100 MG CAP PO SCH ×2 (08:46→20:29)
[2022-03-27] MEDS: APIXABAN 5 MG TABLET PO SCH ×2 (08:46→20:31)
[2022-03-27] MEDS: AMIODARONE 200 MG TAB PO SCH ×2 (08:46→20:29)
[2022-03-27] MEDS: PANTOprazole 40 MG TAB PO SCH ×2 (08:47→20:31)
[2022-03-27] MEDS: LOSARTAN POTASSIUM 25 MG TAB PO SCH (08:47)
[2022-03-27] MEDS: PRAVASTATIN SOD 10 MG TAB PO SCH (08:47)
[2022-03-27] MEDS: POLYETHYLENE (MIRALAX) 17 GM PACK PO SCH (08:48)
[2022-03-27] MEDS: POTASSIUM CHLORIDE 10 MEQ TABCR PO SCH (08:54)
--- NOTE | 2022-03-27 12:31 | Discharge Summary ---
Date of Service March 27, 2022 Discharge Exam GENERAL: No acute distress. WD/WN. Vital signs reviewed as above. EYES: EOMI. Anicteric sclerae. HENT: Moist mucous membranes. RESPIRATORY: CTA bilaterally. No wheezing, rales, or rhonchi. CARDIOVASCULAR: RRR. No murmurs. ABDOMEN: Soft, nontender, and nondistended. +BS. EXTREMITIES: No LE edema. +mild tenderness to palpation of right calf. No significant tenderness to palpation of left calf. No skin changes or rashes appreciated. SKIN: Warm, dry. NEUROLOGIC: Awake. AOx3. No focal neurological deficits. PSYCHIATRIC: Cooperative. Appropriate mood and affect. Discharge Data Allergies Allergy/AdvReac Type Severity Reaction Status Date / Time calcium AdvReac Severe CAUSES Verified 03/13/22 17:53 KIDNEY STONES oxycodone AdvReac Mild "Made me Verified 03/13/22 17:53 higher than a kite" Consultations 03/13/22 20:19 ED Decision to Admit Stat 03/13/22 23:30 Consult Gastroenterology Routine 03/16/22 16:51 Consult [facility] shot man Routine Procedures Performed Operation Date: 03/15/22 08:20 Actual Procedures p Endoscopic Ultrasonography Upper with biopsies of pancreatic mass, endoscopic esophagogastroduodenography, endoscopic retrograde cholangiopancreatography, sphincterotomy - Meghan Kohler MD p Endoscopic Retrograde Cholangiopancreato - Meghan Kohler MD Ordered Studies 03/13/22 15:50 CT head/brain wo con Stat 03/13/22 19:10 CT Abd and Pelvis [CT abd pelvis IV con only] Stat 03/15/22 FL ERCP biliary ductal Routine 03/15/22 11:35 US upper EUS PACS images Routine 03/20/22 09:47 US pelvic complete Urgent US transvaginal Urgent 03/25/22 09:06 US venous doppler LE RT Routine Discharge Plan Discharge Items Patient Disposition: Transfer Inpatient Rehab Fac Reason For Visit: ALTERED MENTAL STATUS Discharge Diagnosis: Encephalopathy secondary to pancreatic mass Condition on Discharge: Fair Activity: Per Instructions section Non-emergency contact: Primary Care Provider Call non-emergency contact if: you have any medication questions, your symptoms worsen and you have a fever Follow-up/Referrals: Outside Location [Outside] (Patient to be connected with Surgical Oncology in 1- 2 months for evaluation pancreatic mass. Please use patient's POA as construction person Oracio Delaney. [facility] [place] phone number [phone], option 1. If needs faxed info fax it to [phone]) Tyler Ramirez, DO [Primary Care Provider] - (Patient requires referral to surgical oncology for evaluation of her pancreatic mass, GI suggests whipple procedure) Diet: Carb Consistent or DM2 Addtl Attending Provider Instructions: 76yo F with PMHx of breast cancer s/p lumpectomy, chemo and XRT (2008) paroxysmal A-fib, T2DM, HTN, HLD, hypothyroidism and newly diagnosed pancreatic mass suspicious for pancreatic cancer admitted for altered mental status and acute transaminitis w/ concern for biliary stricture. Asymptomatic COVID Positive (03/23/2022) -delayed discharge planning, however, medically stable Encephalopathy,improved - CT head 03/13: without acute intracranial pathology - MRI brain from 02/23: no brain mets - CXR 03/13: cardiomegaly, mild pulmonary edema - Ammonia level wnl - likely 2/2 to medication side effect interacting with decreased hepatic function. - Initially suspicious for infection. No elevated WBC noted. Blood and urine cx neg. Patient treated with zosyn (d/c 03/16) and cefdinir, flagyl (both d/c 03/20) - Baclofen, Tramadol, gabapentin, Cymbalta discontinued; possible contribution to worse mental status Biliary stricture 2/2 Pancreatic mass, s/p EUS, ERCP and biliary sphincterotomy (03/15) - CT abd/pelvis 03/13: pancreatic ductal dilatation, mild intrahepatic biliary ductal dilation suggestive of pancreatic adenocarcinoma. 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 toward lesser curve of stomach - Chest CTA 02/22: no mets in seen, pancreatic mass lesion encases hepatic/splenic arteries @ celiac bifurcation, low attenuation w/in anterior lobe, new from prior exams (concerning for steatosis or hepatic infarct) - ERCP: severe, malignant appearing biliary stricture in lower third of main bile duct - biliary sphincterotomy and stent placed in common bile duct - GI recommended referral to surgical oncology; will refer patient in outpatient setting for evaluation of surgical resection Pancreatic mass - chest CTA 02/22: pancreatic mass lesion encases hepatic/splenic arteries @ celiac bifurcation, low attenuation w/in anterior lobe, new from prior exams (concerning for steatosis or hepatic infarct), 13 mm enhancing nodule in interpolar L kidney, small neoplasm not excluded, R lobe thyroid mass unchanged - UES for FNA of pancreatic head mass: 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 PT/OT, recommend inpt rehab Elevated LFTs - likely 2/2 biliary stricture - AST, ALT now wnl - alk phos (03/22): 220 AFib - Cont. amioderone, eliquis - low suspicion of amiodarone causing initial transaminitis Constipation -cont. miralax daily Right lower extremity/calf pain - Patient w/ right LE calf pain on exam (03/25) - RLE Doppler US (03/25):No evidence of DVT DM: -cont. home meds on discharge HTN: - continue metoprolol 25 mg - continue Losartan 25 mg HLD - continue pravastatin Hypothyroidism - Continue home levothyroxine Hypomagnesemia, resolved Pending Studies at Discharge: Yes Studies:: Pancreatic Mass Biopsy Stand-Alone Forms: My [facility] Skilled Items Patient informed of condition?: Yes DNR: No (Conditional code, no CPR, yes medication and defibrillation) Discharge Level of Care: Acute rehab Communicable Disease: No Discharge Prognosis: Stable Lines: None Urinary Catheter: No Medications and DC Order Prescriptions: Continued levothyroxine 25 mcg tablet 25 mcg PO QAM Qty: 90 RF: 1 oxybutynin chloride 5 mg tablet 5 mg PO QPM Qty: 30 RF: 1 metformin 500 mg tablet,ER chicho.retention 24 hr 500 mg PO QPM Qty: 90 RF: 1 cholecalciferol (vitamin D3) 1,000 unit capsule 1,000 units PO HS RF: 0 pravastatin 10 mg tablet 10 mg PO DAILY Qty: 90 RF: 3 metoprolol tartrate 25 mg tablet 25 mg PO BID Qty: 180 RF: 3 potassium chloride 10 mEq tablet extended release 10 meq PO DAILY RF: 0 (DME) [facility] See Rx Instructions .Route Qty: 1 RF: 0 amiodarone 200 mg Tablet 400 mg PO BID Qty: 66 RF: 0 pantoprazole 40 mg Tablet,Delayed Release (Dr/Ec) 40 mg PO BID Qty: 60 RF: 0 losartan 25 mg Tablet 25 mg PO QAM Qty: 30 RF: 0 Eliquis 5 mg tablet 5 mg PO BID Qty: 180 RF: 0 Discontinued duloxetine 60 mg capsule,delayed release(DR/EC) 60 mg PO HS Qty: 90 RF: 3 gabapentin 100 mg capsule 100 mg PO BID RF: 0 baclofen 10 mg tablet 10 mg PO BID RF: 0 tramadol 50 mg tablet 50 mg PO Q8H PRN (Reason: Pain) RF: 0 Admission Data Admit Date/Time: 03/13/22 22:04 Attending Provider: Usman Pete Admit Provider: Flor Arreguin Primary Care Provider: Tyler Ramirez Other Providers: Rico Mehta ; Love Brown ; Blount,Care ; Usman Pete ; Basilia Millard
--- NOTE | 2022-03-27 18:07 | Hospitalist Progress Note ---
Date of Service March 27, 2022 Assessment & Plan (1) Encephalopathy acute: Plan: 76yo F with PMHx of breast cancer s/p lumpectomy, chemo and XRT (2008) paroxysmal A-fib, T2DM, HTN, HLD, hypothyroidism and newly diagnosed pancreatic mass suspicious for pancreatic cancer admitted for altered mental status and acute transaminitis w/ concern for biliary stricture. Asymptomatic COVID Positive (03/23/2022) -delay in discharge planning, anticipate next week; otherwise medically stable for discharge Encephalopathy, improved - CT head 03/13: without acute intracranial pathology - MRI brain from 02/23 did not show brain mets - CXR 03/13: cardiomegaly, mild pulmonary edema - Ammonia level wnl - likely 2/2 to medication side effect interacting with decreased hepatic function. -Initially suspicious for infection. No elevated WBC noted. Bl and urine cx neg. Patient treated with zosyn (d/c 03/16) and cefdinir, flagyl (both d/c 03/20) -Baclofen, Tramadol, gabapentin, Cymbalta discontinued; possible contribution to worse mental status Biliary stricture 2/2 Pancreatic mass, s/p EUS, ERCP and biliary sphincterotomy (03/15) - CT abd/pelvis 03/13: pancreatic ductal dilatation, mild intrahepatic biliary ductal dilation suggestive of pancreatic adenocarcinoma. 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 toward lesser curve of stomach - Chest CTA 02/22: no mets in seen, pancreatic mass lesion encases hepatic/splenic arteries @ celiac bifurcation, low attenuation w/in anterior lobe, new from prior exams (concerning for steatosis or hepatic infarct) - ERCP: severe, malignant appearing biliary stricture in lower third of main bile duct - biliary sphincterotomy and stent placed in common bile duct - GI recommended referral to surgical oncology; will refer patient in outpatient setting for evaluation of surgical resection Pancreatic mass: - chest CTA 02/22: pancreatic mass lesion encases hepatic/splenic arteries @ celiac bifurcation, low attenuation w/in anterior lobe, new from prior exams (concerning for steatosis or hepatic infarct), 13 mm enhancing nodule in interpolar L kidney, small neoplasm not excluded, R lobe thyroid mass unchanged - UES for FNA of pancreatic head mass:Numerous spherules are seen which are suggestive of psammoma bodies (which may explain firmness of lesion) --> transvaginal pelvic US unremarkable, unlikely gynecologic source -Sent referral to [facility] [place], please have PCP follow up on referral for mass evaluation Weakness -Patient lives alone; POA is brother in law -cont. PT/OT, recommend inpt rehab; pending placement, however, delay in discha rge planning due to acute asymptomatic COVID positive status Elevated LFTs - likely 2/2 biliary stricture - AST, ALT now wnl - alk phos (03/22): 220 AFib - Cont. amioderone, eliquis - low suspicion of amiodarone causing initial transaminitis Right lower extremity/calf pain - Patient w/ right LE calf pain on exam (03/25) - RLE Doppler US (03/25): No evidence of DVT Constipation -cont. miralax daily DM2: -SSI -may resume her metformin 500mg daily on discharge HTN: - continue metoprolol 25 mg - continue Losartan 25 mg HLD: - continue pravastatin Hypothyroidism: - Continue home levothyroxine Hypomagnesemia, resolved Code Status: CONDITIONAL CODE; no chest compressions, no intubation/artificial ventilation; defibrillation and medications okay FEN: DM2 DVT ppx:Eliquis Dispo: med surg (2) Mass of pancreas: (3) Transaminitis: (4) Paroxysmal atrial fibrillation: (5) Type 2 diabetes mellitus: (6) Hyperlipidemia: (7) Hypothyroidism: Admission and Anticipated Discharge Date Admission Date: March 13, 2022 Supervising Physician Co-Signing Physician Notes I personally examined the patient and verified all gonzales points of history and exam, discussed case, and agree with decision making with Dr Louise. feels ok just waiting on placement. d/w case managemnet - still not a covid (+) bed open Vitals noted, in general she is awake and alert pleasant no distress sitting up in her chair eating lunch. HEENT normocephalic atraumatic mucous membranes moist. Breathing unlabored no accessory muscle use good effort. Skin shows no rashes no pallor or icterus. Neuro without focal deficits. Encephalopathyresolved Pancreatic massfor surgical oncology evaluation as an outpatient Weakness/deconditioningfor rehab once bed available Essentially asymptomatic COVIDdelaying ability for rehab transfer Subjective Patient seen at bedside this morning. No acute events overnight. No acute complaints. Denies chest pain, SOB, cough, abd pain, nausea, vomiting, DUARTE, lightheadedness, dizziness, vision changes. Review of Systems Review of Systems: All systems reviewed & are unremarkable except as noted in HPI & below Physical Exam Physical Exam: GENERAL: No acute distress. WD/WN. Vital signs reviewed as above. EYES: EOMI. Anicteric sclerae. HENT: Moist mucous membranes. RESPIRATORY: CTA bilaterally. No wheezing, rales, or rhonchi. CARDIOVASCULAR: RRR. No murmurs. ABDOMEN: Soft, nontender, and nondistended. +BS. EXTREMITIES: No LE edema. +mild tenderness to palpation of right calf. No significant tenderness to palpation of left calf. No skin changes or rashes appreciated. SKIN: Warm, dry. NEUROLOGIC: Awake. AOx3. No focal neurological deficits. PSYCHIATRIC: Cooperative. Appropriate mood and affect. Results & Data Results & Data ([facility]) Vital Signs (Past 12 Hours) Vital Signs Temp Pulse Resp BP Pulse Ox 03/27/22 14:55 36.6 C 62 16 118/70 97 03/27/22 07:51 36.6 C 64 16 142/80 H 95 Laboratory Results 03/27/22 03/27/22 03/27/22 Range/Units 17:33 11:53 07:49 POC Glucose 115 H 181 H 137 H (70-99) mg/dl 03/26/22 Range/Units 20:46 POC Glucose 131 H (70-99) mg/dl Resident Activity Tracking Resident Involvement: Resident Care Provided Care Provided: Adult Hospital Medicine
--- NOTE | 2022-03-27 18:39 | Billing Data ---
Date of Service March 27, 2022 Coding Level of Care Code 77691 Subseq Hosp Care Lvl 1
[2022-03-27] MEDS: LIDOCAINE 5% 1 PATCH TD SCH (20:30)
[2022-03-27] MEDS: DULoxetine HCL 60 MG CAP PO SCH (20:31)
[2022-03-27] MEDS: OXYBUTYNIN CHLORIDE 5 MG TAB PO SCH (20:31)
[2022-03-28] MEDS: LEVOTHYROXINE SODIUM 25 MCG TABLET PO SCH (05:54)
[2022-03-28] MEDS: METOPROLOL TARTRATE 25 MG TAB PO SCH ×2 (07:50→21:06)
[2022-03-28] MEDS: AMIODARONE 200 MG TAB PO SCH ×2 (07:50→21:06)
[2022-03-28] MEDS: PRAVASTATIN SOD 10 MG TAB PO SCH (07:50)
[2022-03-28] MEDS: PANTOprazole 40 MG TAB PO SCH ×2 (07:50→21:06)
[2022-03-28] MEDS: APIXABAN 5 MG TABLET PO SCH ×2 (07:50→21:06)
[2022-03-28] MEDS: GABAPENTIN 100 MG CAP PO SCH ×2 (07:50→21:07)
[2022-03-28] MEDS: LOSARTAN POTASSIUM 25 MG TAB PO SCH (07:52)
[2022-03-28] MEDS: POLYETHYLENE (MIRALAX) 17 GM PACK PO SCH (07:52)
[2022-03-28] MEDS: INSULIN ASPART PER UNIT SC SCH ×4 (08:35→20:57)
--- NOTE | 2022-03-28 09:09 | Hospitalist Progress Note ---
Date of Service March 28, 2022 Assessment & Plan (1) Encephalopathy acute: Plan: 76yo F with PMHx of breast cancer s/p lumpectomy, chemo and XRT (2008) paroxysmal A-fib, T2DM, HTN, HLD, hypothyroidism and newly diagnosed pancreatic mass suspicious for pancreatic cancer admitted for altered mental status and acute transaminitis w/ concern for biliary stricture. Asymptomatic COVID Positive (03/23/2022) -delay in discharge planning, anticipate next week; otherwise medically stable for discharge Encephalopathy, improved - CT head 03/13: without acute intracranial pathology - MRI brain from 02/23 did not show brain mets - CXR 03/13: cardiomegaly, mild pulmonary edema - Ammonia level wnl - likely 2/2 to medication side effect interacting with decreased hepatic function. -Initially suspicious for infection. No elevated WBC noted. Bl and urine cx neg. Patient treated with zosyn (d/c 03/16) and cefdinir, flagyl (both d/c 03/20) -Baclofen, Tramadol, gabapentin, Cymbalta discontinued; possible contribution to worse mental status Biliary stricture 2/2 Pancreatic mass, s/p EUS, ERCP and biliary sphincterotomy (03/15) - CT abd/pelvis 03/13: pancreatic ductal dilatation, mild intrahepatic biliary ductal dilation suggestive of pancreatic adenocarcinoma. 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 toward lesser curve of stomach - Chest CTA 02/22: no mets in seen, pancreatic mass lesion encases hepatic/splenic arteries @ celiac bifurcation, low attenuation w/in anterior lobe, new from prior exams (concerning for steatosis or hepatic infarct) - ERCP: severe, malignant appearing biliary stricture in lower third of main bile duct - biliary sphincterotomy and stent placed in common bile duct - GI recommended referral to surgical oncology; will refer patient in outpatient setting for evaluation of surgical resection Pancreatic mass: - chest CTA 02/22: pancreatic mass lesion encases hepatic/splenic arteries @ celiac bifurcation, low attenuation w/in anterior lobe, new from prior exams (concerning for steatosis or hepatic infarct), 13 mm enhancing nodule in interpolar L kidney, small neoplasm not excluded, R lobe thyroid mass unchanged - UES for FNA of pancreatic head mass:Numerous spherules are seen 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 PT/OT, recommend inpt rehab; pending placement, however, delay in discharge planning due to acute asymptomatic COVID positive status Elevated LFTs - likely 2/2 biliary stricture - AST, ALT resolved - alk phos (03/22): 220 AFib - Cont. amioderone, eliquis - low suspicion of amiodarone causing initial transaminitis Right lower extremity/calf pain - Patient w/ right LE calf pain on exam (03/25) - RLE Doppler US (03/25): No evidence of DVT Constipation -cont. miralax daily DM2: -SSI -may resume her metformin 500mg daily on discharge HTN: - continue metoprolol 25 mg - continue Losartan 25 mg HLD: - continue pravastatin Hypothyroidism: - Continue home levothyroxine Hypomagnesemia, resolved Code Status: CONDITIONAL CODE; no chest compressions, no intubation/artificial ventilation; defibrillation and medications okay FEN: DM2 DVT ppx:Eliquis 5mg bid Dispo: med surg (2) Mass of pancreas: (3) Transaminitis: (4) Paroxysmal atrial fibrillation: (5) Type 2 diabetes mellitus: (6) Hyperlipidemia: (7) Hypothyroidism: Admission and Anticipated Discharge Date Admission Date: March 13, 2022 Supervising Physician Co-Signing Physician Notes I personally examined the patient and verified all gonzales points of history and exam, discussed case, and agree with decision making with Dr Louise. more confused this afternoon. asking if i can leave the door open so she can hear tracy if she shouts for her. tried to reorient. seemed to understand at first, but then asked if i would be seeing tracy. no physical complaints. Vitals noted, in general she is awake and alert pleasant no distress sitting up in her chair eating lunch. HEENT normocephalic atraumatic mucous membranes moist. Breathing unlabored no accessory muscle use good effort. Abdomen soft nondistended nontender no masses organomegaly. Skin shows no rashes no pallor or icterus. Neuro without focal deficits. Encephalopathyresolved earlier in her hospital stay. She is more confused today. I suspect there is a hospital-acquired delirium, she shows no physical signs or symptoms of any new worseningthat said, she is frail with a cancer and has been in the hospital for quite a whilewill check CBC CMP, serial exams serial vitals to ensure that nothing infectious or metabolic appears to be causing this. Again I suspect that is probably a hospital-acquired delirium purely from environmental factors, but given how brittle her situation isscreening to ensure no other causes. Pancreatic massfor surgical oncology evaluation as an outpatient Weakness/deconditioningfor rehab once bed available Essentially asymptomatic COVIDdelaying ability for rehab transfer Subjective Patient seen at bedside this morning. No acute events overnight. No acute complaints. Denies chest pain, SOB, cough, abd pain, nausea, vomiting, DUARTE, lightheadedness, dizziness, vision changes. Quarantined for +covid, awaiting placement. Review of Systems Review of Systems: All systems reviewed & are unremarkable except as noted in HPI & below Physical Exam Physical Exam: GENERAL: No acute distress. WD/WN. Vital signs reviewed as above. EYES: EOMI. Anicteric sclerae. HENT: Moist mucous membranes. RESPIRATORY: CTA bilaterally. No wheezing, rales, or rhonchi. CARDIOVASCULAR: RRR. No murmurs. ABDOMEN: Soft, nontender, and nondistended. EXTREMITIES: No LE edema. +mild tenderness to palpation of right calf. No significant tenderness to palpation of left calf. No skin changes or rashes appreciated. SKIN: Warm, dry. NEUROLOGIC: Awake. AOx3. No focal neurological deficits. PSYCHIATRIC: Cooperative. Appropriate mood and affect. Results & Data Results & Data ([facility]) Vital Signs (Past 12 Hours) Vital Signs Temp Pulse Resp BP Pulse Ox 03/28/22 07:39 36.7 C 71 16 130/72 95 Laboratory Results 03/28/22 03/27/22 03/27/22 Range/Units 08:16 20:28 17:33 POC Glucose 129 H 148 H 115 H (70-99) mg/dl 03/27/22 Range/Units 11:53 POC Glucose 181 H (70-99) mg/dl Resident Activity Tracking Resident Involvement: Resident Care Provided Care Provided: Adult [facility] Medicine
[2022-03-28] MEDS: POTASSIUM CHLORIDE 10 MEQ TABCR PO SCH (10:10)
--- NOTE | 2022-03-28 18:35 | Billing Data ---
Date of Service March 28, 2022 Coding Level of Care Code 58264 Subseq Hosp Care Lvl 2
--- NOTE | 2022-03-28 18:36 | Billing Data ---
Date of Service March 28, 2022 Coding Level of Care Code 06900 Subseq Hosp Care Lvl 2
[2022-03-28] MEDS: MELATONIN 3 MG TAB PO SCH (21:06)
[2022-03-28] MEDS: LIDOCAINE 5% 1 PATCH TD SCH (21:07)
[2022-03-28] MEDS: DULoxetine HCL 60 MG CAP PO SCH (21:08)
[2022-03-28] MEDS: OXYBUTYNIN CHLORIDE 5 MG TAB PO SCH (21:08)
[2022-03-29] MEDS: LEVOTHYROXINE SODIUM 25 MCG TABLET PO SCH (05:51)
[2022-03-29 06:15] LABS: Basophils # (auto) 0.02 K/uL (0-0.2); Basophils % (auto) 0.3 %; Eosinophils # (auto) 0.05 K/uL (0-0.50); Eosinophils % (auto) 0.7 %; Hematocrit (blood only) 37.1 % (34.1-44.9); Hemoglobin 12.3 g/dl (12.0-16.0); Immature Granulocytes # (auto) 0.06 K/uL (0.00-0.02); Immature Granulocytes % (auto) 0.8 %; Lymphocytes # (auto) 1.93 K/uL (1.2-3.4); Lymphocytes % (auto) 25.8 %; Mean Corpuscular Hemoglobin 30.1 pg (25.0-34.0); Mean Corpuscular Hgb Conc 33.2 g/dL (32.0-36.0); Mean Corpuscular Volume 90.7 fL (80.0-100.0); Monocytes # (auto) 0.68 K/uL (0.24-0.82); Monocytes % (auto) 9.1 %; Neutrophils # (auto) 4.75 K/uL (1.4-6.5); Neutrophils % (auto) 63.3 %; Platelet Count 262 K/uL (130-400); RDW Coefficient of Variation 12.5 % (11.5-14.5); RDW Standard Deviation 41.6 fL (36.4-46.3); Red Blood Count 4.09 M/uL (3.93-5.22); White Blood Count 7.49 K/ul (4.8-10.8)
[2022-03-29 06:38] LABS: Albumin Globulin Ratio 0.9 (0.9-2); Albumin Level 3.3 gm/dl (3.4-5.0); BUN Creatinine Ratio 18.8 (10-20); Bilirubin,Total 0.8 mg/dl (0.2-1.0); Calcium 10.1 mg/dl (8.5-10.1); Creatinine Clr Calc Pharmacy 62.8 ml/min; Est GFR (African American) 77.7 ml/min; Globulin 3.8 gm/dl (2.5-4.0); Potassium 4.8 mmol/L (3.5-5.1); Total Protein 7.1 gm/dl (6.0-8.3)
[2022-03-29] MEDS: SODIUM CHLORIDE 1 GM TABLET PO SCH ×2 (09:47→22:11)
[2022-03-29] MEDS: GABAPENTIN 100 MG CAP PO SCH (09:47)
[2022-03-29] MEDS: AMIODARONE 200 MG TAB PO SCH ×2 (09:47→22:13)
[2022-03-29] MEDS: PANTOprazole 40 MG TAB PO SCH ×2 (09:47→22:13)
[2022-03-29] MEDS: APIXABAN 5 MG TABLET PO SCH ×2 (09:47→22:13)
[2022-03-29] MEDS: METOPROLOL TARTRATE 25 MG TAB PO SCH ×2 (09:47→22:14)
[2022-03-29] MEDS: LOSARTAN POTASSIUM 25 MG TAB PO SCH (09:47)
[2022-03-29] MEDS: PRAVASTATIN SOD 10 MG TAB PO SCH (09:47)
[2022-03-29] MEDS: POLYETHYLENE (MIRALAX) 17 GM PACK PO SCH (09:48)
[2022-03-29] MEDS: INSULIN ASPART PER UNIT SC SCH ×4 (09:59→22:24)
[2022-03-29] MEDS: POTASSIUM CHLORIDE 10 MEQ TABCR PO SCH (10:54)
--- NOTE | 2022-03-29 13:19 | Hospitalist Progress Note ---
Date of Service March 29, 2022 Assessment & Plan (1) Encephalopathy acute: Plan: 76yo F with PMHx of breast cancer s/p lumpectomy, chemo and XRT (2008) paroxysmal A-fib, T2DM, HTN, HLD, hypothyroidism and newly diagnosed pancreatic mass suspicious for pancreatic cancer admitted for altered mental status and acute transaminitis w/ concern for biliary stricture. Asymptomatic COVID Positive (03/23/2022) -delay in discharge planning, anticipate on 04/02/2022; otherwise medically stable for discharge Encephalopathy, improved - CT head 03/13: without acute intracranial pathology - MRI brain from 02/23 did not show brain mets - CXR 03/13: cardiomegaly, mild pulmonary edema - Ammonia level wnl - likely 2/2 to medication side effect interacting with decreased hepatic function. -Initially suspicious for infection. No elevated WBC noted. Bl and urine cx neg. Patient treated with zosyn (d/c 03/16) and cefdinir, flagyl (both d/c 03/20) -Baclofen, Tramadol, gabapentin, Cymbalta discontinued; possible contribution to worse mental status Delirium -waxing/waning symptoms likely 2/2 prolonged hospital stay in combination with hyponatremia found on am labs -continue to reorient daily -fluid restriction 1500mL + salt tabs Biliary stricture 2/2 Pancreatic mass, s/p EUS, ERCP and biliary sphincterotomy (03/15) - CT abd/pelvis 03/13: pancreatic ductal dilatation, mild intrahepatic biliary ductal dilation suggestive of pancreatic adenocarcinoma. 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 toward lesser curve of stomach - Chest CTA 02/22: no mets, pancreatic mass encases hepatic/splenic arteries @ celiac bifurcation, low attenuation w/in anterior lobe concerning for steatosis or hepatic infarct - ERCP: severe, malignant appearing biliary stricture in lower third of main bile duct - Biliary sphincterotomy and stent placed in common bile duct - GI recommended referral to surgical oncology; will refer patient in outpatient setting for evaluation of surgical resection Pancreatic mass: - Chest CTA 02/22: no mets, pancreatic mass encases hepatic/splenic arteries @ celiac bifurcation, low attenuation w/in anterior lobe concerning for steatosis or hepatic infarct - UES for FNA of pancreatic head mass: 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 PT/OT, recommend inpt rehab; pending placement, however, delay in discharge planning due to acute asymptomatic COVID positive status Elevated LFTs - likely 2/2 biliary stricture - AST, ALT resolved - alk phos (03/22): 220 AFib - Cont. amioderone, eliquis - low suspicion of amiodarone causing initial transaminitis Right lower extremity/calf pain, resolved - Patient w/ right LE calf pain on exam (03/25) - RLE Doppler US (03/25): No evidence of DVT Constipation -cont. miralax daily DM2: -SSI -may resume her metformin 500mg daily on discharge HTN: - continue metoprolol 25 mg - continue Losartan 25 mg HLD: - continue pravastatin Hypothyroidism: - Continue home levothyroxine Hypomagnesemia, resolved Code Status: CONDITIONAL CODE; no chest compressions, no intubation/artificial ventilation; defibrillation and medications okay FEN: DM2 DVT ppx:Eliquis 5mg bid Dispo: med surg (2) Mass of pancreas: (3) Transaminitis: (4) Paroxysmal atrial fibrillation: (5) Type 2 diabetes mellitus: (6) Hyperlipidemia: (7) Hypothyroidism: Admission and Anticipated Discharge Date Admission Date: March 13, 2022 Supervising Physician Co-Signing Physician Notes I personally examined the patient and verified all gonzales points of history and exam, discussed case, and agree with decision making with Dr Louise. no complaints - knows that she's in the hospital but still overall confused. no complaints though and proximal hx seems reliable. no pain no abd pain no sob. Vitals noted, in general she is awake and alert pleasant no distress laying in bed - wtih help she starts to eat dinner, realizes she likes the beef, and then opts to eat more. chewing and swallowing without difficulty. HEENT normocephalic atraumatic mucous membranes moist. Breathing unlabored no accessory muscle use good effort. Abdomen soft nondistended nontender no masses organomegaly. Skin shows no rashes no pallor or icterus. Neuro without focal deficits. Encephalopathyresolved earlier in her hospital stay. now a bit confused again. I suspect there is a hospital-acquired delirium, she shows no physical signs or symptoms of any new worseningthat said, she is frail with a cancer and has been in the hospital for quite a whilelabs reassuring - Na sl low but not much different than she's been running. Again I suspect that is probably a hospital- acquired delirium purely from environmental factors - continue to observe Pancreatic massfor surgical oncology evaluation as an outpatient Weakness/deconditioningfor rehab once bed available Essentially asymptomatic COVIDdelaying ability for rehab transfer Subjective Last evening was delirious into this morning. When seen at bedside this morning appeared less delirious and more alert. No acute complaints. Denies chest pain, SOB, cough, abd pain, nausea, vomiting, DUARTE, lightheadedness, dizziness, vision changes. Quarantined for +covid, awaiting placement. Review of Systems Review of Systems: All systems reviewed & are unremarkable except as noted in HPI & below Physical Exam Physical Exam: GENERAL: No acute distress. WD/WN. Vital signs reviewed as above. EYES: EOMI. Anicteric sclerae. HENT: Moist mucous membranes. RESPIRATORY: CTA bilaterally. No wheezing, rales, or rhonchi. CARDIOVASCULAR: RRR. No murmurs. ABDOMEN: Soft, nontender, and nondistended. EXTREMITIES: No LE edema. No significant calf tenderness. No skin changes or rashes appreciated. SKIN: Warm, dry. NEUROLOGIC: Awake. Alert. Oriented to year, place, and self, but could not name president. No focal neurological deficits. PSYCHIATRIC: Cooperative. Appropriate mood and affect. Results & Data Results & Data ([facility]) Vital Signs (Past 12 Hours) Vital Signs Temp Pulse Resp BP Pulse Ox 03/29/22 08:24 36.6 C 72 16 155/79 H 98 Laboratory Results 03/29/22 03/29/22 03/29/22 Range/Units 12:29 08:26 05:30 WBC (4.8-10.8) K/ul RBC (3.93-5.22) M/uL Hgb (12.0-16.0) g/dl Hct (34.1-44.9) % MCV (80.0-100.0) fL MCH (25.0-34.0) pg MCHC (32.0-36.0) g/dL RDW Std Deviation (36.4-46.3) fL RDW Coeff of Marii (11.5-14.5) % Plt Count (130-400) K/uL MPV (9.4-12.3) fL Immature Gran % (Auto) % Neut % (Auto) % Lymph % (Auto) % [place] % (Auto) % Eos % (Auto) % Baso % (Auto) % Neut # (Auto) (1.4-6.5) K/uL Lymph # (Auto) (1.2-3.4) K/uL [place] # (Auto) (0.24-0.82) K/uL Eos # (Auto) (0-0.50) K/uL Baso # (Auto) (0-0.2) K/uL Immature Gran # (Auto) (0.00-0.02) K/uL Sodium 127 L (136-145) mmol/L Potassium 4.8 (3.5-5.1) mmol/L Chloride 93 L (98-107) mmol/L Carbon Dioxide 27 (21-32) mmol/L Anion Gap 7 (3-11) BUN 16 (6-23) mg/dl Creatinine 0.85 (0.6-1.2) mg/dl Est Cr Clr Drug Dosing 62.8 ml/min Est GFR ( Amer) 77.7 ml/min Est GFR (Non-Af Amer) 67.0 ml/min BUN/Creatinine Ratio 18.8 (10-20) Glucose 151 H (70-99(Fasting)) mg/dl POC Glucose 169 H 155 H (70-99) mg/dl Calcium 10.1 (8.5-10.1) mg/dl Total Bilirubin 0.8 (0.2-1.0) mg/dl AST 14 (13-39) U/L ALT 14 (7-52) U/L Alkaline Phosphatase 149 H (34-104) U/L Total Protein 7.1 (6.0-8.3) gm/dl Albumin 3.3 L (3.4-5.0) gm/dl Globulin 3.8 (2.5-4.0) gm/dl Albumin/Globulin Ratio 0.9 (0.9-2) 03/29/22 03/28/22 03/28/22 Range/Units 05:30 20:57 17:23 WBC 7.49 (4.8-10.8) K/ul RBC 4.09 (3.93-5.22) M/uL Hgb 12.3 (12.0-16.0) g/dl Hct 37.1 (34.1-44.9) % MCV 90.7 (80.0-100.0) fL MCH 30.1 (25.0-34.0) pg MCHC 33.2 (32.0-36.0) g/dL RDW Std Deviation 41.6 (36.4-46.3) fL RDW Coeff of Marii 12.5 (11.5-14.5) % Plt Count 262 (130-400) K/uL MPV 12.0 (9.4-12.3) fL Immature Gran % (Auto) 0.8 % Neut % (Auto) 63.3 % Lymph % (Auto) 25.8 % [place] % (Auto) 9.1 % Eos % (Auto) 0.7 % Baso % (Auto) 0.3 % Neut # (Auto) 4.75 (1.4-6.5) K/uL Lymph # (Auto) 1.93 (1.2-3.4) K/uL [place] # (Auto) 0.68 (0.24-0.82) K/uL Eos # (Auto) 0.05 (0-0.50) K/uL Baso # (Auto) 0.02 (0-0.2) K/uL Immature Gran # (Auto) 0.06 H (0.00-0.02) K/uL Sodium (136-145) mmol/L Potassium (3.5-5.1) mmol/L Chloride (98-107) mmol/L Carbon Dioxide (21-32) mmol/L Anion Gap (3-11) BUN (6-23) mg/dl Creatinine (0.6-1.2) mg/dl Est Cr Clr Drug Dosing ml/min Est GFR ( Amer) ml/min Est GFR (Non-Af Amer) ml/min BUN/Creatinine Ratio (10-20) Glucose (70-99(Fasting)) mg/dl POC Glucose 143 H 179 H (70-99) mg/dl Calcium (8.5-10.1) mg/dl Total Bilirubin (0.2-1.0) mg/dl AST (13-39) U/L ALT (7-52) U/L Alkaline Phosphatase (34-104) U/L Total Protein (6.0-8.3) gm/dl Albumin (3.4-5.0) gm/dl Globulin (2.5-4.0) gm/dl Albumin/Globulin Ratio (0.9-2) Resident Activity Tracking Resident Involvement: Resident Care Provided Care Provided: [facility] Medicine
[2022-03-29 17:34] LABS: BUN Creatinine Ratio 20.5 (10-20); Calcium 10.2 mg/dl (8.5-10.1); Creatinine Clr Calc Pharmacy 64.3 ml/min; Est GFR (African American) 79.9 ml/min; Potassium 5.2 mmol/L (3.5-5.1)
--- NOTE | 2022-03-29 19:28 | Billing Data ---
Date of Service March 29, 2022 Coding Level of Care Code 39013 Subseq Hosp Care Lvl 3
[2022-03-29] MEDS: MELATONIN 3 MG TAB PO SCH (22:12)
[2022-03-29] MEDS: OXYBUTYNIN CHLORIDE 5 MG TAB PO SCH (22:12)
[2022-03-29] MEDS: LIDOCAINE 5% 1 PATCH TD SCH (22:14)
[2022-03-30] MEDS: LEVOTHYROXINE SODIUM 25 MCG TABLET PO SCH (05:48)
[2022-03-30 07:00] LABS: Anion Gap 6 (3-11); Blood Urea Nitrogen 16 mg/dl (6-23); Calcium 9.9 mg/dl (8.5-10.1); Carbon Dioxide 26 mmol/L (21-32); Chloride 93 mmol/L (98-107); Creatinine Clr Calc Pharmacy 66.7 ml/min; Est GFR (African American) 83.6 ml/min; Est GFR (Non-African American) 72.1 ml/min; Glucose 153 mg/dl (70-99(Fasting)); Sodium 125 mmol/L (136-145)
[2022-03-30] MEDS: SODIUM CHLORIDE 1 GM TABLET PO SCH ×3 (08:04→22:14)
[2022-03-30] MEDS: PRAVASTATIN SOD 10 MG TAB PO SCH (08:04)
[2022-03-30] MEDS: PANTOprazole 40 MG TAB PO SCH ×2 (08:05→22:17)
[2022-03-30] MEDS: METOPROLOL TARTRATE 25 MG TAB PO SCH ×2 (08:05→22:18)
[2022-03-30] MEDS: LOSARTAN POTASSIUM 25 MG TAB PO SCH (08:06)
[2022-03-30] MEDS: APIXABAN 5 MG TABLET PO SCH ×2 (08:06→22:15)
[2022-03-30] MEDS: POLYETHYLENE (MIRALAX) 17 GM PACK PO SCH (08:07)
[2022-03-30] MEDS: AMIODARONE 200 MG TAB PO SCH ×2 (08:07→22:16)
--- NOTE | 2022-03-30 08:16 | Hospitalist Progress Note ---
Date of Service March 30, 2022 Assessment & Plan (1) Encephalopathy acute: Plan: 76yo F with PMHx of breast cancer s/p lumpectomy, chemo and XRT (2008) paroxysmal A-fib, T2DM, HTN, HLD, hypothyroidism and newly diagnosed pancreatic mass suspicious for pancreatic cancer admitted for altered mental status and acute transaminitis w/ concern for biliary stricture. Asymptomatic COVID Positive (03/23/2022) -delay in discharge planning, anticipate on 04/02/2022; otherwise medically stable for discharge Encephalopathy, improved - CT head 03/13: without acute intracranial pathology - MRI brain from 02/23 did not show brain mets - CXR 03/13: cardiomegaly, mild pulmonary edema - Ammonia level wnl - likely 2/2 to medication side effect interacting with decreased hepatic function. -Initially suspicious for infection. No elevated WBC noted. Bl and urine cx neg. Patient treated with zosyn (d/c 03/16) and cefdinir, flagyl (both d/c 03/20) -Baclofen, Tramadol, gabapentin, Cymbalta discontinued; possible contribution to worse mental status Delirium -waxing/waning symptoms likely 2/2 prolonged hospital stay in combination with hyponatremia found on am labs -continue to reorient daily -fluid restriction 1500mL + salt tabs inc. to 2g bid Biliary stricture 2/2 Pancreatic mass, s/p EUS, ERCP and biliary sphincterotomy (03/15) - CT abd/pelvis 03/13: pancreatic ductal dilatation, mild intrahepatic biliary ductal dilation suggestive of pancreatic adenocarcinoma. 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 toward lesser curve of stomach - Chest CTA 02/22: no mets, pancreatic mass encases hepatic/splenic arteries @ celiac bifurcation, low attenuation w/in anterior lobe concerning for steatosis or hepatic infarct - ERCP: severe, malignant appearing biliary stricture in lower third of main bile duct - Biliary sphincterotomy and stent placed in common bile duct - GI recommended referral to surgical oncology; will refer patient in outpatient setting for evaluation of surgical resection Pancreatic mass: - Chest CTA 02/22: no mets, pancreatic mass encases hepatic/splenic arteries @ celiac bifurcation, low attenuation w/in anterior lobe concerning for steatosis or hepatic infarct - UES for FNA of pancreatic head mass: 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 PT/OT, recommend inpt rehab; pending placement, however, delay in discharge planning due to acute asymptomatic COVID positive status Elevated LFTs - likely 2/2 biliary stricture - AST, ALT resolved - alk phos (03/22): 220 AFib - Cont. amioderone, eliquis - low suspicion of amiodarone causing initial transaminitis Right lower extremity/calf pain, resolved - Patient w/ right LE calf pain on exam (03/25) - RLE Doppler US (03/25): No evidence of DVT Constipation -cont. miralax daily DM2: -SSI -may resume her metformin 500mg daily on discharge HTN: - continue metoprolol 25 mg - continue Losartan 25 mg HLD: - continue pravastatin Hypothyroidism: - Continue home levothyroxine Hypomagnesemia, resolved Code Status: CONDITIONAL CODE; no chest compressions, no intubation/artificial ventilation; defibrillation and medications okay FEN: DM2 DVT ppx:Eliquis 5mg bid Dispo: med surg (2) Mass of pancreas: (3) Transaminitis: (4) Paroxysmal atrial fibrillation: (5) Type 2 diabetes mellitus: (6) Hyperlipidemia: (7) Hypothyroidism: Admission and Anticipated Discharge Date Admission Date: March 13, 2022 Supervising Physician Co-Signing Physician Notes I personally examined the patient and verified all gonzales points of history and exam, discussed case, and agree with decision making with Dr Louise. no complaints - sitting in chair Vitals noted, in general she is awake and alert pleasant no distress sitting in chair. HEENT normocephalic atraumatic mucous membranes moist. Breathing unlabored no accessory muscle use good effort. Abdomen soft nondistended nontender no masses organomegaly. Skin shows no rashes no pallor or icterus. Neuro without focal deficits. Encephalopathyresolved earlier in her hospital stay. now a bit confused again. I suspect there is a hospital-acquired delirium, she shows no physical signs or symptoms of any new worseningthat said, she is frail with a cancer and has been in the hospital for quite a whilelabs still reassuring - Na sl low but not much different than she's been running. Again I suspect that is probably a hospital- acquired delirium purely from environmental factors - increase salt tabscontinue to observe Pancreatic massfor surgical oncology evaluation as an outpatient Weakness/deconditioningfor rehab once bed available Essentially asymptomatic COVIDdelaying ability for rehab transfer Subjective Seen at bedside this morning. No overnight events. No acute complaints. Alert and responds to questions appropriately. Denies chest pain, SOB, cough, abd pain, nausea, vomiting, DUARTE, lightheadedness, dizziness, vision changes. Quarantined for +covid, awaiting placement. Review of Systems Review of Systems: All systems reviewed & are unremarkable except as noted in HPI & below Physical Exam Physical Exam: GENERAL: No acute distress. WD/WN. Vital signs reviewed as above. EYES: EOMI. Anicteric sclerae. HENT: Moist mucous membranes. RESPIRATORY: CTA bilaterally. No wheezing, rales, or rhonchi. CARDIOVASCULAR: RRR. No murmurs. ABDOMEN: Soft, nontender, and nondistended. EXTREMITIES: No LE edema. No significant calf tenderness. No skin changes or rashes appreciated. SKIN: Warm, dry. NEUROLOGIC: Awake. Alert. Oriented to year, place, and self, but could not name president. No focal neurological deficits. PSYCHIATRIC: Cooperative. Appropriate mood and affect. Results & Data Results & Data ([facility]) Vital Signs (Past 12 Hours) Vital Signs Temp Pulse Resp BP BP Pulse Ox 03/30/22 07:58 36.8 C 63 14 140/80 96 03/30/22 06:02 36.7 C 60 18 143/74 H 97 03/29/22 20:32 36.7 C 67 18 133/78 96 Laboratory Results 03/30/22 03/30/22 03/30/22 Range/Units 08:02 07:10 06:06 Sodium 125 L (136-145) mmol/L Potassium 4.2 TNP (3.5-5.1) mmol/L Chloride 93 L (98-107) mmol/L Carbon Dioxide 26 (21-32) mmol/L Anion Gap 6 (3-11) BUN 16 (6-23) mg/dl Creatinine 0.80 (0.6-1.2) mg/dl Est Cr Clr Drug Dosing 66.7 ml/min Est GFR ( Amer) 83.6 ml/min Est GFR (Non-Af Amer) 72.1 ml/min BUN/Creatinine Ratio 20.0 (10-20) Glucose 153 H (70-99(Fasting)) mg/dl POC Glucose 157 H (70-99) mg/dl Calcium 9.9 (8.5-10.1) mg/dl 03/29/22 03/29/22 03/29/22 Range/Units 20:29 17:26 16:41 Sodium 127 L (136-145) mmol/L Potassium 5.2 H (3.5-5.1) mmol/L Chloride 93 L (98-107) mmol/L Carbon Dioxide 29 (21-32) mmol/L Anion Gap 5 (3-11) BUN 17 (6-23) mg/dl Creatinine 0.83 (0.6-1.2) mg/dl Est Cr Clr Drug Dosing 64.3 ml/min Est GFR ( Amer) 79.9 ml/min Est GFR (Non-Af Amer) 69.0 ml/min BUN/Creatinine Ratio 20.5 H (10-20) Glucose 148 H (70-99(Fasting)) mg/dl POC Glucose 190 H 150 H (70-99) mg/dl Calcium 10.2 H (8.5-10.1) mg/dl 03/29/22 Range/Units 12:29 Sodium (136-145) mmol/L Potassium (3.5-5.1) mmol/L Chloride (98-107) mmol/L Carbon Dioxide (21-32) mmol/L Anion Gap (3-11) BUN (6-23) mg/dl Creatinine (0.6-1.2) mg/dl Est Cr Clr Drug Dosing ml/min Est GFR ( Amer) ml/min Est GFR (Non-Af Amer) ml/min BUN/Creatinine Ratio (10-20) Glucose (70-99(Fasting)) mg/dl POC Glucose 169 H (70-99) mg/dl Calcium (8.5-10.1) mg/dl Resident Activity Tracking Resident Involvement: Resident Care Provided Care Provided: Adult [facility] Medicine
[2022-03-30] MEDS: ACETAMINOPHEN 325 MG TAB PO PRN ×2 (08:28→18:16)
[2022-03-30] MEDS ORDERED: SODIUM CHLORIDE 1 GM TABLET PO SCH (09:00)
[2022-03-30] MEDS: INSULIN ASPART PER UNIT SC SCH ×4 (09:26→21:50)
--- NOTE | 2022-03-30 17:54 | Billing Data ---
Date of Service March 30, 2022 Coding Level of Care Code 29470 Subseq Hosp Care Lvl 2
[2022-03-30] MEDS: LIDOCAINE 5% 1 PATCH TD SCH (22:13)
[2022-03-30] MEDS: MELATONIN 3 MG TAB PO SCH (22:14)
[2022-03-30] MEDS: OXYBUTYNIN CHLORIDE 5 MG TAB PO SCH (22:16)
[2022-03-31] MEDS: LEVOTHYROXINE SODIUM 25 MCG TABLET PO SCH (06:16)
[2022-03-31 06:35] LABS: Albumin Globulin Ratio 0.8 (0.9-2); Albumin Level 3.2 gm/dl (3.4-5.0); BUN Creatinine Ratio 19.5 (10-20); Bilirubin,Total 0.7 mg/dl (0.2-1.0); Calcium 9.6 mg/dl (8.5-10.1); Creatinine Clr Calc Pharmacy 43.4 ml/min; Est GFR (African American) 49.7 ml/min; Est GFR (Non-African American) 42.9 ml/min; Globulin 3.9 gm/dl (2.5-4.0); Potassium 4.2 mmol/L (3.5-5.1); Total Protein 7.1 gm/dl (6.0-8.3)
[2022-03-31] MEDS: SODIUM CHLORIDE 1 GM TABLET PO SCH ×2 (08:53→22:51)
[2022-03-31] MEDS: POLYETHYLENE (MIRALAX) 17 GM PACK PO SCH (08:53)
[2022-03-31] MEDS: PRAVASTATIN SOD 10 MG TAB PO SCH (08:54)
[2022-03-31] MEDS: PANTOprazole 40 MG TAB PO SCH ×2 (08:54→22:53)
[2022-03-31] MEDS: METOPROLOL TARTRATE 25 MG TAB PO SCH ×2 (08:55→22:52)
[2022-03-31] MEDS: LOSARTAN POTASSIUM 25 MG TAB PO SCH (08:55)
[2022-03-31] MEDS: APIXABAN 5 MG TABLET PO SCH ×2 (08:56→22:52)
[2022-03-31] MEDS: AMIODARONE 200 MG TAB PO SCH ×2 (08:56→22:51)
[2022-03-31] MEDS: INSULIN ASPART PER UNIT SC SCH ×4 (10:14→21:00)
[2022-03-31] MEDS: ACETAMINOPHEN 325 MG TAB PO PRN ×2 (10:25→14:53)
--- NOTE | 2022-03-31 13:21 | Hospitalist Progress Note ---
Date of Service March 31, 2022 Assessment & Plan (1) Encephalopathy acute: Plan: 76yo F with PMHx of breast cancer s/p lumpectomy, chemo and XRT (2008) paroxysmal A-fib, T2DM, HTN, HLD, hypothyroidism and newly diagnosed pancreatic mass suspicious for pancreatic cancer admitted for altered mental status and acute transaminitis w/ concern for biliary stricture. Asymptomatic COVID Positive (03/23/2022) -delay in discharge planning, anticipate on 04/02/2022; otherwise medically stable for discharge Encephalopathy, improved - CT head 03/13: without acute intracranial pathology - MRI brain from 02/23 did not show brain mets - CXR 03/13: cardiomegaly, mild pulmonary edema - Ammonia level wnl - likely 2/2 to medication side effect interacting with decreased hepatic function. -Initially suspicious for infection. No elevated WBC noted. Bl and urine cx neg. Patient treated with zosyn (d/c 03/16) and cefdinir, flagyl (both d/c 03/20) -Baclofen, Tramadol, gabapentin, Cymbalta discontinued; possible contribution to worse mental status Delirium -waxing/waning symptoms likely 2/2 prolonged hospital stay, possible in combination with hyponatremia -continue to reorient daily Hyponatremia, acute on chronic -likely due to combination of hypovolemia, possible SIADH -Na 126, stable; b/l ~130 -cont. fluid restriction 1500mL + salt tabs 2g bid -cont. to monitor, trend CMP KAREN -new onset, likely due to fluid restriction -Cr 1.23, BUN 24; appears prerenal -give 500mL NSS bolus x1 -cont. to monitor, trend CMP Biliary stricture 2/2 Pancreatic mass, s/p EUS, ERCP and biliary sphincterotomy (03/15) - CT abd/pelvis 03/13: pancreatic ductal dilatation, mild intrahepatic biliary ductal dilation suggestive of pancreatic adenocarcinoma. 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 toward lesser curve of stomach - Chest CTA 02/22: no mets, pancreatic mass encases hepatic/splenic arteries @ celiac bifurcation, low attenuation w/in anterior lobe concerning for steatosis or hepatic infarct - ERCP: severe, malignant appearing biliary stricture in lower third of main bile duct - Biliary sphincterotomy and stent placed in common bile duct - GI recommended referral to surgical oncology; will refer patient in outpatient setting for evaluation of surgical resection Pancreatic mass: - Chest CTA 02/22: no mets, pancreatic mass encases hepatic/splenic arteries @ celiac bifurcation, low attenuation w/in anterior lobe concerning for steatosis or hepatic infarct - UES for FNA of pancreatic head mass: 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 PT/OT, recommend inpt rehab; pending placement, however, delay in discharge planning due to acute asymptomatic COVID positive status Elevated LFTs - likely 2/2 biliary stricture - AST, ALT resolved - alk phos (03/31): 124 AFib - Cont. amioderone, eliquis - low suspicion of amiodarone causing initial transaminitis Right lower extremity/calf pain, resolved - Patient w/ right LE calf pain on exam (03/25) - RLE Doppler US (03/25): No evidence of DVT Constipation -cont. miralax daily DM2: -SSI -may resume home metformin 500mg daily on discharge HTN: - continue metoprolol 25 mg - continue Losartan 25 mg HLD: - continue pravastatin Hypothyroidism: - Continue home levothyroxine Hypomagnesemia, resolved Code Status: CONDITIONAL CODE; no chest compressions, no intubation/artificial ventilation; defibrillation and medications okay FEN: DM2 DVT ppx:Eliquis 5mg bid Dispo: med surg (2) Mass of pancreas: (3) Transaminitis: (4) Paroxysmal atrial fibrillation: (5) Type 2 diabetes mellitus: (6) Hyperlipidemia: (7) Hypothyroidism: Admission and Anticipated Discharge Date Admission Date: March 13, 2022 Supervising Physician Co-Signing Physician Notes I personally examined the patient and verified all gonzales points of history and exam, discussed case, and agree with decision making with Dr. Vic Louise. No complaints - sitting in chair. Breathing comfortable on room air. Slightly dry oral mucosa today. Hyponatremia possibly due to SIADH, though she does appear mildly volume contracted on examination, so possibly low solute. Discussed with patient, and she asks why she is not getting more water, but has a full water container in front of her. Reports low appetite. Will trial small NSS IVF bolus and monitor Na. Acute kidney injury - Appears pre-renal. No new meds to implicate AIN. Will monitor PVRs to r/o post-renal. Encephalopathyresolved earlier in her hospital stay.Suspect mild hospital- acquired delirium. Pancreatic massfor surgical oncology evaluation as an outpatient Weakness/deconditioningfor rehab once bed available Subjective Seen at bedside this morning. No overnight events. No acute complaints. Alert and responds to questions. Complains of mild back pain, although chronic. Denies chest pain, SOB, cough, abd pain, nausea, vomiting, DUARTE, lightheadedness, dizziness, vision changes. Quarantined for +covid, awaiting placement. Review of Systems Review of Systems: All systems reviewed & are unremarkable except as noted in HPI & below Physical Exam Physical Exam: GENERAL: No acute distress. WD/WN. Vital signs reviewed as above. EYES: EOMI. Anicteric sclerae. HENT: Mildly dry mucous membranes. RESPIRATORY: CTA bilaterally. No wheezing, rales, or rhonchi. CARDIOVASCULAR: RRR. No murmurs. ABDOMEN: Soft, nontender, and nondistended. EXTREMITIES: No LE edema. No significant calf tenderness. No skin changes or rashes appreciated. SKIN: Warm, dry. NEUROLOGIC: Awake. Alert. Oriented to year, place, and self, but could not name president. No focal neurological deficits. PSYCHIATRIC: Cooperative. Appropriate mood and affect. Results & Data Results & Data ([facility]) Vital Signs (Past 12 Hours) Vital Signs Temp Pulse Resp BP Pulse Ox 03/31/22 08:48 36.8 C 66 14 143/80 H 95 Laboratory Results 03/31/22 03/31/22 03/31/22 Range/Units 12:34 08:51 05:20 Sodium 126 L (136-145) mmol/L Potassium 4.2 (3.5-5.1) mmol/L Chloride 94 L (98-107) mmol/L Carbon Dioxide 24 (21-32) mmol/L Anion Gap 8 (3-11) BUN 24 H (6-23) mg/dl Creatinine 1.23 H D (0.6-1.2) mg/dl Est Cr Clr Drug Dosing 43.4 ml/min Est GFR ( Amer) 49.7 ml/min Est GFR (Non-Af Amer) 42.9 ml/min BUN/Creatinine Ratio 19.5 (10-20) Glucose 146 H (70-99(Fasting)) mg/dl POC Glucose 185 H 185 H (70-99) mg/dl Calcium 9.6 (8.5-10.1) mg/dl Total Bilirubin 0.7 (0.2-1.0) mg/dl AST 14 (13-39) U/L ALT 13 (7-52) U/L Alkaline Phosphatase 124 H (34-104) U/L Total Protein 7.1 (6.0-8.3) gm/dl Albumin 3.2 L (3.4-5.0) gm/dl Globulin 3.9 (2.5-4.0) gm/dl Albumin/Globulin Ratio 0.8 L (0.9-2) 03/30/22 03/30/22 Range/Units 21:14 17:30 Sodium (136-145) mmol/L Potassium (3.5-5.1) mmol/L Chloride (98-107) mmol/L Carbon Dioxide (21-32) mmol/L Anion Gap (3-11) BUN (6-23) mg/dl Creatinine (0.6-1.2) mg/dl Est Cr Clr Drug Dosing ml/min Est GFR ( Amer) ml/min Est GFR (Non-Af Amer) ml/min BUN/Creatinine Ratio (10-20) Glucose (70-99(Fasting)) mg/dl POC Glucose 134 H 147 H (70-99) mg/dl Calcium (8.5-10.1) mg/dl Total Bilirubin (0.2-1.0) mg/dl AST (13-39) U/L ALT (7-52) U/L Alkaline Phosphatase (34-104) U/L Total Protein (6.0-8.3) gm/dl Albumin (3.4-5.0) gm/dl Globulin (2.5-4.0) gm/dl Albumin/Globulin Ratio (0.9-2) Resident Activity Tracking Resident Involvement: Resident Care Provided Care Provided: Adult [facility]
[2022-03-31] MEDS ORDERED: SODIUM CHLORIDE 0.9% 500 ML IV ONE (13:51)
[2022-03-31 14:20] LABS: Appearance Urine Turbid (Clear); Bacteria Urine Automated 4+ (Negative); Bilirubin Urine Negative (Negative); Blood Urine 3+ (Negative); Color Urine Dark Yellow; Epithelial Cell Urine Auto >30 /lpf (0-5); Glucose Urine UA Negative (Negative); Ketones Urine Trace (Negative); Leukocyte Esterase Urine 3+ (Negative); Nitrite Urine Negative (Negative); Protein Urine 1+ (Negative); Specific Gravity Urine 1.016 (1.000-1.030); Urobilinogen Urine Negative (Negative); WBC Urine Automated >30 /hpf (0-5)
--- NOTE | 2022-03-31 15:23 | Billing Data ---
Date of Service March 31, 2022 Coding Level of Care Code 42603 Subseq Hosp Care Lvl 3
[2022-03-31 19:30] LABS: BUN Creatinine Ratio 26.2 (10-20); Calcium 9.3 mg/dl (8.5-10.1); Creatinine Clr Calc Pharmacy 51.8 ml/min; Est GFR (African American) 61.6 ml/min; Est GFR (Non-African American) 53.1 ml/min; Potassium 4.2 mmol/L (3.5-5.1)
[2022-03-31] MEDS: MELATONIN 3 MG TAB PO SCH (22:51)
[2022-03-31] MEDS: OXYBUTYNIN CHLORIDE 5 MG TAB PO SCH (22:51)
[2022-03-31] MEDS: LIDOCAINE 5% 1 PATCH TD SCH (22:53)
[2022-04-01] MEDS: ACETAMINOPHEN 325 MG TAB PO PRN ×3 (02:38→17:17)
[2022-04-01] MEDS: LEVOTHYROXINE SODIUM 25 MCG TABLET PO SCH (05:56)
[2022-04-01 06:40] LABS: Albumin Globulin Ratio 0.8 (0.9-2); Albumin Level 3.2 gm/dl (3.4-5.0); BUN Creatinine Ratio 24.7 (10-20); Bilirubin,Total 0.7 mg/dl (0.2-1.0); Calcium 9.7 mg/dl (8.5-10.1); Creatinine Clr Calc Pharmacy 59.9 ml/min; Est GFR (African American) 73.5 ml/min; Est GFR (Non-African American) 63.4 ml/min; Globulin 3.8 gm/dl (2.5-4.0); Potassium 4.2 mmol/L (3.5-5.1)
--- NOTE | 2022-04-01 08:23 | Hospitalist Progress Note ---
Date of Service April 01, 2022 Assessment & Plan (1) Encephalopathy acute: Plan: 76yo F with PMHx of breast cancer s/p lumpectomy, chemo and XRT (2008) paroxysmal A-fib, T2DM, HTN, HLD, hypothyroidism and newly diagnosed pancreatic mass suspicious for pancreatic cancer admitted for altered mental status and acute transaminitis w/ concern for biliary stricture. Asymptomatic COVID Positive (03/23/2022) -delay in discharge planning, anticipate on 04/02/2022; otherwise medically stable for discharge Encephalopathy, improved - CT head 03/13: without acute intracranial pathology - MRI brain from 02/23 did not show brain mets - CXR 03/13: cardiomegaly, mild pulmonary edema - Ammonia level wnl - likely 2/2 to medication side effect interacting with decreased hepatic function. -Initially suspicious for infection. No elevated WBC noted. Bl and urine cx neg. Patient treated with zosyn (d/c 03/16) and cefdinir, flagyl (both d/c 03/20) -Baclofen, Tramadol, gabapentin, Cymbalta discontinued; possible contribution to worse mental status Delirium -waxing/waning symptoms likely 2/2 prolonged hospital stay, possibly in combination with hyponatremia -continue to reorient daily, appears to be near baseline Hyponatremia, acute on chronic -likely due to combination of hypovolemia, possible SIADH -Na 129, improved; b/l ~130 -cont. fluid restriction 1500mL + salt tabs 2g bid -cont. to monitor, trend CMP KAREN, resolved -new onset (03/31), likely due to fluid restriction -appeared prerenal, give 500mL NSS bolus x1 -Cr 0.89, stable -cont. to monitor, trend CMP Asymptomatic Bacteriuria -UA infectious, +culture -denies urinary symptoms and ongoing delirium not likely due to infection -monitor for now Biliary stricture 2/2 Pancreatic mass, s/p EUS, ERCP and biliary sphincterotomy (03/15) - CT abd/pelvis 03/13: pancreatic ductal dilatation, mild intrahepatic biliary ductal dilation suggestive of pancreatic adenocarcinoma. 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 toward lesser curve of stomach - Chest CTA 02/22: no mets, pancreatic mass encases hepatic/splenic arteries @ celiac bifurcation, low attenuation w/in anterior lobe concerning for steatosis or hepatic infarct - ERCP: severe, malignant appearing biliary stricture in lower third of main bile duct - Biliary sphincterotomy and stent placed in common bile duct - GI recommended referral to surgical oncology; will refer patient in outpatient setting for evaluation of surgical resection Pancreatic mass: - Chest CTA 02/22: no mets, pancreatic mass encases hepatic/splenic arteries @ celiac bifurcation, low attenuation w/in anterior lobe concerning for steatosis or hepatic infarct - UES for FNA of pancreatic head mass: 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 PT/OT, recommend inpt rehab; pending placement, however, delay in discharge planning due to acute asymptomatic COVID positive status Elevated LFTs - likely 2/2 biliary stricture - AST, ALT resolved - alk phos (04/01): 113 AFib - Cont. amioderone, eliquis - low suspicion of amiodarone causing initial transaminitis Right lower extremity/calf pain, resolved - Patient w/ right LE calf pain on exam (03/25) - RLE Doppler US (03/25): No evidence of DVT Constipation -cont. miralax daily DM2: -SSI -may resume home metformin 500mg daily on discharge HTN: - continue metoprolol 25 mg - continue Losartan 25 mg HLD: - continue pravastatin Hypothyroidism: - Continue home levothyroxine Hypomagnesemia, resolved Code Status: CONDITIONAL CODE; no chest compressions, no intubation/artificial ventilation; defibrillation and medications okay FEN: DM2 DVT ppx:Eliquis 5mg bid Dispo: med surg (2) Mass of pancreas: (3) Transaminitis: (4) Paroxysmal atrial fibrillation: (5) Type 2 diabetes mellitus: (6) Hyperlipidemia: (7) Hypothyroidism: Admission and Anticipated Discharge Date Admission Date: March 13, 2022 Supervising Physician Co-Signing Physician Notes I personally examined the patient and verified all gonzales points of history and exam, discussed case, and agree with decision making with Dr. Vic Louise. No complaintstoday. Sleeping in bed on my arrival. No shortness of breath. PO intake appears slightly improved today as she has drunk most of her water in the cup compared to none yesterday. Hyponatremia possibly more due to low solute given the improvement with 500 mL NSS. Likely some element of SIADH as well. Acute kidney injury - Pre-renal. Resolved with IV fluids and improved PO intake. Encephalopathyresolved earlier in her hospital stay.Suspect mild hospital- acquired delirium. Pancreatic massfor surgical oncology evaluation as an outpatient Weakness/deconditioningfor rehab once bed available Subjective Seen at bedside this morning. No overnight events. No acute complaints. Alert and responds to questions. Complains of mild back pain, although chronic. Denies chest pain, SOB, cough, abd pain, dysuria, N/V, headache, lightheadedness, dizziness, vision changes. Quarantined for +covid, awaiting placement. Review of Systems Review of Systems: All systems reviewed & are unremarkable except as noted in HPI & below Physical Exam Physical Exam: GENERAL: No acute distress. WD/WN. Vital signs reviewed as above. EYES: EOMI. Anicteric sclerae. HENT: Moist mucous membranes. RESPIRATORY: CTA bilaterally. No wheezing, rales, or rhonchi. CARDIOVASCULAR: RRR. No murmurs. ABDOMEN: Soft, nontender, and nondistended. EXTREMITIES: No LE edema. No significant calf tenderness. No skin changes or rashes appreciated. SKIN: Warm, dry. NEUROLOGIC: Awake. Alert. Oriented to time and self. Knows she is in a hospital but can't name which one. Also could not name current president. No focal neurological deficits. PSYCHIATRIC: Cooperative. Appropriate mood and affect. Results & Data Results & Data ([facility]) Vital Signs (Past 12 Hours) Vital Signs Temp Pulse Resp BP Pulse Ox 03/31/22 21:20 36.7 C 69 16 147/74 H 95 Laboratory Results 04/01/22 03/31/22 03/31/22 Range/Units 05:22 21:13 19:04 Sodium 129 L 127 L (136-145) mmol/L Potassium 4.2 4.2 (3.5-5.1) mmol/L Chloride 98 98 (98-107) mmol/L Carbon Dioxide 25 24 (21-32) mmol/L Anion Gap 6 5 (3-11) BUN 22 27 H (6-23) mg/dl Creatinine 0.89 1.03 (0.6-1.2) mg/dl Est Cr Clr Drug Dosing 59.9 51.8 ml/min Est GFR ( Amer) 73.5 61.6 ml/min Est GFR (Non-Af Amer) 63.4 53.1 ml/min BUN/Creatinine Ratio 24.7 H 26.2 H (10-20) Glucose 145 H 144 H (70-99(Fasting)) mg/dl POC Glucose 145 H (70-99) mg/dl Calcium 9.7 9.3 (8.5-10.1) mg/dl Total Bilirubin 0.7 (0.2-1.0) mg/dl AST 13 (13-39) U/L ALT 12 (7-52) U/L Alkaline Phosphatase 113 H (34-104) U/L Total Protein 7.0 (6.0-8.3) gm/dl Albumin 3.2 L (3.4-5.0) gm/dl Globulin 3.8 (2.5-4.0) gm/dl Albumin/Globulin Ratio 0.8 L (0.9-2) Urine Color Urine Appearance (Clear) Urine pH (4.5-7.5) Ur Specific Wrens (1.000-1.030) Urine Protein (Negative) Urine Glucose (UA) (Negative) Urine Ketones (Negative) Urine Blood (Negative) Urine Nitrite (Negative) Urine Bilirubin (Negative) Urine Urobilinogen (Negative) Ur Leukocyte Esterase (Negative) Urine WBC (Auto) (0-5) /hpf Urine RBC (Auto) (0-4) /hpf U Hyaline Cast (Auto) (0-5) /lpf U Epithel Cells (Auto) (0-5) /lpf Urine Bacteria (Auto) (Negative) Urine Yeast 03/31/22 03/31/22 03/31/22 Range/Units 17:13 13:53 12:34 Sodium (136-145) mmol/L Potassium (3.5-5.1) mmol/L Chloride (98-107) mmol/L Carbon Dioxide (21-32) mmol/L Anion Gap (3-11) BUN (6-23) mg/dl Creatinine (0.6-1.2) mg/dl Est Cr Clr Drug Dosing ml/min Est GFR ( Amer) ml/min Est GFR (Non-Af Amer) ml/min BUN/Creatinine Ratio (10-20) Glucose (70-99(Fasting)) mg/dl POC Glucose 158 H 185 H (70-99) mg/dl Calcium (8.5-10.1) mg/dl Total Bilirubin (0.2-1.0) mg/dl AST (13-39) U/L ALT (7-52) U/L Alkaline Phosphatase (34-104) U/L Total Protein (6.0-8.3) gm/dl Albumin (3.4-5.0) gm/dl Globulin (2.5-4.0) gm/dl Albumin/Globulin Ratio (0.9-2) Urine Color Dark Yellow Urine Appearance Turbid A (Clear) Urine pH 5.0 (4.5-7.5) Ur Specific Wrens 1.016 (1.000-1.030) Urine Protein 1+ H (Negative) Urine Glucose (UA) Negative (Negative) Urine Ketones Trace H (Negative) Urine Blood 3+ H (Negative) Urine Nitrite Negative (Negative) Urine Bilirubin Negative (Negative) Urine Urobilinogen Negative (Negative) Ur Leukocyte Esterase 3+ H (Negative) Urine WBC (Auto) >30 H (0-5) /hpf Urine RBC (Auto) 10-30 H (0-4) /hpf U Hyaline Cast (Auto) 1-5 (0-5) /lpf U Epithel Cells (Auto) >30 H (0-5) /lpf Urine Bacteria (Auto) 4+ H (Negative) Urine Yeast Not Reportable 03/31/22 Range/Units 08:51 Sodium (136-145) mmol/L Potassium (3.5-5.1) mmol/L Chloride (98-107) mmol/L Carbon Dioxide (21-32) mmol/L Anion Gap (3-11) BUN (6-23) mg/dl Creatinine (0.6-1.2) mg/dl Est Cr Clr Drug Dosing ml/min Est GFR ( Amer) ml/min Est GFR (Non-Af Amer) ml/min BUN/Creatinine Ratio (10-20) Glucose (70-99(Fasting)) mg/dl POC Glucose 185 H (70-99) mg/dl Calcium (8.5-10.1) mg/dl Total Bilirubin (0.2-1.0) mg/dl AST (13-39) U/L ALT (7-52) U/L Alkaline Phosphatase (34-104) U/L Total Protein (6.0-8.3) gm/dl Albumin (3.4-5.0) gm/dl Globulin (2.5-4.0) gm/dl Albumin/Globulin Ratio (0.9-2) Urine Color Urine Appearance (Clear) Urine pH (4.5-7.5) Ur Specific Wrens (1.000-1.030) Urine Protein (Negative) Urine Glucose (UA) (Negative) Urine Ketones (Negative) Urine Blood (Negative) Urine Nitrite (Negative) Urine Bilirubin (Negative) Urine Urobilinogen (Negative) Ur Leukocyte Esterase (Negative) Urine WBC (Auto) (0-5) /hpf Urine RBC (Auto) (0-4) /hpf U Hyaline Cast (Auto) (0-5) /lpf U Epithel Cells (Auto) (0-5) /lpf Urine Bacteria (Auto) (Negative) Urine Yeast Resident Activity Tracking Resident Involvement: Resident Care Provided Care Provided: Adult [facility]
[2022-04-01] MEDS: PRAVASTATIN SOD 10 MG TAB PO SCH (08:53)
[2022-04-01] MEDS: SODIUM CHLORIDE 1 GM TABLET PO SCH ×2 (08:53→20:53)
[2022-04-01] MEDS: AMIODARONE 200 MG TAB PO SCH ×2 (08:53→20:49)
[2022-04-01] MEDS: LOSARTAN POTASSIUM 25 MG TAB PO SCH (08:54)
[2022-04-01] MEDS: APIXABAN 5 MG TABLET PO SCH ×2 (08:54→20:49)
[2022-04-01] MEDS: METOPROLOL TARTRATE 25 MG TAB PO SCH ×2 (08:55→20:52)
[2022-04-01] MEDS: PANTOprazole 40 MG TAB PO SCH ×2 (08:55→20:53)
[2022-04-01] MEDS: POLYETHYLENE (MIRALAX) 17 GM PACK PO SCH (08:57)
[2022-04-01] MEDS: INSULIN ASPART PER UNIT SC SCH ×4 (09:47→20:56)
--- NOTE | 2022-04-01 13:48 | Billing Data ---
Date of Service April 01, 2022 Coding Level of Care Code 30758 Subseq Hosp Care Lvl 2
[2022-04-01] MEDS: LIDOCAINE 5% 1 PATCH TD SCH (20:49)
[2022-04-01] MEDS: MELATONIN 3 MG TAB PO SCH (20:51)
[2022-04-01] MEDS: OXYBUTYNIN CHLORIDE 5 MG TAB PO SCH (20:52)
[2022-04-02] MEDS: ACETAMINOPHEN 325 MG TAB PO PRN ×3 (01:43→17:03)
[2022-04-02] MEDS: LEVOTHYROXINE SODIUM 25 MCG TABLET PO SCH (06:04)
[2022-04-02 06:32] LABS: Albumin Globulin Ratio 0.8 (0.9-2); Bilirubin,Total 0.6 mg/dl (0.2-1.0); Calcium 9.4 mg/dl (8.5-10.1); Creatinine Clr Calc Pharmacy 69.3 ml/min; Est GFR (African American) 87.5 ml/min; Est GFR (Non-African American) 75.5 ml/min; Globulin 3.6 gm/dl (2.5-4.0); Potassium 3.9 mmol/L (3.5-5.1); Total Protein 6.6 gm/dl (6.0-8.3)
[2022-04-02] MEDS: PANTOprazole 40 MG TAB PO SCH ×2 (08:05→20:23)
[2022-04-02] MEDS: AMIODARONE 200 MG TAB PO SCH ×2 (08:05→20:23)
[2022-04-02] MEDS: METOPROLOL TARTRATE 25 MG TAB PO SCH ×2 (08:05→20:24)
[2022-04-02] MEDS: SODIUM CHLORIDE 1 GM TABLET PO SCH ×2 (08:05→20:24)
[2022-04-02] MEDS: APIXABAN 5 MG TABLET PO SCH ×2 (08:06→20:24)
[2022-04-02] MEDS: LOSARTAN POTASSIUM 25 MG TAB PO SCH (08:06)
[2022-04-02] MEDS: PRAVASTATIN SOD 10 MG TAB PO SCH (08:06)
[2022-04-02] MEDS: POLYETHYLENE (MIRALAX) 17 GM PACK PO SCH (08:06)
[2022-04-02] MEDS: INSULIN ASPART PER UNIT SC SCH ×4 (08:51→20:44)
--- NOTE | 2022-04-02 14:24 | Hospitalist Progress Note ---
Date of Service April 02, 2022 Assessment & Plan (1) Encephalopathy acute: Plan: 76yo F with PMHx of breast cancer s/p lumpectomy, chemo and XRT (2008) paroxysmal A-fib, T2DM, HTN, HLD, hypothyroidism and newly diagnosed pancreatic mass suspicious for pancreatic cancer admitted for altered mental status and acute transaminitis w/ concern for biliary stricture. Asymptomatic COVID Positive (03/23/2022) -delay in discharge planning, anticipate on 04/02/2022; otherwise medically stable for discharge ->10 days s/p +covid, precautions removed Encephalopathy, improved - CT head 03/13: without acute intracranial pathology - MRI brain from 02/23 did not show brain mets - CXR 03/13: cardiomegaly, mild pulmonary edema - Ammonia level wnl - likely 2/2 to medication side effect interacting with decreased hepatic function. -Initially suspicious for infection. No elevated WBC noted. Bl and urine cx neg. Patient treated with zosyn (d/c 03/16) and cefdinir, flagyl (both d/c 03/20) -Baclofen, Tramadol, gabapentin, Cymbalta discontinued; possible contribution to worse mental status Delirium -waxing/waning symptoms likely 2/2 prolonged hospital stay, possibly in combination with hyponatremia and UTI -continue to reorient daily, appears to be near baseline Hyponatremia, acute on chronic -likely due to combination of hypovolemia, possible SIADH -Na 130, improved; b/l ~130 -cont. fluid restriction 1500mL + salt tabs 2g bid -cont. to monitor, trend CMP KAREN, resolved -new onset (03/31), likely due to fluid restriction -appeared prerenal, give 500mL NSS bolus x1 -Cr 0.89, stable -cont. to monitor, trend CMP Symptomatic Bacteriuria -UA infectious, +culture (e. coli) -denies urinary symptoms, but ongoing delirium possible 2/2 infection -will tx with keflex 500mg qid x3 days Biliary stricture 2/2 Pancreatic mass, s/p EUS, ERCP and biliary sphincterotomy (03/15) - CT abd/pelvis 03/13: pancreatic ductal dilatation, mild intrahepatic biliary ductal dilation suggestive of pancreatic adenocarcinoma. 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 toward lesser curve of stomach - Chest CTA 02/22: no mets, pancreatic mass encases hepatic/splenic arteries @ celiac bifurcation, low attenuation w/in anterior lobe concerning for steatosis or hepatic infarct - ERCP: severe, malignant appearing biliary stricture in lower third of main bile duct - Biliary sphincterotomy and stent placed in common bile duct - GI recommended referral to surgical oncology; will refer patient in outpatient setting for evaluation of surgical resection Pancreatic mass: - Chest CTA 02/22: no mets, pancreatic mass encases hepatic/splenic arteries @ celiac bifurcation, low attenuation w/in anterior lobe concerning for steatosis or hepatic infarct - UES for FNA of pancreatic head mass: 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 PT/OT, recommend inpt rehab; pending placement, however, delay in discharge planning due to acute asymptomatic COVID positive status Elevated LFTs, resolved - likely 2/2 biliary stricture - AST, ALT resolved - alk phos (04/02): 98 AFib - Cont. amioderone, eliquis - low suspicion of amiodarone causing initial transaminitis Right lower extremity/calf pain, resolved - Patient w/ right LE calf pain on exam (03/25) - RLE Doppler US (03/25): No evidence of DVT Constipation -cont. miralax daily DM2: -SSI -may resume home metformin 500mg daily on discharge HTN: - continue metoprolol 25 mg - continue Losartan 25 mg HLD: - continue pravastatin Hypothyroidism: - Continue home levothyroxine Hypomagnesemia, resolved Code Status: CONDITIONAL CODE; no chest compressions, no intubation/artificial ventilation; defibrillation and medications okay FEN: DM2 DVT ppx:Eliquis 5mg bid Dispo: med surg (2) Mass of pancreas: (3) Transaminitis: (4) Paroxysmal atrial fibrillation: (5) Type 2 diabetes mellitus: (6) Hyperlipidemia: (7) Hypothyroidism: Admission and Anticipated Discharge Date Admission Date: March 13, 2022 Supervising Physician Co-Signing Physician Notes Resident Physician Supervision Note: I independently interviewed and examined the patient and verified the gonzales history and physical, reviewed labs and image studies and agree with resident Dr. Louise findings and care plan. Subjective Seen at bedside this morning. No overnight events. No acute complaints. Alert and responds to questions. More confused this morning than yesterday. Complains of mild back pain, although chronic. Denies chest pain, SOB, cough, abd pain, dysuria, N/V, headache, lightheadedness, dizziness, vision changes. Quarantined for +covid, awaiting placement. Review of Systems Review of Systems: All systems reviewed & are unremarkable except as noted in HPI & below Physical Exam Physical Exam: GENERAL: No acute distress. WD/WN. Vital signs reviewed as above. EYES: EOMI. Anicteric sclerae. HENT: Moist mucous membranes. RESPIRATORY: CTA bilaterally. No wheezing, rales, or rhonchi. CARDIOVASCULAR: RRR. No murmurs. ABDOMEN: Soft, nontender, and nondistended. EXTREMITIES: No LE edema. No significant calf tenderness. No skin changes or rashes appreciated. SKIN: Warm, dry. NEUROLOGIC: Awake. Alert. Appears more confused than yesterday. Oriented to year and self. Says she is in a rehab hospital and can't name which one. Also could not name current president. No focal neurological deficits. PSYCHIATRIC: Cooperative. Appropriate mood and affect. Results & Data Results & Data ([facility]) Vital Signs (Past 12 Hours) Vital Signs Temp Pulse Resp BP Pulse Ox 04/02/22 08:04 36.8 C 74 14 158/85 H 95 Laboratory Results 04/02/22 04/02/22 04/02/22 Range/Units 12:24 08:10 05:55 Sodium 130 L (136-145) mmol/L Potassium 3.9 (3.5-5.1) mmol/L Chloride 100 (98-107) mmol/L Carbon Dioxide 23 (21-32) mmol/L Anion Gap 7 (3-11) BUN 20 (6-23) mg/dl Creatinine 0.77 (0.6-1.2) mg/dl Est Cr Clr Drug Dosing 69.3 ml/min Est GFR ( Amer) 87.5 ml/min Est GFR (Non-Af Amer) 75.5 ml/min BUN/Creatinine Ratio 26.0 H (10-20) Glucose 126 H (70-99(Fasting)) mg/dl POC Glucose 138 H 122 H (70-99) mg/dl Calcium 9.4 (8.5-10.1) mg/dl Total Bilirubin 0.6 (0.2-1.0) mg/dl AST 12 L (13-39) U/L ALT 9 (7-52) U/L Alkaline Phosphatase 98 (34-104) U/L Total Protein 6.6 (6.0-8.3) gm/dl Albumin 3.0 L (3.4-5.0) gm/dl Globulin 3.6 (2.5-4.0) gm/dl Albumin/Globulin Ratio 0.8 L (0.9-2) 04/01/22 04/01/22 Range/Units 20:48 17:09 Sodium (136-145) mmol/L Potassium (3.5-5.1) mmol/L Chloride (98-107) mmol/L Carbon Dioxide (21-32) mmol/L Anion Gap (3-11) BUN (6-23) mg/dl Creatinine (0.6-1.2) mg/dl Est Cr Clr Drug Dosing ml/min Est GFR ( Amer) ml/min Est GFR (Non-Af Amer) ml/min BUN/Creatinine Ratio (10-20) Glucose (70-99(Fasting)) mg/dl POC Glucose 151 H 111 H (70-99) mg/dl Calcium (8.5-10.1) mg/dl Total Bilirubin (0.2-1.0) mg/dl AST (13-39) U/L ALT (7-52) U/L Alkaline Phosphatase (34-104) U/L Total Protein (6.0-8.3) gm/dl Albumin (3.4-5.0) gm/dl Globulin (2.5-4.0) gm/dl Albumin/Globulin Ratio (0.9-2) Resident Activity Tracking Resident Involvement: Resident Care Provided Care Provided: Adult Hospital Medicine
[2022-04-02] MEDS: cephALEXin 500 MG CAP PO SCH ×2 (17:04→23:48)
[2022-04-02] MEDS: MELATONIN 3 MG TAB PO SCH (20:24)
[2022-04-02] MEDS: OXYBUTYNIN CHLORIDE 5 MG TAB PO SCH (20:24)
[2022-04-02] MEDS: LIDOCAINE 5% 1 PATCH TD SCH (20:28)
[2022-04-03] MEDS: cephALEXin 500 MG CAP PO SCH ×2 (05:35→13:02)
[2022-04-03] MEDS: LEVOTHYROXINE SODIUM 25 MCG TABLET PO SCH (05:35)
[2022-04-03 07:36] LABS: Alanine Aminotransferase 11 U/L (7-52); Albumin Globulin Ratio 0.8 (0.9-2); Alkaline Phosphatase 101 U/L (34-104); Anion Gap 8 (3-11); BUN Creatinine Ratio 21.9 (10-20); Bilirubin,Total 0.6 mg/dl (0.2-1.0); Blood Urea Nitrogen 16 mg/dl (6-23); Calcium 9.4 mg/dl (8.5-10.1); Carbon Dioxide 23 mmol/L (21-32); Chloride 98 mmol/L (98-107); Creatinine Clr Calc Pharmacy 73.1 ml/min; Est GFR (African American) 93.4 ml/min; Est GFR (Non-African American) 80.6 ml/min; Globulin 3.8 gm/dl (2.5-4.0); Glucose 153 mg/dl (70-99(Fasting)); Sodium 129 mmol/L (136-145); Total Protein 6.8 gm/dl (6.0-8.3)
[2022-04-03] MEDS: INSULIN ASPART PER UNIT SC SCH ×2 (08:36→13:02)
[2022-04-03] MEDS: LOSARTAN POTASSIUM 25 MG TAB PO SCH (08:37)
[2022-04-03] MEDS: SODIUM CHLORIDE 1 GM TABLET PO SCH (08:37)
[2022-04-03] MEDS: METOPROLOL TARTRATE 25 MG TAB PO SCH (08:38)
[2022-04-03] MEDS: APIXABAN 5 MG TABLET PO SCH (08:38)
[2022-04-03] MEDS: PANTOprazole 40 MG TAB PO SCH (08:38)
[2022-04-03] MEDS: PRAVASTATIN SOD 10 MG TAB PO SCH (08:39)
[2022-04-03] MEDS: AMIODARONE 200 MG TAB PO SCH (08:39)
[2022-04-03] MEDS: POLYETHYLENE (MIRALAX) 17 GM PACK PO SCH (08:40)
[2022-04-03 08:46] LABS: Potassium 4.1 mmol/L (3.5-5.1)
[2022-04-03] MEDS: ONDANSETRON INJ 2 MG/ML 2 ML VIAL IV PRN (09:48)
--- NOTE | 2022-04-03 11:15 | Discharge Summary ---
Date of Service April 03, 2022 Admission HPI Per Admitting Provider 76-year-old female past medical history significant for paroxysmal AFib, DM2, HTN, HFpEF, HLD, hypothyroidism, newly diagnosed pancreatic mass with suspicion for pancreatic cancer presented to the ER due to continued worsening of mental status at home. Patient was recently discharged on 03/07 for A. fib with RVR and during that admission also had EUS with biopsy of pancreatic head mass. Unfortunately, pathology on pancreatic mass was inconclusive but consideration of biliary stent was proposed if needed in the future for biliary decompression. Prior to 03/11 patient was closer to her baseline with regard to functional status, however at 03/11 visit was noted by PCP to have some increased confusion. Family member in the room today reports that this has continued to get worse and when attempt was made to get her out of bed today she had rigid posture and was not really responding well to questions. ER evaluation included lab work which showed new worsening transaminitis with T bili of 2.0, AST 843, ALT 408, alk phos 468 (significant elevation from lab work yesterday). Ammonia level normal, TSH normal, UA not suggestive of infection, COVID-negative. CTAP performed today which did not show any change in size of pancreatic head/neck mass, however did note pancreatic and intrahepatic biliary ductal dilatation, and possible underlying fistula. Chest x-ray with mild pulmonary edema, no pneumonia. Head CT without acute intracranial hemorrhage or other acute intracranial process. Due to patient's altered mental status hospitalist service was consulted for admission. Due to mental status patient was only able to answer simple questions, but denied chest pain, trouble breathing, abdominal pain, headache. She was able to tell me her name and that she was at the hospital, but she was not sure why. Family member in the room reports that decision has been made to pursue fdc care for Cristina given inability to care for her at home. On review of medication list, baclofen and tramadol are listed however unable to verify these medications, except for that they appear to have a start date of 03/12. Principal Diagnosis Encephalopathy secondary to pancreatic mass Discharge Exam GENERAL: No acute distress. WD/WN. Vital signs reviewed as above. EYES: EOMI. Anicteric sclerae. HENT: Moist mucous membranes. RESPIRATORY: CTA bilaterally. No wheezing, rales, or rhonchi. CARDIOVASCULAR: RRR. No murmurs. ABDOMEN: Soft, nontender, and nondistended. EXTREMITIES: No LE edema. No significant calf tenderness. No skin changes or rashes appreciated. SKIN: Warm, dry. NEUROLOGIC: Awake. Alert. Mentation similar to yesterday. Oriented to year and self. Says she is in a rehab hospital and can't name which one. Also could not name current president. No focal neurological deficits. PSYCHIATRIC: Cooperative. Appropriate mood and affect. Discharge Data Allergies Allergy/AdvReac Type Severity Reaction Status Date / Time calcium AdvReac Severe CAUSES Verified 03/13/22 17:53 KIDNEY STONES oxycodone AdvReac Mild "Made me Verified 03/13/22 17:53 higher than a kite" Consultations 03/13/22 20:19 ED Decision to Admit Stat 03/13/22 23:30 Consult Gastroenterology Routine 03/16/22 16:51 Consult EDGAR religion professor Routine Procedures Performed Operation Date: 03/15/22 08:20 Actual Procedures p Endoscopic Ultrasonography Upper with biopsies of pancreatic mass, endoscopic esophagogastroduodenography, endoscopic retrograde cholangiopancreatography, sphincterotomy - Meghan Kohler MD p Endoscopic Retrograde Cholangiopancreato - Meghan Kohler MD Ordered Studies Laboratory Results WBC 7.49 K/ul (4.8-10.8) 03/29/22 05:30 RBC 4.09 M/uL (3.93-5.22) 03/29/22 05:30 Hgb 12.3 g/dl (12.0-16.0) 03/29/22 05:30 Hct 37.1 % (34.1-44.9) 03/29/22 05:30 MCV 90.7 fL (80.0-100.0) 03/29/22 05:30 MCH 30.1 pg (25.0-34.0) 03/29/22 05:30 MCHC 33.2 g/dL (32.0-36.0) 03/29/22 05:30 RDW Std Deviation 41.6 fL (36.4-46.3) 03/29/22 05:30 RDW Coeff of Marii 12.5 % (11.5-14.5) 03/29/22 05:30 Plt Count 262 K/uL (130-400) 03/29/22 05:30 MPV 12.0 fL (9.4-12.3) 03/29/22 05:30 Immature Gran % (Auto) 0.8 % 03/29/22 05:30 Neut % (Auto) 63.3 % 03/29/22 05:30 Lymph % (Auto) 25.8 % 03/29/22 05:30 Mccone % (Auto) 9.1 % 03/29/22 05:30 Eos % (Auto) 0.7 % 03/29/22 05:30 Baso % (Auto) 0.3 % 03/29/22 05:30 Neut # (Auto) 4.75 K/uL (1.4-6.5) 03/29/22 05:30 Lymph # (Auto) 1.93 K/uL (1.2-3.4) 03/29/22 05:30 Mccone # (Auto) 0.68 K/uL (0.24-0.82) 03/29/22 05:30 Eos # (Auto) 0.05 K/uL (0-0.50) 03/29/22 05:30 Baso # (Auto) 0.02 K/uL (0-0.2) 03/29/22 05:30 Immature Gran # (Auto) 0.06 K/uL (0.00-0.02) H 03/29/22 05:30 PT 11.0 Seconds (9.0-12.0) 03/13/22 15:42 INR 1.0 (0.9-1.1) 03/13/22 15:42 APTT 22.6 Seconds (21.0-31.0) 03/15/22 06:54 PTT Ratio 0.8 03/15/22 06:54 Sodium 129 mmol/L (136-145) L 04/03/22 06:42 Potassium 4.1 mmol/L (3.5-5.1) 04/03/22 08:07 Chloride 98 mmol/L (98-107) 04/03/22 06:42 Carbon Dioxide 23 mmol/L (21-32) 04/03/22 06:42 Anion Gap 8 (3-11) 04/03/22 06:42 BUN 16 mg/dl (6-23) 04/03/22 06:42 Creatinine 0.73 mg/dl (0.6-1.2) 04/03/22 06:42 Est Cr Clr Drug Dosing 73.1 ml/min 04/03/22 06:42 Est GFR ( Amer) 93.4 ml/min 04/03/22 06:42 Est GFR (Non-Af Amer) 80.6 ml/min 04/03/22 06:42 BUN/Creatinine Ratio 21.9 (10-20) H 04/03/22 06:42 Glucose 153 mg/dl (70-99(Fasting)) H 04/03/22 06:42 POC Glucose 160 mg/dl (70-99) H 04/03/22 07:55 Lactate 0.8 mmol/L (0.4-2.0) 03/13/22 20:27 Calcium 9.4 mg/dl (8.5-10.1) 04/03/22 06:42 Magnesium 1.8 mg/dl (1.7-2.4) 03/15/22 06:54 Total Bilirubin 0.6 mg/dl (0.2-1.0) 04/03/22 06:42 AST 14 U/L (13-39) 04/03/22 08:07 ALT 11 U/L (7-52) 04/03/22 06:42 Alkaline Phosphatase 101 U/L (34-104) 04/03/22 06:42 Ammonia 34.0 umol/L (18-72) 03/13/22 17:09 Total Creatine Kinase 40 U/L (26-192) 03/13/22 15:42 Troponin I High Sens 11.1 pg/ml (0-14) D 03/13/22 15:42 Total Protein 6.8 gm/dl (6.0-8.3) 04/03/22 06:42 Albumin 3.0 gm/dl (3.4-5.0) L 04/03/22 06:42 Globulin 3.8 gm/dl (2.5-4.0) 04/03/22 06:42 Albumin/Globulin Ratio 0.8 (0.9-2) L 04/03/22 06:42 TSH 1.359 uIu/ml (0.300-4.500) 03/13/22 15:42 Urine Color Dark Yellow 03/31/22 13:53 Urine Appearance Turbid (Clear) A 07/09/22 13:53 Urine pH 5.0 (4.5-7.5) 03/31/22 13:[address] 1.016 (1.000-1.030) 03/31/22 13:53 Urine Protein 1+ (Negative) H 03/31/22 13:53 Urine Glucose (UA) Negative (Negative) 03/31/22 13:53 Urine Ketones Trace (Negative) H 03/31/22 13:53 Urine Blood 3+ (Negative) H 03/31/22 13:53 Urine Nitrite Negative (Negative) 03/31/22 13:53 Urine Bilirubin Negative (Negative) 03/31/22 13:53 Urine Urobilinogen Negative (Negative) 03/31/22 13:53 Ur Leukocyte Esterase 3+ (Negative) H 03/31/22 13:53 Urine WBC (Auto) >30 /hpf (0-5) H 03/31/22 13:53 Urine RBC (Auto) 10-30 /hpf (0-4) H 03/31/22 13:53 U Hyaline Cast (Auto) 1-5 /lpf (0-5) 03/31/22 13:53 U Epithel Cells (Auto) >30 /lpf (0-5) H 03/31/22 13:53 Urine Bacteria (Auto) 4+ (Negative) H 03/31/22 13:53 Urine Yeast Not Reportable 03/31/22 13:53 Urine Osmolality 467 mOsm/kg (500-800) L 04/03/22 09:00 SARS-CoV-2, RNA, NAAT POSITIVE (NEGATIVE) A* 03/23/22 11:[address] 03/13/22 15:50 CT head/brain wo con CLINICAL HISTORY: confusion Technique: Contiguous axial CT images of the head were acquired from the base of the skull to the vertex without intravenous contrast administration. Images were viewed in brain, subdural and bone windows. Automated dose lowering techniques and/or adjustment according to patient size were utilized for this exam. Comparison: Comparison is made to CT head 03/03/2022 Findings: Areas of decreased attenuation are present in the periventricular and subcortical white matter bilaterally consistent with small vessel ischemic disease. Generalized cerebral atrophy with commensurate enlargement of the ventricles, sulci, and cisterns is also present. There is no acute intracranial hemorrhage or evidence of acute territorial infarction. No shift of the midline structures, mass effect, or extra-axial abnormalities are shown. Atherosclerotic calcifications are present in the intracranial segments of the internal carotid arteries. 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 Right maxillary sinus opacification is seen. The orbits appear normal. There are no acute fractures of the calvaria or scalp swelling. Impression: No acute intracranial hemorrhage, no evidence of acute territorial infarction or other acute intracranial disease process. ACT 112: Negative or not required by law. Electronically signed by: Ankit Angelo M.D. 03/13/2022 4:28 PM Chest X-Ray 03/13/22 15:51 XR chest 1V portable CLINICAL HISTORY: weakness TECHNIQUE: Single frontal radiograph of the chest was obtained. Comparison: Comparison is made to chest radiograph 02/27/2022 FINDINGS: No lines and tubes are seen. Cardiomegaly is noted. Prominence and cephalization of the vasculature is seen. No evidence of pleural effusion or pneumothorax. Redemonstration of cervical fixation hardware. IMPRESSION: Clinical megaly with mild pulmonary edema. ACT 112: Negative or not required by law. Electronically signed by: Ankit Angelo M.D. 03/13/2022 4:22 PM Abdomen/Pelvis CT 03/13/22 19:10 CT OF THE ABDOMEN AND PELVIS WITH CONTRAST CLINICAL HISTORY: Elevated liver enzymes. COMPARISON STUDY: CT of the abdomen and pelvis February 22, 2022. TECHNIQUE: Following IV administration of 94 mL of Optiray, axial images of the abdomen and pelvis were obtained from the lung bases to the proximal femurs. Images were reviewed in the axial, sagittal, and coronal planes. IV contrast was administered without complication. Automated exposure control was utilized for the study. A dose lowering technique was utilized adhering to the principles of ALARA. CT DOSE: 1558.92 mGy.cm FINDINGS: No pneumatosis, free air or portal venous gas is present. There is mild intrahepatic biliary ductal dilatation. Although the caliber of the common bile duct is normal, there is abrupt caliber change of the distal common bile duct shown on axial image 157 of 501. Note is again made of a pancreatic head and neck mass that measures 5 x 4.1 cm. This is similar to CT of February 22, 2022. Adjacent infiltrative soft tissue is noted. This extends along the celiac axis and superior mesenteric artery. This also extends toward the lesser curvature of the stomach with suspected underlying fistula. Pancreatic ductal dilatation is unchanged. The appearance of the abdomen is similar to CT of February 22, 2022. No hepatic lesions are identified. A bandlike hypodensity within the medial segment of the liver is slightly less conspicuous than on prior exam. Spleen, adrenal glands and right kidney are unremarkable. Marked left renal atrophy is again noted. Is no hydronephrosis. There is no evidence for a bowel obstruction. Moderate amount stool within the rectum is noted. Left hip arthroplasty is noted. There are no suspicious lesions within the visualized skeletal structures. IMPRESSION: 1. No significant change in the infiltrative hypodense mass within the pancreatic head and neck since CT of February 22, 2022. Associated pancreatic ductal dilatation. Mild intrahepatic biliary ductal dilatation. This is suggestive of pancreatic adenocarcinoma. Associated infiltrative soft tissue consistent with tumor along the celiac axis and superior mesenteric artery and extending toward the lesser curvature of the stomach with suspected underlying fistula. 2. No bowel obstruction. 3. No significant change since prior CT. ACT 112: Negative or not required by law. Electronically signed by: Jeremi Delgado M.D. 03/13/2022 8:11 PM Pelvis Ultrasound 03/20/22 09:47 US pelvic complete, US transvaginal CLINICAL HISTORY: Concern gynecologic source of pacreatic mass TECHNIQUE: Real-time sonographic images of the pelvic contents were obtained with transabdominal technique. Transvaginal technique was attempted but unsuccessful. Comparison: None available at the time of this dictation. FINDINGS: The uterus measures 8.1 x 1.7 x 3.1 cm. The endometrial cavity echo stripe measures 0.3 cm in thickness. The uterus is normal in appearance. The right ovary measures 3.1 x 2.3 x 2.6 cm and is normal in appearance The left ovary was not seen. There was no fluid in the cul-de-sac. IMPRESSION: Normal transvaginal pelvic ultrasound. ACT 112: Negative or not required by law. Electronically signed by: Ankit Angelo M.D. 03/20/2022 2:29 PM Transvaginal US 03/20/22 09:47 US pelvic complete, US transvaginal CLINICAL HISTORY: Concern gynecologic source of pacreatic mass TECHNIQUE: Real-time sonographic images of the pelvic contents were obtained with transabdominal technique. Transvaginal technique was attempted but unsuccessful. Comparison: None available at the time of this dictation. FINDINGS: The uterus measures 8.1 x 1.7 x 3.1 cm. The endometrial cavity echo stripe measures 0.3 cm in thickness. The uterus is normal in appearance. The right ovary measures 3.1 x 2.3 x 2.6 cm and is normal in appearance The left ovary was not seen. There was no fluid in the cul-de-sac. IMPRESSION: Normal transvaginal pelvic ultrasound. ACT 112: Negative or not required by law. Electronically signed by: Ankit Angelo M.D. 03/20/2022 2:29 PM Venous Doppler Study 03/25/22 09:06 RIGHT LOWER EXTREMITY VENOUS DOPPLER CLINICAL HISTORY: RLE/calf tenderness to palpation, COVID+ COMPARISON STUDY: No previous studies for comparison. TECHNIQUE: Sonography of the deep venous system of the right lower extremity was performed. Compression and augmentation were evaluated. FINDINGS: The right common femoral, superficial femoral and popliteal veins were compressible. Augmentation was normal. Flow was shown within the deep calf vessels although the calf vessels were suboptimally visualized in this patient. IMPRESSION: No evidence of deep venous thrombus within the right lower extremity although right calf vessels suboptimally visualized. ACT 112: Negative or not required by law. Electronically signed by: Jeremi Delgado M.D. 03/25/2022 10:57 AM Hospital Course (1) Encephalopathy acute: 76yo F with PMHx of breast cancer s/p lumpectomy, chemo and XRT (2008) paroxysmal A-fib, T2DM, HTN, HLD, hypothyroidism and newly diagnosed pancreatic mass suspicious for pancreatic cancer admitted for altered mental status and acute transaminitis w/ concern for biliary stricture. Asymptomatic COVID Positive (03/23/2022) -delay in discharge planning; otherwise medically stable for discharge ->10 days s/p +covid, precautions removed Encephalopathy, improved - CT head 03/13: without acute intracranial pathology - MRI brain from 02/23 did not show brain mets - CXR 03/13: cardiomegaly, mild pulmonary edema - Ammonia level wnl - likely 2/2 to medication side effect interacting with decreased hepatic function. -Initially suspicious for infection. No elevated WBC noted. Bl and urine cx neg. Patient treated with zosyn (d/c 03/16) and cefdinir, flagyl (both d/c 03/20) -Baclofen, Tramadol, gabapentin, Cymbalta discontinued; possible contribution to worse mental status Delirium -waxing/waning symptoms likely 2/2 prolonged hospital stay, possibly in combination with hyponatremia and UTI -continue to reorient daily, appears to be near baseline Hyponatremia, acute on chronic -likely due to combination of hypovolemia, possible SIADH -Na improved -cont. fluid restriction 1500mL + salt tabs 2g bid KAREN, resolved -new onset (03/31), likely due to fluid restriction -appeared prerenal, give 500mL NSS bolus x1 -Cr wnl, stable Symptomatic Bacteriuria -UA infectious, +culture (e. coli) -denies urinary symptoms, but ongoing delirium possible 2/2 infection -treated with keflex 500mg qid x3 days Biliary stricture 2/2 Pancreatic mass, s/p EUS, ERCP and biliary sphincterotomy (03/15) - CT abd/pelvis 03/13: pancreatic ductal dilatation, mild intrahepatic biliary ductal dilation suggestive of pancreatic adenocarcinoma. 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 toward lesser curve of stomach - Chest CTA 02/22: no mets, pancreatic mass encases hepatic/splenic arteries @ celiac bifurcation, low attenuation w/in anterior lobe concerning for steatosis or hepatic infarct - ERCP: severe, malignant appearing biliary stricture in lower third of main bile duct - Biliary sphincterotomy and stent placed in common bile duct - GI recommended referral to surgical oncology; will refer patient in outpatient setting for evaluation of surgical resection Pancreatic mass: - Chest CTA 02/22: no mets, pancreatic mass encases hepatic/splenic arteries @ celiac bifurcation, low attenuation w/in anterior lobe concerning for steatosis or hepatic infarct - UES for FNA of pancreatic head mass: 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 PT/O at [facility] Elevated LFTs, resolved - likely 2/2 biliary stricture - AST, ALT resolved - alk phos (04/02): 101 AFib - Cont. amioderone, eliquis - low suspicion of amiodarone causing initial transaminitis Right lower extremity/calf pain, resolved - Patient w/ right LE calf pain on exam (03/25) - RLE Doppler US (03/25): No evidence of DVT Constipation -cont. miralax daily DM2: -resume home metformin 500mg daily HTN: - continue metoprolol 25 mg - continue Losartan 25 mg HLD: - continue pravastatin Hypothyroidism: - Continue home levothyroxine Hypomagnesemia, resolved (2) Mass of pancreas: (3) Transaminitis: (4) Paroxysmal atrial fibrillation: (5) Type 2 diabetes mellitus: (6) Hyperlipidemia: (7) Hypothyroidism: Total Time Total Time Spent Total Time Spent (In Minutes): 30 Discharge Plan Discharge Items Patient Disposition: Transfer Correction Fac Reason For Visit: ALTERED MENTAL STATUS Discharge Diagnosis: Encephalopathy secondary to pancreatic mass Condition on Discharge: Fair Activity: Per Instructions section Non-emergency contact: Primary Care Provider Call non-emergency contact if: you have any medication questions, your symptoms worsen and you have a fever Follow-up/Referrals: Outside Location [Outside] (Patient to be connected with Surgical Oncology in 1- 2 months for evaluation pancreatic mass. Please use patient's POA as set up person Oracio Delaney. [facility] phone number [phone], option 1. If needs faxed info fax it to [phone]) Tyler Ramirez, DO [Primary Care Provider] - (Patient requires referral to surgical oncology for evaluation of her pancreatic mass, GI suggests whipple procedure) Diet: Carb Consistent or DM2 Addtl Attending Provider Instructions: 76yo F with PMHx of breast cancer s/p lumpectomy, chemo and XRT (2008) paroxysmal A-fib, T2DM, HTN, HLD, hypothyroidism and newly diagnosed pancreatic mass suspicious for pancreatic cancer admitted for altered mental status and acute transaminitis w/ concern for biliary stricture. Asymptomatic COVID Positive (03/23/2022) -delay in discharge planning; otherwise medically stable for discharge ->10 days s/p +covid, precautions removed Encephalopathy,improved - CT head 03/13: without acute intracranial pathology - MRI brain from 02/23 did not show brain mets - CXR 03/13: cardiomegaly, mild pulmonary edema - Ammonia level wnl - likely 2/2 to medication side effect interacting with decreased hepatic function. -Initially suspicious for infection. No elevated WBC noted. Bl and urine cx neg. Patient treated with zosyn (d/c 03/16) and cefdinir, flagyl (both d/c 03/20) -Baclofen, Tramadol, gabapentin, Cymbalta discontinued; possible contribution to worse mental status Delirium -waxing/waning symptoms likely 2/2 prolonged hospital stay, possibly in combination with hyponatremia and UTI -continue to reorient daily, appears to be near baseline Hyponatremia, acute on chronic -likely due to combination of hypovolemia, possible SIADH -Na 129, improved; b/l ~130 -cont. fluid restriction 1500mL + salt tabs 2g bid -recommend repeat CMP in 2-3 days KAREN,resolved -new onset (03/31), likely due to fluid restriction -appeared prerenal, give 500mL NSS bolus x1 -Cr stable Symptomatic Bacteriuria -UA infectious, +culture (e. coli) -denies urinary symptoms, but ongoing delirium possible 2/2 infection -will tx with keflex 500mg qid x3 days Biliary stricture 2/2 Pancreatic mass, s/p EUS, ERCP and biliary sphincterotomy (03/15) - CT abd/pelvis 03/13: pancreatic ductal dilatation, mild intrahepatic biliary ductal dilation suggestive of pancreatic adenocarcinoma. 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 toward lesser curve of stomach - Chest CTA 02/22: no mets, pancreatic mass encases hepatic/splenic arteries @ celiac bifurcation, low attenuation w/in anterior lobe concerning for steatosis or hepatic infarct - ERCP: severe, malignant appearing biliary stricture in lower third of main bile duct - Biliary sphincterotomy and stent placed in common bile duct - GI recommended referral to surgical oncology; will refer patient in outpatient setting for evaluation of surgical resection Pancreatic mass: - Chest CTA 02/22: no mets, pancreatic mass encases hepatic/splenic arteries @ celiac bifurcation, low attenuation w/in anterior lobe concerning for steatosis or hepatic infarct - UES for FNA of pancreatic head mass: 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 PT/OT at [facility] Elevated LFTs, resolved - likely 2/2 biliary stricture - AST, ALT resolved - alk phos (04/03): 101 AFib - Cont. amioderone, eliquis - low suspicion of amiodarone causing initial transaminitis Right lower extremity/calf pain, resolved - Patient w/ right LE calf pain on exam (03/25) - RLE Doppler US (03/25): No evidence of DVT Constipation -cont. miralax daily DM2: -resume home metformin 500mg daily HTN: - continue metoprolol 25 mg - continue Losartan 25 mg HLD: - continue pravastatin Hypothyroidism: - Continue home levothyroxine Hypomagnesemia, resolved Pending Studies at Discharge: No Stand-Alone Forms: My [facility] [employer] Skilled Items Patient informed of condition?: Yes DNR: No (Conditional code, no CPR, yes medication and defibrillation) Discharge Level of Care: Acute rehab Communicable Disease: No Discharge Prognosis: Stable Lines: None Urinary Catheter: No Medications and DC Order Prescriptions: New cephalexin 500 mg capsule 500 mg PO QID Qty: 8 RF: 0 sodium chloride 1 gram tablet 2,000 mg PO BID Qty: 30 RF: 0 Continued levothyroxine 25 mcg tablet 25 mcg PO QAM Qty: 90 RF: 1 oxybutynin chloride 5 mg tablet 5 mg PO QPM Qty: 30 RF: 1 metformin 500 mg tablet,ER chicho.retention 24 hr 500 mg PO QPM Qty: 90 RF: 1 cholecalciferol (vitamin D3) 1,000 unit capsule 1,000 units PO HS RF: 0 pravastatin 10 mg tablet 10 mg PO DAILY Qty: 90 RF: 3 metoprolol tartrate 25 mg tablet 25 mg PO BID Qty: 180 RF: 3 potassium chloride 10 mEq tablet extended release 10 meq PO DAILY RF: 0 (DME) Wheeled Walker Misc See Rx Instructions .Route Qty: 1 RF: 0 amiodarone 200 mg Tablet 400 mg PO BID Qty: 66 RF: 0 pantoprazole 40 mg Tablet,Delayed Release (Dr/Ec) 40 mg PO BID Qty: 60 RF: 0 losartan 25 mg Tablet 25 mg PO QAM Qty: 30 RF: 0 Eliquis 5 mg tablet 5 mg PO BID Qty: 180 RF: 0 Discontinued duloxetine 60 mg capsule,delayed release(DR/EC) 60 mg PO HS Qty: 90 RF: 3 gabapentin 100 mg capsule 100 mg PO BID RF: 0 baclofen 10 mg tablet 10 mg PO BID RF: 0 tramadol 50 mg tablet 50 mg PO Q8H PRN (Reason: Pain) RF: 0 Discharge Orders: Discharge Order (Routine); Ordered 04/03/22 Ordered By: Vic Louise Admission Data Admit Date/Time: 03/13/22 22:04 Attending Provider: Basilia Millard Admit Provider: Flor Arreguin Primary Care Provider: Tyler Ramirez Other Providers: Love Brown ; [place] ; Usman Pete ; Basilia Millard ; Kushal Vasquez Other Interventions: Discharge Summary Assessment (RN) Last Done: 04/03/22 13:58 Supervising Physician Co-Signing Physician Notes Resident Physician Supervision Note: I independently interviewed and examined the patient and verified the gonzales history and physical, reviewed labs and image studies and agree with resident Dr. Louise findings and care plan. Resident Activity Tracking Resident Involvement: Resident Care Provided Care Provided: Adult Hospital Medicine
== END 2022-04-03 15:18 | DRG 444 ==
LOC: ED 15:19 → SUATTDRO 22:04 → 2S 22:04 → 3W 03-16 19:51 → 3E 03-23 15:34